=== PATIENT | female | born 1950 | race Hispanic/Latino ===

== ENCOUNTER 2017-10-07 16:38 | Inpatient (IN) | payer MEDICARE, MEDICAID ==
[2017-10-07 19:21] LABS: Basophils % (Auto) 0.2 % (0.0-1.8); Eosinophils % (Auto) 0.9 % (0.0-4.3); Hemoglobin 10.2 gm/dl (10.1-14.3); Mean Corpuscular HGB Conc 33 % (30-34); Mean Corpuscular Hemoglobin 33 pg (28-32); Mean Corpuscular Volume 100 fl (79-97); Platelet Count 309 K/mm3 (140-440); Red Blood Count 3.09 M/mm3 (3.65-5.03); Red Cell Distribution Width 15.5 % (13.2-15.2); White Blood Count 15.1 K/mm3 (4.5-11.0)
[2017-10-07 19:31] LABS: Albumin 3.6 g/dL (3.9-5); Albumin/Globulin Ratio 1.1 %; Bilirubin,Total 0.2 mg/dL (0.1-1.2); Calcium 9.4 mg/dL (8.4-10.2); Chloride 94.5 mmol/L (98-107); Potassium 3.6 mmol/L (3.6-5.0); Total Protein 6.9 g/dL (6.3-8.2)
[2017-10-07 19:35] LABS: INR 1.03 (0.87-1.13)
[2017-10-07 19:36] LABS: Partial Thromboplastin Time 40.6 Sec. (24.2-36.6)
--- NOTE | 2017-10-07 22:40 | Emergency Department Report ---
ED GI Bleed HPI - General Chief complaint: GI Bleed Stated complaint: rectal bleeding and chest pain Time Seen by Provider: 10/07/17 22:35 Source: patient Mode of arrival: Wheelchair Limitations: No Limitations - History of Present Illness Initial comments: Patient is a 67-year-old female presents to the emergency room with complaints of rectal bleeding and chest pain 30 minutes. Patient has a history of dementia. Per family, patient had dark blood per rectum along with clots just prior to arrival. Patient states she had chest pain. States the chest pain as a pressure in his left chest. Pain does not radiate and is a 4 out of 10. She denies abdominal pain. Patient had nausea but no vomiting. Patient denies rectal pain. Complains of fever. MD complaint: blood on toilet paper, gross hematochezia -: Sudden Radiation: none Severity scale (0 -10): 0 Consistency: constant Improves with: none Worsens with: none Context: hemorrhoids Associated Symptoms: denies other symptoms Treatments Prior to Arrival: none - Related Data Home Medications Medication Instructions Recorded Confirmed Last Taken clonazePAM [KlonoPIN] 0.5 mg PO QID PRN 09/26/17 09/26/17 09/26/17 predniSONE [Deltasone] 20 mg PO QDAY 09/26/17 09/26/17 09/26/17 Previous Rx's Medication Instructions Recorded Last Taken Type Aspirin EC [Aspirin Enteric Coated 81 mg PO QDAY #30 tablet 09/30/17 Unknown Rx TAB] AtorvaSTATin [Lipitor] 80 mg PO QDAY #30 tablet 09/30/17 Unknown Rx Carvedilol [Coreg] 25 mg PO BID #60 tablet 09/30/17 Unknown Rx Cetirizine HCl [All Day Allergy] 10 mg PO DAILY #30 tablet 09/30/17 Unknown Rx Citalopram [celeXA] 10 mg PO QDAY #30 tablet 09/30/17 Unknown Rx Clopidogrel Bisulfate [Plavix] 75 mg PO QDAY #30 tablet 09/30/17 Unknown Rx Donepezil [Aricept] 5 mg PO QHS #30 tablet 09/30/17 Unknown Rx Furosemide [Lasix TAB] 40 mg PO QDAY #30 tablet 09/30/17 Unknown Rx Gabapentin [Neurontin] 300 mg PO Q8HR #30 capsule 09/30/17 Unknown Rx Hydralazine HCl 50 mg PO TID #30 tablet 09/30/17 Unknown Rx Levemir 10 units SC HS #30 09/30/17 Unknown Rx Levothyroxine [Synthroid] 125 mcg PO QAM #30 tablet 09/30/17 Unknown Rx amLODIPine [Norvasc] 10 mg PO DAILY #30 tablet 09/30/17 Unknown Rx buPROPion SR [Wellbutrin SR] 150 mg PO BID #60 tablet 09/30/17 Unknown Rx sulfaSALAzine [Azulfidine] 500 mg PO Q6HR #30 tablet 09/30/17 Unknown Rx Allergies Allergy/AdvReac Type Severity Reaction Status Date / Time No Known Allergies Allergy Verified 10/07/17 17:28 ED Review of Systems ROS: Stated complaint: VAG DISCHARGE Other details as noted in HPI Comment: All other systems reviewed and negative Constitutional: fever Eyes: as per HPI ENT: as per HPI Respiratory: no symptoms reported, see HPI Cardiovascular: as per HPI, chest pain Endocrine: no symptoms reported Gastrointestinal: as per HPI, nausea, hematochezia Genitourinary: as per HPI Musculoskeletal: as per HPI Skin: as per HPI Neurological: as per HPI Psychiatric: as per HPI Hematological/Lymphatic: as per HPI ED Past Medical Hx - Past Medical History Hx Hypertension: Yes Hx CVA: Yes Hx Congestive Heart Failure: Yes Hx Diabetes: Yes Hx Renal Disease: Yes Additional medical history: hypothyroidism fx humerus/ deminta - Social History Smoking Status: Former Smoker Substance Use Type: None - Medications Home Medications: Home Medications Medication Instructions Recorded Confirmed Last Taken Type clonazePAM [KlonoPIN] 0.5 mg PO QID PRN 09/26/17 09/26/17 09/26/17 History predniSONE [Deltasone] 20 mg PO QDAY 09/26/17 09/26/17 09/26/17 History Aspirin EC [Aspirin Enteric Coated 81 mg PO QDAY #30 tablet 09/30/17 Unknown Rx TAB] AtorvaSTATin [Lipitor] 80 mg PO QDAY #30 tablet 09/30/17 Unknown Rx Carvedilol [Coreg] 25 mg PO BID #60 tablet 09/30/17 Unknown Rx Cetirizine HCl [All Day Allergy] 10 mg PO DAILY #30 tablet 09/30/17 Unknown Rx Citalopram [celeXA] 10 mg PO QDAY #30 tablet 09/30/17 Unknown Rx Clopidogrel Bisulfate [Plavix] 75 mg PO QDAY #30 tablet 09/30/17 Unknown Rx Donepezil [Aricept] 5 mg PO QHS #30 tablet 09/30/17 Unknown Rx Furosemide [Lasix TAB] 40 mg PO QDAY #30 tablet 09/30/17 Unknown Rx Gabapentin [Neurontin] 300 mg PO Q8HR #30 capsule 09/30/17 Unknown Rx Hydralazine HCl 50 mg PO TID #30 tablet 09/30/17 Unknown Rx Levemir 10 units SC HS #30 09/30/17 Unknown Rx Levothyroxine [Synthroid] 125 mcg PO QAM #30 tablet 09/30/17 Unknown Rx amLODIPine [Norvasc] 10 mg PO DAILY #30 tablet 09/30/17 Unknown Rx buPROPion SR [Wellbutrin SR] 150 mg PO BID #60 tablet 09/30/17 Unknown Rx sulfaSALAzine [Azulfidine] 500 mg PO Q6HR #30 tablet 09/30/17 Unknown Rx ED Physical Exam - General Limitations: No Limitations General appearance: alert, in no apparent distress - Head Head exam: Present: atraumatic, normocephalic - Eye Eye exam: Present: normal appearance - ENT ENT exam: Present: mucous membranes moist - Neck Neck exam: Present: normal inspection - Respiratory Respiratory exam: Present: normal lung sounds bilaterally. Absent: respiratory distress - Cardiovascular Cardiovascular Exam: Present: regular rate, normal rhythm. Absent: systolic murmur, diastolic murmur, rubs, gallop - GI/Abdominal GI/Abdominal exam: Present: soft, normal bowel sounds - Rectal Rectal exam: Present: normal rectal tone, heme (+) stool, bloody stool, hemorrhoids, other (nurse naveen in room during exam) - Extremities Exam Extremities exam: Present: normal inspection - Back Exam Back exam: Present: normal inspection - Neurological Exam Neurological exam: Present: alert, oriented X3 - Psychiatric Psychiatric exam: Present: normal affect, normal mood - Skin Skin exam: Present: warm, dry, intact, normal color. Absent: rash ED Course Vital Signs 10/07/17 10/07/17 17:30 22:03 Temperature 99.3 F 100.1 F H Pulse Rate 74 81 Respiratory 18 20 Rate Blood Pressure 160/56 167/57 O2 Sat by Pulse 100 92 Oximetry ED Medical Decision Making - Lab Data Result diagrams: 10/07/17 18:24 10/07/17 18:24 - EKG Data -: EKG Interpreted by Me EKG shows normal: sinus rhythm Rate: normal - EKG Data When compared to previous EKG there are: no significant change Interpretation: no acute changes Critical care attestation.: If time is entered above; I have spent that time in minutes in the direct care of this critically ill patient, excluding procedure time. ED Disposition Clinical Impression: Colitis, Chest pain, Rectal bleeding, ESRD on dialysis Disposition: OP ADMIT IP TO THIS HOSP Is pt being admited?: Yes Does the pt Need Aspirin: No Condition: Serious Time of Disposition: 00:55
--- NOTE | 2017-10-08 00:37 | Cat Scan Report ---
FINAL REPORT EXAM: CT ABDOMEN PELVIS WO CON HISTORY: gi bleeed TECHNIQUE: Routine axial imaging was obtained of the abdomen and pelvis without oral or IV contrast. Sagittal and coronal reconstructions were reviewed. FINDINGS: The lung bases reveal interstitial edema and small effusions compatible with CHF. The spleen is normal in size and reveals benign granulomatous calcifications. The gallbladder has been removed. The liver and biliary tree appear normal. The pancreas appears normal. The kidneys reveal multiple nonobstructing stones bilaterally measuring up to 4 millimeters in diameter. There is no evidence of hydronephrosis. There calcification of the abdominal aorta. The bowel loops in the upper abdomen are normal in caliber and course. The appendix is not enlarged. In the pelvis there is diffuse mucosal thickening of the rectum with reticulation of the perirectal fascia compatible with extensive proctitis. There is mild mucosal thickening in the sigmoid colon also. Free fluid is not seen. The uterus and bladder appear normal. The skeletal structures reveal previous ORIF for left hip fracture. IMPRESSION: Extensive proctitis with mild sigmoid colitis. Congestive heart failure with bilateral small effusions. Cholecystectomy. Multiple nonobstructing stones both kidneys. No evidence of hydronephrosis.
[2017-10-08] MEDS ORDERED: ZOSYN/NS 2.25 GM/50ML 2.25 GM/50 ML BAG IV ONE (00:56)
[2017-10-08] MEDS ORDERED: ASPIRIN PO ONE (01:59)
[2017-10-08] MEDS ORDERED: MORPHINE IV ONE (03:15)
[2017-10-08] MEDS ORDERED: MORPHINE IV PRN (03:19)
[2017-10-08] MEDS ORDERED: ZOFRAN IV PRN (03:19)
[2017-10-08] MEDS ORDERED: LEVAQUIN 500MG/100ML 500 MG/100 ML BAG IV SCH (04:00)
[2017-10-08] MEDS ORDERED: LEVAQUIN 500MG/100ML 500 MG/100 ML BAG IV ONE (04:26)
[2017-10-08] MEDS ORDERED: FLAGYL 500 MG/100 ML 500 MG/100 ML BAG IV ONE (04:26)
[2017-10-08] MEDS: FLAGYL 500 MG/100 ML 500 MG/100 ML BAG IV SCH ×3 (04:27→20:30)
--- NOTE | 2017-10-08 04:47 | History and Physical Report ---
History of Present Illness Date of examination: 10/08/17 Date of admission: 10/08/17 03:19 History of present illness: 67-year-old woman history of CHF, hypertension, end-stage renal disease, coronary artery disease, diabetes, hypothyroidism, hyperlipidemia comes emergency room with complaints of rectal bleeding 2 episodes. She denies chest pain, abdominal pain, nausea vomiting Review Of Systems: Constitutional: no weight loss Ears, eyes, nose, mouth and throat: no nasal congestion, no nasal discharge, no sinus pressure, blurry vision, diplopia Neck: No neck pain or rigidity. Cardiovascular: no chest pain, orthopnea, palpitations Respiratory: No shortness of breath, cough Gastrointestinal: no abdominal pain Genitourinary : no dysuria, frequency , hematuria Musculoskeletal: no muscle ache Integumentary: no rash, no pruritis Neurological: no parathesias, focal weakness Endocrine: no cold or heat intolerance, no polyuria or polydipsia Hematologic/Lymphatic: no easy bruising, no easy bleeding, no gland swelling Allergic/Immunologic: no urticaria, no angioedema. PAST MEDICAL HISTORY:CHF, hypertension, end-stage renal disease, coronary artery disease, diabetes, hypothyroidism, hyperlipidemia PAST SURGICAL HISTORY: CABG FAMILY HISTORY:Hypertension SOCIAL HISTORY:Smoke half pack a day, no alcohol or drugs Medications and Allergies Allergies Allergy/AdvReac Type Severity Reaction Status Date / Time No Known Allergies Allergy Verified 10/07/17 17:28 Home Medications Medication Instructions Recorded Confirmed Last Taken Type clonazePAM [KlonoPIN] 0.5 mg PO QID PRN 09/26/17 09/26/17 09/26/17 History predniSONE [Deltasone] 20 mg PO QDAY 09/26/17 09/26/17 09/26/17 History Aspirin EC [Aspirin Enteric Coated 81 mg PO QDAY #30 tablet 09/30/17 Unknown Rx TAB] AtorvaSTATin [Lipitor] 80 mg PO QDAY #30 tablet 09/30/17 Unknown Rx Carvedilol [Coreg] 25 mg PO BID #60 tablet 09/30/17 Unknown Rx Cetirizine HCl [All Day Allergy] 10 mg PO DAILY #30 tablet 09/30/17 Unknown Rx Citalopram [celeXA] 10 mg PO QDAY #30 tablet 09/30/17 Unknown Rx Clopidogrel Bisulfate [Plavix] 75 mg PO QDAY #30 tablet 09/30/17 Unknown Rx Donepezil [Aricept] 5 mg PO QHS #30 tablet 09/30/17 Unknown Rx Furosemide [Lasix TAB] 40 mg PO QDAY #30 tablet 09/30/17 Unknown Rx Gabapentin [Neurontin] 300 mg PO Q8HR #30 capsule 09/30/17 Unknown Rx Hydralazine HCl 50 mg PO TID #30 tablet 09/30/17 Unknown Rx Levemir 10 units SC HS #30 09/30/17 Unknown Rx Levothyroxine [Synthroid] 125 mcg PO QAM #30 tablet 09/30/17 Unknown Rx amLODIPine [Norvasc] 10 mg PO DAILY #30 tablet 09/30/17 Unknown Rx buPROPion SR [Wellbutrin SR] 150 mg PO BID #60 tablet 09/30/17 Unknown Rx sulfaSALAzine [Azulfidine] 500 mg PO Q6HR #30 tablet 09/30/17 Unknown Rx Active Meds: Active Medications Acetaminophen (Tylenol) 650 mg PO Q4H PRN PRN Reason: Pain MILD(1-3)/Fever >100.5/[facility]DEZ Amlodipine Besylate (Norvasc) 10 mg PO DAILY [facility] Atorvastatin Calcium (Lipitor) 80 mg PO QDAY [facility] Bupropion HCl (Wellbutrin Sr) 150 mg PO BID [facility] Citalopram Hydrobromide (Celexa) 10 mg PO QDAY [facility] Clonazepam (Klonopin) 0.5 mg PO QID PRN PRN Reason: Anxiety Donepezil HCl (Aricept) 5 mg PO QHS [facility] Gabapentin (Neurontin) 300 mg PO Q8HR [facility] Metronidazole (Flagyl 500 Mg/100 Ml) 500 mg in 100 mls @ 100 mls/hr IV Q8H [facility] Last Admin: 10/08/17 04:27 Dose: 100 mls/hr Levofloxacin/Dextrose (Levaquin 500mg/100ml) 500 mg in 100 mls @ 100 mls/hr IV Q48H [facility] Levothyroxine Sodium (Synthroid) 125 mcg PO QAM@0600 [facility] Loratadine (Claritin) 10 mg PO DAILY [facility] Morphine Sulfate (Morphine) 2 mg IV Q4H PRN PRN Reason: Pain, Moderate (4-6) Ondansetron HCl (Zofran) 4 mg IV Q8H PRN PRN Reason: N/V unrelieved by Reglan Prednisone (Deltasone) 20 mg PO QDAY [facility] Sulfasalazine (Azulfidine) 500 mg PO Q6HR [facility] Exam - Physical Exam Narrative exam: Gen. appearance: Patient lying in bed in no acute distress HEENT: Normocephalic/atraumatic, pupils equal round reactive to light, extra alkaline movement intact, no scleral icterus, no JVD or thyromegaly or nodule, neck is supple, mucous membrane moist, no erythema or exudate Heart: S1-S2, regular rate and rhythm Lungs: Clear to auscultation bilateral breathing comfortable Abdomen: Positive bowel sounds, nontender, nondistended, no organomegaly Extremities: No edema, cyanosis, clubbing Neuro:: Oriented 3 , cranial nerves II-12 intact, speech, motor intact Skin: No rash, nodules, warm dry - Constitutional Vitals: Temp Pulse Resp BP Pulse Ox 100.1 F H 77 10 L 153/56 92 10/08/17 01:24 10/08/17 03:00 10/08/17 03:00 10/08/17 03:00 10/08/17 03:00 Results - Labs CBC & Chem 7: 10/07/17 18:24 10/07/17 18:24 Labs: Abnormal lab results 10/07/17 10/07/17 10/07/17 Range/Units 18:24 18:24 18:24 WBC 15.1 H (4.5-11.0) K/mm3 RBC 3.09 L (3.65-5.03) M/mm3 MCV 100 H (79-97) fl MCH 33 H (28-32) pg RDW 15.5 H (13.2-15.2) % Lymph % (Auto) 8.2 L (13.4-35.0) % Seg Neutrophils % 86.8 H (40.0-70.0) % Seg Neutrophils # 13.1 H (1.8-7.7) K/mm3 APTT 40.6 H (24.2-36.6) Sec. Chloride 94.5 L (98-107) mmol/L Creatinine 2.3 H (0.7-1.2) mg/dL Glucose 194 H (65-100) mg/dL POC Glucose (70-105) Alkaline Phosphatase 149 H (35-129) units/L CK-MB (CK-2) Rel Index (0-4) Troponin T (0.00-0.029) ng/mL Albumin 3.6 L (3.9-5) g/dL Triglycerides (2-149) mg/dL LDL Cholesterol Direct (50-130) mg/dL 10/07/17 10/07/17 Range/Units 22:05 22:47 WBC (4.5-11.0) K/mm3 RBC (3.65-5.03) M/mm3 MCV (79-97) fl MCH (28-32) pg RDW (13.2-15.2) % Lymph % (Auto) (13.4-35.0) % Seg Neutrophils % (40.0-70.0) % Seg Neutrophils # (1.8-7.7) K/mm3 APTT (24.2-36.6) Sec. Chloride (98-107) mmol/L Creatinine (0.7-1.2) mg/dL Glucose (65-100) mg/dL POC Glucose 258 H (70-105) Alkaline Phosphatase (35-129) units/L CK-MB (CK-2) Rel Index 4.4 H (0-4) Troponin T 0.135 H* (0.00-0.029) ng/mL Albumin (3.9-5) g/dL Triglycerides 389 H (2-149) mg/dL LDL Cholesterol Direct 40 L (50-130) mg/dL - Imaging and Cardiology CT scan - abdomen: report reviewed CT scan - pelvis: report reviewed Assessment and Plan Assessment Acute colitis and proctitis End-stage renal disease on dialysis Abnormal troponin, asymptomatic CHF, stable Hypertension Coronary artery disease Diabetes Hypothyroidism Hyperlipidemia Plan Admit to medicine Monitor hemoglobin, consult GI Consult renal for dialysis, check cardiac enzymes Check fingersticks and initiate insulin sliding scale Continue appropriate outpatient medication DVT prophylaxis with SCD
[2017-10-08] MEDS: LEVAQUIN 500MG/100ML 500 MG/100 ML BAG IV SCH (05:00)
[2017-10-08] MEDS: AZULFIDINE PO SCH ×3 (06:13→18:22)
[2017-10-08] MEDS: NEURONTIN PO SCH ×3 (06:13→23:02)
[2017-10-08] MEDS: SYNTHROID PO SCH (06:13)
[2017-10-08 06:43] LABS: Hematocrit 27.3 % (30.3-42.9); Hemoglobin 8.9 gm/dl (10.1-14.3)
[2017-10-08 07:06] LABS: Creatine Kinase MB 1.4 ng/mL (0.0-4.0)
--- NOTE | 2017-10-08 09:07 | Progress Note ---
Assessment and Plan Assessment and plan: Patient is a 67 year-old woman with a history of hypertension, end-stage renal disease, coronary artery disease, type 2 diabetes mellitus, hypothyroidism and dyslipidemia with who presents with rectal bleeding -Sepsis colitis: Continue antibiotics -Elevated troponin: Consult cardiology -End stage: Consult nephrology renal disease History Interval history: Patient was seen and examined. Follow-up on current diagnosis. Overnight uneventful. Patient denies any chest pain, shortness breath, nausea/vomiting or severe headaches. Imaging, nursing note, chart, labs and old chart reviewed. Discussed with patient. Hospitalist Physical - Physical exam Narrative exam: GEN: WDWN, NAD, AWAKE, ALERT, ORIENTATED HEENT: NCAT, EOMI, PERRL, OP Clear NECK: supple, no adenopathy, no thyromegaly, no JVD CVS/HEART: RRR, NORMAL S1S2, NO JVD, pulses present bilaterally CHEST/LUNGS: CTA B, Symmetrical chest expansion, good air entry bilaterally GI/Abdomen: soft, nondistended, diffuse tenderness, good bowel sounds, no guarding or rebound /Bladder: no suprapubic tenderness, no CVA or paraspinal tenderness EXT/Skin: no c/c/e, no obvious rash MSK: FROM x 4 Neuro: CN 2-12 grossly intact, no new focal deficits Psych: calm - Constitutional Vitals: Temp Pulse Resp BP Pulse Ox 98.1 F 75 18 141/54 99 10/08/17 06:38 10/08/17 06:38 10/08/17 06:38 10/08/17 06:38 10/08/17 08:10 Results - Labs CBC & Chem 7: 10/08/17 06:11 10/07/17 18:24 Labs: Laboratory Last Values WBC 15.1 K/mm3 (4.5-11.0) H 10/07/17 18:24 RBC 3.09 M/mm3 (3.65-5.03) L 10/07/17 18:24 Hgb 8.9 gm/dl (10.1-14.3) L 10/08/17 06:11 Hct 27.3 % (30.3-42.9) L 10/08/17 06:11 MCV 100 fl (79-97) H 10/07/17 18:24 MCH 33 pg (28-32) H 10/07/17 18:24 MCHC 33 % (30-34) 10/07/17 18:24 RDW 15.5 % (13.2-15.2) H 10/07/17 18:24 Plt Count 309 K/mm3 (140-440) 10/07/17 18:24 Lymph % (Auto) 8.2 % (13.4-35.0) L 10/07/17 18:24 Woods % (Auto) 3.9 % (0.0-7.3) 10/07/17 18:24 Eos % (Auto) 0.9 % (0.0-4.3) 10/07/17 18:24 Baso % (Auto) 0.2 % (0.0-1.8) 10/07/17 18:24 Lymph # 1.2 K/mm3 (1.2-5.4) 10/07/17 18:24 Woods # 0.6 K/mm3 (0.0-0.8) 10/07/17 18:24 Eos # 0.1 K/mm3 (0.0-0.4) 10/07/17 18:24 Baso # 0.0 K/mm3 (0.0-0.1) 10/07/17 18:24 Seg Neutrophils % 86.8 % (40.0-70.0) H 10/07/17 18:24 Seg Neutrophils # 13.1 K/mm3 (1.8-7.7) H 10/07/17 18:24 PT 14.0 Sec. (12.2-14.9) 10/07/17 18:24 INR 1.03 (0.87-1.13) 10/07/17 18:24 APTT 40.6 Sec. (24.2-36.6) H 10/07/17 18:24 Sodium 138 mmol/L (137-145) 10/07/17 18:24 Potassium 3.6 mmol/L (3.6-5.0) 10/07/17 18:24 Chloride 94.5 mmol/L (98-107) L 10/07/17 18:24 Carbon Dioxide 30 mmol/L (22-30) 10/07/17 18:24 Anion Gap 17 mmol/L 10/07/17 18:24 BUN 13 mg/dL (7-17) 10/07/17 18:24 Creatinine 2.3 mg/dL (0.7-1.2) H 10/07/17 18:24 Estimated GFR 21 ml/min 10/07/17 18:24 BUN/Creatinine Ratio 6 % 10/07/17 18:24 Glucose 194 mg/dL (65-100) H 10/07/17 18:24 POC Glucose 258 (70-105) H 10/07/17 22:05 Calcium 9.4 mg/dL (8.4-10.2) 10/07/17 18:24 Total Bilirubin 0.20 mg/dL (0.1-1.2) 10/07/17 18:24 AST 16 units/L (5-40) 10/07/17 18:24 ALT 14 units/L (7-56) 10/07/17 18:24 Alkaline Phosphatase 149 units/L (35-129) H 10/07/17 18:24 Total Creatine Kinase 40 units/L (30-135) 10/08/17 06:11 CK-MB (CK-2) 1.4 ng/mL (0.0-4.0) 10/08/17 06:11 CK-MB (CK-2) Rel Index 3.5 (0-4) 10/08/17 06:11 Troponin T 0.141 ng/mL (0.00-0.029) H* 10/08/17 06:11 Total Protein 6.9 g/dL (6.3-8.2) 10/07/17 18:24 Albumin 3.6 g/dL (3.9-5) L 10/07/17 18:24 Albumin/Globulin Ratio 1.1 % 10/07/17 18:24 Triglycerides 389 mg/dL (2-149) H 10/07/17 22:47 Cholesterol 167 mg/dL (50-199) 10/07/17 22:47 LDL Cholesterol Direct 40 mg/dL (50-130) L 10/07/17 22:47 HDL Cholesterol 50 mg/dL (40-59) 10/07/17 22:47 Cholesterol/HDL Ratio 3.34 % 10/07/17 22:47 Lipase 26 units/L (13-60) 10/07/17 18:24 Blood Type B POSITIVE 10/07/17 18:24 Antibody Screen Negative 10/07/17 18:24
[2017-10-08] MEDS ORDERED: NON-FORMULARY (Cetirizine Hcl [All Day Allergy] 10 MG) PO SCH (10:00)
[2017-10-08 10:29] LABS: Hematocrit 25.8 % (30.3-42.9); Hemoglobin 8.6 gm/dl (10.1-14.3)
[2017-10-08 10:36] LABS: Creatine Kinase MB 1.4 ng/mL (0.0-4.0)
[2017-10-08] MEDS: WELLBUTRIN SR PO SCH ×2 (10:40→23:02)
[2017-10-08] MEDS: CLARITIN PO SCH (10:40)
[2017-10-08] MEDS: DELTASONE PO SCH (10:40)
[2017-10-08] MEDS: celeXA PO SCH (10:41)
[2017-10-08] MEDS: NORVASC PO SCH (10:43)
[2017-10-08] MEDS ORDERED: Fluarix Quad 2017-2018(36 MOS+ IM ONE (12:00)
[2017-10-08] MEDS ORDERED: PNEUMOVAX 23 IM ONE (12:00)
--- NOTE | 2017-10-08 12:42 | Consultation ---
History of Present Illness Consult date: 10/08/17 Consult reason: elevated troponin History of present illness: The patient is a 67-year-old woman with end-stage renal disease, coronary artery disease and previous coronary artery bypass. She presented to the hospital with complaints of diarrhea, nausea, and rectal bleeding associated with her diarrhea. The patient's daughter states that a "stomach virus" has afflicted several members of the household in the past 2 weeks. The patient had no cardiac symptoms, specifically no chest pain, no shortness of breath, no palpitations and no lower extremity edema. For unclear reasons, part of her emergency room evaluation included a measurement of troponin levels which were found to be mildly elevated at 0.1. Cardiology consultation was requested for the troponin elevation. The patient has had extensive recent cardiac ischemic workup. Last month, she underwent a cardiac catheterization at this hospital. There was a chronic total occlusion of the LAD, but a widely patent saphenous vein graft with anastomoses to the mid LAD and a proximal diagonal branch of the LAD. The circumflex and right coronary arteries were not previously bypassed, both were small caliber vessels that contained diffuse moderate to moderately severe atherosclerosis. There was normal left ventricle systolic function, and patient was recommended for aggressive risk factor modification and medical therapy for her diffuse small vessel disease. Patient is currently comfortable in her room on the telemetry floor, no cardiac complaints. Past History Past Medical History: CAD Past Surgical History: CABG Medications and Allergies Allergies Allergy/AdvReac Type Severity Reaction Status Date / Time No Known Allergies Allergy Verified 10/07/17 17:28 Home Medications Medication Instructions Recorded Confirmed Last Taken Type clonazePAM [KlonoPIN] 0.5 mg PO QID PRN 09/26/17 09/26/17 09/26/17 History predniSONE [Deltasone] 20 mg PO QDAY 09/26/17 09/26/17 09/26/17 History Aspirin EC [Aspirin Enteric Coated 81 mg PO QDAY #30 tablet 09/30/17 Unknown Rx TAB] AtorvaSTATin [Lipitor] 80 mg PO QDAY #30 tablet 09/30/17 Unknown Rx Carvedilol [Coreg] 25 mg PO BID #60 tablet 09/30/17 Unknown Rx Cetirizine HCl [All Day Allergy] 10 mg PO DAILY #30 tablet 09/30/17 Unknown Rx Citalopram [celeXA] 10 mg PO QDAY #30 tablet 09/30/17 Unknown Rx Clopidogrel Bisulfate [Plavix] 75 mg PO QDAY #30 tablet 09/30/17 Unknown Rx Donepezil [Aricept] 5 mg PO QHS #30 tablet 09/30/17 Unknown Rx Furosemide [Lasix TAB] 40 mg PO QDAY #30 tablet 09/30/17 Unknown Rx Gabapentin [Neurontin] 300 mg PO Q8HR #30 capsule 09/30/17 Unknown Rx Hydralazine HCl 50 mg PO TID #30 tablet 09/30/17 Unknown Rx Levemir 10 units SC HS #30 09/30/17 Unknown Rx Levothyroxine [Synthroid] 125 mcg PO QAM #30 tablet 09/30/17 Unknown Rx amLODIPine [Norvasc] 10 mg PO DAILY #30 tablet 09/30/17 Unknown Rx buPROPion SR [Wellbutrin SR] 150 mg PO BID #60 tablet 09/30/17 Unknown Rx sulfaSALAzine [Azulfidine] 500 mg PO Q6HR #30 tablet 09/30/17 Unknown Rx Active Meds: Active Medications Acetaminophen (Tylenol) 650 mg PO Q4H PRN PRN Reason: Pain MILD(1-3)/Fever >100.5/MENDEZ Amlodipine Besylate (Norvasc) 10 mg PO DAILY [facility] Last Admin: 10/08/17 10:43 Dose: 10 mg Atorvastatin Calcium (Lipitor) 80 mg PO QDAY [facility] Last Admin: 10/08/17 10:39 Dose: 80 mg Bupropion HCl (Wellbutrin Sr) 150 mg PO BID [facility] Last Admin: 10/08/17 10:40 Dose: 150 mg Citalopram Hydrobromide (Celexa) 10 mg PO QDAY [facility] Last Admin: 10/08/17 10:41 Dose: 10 mg Clonazepam (Klonopin) 0.5 mg PO QID PRN PRN Reason: Anxiety Donepezil HCl (Aricept) 5 mg PO QHS [facility] Gabapentin (Neurontin) 300 mg PO Q8HR [facility] Last Admin: 10/08/17 06:13 Dose: 300 mg Metronidazole (Flagyl 500 Mg/100 Ml) 500 mg in 100 mls @ 100 mls/hr IV Q8H [facility] Last Admin: 10/08/17 04:27 Dose: 100 mls/hr Levofloxacin/Dextrose (Levaquin 500mg/100ml) 500 mg in 100 mls @ 100 mls/hr IV Q48H [facility] Last Admin: 10/08/17 05:00 Dose: 100 mls/hr Levothyroxine Sodium (Synthroid) 125 mcg PO QAM@0600 [facility] Last Admin: 10/08/17 06:13 Dose: 125 mcg Loratadine (Claritin) 10 mg PO DAILY [facility] Last Admin: 10/08/17 10:40 Dose: 10 mg Morphine Sulfate (Morphine) 2 mg IV Q4H PRN PRN Reason: Pain, Moderate (4-6) Ondansetron HCl (Zofran) 4 mg IV Q8H PRN PRN Reason: N/V unrelieved by Reglan Prednisone (Deltasone) 20 mg PO QDAY [facility] Last Admin: 10/08/17 10:40 Dose: 20 mg Sulfasalazine (Azulfidine) 500 mg PO Q6HR [facility] Last Admin: 10/08/17 06:13 Dose: 500 mg Review of Systems Cardiovascular: no chest pain, no orthopnea, no palpitations, no rapid/ irregular heart beat, no edema, no syncope, no lightheadedness, no shortness of breath Physical Examination Vital Signs Temp Pulse Resp BP Pulse Ox 99.3 F 74 18 160/56 100 10/07/17 17:30 10/07/17 17:30 10/07/17 17:30 10/07/17 17:30 10/07/17 17:30 General appearance: no acute distress HEENT: Positive: PERRL Neck: Positive: neck supple Cardiac: Positive: Reg Rate and Rhythm Lungs: Positive: clear to auscultation Neuro: Positive: Grossly Intact Abdomen: Positive: Soft Female genitourinary: deferred Skin: Positive: Clear Extremities: Absent: edema Results 10/08/17 10:02 10/07/17 18:24 Cardiac Enzymes 10/07/17 10/07/17 10/08/17 Range/Units 18:24 22:47 06:11 AST 16 (5-40) units/L CK-MB (CK-2) 2.0 1.4 (0.0-4.0) ng/mL 10/08/17 Range/Units 10:02 AST (5-40) units/L CK-MB (CK-2) 1.4 (0.0-4.0) ng/mL Coagulation 10/07/17 Range/Units 18:24 PT 14.0 (12.2-14.9) Sec. INR 1.03 (0.87-1.13) APTT 40.6 H (24.2-36.6) Sec. Lipids 10/07/17 Range/Units 22:47 Triglycerides 389 H (2-149) mg/dL Cholesterol 167 (50-199) mg/dL HDL Cholesterol 50 (40-59) mg/dL Cholesterol/HDL Ratio 3.34 % CBC 10/07/17 10/08/17 10/08/17 Range/Units 18:24 06:11 10:02 WBC 15.1 H (4.5-11.0) K/mm3 RBC 3.09 L (3.65-5.03) M/mm3 Hgb 10.2 8.9 L 8.6 L (10.1-14.3) gm/dl Hct 31.0 27.3 L 25.8 L (30.3-42.9) % Plt Count 309 (140-440) K/mm3 Lymph # 1.2 (1.2-5.4) K/mm3 [place] # 0.6 (0.0-0.8) K/mm3 Eos # 0.1 (0.0-0.4) K/mm3 Baso # 0.0 (0.0-0.1) K/mm3 Comprehensive Metabolic Panel 10/07/17 Range/Units 18:24 Sodium 138 (137-145) mmol/L Potassium 3.6 (3.6-5.0) mmol/L Chloride 94.5 L (98-107) mmol/L Carbon Dioxide 30 (22-30) mmol/L BUN 13 (7-17) mg/dL Creatinine 2.3 H (0.7-1.2) mg/dL Glucose 194 H (65-100) mg/dL Calcium 9.4 (8.4-10.2) mg/dL AST 16 (5-40) units/L ALT 14 (7-56) units/L Alkaline Phosphatase 149 H (35-129) units/L Total Protein 6.9 (6.3-8.2) g/dL Albumin 3.6 L (3.9-5) g/dL EKG interpretations - Telemetry EKG Rhythm: Sinus Rhythm Assessment and Plan - Patient Problems (1) Elevated troponin Current Visit: Yes Status: Acute Plan to address problem: The isolated mild increase in troponin is a likely nonspecific finding in this clinical setting the patient with end-stage renal disease. The patient has no cardiac symptoms no further cardiac workup. (2) Coronary artery disease Current Visit: Yes Status: Acute Plan to address problem: Based on the findings of cardiac catheterization last month, the patient is recommended for continued aggressive risk factor modification and medical therapy for small vessel atherosclerosis.
[2017-10-08 13:49] LABS: Hematocrit 27.8 % (30.3-42.9)
--- NOTE | 2017-10-08 16:25 | Progress Note ---
Subjective Date of service: 10/08/17 Principal diagnosis: Rectal Bleeding, ESRD Objective - Vital Signs Vital signs: Vital Signs - 12hr 10/08/17 10/08/17 10/08/17 04:31 06:38 08:10 Temperature 98.1 F Pulse Rate 79 75 Respiratory 22 18 Rate Blood Pressure 144/42 141/54 O2 Sat by Pulse 100 99 99 Oximetry 10/08/17 10/08/17 09:04 10:43 Temperature 98.8 F Pulse Rate 74 74 Respiratory 18 Rate Blood Pressure 143/50 143/50 O2 Sat by Pulse 99 Oximetry - Lab 10/08/17 13:30 10/07/17 18:24 Most recent lab results Calcium 9.4 mg/dL (8.4-10.2) 10/07/17 18:24
--- NOTE | 2017-10-08 16:31 | Consultation ---
History of Present Illness - Reason for Consult Consult date: 10/08/17 end stage renal disease - History of Present Illness This is a 67 year old [place] female who presents to the E.R today with a chief complaint of having rectal bleeding and chest pain. Rectal bleeding actually started yesterday evening when patient had a bowel movement per daughter and after patient was cleaned up more bleeding was seen on her new diaper per daughter.Cardiology and Gastroenterology consulted. Patient has ESRD and is on hemodialysis at [facility] every Monday, and Monday. Patient received HD yesterday. We are being consulted for continued management of this patient's ESRD while hospitalized. Past History Past Medical History: anemia, CAD, dialysis, ESRD, heart failure, hypertension, renal failure Past Surgical History: No surgical history, CABG, Other (Perm-cath placement, left hip and shoulder repair) Social history: lives with family Family history: no significant family history Medications and Allergies Allergies Allergy/AdvReac Type Severity Reaction Status Date / Time No Known Allergies Allergy Verified 10/07/17 17:28 Home Medications Medication Instructions Recorded Confirmed Last Taken Type clonazePAM [KlonoPIN] 0.5 mg PO QID PRN 09/26/17 09/26/17 09/26/17 History predniSONE [Deltasone] 20 mg PO QDAY 09/26/17 09/26/17 09/26/17 History Aspirin EC [Aspirin Enteric Coated 81 mg PO QDAY #30 tablet 09/30/17 Unknown Rx TAB] AtorvaSTATin [Lipitor] 80 mg PO QDAY #30 tablet 09/30/17 Unknown Rx Carvedilol [Coreg] 25 mg PO BID #60 tablet 09/30/17 Unknown Rx Cetirizine HCl [All Day Allergy] 10 mg PO DAILY #30 tablet 09/30/17 Unknown Rx Citalopram [celeXA] 10 mg PO QDAY #30 tablet 09/30/17 Unknown Rx Clopidogrel Bisulfate [Plavix] 75 mg PO QDAY #30 tablet 09/30/17 Unknown Rx Donepezil [Aricept] 5 mg PO QHS #30 tablet 09/30/17 Unknown Rx Furosemide [Lasix TAB] 40 mg PO QDAY #30 tablet 09/30/17 Unknown Rx Gabapentin [Neurontin] 300 mg PO Q8HR #30 capsule 09/30/17 Unknown Rx Hydralazine HCl 50 mg PO TID #30 tablet 09/30/17 Unknown Rx Levemir 10 units SC HS #30 09/30/17 Unknown Rx Levothyroxine [Synthroid] 125 mcg PO QAM #30 tablet 09/30/17 Unknown Rx amLODIPine [Norvasc] 10 mg PO DAILY #30 tablet 09/30/17 Unknown Rx buPROPion SR [Wellbutrin SR] 150 mg PO BID #60 tablet 09/30/17 Unknown Rx sulfaSALAzine [Azulfidine] 500 mg PO Q6HR #30 tablet 09/30/17 Unknown Rx Active Meds: Active Medications Acetaminophen (Tylenol) 650 mg PO Q4H PRN PRN Reason: Pain MILD(1-3)/Fever >100.5/MENDEZ Amlodipine Besylate (Norvasc) 10 mg PO DAILY [facility] Last Admin: 10/08/17 10:43 Dose: 10 mg Atorvastatin Calcium (Lipitor) 80 mg PO QDAY [facility] Last Admin: 10/08/17 10:39 Dose: 80 mg Bupropion HCl (Wellbutrin Sr) 150 mg PO BID [facility] Last Admin: 10/08/17 10:40 Dose: 150 mg Citalopram Hydrobromide (Celexa) 10 mg PO QDAY [facility] Last Admin: 10/08/17 10:41 Dose: 10 mg Clonazepam (Klonopin) 0.5 mg PO QID PRN PRN Reason: Anxiety Donepezil HCl (Aricept) 5 mg PO QHS [facility] Gabapentin (Neurontin) 300 mg PO Q8HR [facility] Last Admin: 10/08/17 14:25 Dose: 300 mg Metronidazole (Flagyl 500 Mg/100 Ml) 500 mg in 100 mls @ 100 mls/hr IV Q8H [facility] Last Admin: 10/08/17 14:25 Dose: 100 mls/hr Levofloxacin/Dextrose (Levaquin 500mg/100ml) 500 mg in 100 mls @ 100 mls/hr IV Q48H [facility] Last Admin: 10/08/17 05:00 Dose: 100 mls/hr Levothyroxine Sodium (Synthroid) 125 mcg PO QAM@0600 [facility] Last Admin: 10/08/17 06:13 Dose: 125 mcg Loratadine (Claritin) 10 mg PO DAILY [facility] Last Admin: 10/08/17 10:40 Dose: 10 mg Morphine Sulfate (Morphine) 2 mg IV Q4H PRN PRN Reason: Pain, Moderate (4-6) Ondansetron HCl (Zofran) 4 mg IV Q8H PRN PRN Reason: N/V unrelieved by Reglan Prednisone (Deltasone) 20 mg PO QDAY [facility] Last Admin: 10/08/17 10:40 Dose: 20 mg Sulfasalazine (Azulfidine) 500 mg PO Q6HR [facility] Last Admin: 10/08/17 13:00 Dose: 500 mg Review of Systems Constitutional: fatigue, weakness, no weight loss, no weight gain, no fever, no chills, no sweats, no malaise, no lethargy Ears, nose, mouth and throat: no ear pain, no ear discharge, no tinnitis, no decreased hearing, no nose pain, no nasal discharge Cardiovascular: no chest pain, no orthopnea, no palpitations, no rapid/ irregular heart beat, no edema, no syncope, no lightheadedness, no shortness of breath Respiratory: no cough with sputum, no excessive sputum, no hemoptysis, no shortness of breath, no dyspnea on exertion Gastrointestinal: no abdominal pain, no nausea, no vomiting, no diarrhea, no constipation, no change in bowel habits, no hematemesis, no coffee ground emesis Rectal: bleeding, no pain, no incontinence, no itching, no hemorrhoids Musculoskeletal: no neck pain, no shooting arm pain, no arm numbness/tingling, no low back pain, no shooting leg pain, no leg numbness/tingling, no redness of joints Integumentary: no rash, no pruritis, no redness, no sores, no wounds, no jaundice Neurological: lack of coordination, memory loss, other Psychiatric: anxiety, memory loss, change in sleep habits, sleep disturbances, insomnia Endocrine: no cold intolerance, no heat intolerance, no polyphagia, no excessive thirst Exam - Vital Signs Vital signs: Vital Signs Temp Pulse Resp BP Pulse Ox 99.3 F 74 18 160/56 100 10/07/17 17:30 10/07/17 17:30 10/07/17 17:30 10/07/17 17:30 10/07/17 17:30 - General Appearance General appearance: well-developed, appears stated age, fatigue EENT: ATNC, PERRL, hearing intact, vision intact Neck: Present: neck supple, trachea midline Respiratory: Clear to Ascultation Heart: regular, S1S2 Gastrointestinal: Present: normoactive bowel sounds Integumentary: warm and dry Neurologic: other (Has Dementia) Musculoskeletal: Present: decreased ROM, other (No edema) Psychiatric: mood/affect appropriate Results - Lab Results 10/08/17 13:30 10/07/17 18:24 Most recent lab results Calcium 9.4 mg/dL (8.4-10.2) 10/07/17 18:24 Assessment and Plan - Patient Problems (1) ESRD on dialysis Current Visit: Yes Status: Acute Plan to address problem: No acute indication for HD today On T,T,S schedule outpatiently Assess dialysis needs daily Fluid restriction of 1 liter per day Obtain daily weights Monitor I/O's Renally dose medications (2) Hypertensive CKD (chronic kidney disease) Current Visit: No Status: Acute Plan to address problem: Blood pressures are stable, resume anti-hypertensive agents (3) Rectal bleeding Current Visit: Yes Status: Acute Plan to address problem: Gastroenterology consulted (4) Chest pain Current Visit: Yes Status: Acute Plan to address problem: Cardiology consulted (5) Diabetes mellitus with hyperglycemia Current Visit: No Status: Acute Plan to address problem: As per primary team (6) Anemia Current Visit: Yes Status: Acute Plan to address problem: Anemia of CKD and Rectal bleeding Monitor H/H Epogen with HD as needed
[2017-10-08] MEDS ORDERED: D50W (25GM) Vial IV PRN (19:00)
[2017-10-08] MEDS: NOVOLOG SUB-Q SCH (19:00)
[2017-10-08] MEDS: ARICEPT PO SCH (23:02)
--- NOTE | 2017-10-08 23:04 | Consultation ---
REFERRING PHYSICIAN: Trevor Sharma MD. INDICATIONS: 1. Rectal bleeding. 2. Colitis. HISTORY OF PRESENT ILLNESS: The patient is a 67-year-old black female with history of CHF, hypertension, end-stage renal disease on dialysis, as well as coronary artery disease and hypertension. The patient presents to Emergency Room with 2 days of rectal bleeding. She reports bright red blood. She reports no nausea, vomiting, heartburn, reflux or ingestion. She reports no recent colonoscopy. The patient subsequently presented, was evaluated and GI consulted. The patient had a CT scan, which shows signs of colitis. PAST MEDICAL HISTORY: 1. Congestive heart failure. 2. End-stage renal disease, on dialysis. 3. Coronary artery disease. 4. Diabetes. 5. Hypothyroidism. 6. High cholesterol. PAST SURGICAL HISTORY: Status post CABG. MEDICATIONS: See chart. ALLERGIES: No known drug allergies. SOCIAL HISTORY: Half a pack a day smoker. FAMILY HISTORY: Negative for colon cancer, IBD, or liver disease. REVIEW OF SYSTEMS: GENERAL: Reports mild weakness. HEENT: No visual complaints or tinnitus. PULMONARY: Denies shortness of breath. No cough. No chest pain. GASTROINTESTINAL: Reports rectal bleeding. All points of 13-point review of systems otherwise negative. PHYSICAL EXAMINATION: VITAL SIGNS: Temperature of 98.8, pulse 74, respiration rate 18, blood pressure 143/50. GENERAL: Fairly nourished female, in no acute distress. HEENT: Pupils equal, round and reactive to light and accommodation. Extraocular muscles intact. PULMONARY: Clear to auscultation bilaterally. CARDIOVASCULAR: Regular rhythm. Normal S1, S2. ABDOMEN: Positive bowel sounds, soft. SKIN: No obvious rashes. LABORATORY DATA: Pertinent for white count of 15, hemoglobin and hematocrit of 10.2 and 31.0, platelet count of 309. Coags within normal limits. Sodium 138, potassium 3.6, chloride 95, CO2 of 30, BUN and creatinine of 13 and 2.3. ASSESSMENT: A 67-year-old female with multiple medical problems noted above, presents with 2 days of lower abdominal pain, rectal bleeding. CT scan showed be noted showed signs of sigmoid colitis as well as proctitis. The patient does have decreased hemoglobin and hematocrit. Given increased white count and the patient does have a positive troponin, we take a conservative medical management approach at this time. PLAN: 1. We will review CT scan. 2. Agree with Franchesca as started by primary team. 3. We will await further cardiology input. 4. Follow H and H, and transfuse as needed. 5. We will consider colonoscopy inpatient versus outpatient. It should be noted, the patient reports no colonoscopy in the past. 6. We will follow with further recommendation based on progress. JOB# [id number] CAB/NTS
[2017-10-09] MEDS: AZULFIDINE PO SCH ×5 (00:37→23:15)
[2017-10-09] MEDS: FLAGYL 500 MG/100 ML 500 MG/100 ML BAG IV SCH ×3 (04:45→21:21)
[2017-10-09] MEDS: NEURONTIN PO SCH ×3 (05:11→21:21)
[2017-10-09] MEDS: SYNTHROID PO SCH (05:11)
[2017-10-09 07:12] LABS: Basophils % (Auto) 0.3 % (0.0-1.8); Eosinophils % (Auto) 0.4 % (0.0-4.3); Hematocrit 23.8 % (30.3-42.9); Mean Corpuscular HGB Conc 34 % (30-34); Mean Corpuscular Hemoglobin 34 pg (28-32); Mean Corpuscular Volume 100 fl (79-97); Platelet Count 273 K/mm3 (140-440); Red Blood Count 2.37 M/mm3 (3.65-5.03); Red Cell Distribution Width 15.6 % (13.2-15.2); White Blood Count 10.3 K/mm3 (4.5-11.0)
[2017-10-09 07:35] LABS: Calcium 8.9 mg/dL (8.4-10.2); Chloride 93.3 mmol/L (98-107); Phosphorous 3.9 mg/dL (2.5-4.5); Potassium 3.8 mmol/L (3.6-5.0)
--- NOTE | 2017-10-09 10:23 | Gastroenterology Progress Note ---
Assessment and Plan 1. Hematochezia - no further episodes. CT findings reviewed. ? infectious, ischemic, r/o malignancy or other path (no prior colonoscopy). will plan for colonoscopy tomorrow 2. Anemia - chronic stable anemia (similar labs in december), macrocytic, in setting of ckd. check iron studies, folate, b12 Subjective Date of service: 10/09/17 Principal diagnosis: hematochezia, anemia, colitis Interval history: pt denies further bleeding episodes since admission. denies abd pain. Objective - Constitutional Vitals: Temp Pulse Resp BP Pulse Ox 98.6 F 74 18 154/57 91 10/09/17 10:06 10/09/17 10:06 10/09/17 10:06 10/09/17 10:06 10/09/17 10:06 General appearance: no acute distress - Respiratory Respiratory effort: normal Respiratory: bilateral: CTA - Cardiovascular Rhythm: regular Heart Sounds: Present: S1 & S2 - Gastrointestinal General gastrointestinal: Present: soft, non-tender, non-distended - Neurologic Neurological: alert and oriented x3 - Labs CBC & Chem 7: 10/09/17 06:43 10/09/17 06:43 Labs: Laboratory Results - last 24 hr 10/08/17 10/08/17 10/08/17 10:02 10:02 12:36 WBC RBC Hgb 8.6 L Hct 25.8 L MCV MCH MCHC RDW Plt Count Lymph % (Auto) [place] % (Auto) Eos % (Auto) Baso % (Auto) Lymph # [place] # Eos # Baso # Seg Neutrophils % Seg Neutrophils # Sodium Potassium Chloride Carbon Dioxide Anion Gap BUN Creatinine Estimated GFR BUN/Creatinine Ratio Glucose POC Glucose 270 H Calcium Phosphorus Total Creatine Kinase 38 CK-MB (CK-2) 1.4 CK-MB (CK-2) Rel Index 3.6 Troponin T 0.119 H* 10/08/17 10/08/17 10/09/17 13:30 18:00 06:43 WBC 10.3 RBC 2.37 L Hgb 9.0 L 8.0 L Hct 27.8 L 23.8 L MCV 100 H MCH 34 H MCHC 34 RDW 15.6 H Plt Count 273 Lymph % (Auto) 21.3 [place] % (Auto) 7.2 Eos % (Auto) 0.4 Baso % (Auto) 0.3 Lymph # 2.2 [place] # 0.7 Eos # 0.0 Baso # 0.0 Seg Neutrophils % 70.8 H Seg Neutrophils # 7.3 Sodium Potassium Chloride Carbon Dioxide Anion Gap BUN Creatinine Estimated GFR BUN/Creatinine Ratio Glucose POC Glucose 471 H Calcium Phosphorus Total Creatine Kinase CK-MB (CK-2) CK-MB (CK-2) Rel Index Troponin T 10/09/17 06:43 WBC RBC Hgb Hct MCV MCH MCHC RDW Plt Count Lymph % (Auto) [place] % (Auto) Eos % (Auto) Baso % (Auto) Lymph # [place] # Eos # Baso # Seg Neutrophils % Seg Neutrophils # Sodium 134 L Potassium 3.8 Chloride 93.3 L Carbon Dioxide 28 Anion Gap 17 BUN 35 H Creatinine 4.0 H D Estimated GFR 11 BUN/Creatinine Ratio 9 Glucose 280 H POC Glucose Calcium 8.9 Phosphorus 3.90 Total Creatine Kinase CK-MB (CK-2) CK-MB (CK-2) Rel Index Troponin T
[2017-10-09] MEDS: NORVASC PO SCH (10:35)
[2017-10-09] MEDS: DELTASONE PO SCH (10:36)
[2017-10-09] MEDS: WELLBUTRIN SR PO SCH ×2 (10:36→21:20)
[2017-10-09] MEDS: CLARITIN PO SCH (10:36)
[2017-10-09] MEDS: celeXA PO SCH (10:36)
--- NOTE | 2017-10-09 11:19 | Progress Note ---
Assessment and Plan GI bleed ESRD on dialysis Anemia Hx of Ischemic CVA Hypertension Diabetes Mellitus Hx of coronary artery disease s/p remote coronary artery bypass while living in [place]. recent LHC: patent SVG to LAD and a patent Y graft to the Diagonal artery. 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 Subjective Date of service: 10/09/17 Principal diagnosis: hematochezia, anemia, colitis Interval history: Patient denies chest pain and shortness of breath. Objective Vital Signs Temp Pulse Resp BP BP Pulse Ox 10/09/17 10:35 75 154/57 10/09/17 10:06 98.6 F 74 18 154/57 91 10/09/17 08:51 75 154/57 89 10/09/17 04:27 98.5 F 68 16 120/54 92 10/09/17 04:11 89 10/08/17 23:42 98.5 F 68 18 116/44 89 10/08/17 20:11 98.5 F 72 20 99/46 94 10/08/17 17:57 99.1 F 70 18 119/53 95 - Physical Examination General: No Apparent Distress HEENT: Positive: PERRL Cardiac: Positive: Reg Rate and Rhythm Lungs: Positive: Decreased Breath Sounds Neuro: Positive: Grossly Intact Extremities: Absent: edema - Labs and Meds CBC 10/08/17 10/09/17 Range/Units 13:30 06:43 WBC 10.3 (4.5-11.0) K/mm3 RBC 2.37 L (3.65-5.03) M/mm3 Hgb 9.0 L 8.0 L (10.1-14.3) gm/dl Hct 27.8 L 23.8 L (30.3-42.9) % Plt Count 273 (140-440) K/mm3 Lymph # 2.2 (1.2-5.4) K/mm3 [place] # 0.7 (0.0-0.8) K/mm3 Eos # 0.0 (0.0-0.4) K/mm3 Baso # 0.0 (0.0-0.1) K/mm3 Comprehensive Metabolic Panel 10/09/17 Range/Units 06:43 Sodium 134 L (137-145) mmol/L Potassium 3.8 (3.6-5.0) mmol/L Chloride 93.3 L (98-107) mmol/L Carbon Dioxide 28 (22-30) mmol/L BUN 35 H (7-17) mg/dL Creatinine 4.0 H D (0.7-1.2) mg/dL Glucose 280 H (65-100) mg/dL Calcium 8.9 (8.4-10.2) mg/dL
[2017-10-09] MEDS ORDERED: NACL 0.9% 100 ML IV PRN (11:28)
[2017-10-09] MEDS: NOVOLOG SUB-Q SCH ×5 (12:21→23:15)
--- NOTE | 2017-10-09 12:36 | Progress Note ---
Assessment and Plan (1) ESRD on dialysis Current Visit: Yes Status: Acute Plan to address problem: No HD today. HD tomorrow. On T,T,S schedule outpatient. Assess dialysis needs daily Fluid restriction of 1 liter per day Obtain daily weights Monitor I/O's Renally dose medications (2) Hypertensive CKD (chronic kidney disease) Current Visit: No Status: Acute Plan to address problem: Titrate BP meds PRN to keep SBP <140 (3) Rectal bleeding Current Visit: Yes Status: Acute Plan to address problem: Gastroenterology consulted. Plan for colonoscopy tomorrow per them. (4) Chest pain Current Visit: Yes Status: Acute Plan to address problem: Per Cards. (5) Diabetes mellitus with hyperglycemia Current Visit: No Status: Acute Plan to address problem: As per primary team (6) Anemia of chronic disease due to ESRD Blood loss anemia. Current Visit: Yes Status: Acute Plan to address problem: Anemia of CKD and Rectal bleeding Monitor H/H Epogen with HD as needed GI on board. Scope tomorrow. Subjective Date of service: 10/09/17 Principal diagnosis: hematochezia, anemia, colitis Interval history: Denies CP/SHOB. s/p HD Monday. Family at bedside. Objective - Exam Narrative Exam: General appearance: AAOX3 EENT: ATNC, PERRL, hearing intact, vision intact Neck: Present: neck supple, trachea midline Respiratory: Clear to Ascultation Heart: regular, S1S2 Gastrointestinal: Present: normoactive bowel sounds Integumentary: warm and dry Neurologic: other (Has Dementia) Musculoskeletal: Present: decreased ROM, other (No edema) Psychiatric: mood/affect appropriate - Vital Signs Vital signs: Vital Signs - 12hr 10/09/17 10/09/17 10/09/17 04:11 04:27 08:51 Temperature 98.5 F Pulse Rate 89 68 75 Respiratory 16 Rate Blood Pressure 120/54 154/57 Blood Pressure [Left] O2 Sat by Pulse 92 89 Oximetry 10/09/17 10/09/17 10:06 10:35 Temperature 98.6 F Pulse Rate 74 75 Respiratory 18 Rate Blood Pressure 154/57 Blood Pressure 154/57 [Left] O2 Sat by Pulse 91 Oximetry - Lab 10/09/17 06:43 10/09/17 06:43 Most recent lab results Calcium 8.9 mg/dL (8.4-10.2) 10/09/17 06:43 Phosphorus 3.90 mg/dL (2.5-4.5) 10/09/17 06:43
[2017-10-09] MEDS ORDERED: PROCRIT SUB-Q ONE (13:30)
--- NOTE | 2017-10-09 14:39 | Progress Note ---
Assessment and Plan Assessment and plan: Patient is a 67 year-old woman with a history of hypertension, end-stage renal disease, coronary artery disease, type 2 diabetes mellitus, hypothyroidism and dyslipidemia with who presents with rectal bleeding -Sepsis colitis: Continue antibiotics -Elevated troponin: Consult cardiology -End stage: Consult nephrology renal disease colonoscopy in am History Interval history: Patient was seen and examined. Follow-up on current diagnosis. Overnight uneventful. Patient denies any chest pain, shortness breath, nausea/vomiting or severe headaches. Imaging, nursing note, chart, labs and old chart reviewed. Discussed with patient. Hospitalist Physical - Physical exam Narrative exam: GEN: WDWN, NAD, AWAKE, ALERT, ORIENTATED HEENT: NCAT, EOMI, PERRL, OP Clear NECK: supple, no adenopathy, no thyromegaly, no JVD CVS/HEART: RRR, NORMAL S1S2, NO JVD, pulses present bilaterally CHEST/LUNGS: CTA B, Symmetrical chest expansion, good air entry bilaterally GI/Abdomen: soft, nondistended, diffuse tenderness, good bowel sounds, no guarding or rebound /Bladder: no suprapubic tenderness, no CVA or paraspinal tenderness EXT/Skin: no c/c/e, no obvious rash MSK: FROM x 4 Neuro: CN 2-12 grossly intact, no new focal deficits Psych: calm - Constitutional Vitals: Temp Pulse Resp BP Pulse Ox 98.6 F 75 18 154/57 91 10/09/17 10:06 10/09/17 10:35 10/09/17 10:06 10/09/17 10:35 10/09/17 10:06 General appearance: Present: no acute distress Results - Labs CBC & Chem 7: 10/09/17 06:43 10/09/17 06:43 Labs: Laboratory Last Values WBC 10.3 K/mm3 (4.5-11.0) 10/09/17 06:43 RBC 2.37 M/mm3 (3.65-5.03) L 10/09/17 06:43 Hgb 8.0 gm/dl (10.1-14.3) L 10/09/17 06:43 Hct 23.8 % (30.3-42.9) L 10/09/17 06:43 MCV 100 fl (79-97) H 10/09/17 06:43 MCH 34 pg (28-32) H 10/09/17 06:43 MCHC 34 % (30-34) 10/09/17 06:43 RDW 15.6 % (13.2-15.2) H 10/09/17 06:43 Plt Count 273 K/mm3 (140-440) 10/09/17 06:43 Lymph % (Auto) 21.3 % (13.4-35.0) 10/09/17 06:43 [place] % (Auto) 7.2 % (0.0-7.3) 10/09/17 06:43 Eos % (Auto) 0.4 % (0.0-4.3) 10/09/17 06:43 Baso % (Auto) 0.3 % (0.0-1.8) 10/09/17 06:43 Lymph # 2.2 K/mm3 (1.2-5.4) 10/09/17 06:43 [place] # 0.7 K/mm3 (0.0-0.8) 10/09/17 06:43 Eos # 0.0 K/mm3 (0.0-0.4) 10/09/17 06:43 Baso # 0.0 K/mm3 (0.0-0.1) 10/09/17 06:43 Seg Neutrophils % 70.8 % (40.0-70.0) H 10/09/17 06:43 Seg Neutrophils # 7.3 K/mm3 (1.8-7.7) 10/09/17 06:43 PT 14.0 Sec. (12.2-14.9) 10/07/17 18:24 INR 1.03 (0.87-1.13) 10/07/17 18:24 APTT 40.6 Sec. (24.2-36.6) H 10/07/17 18:24 Sodium 134 mmol/L (137-145) L 10/09/17 06:43 Potassium 3.8 mmol/L (3.6-5.0) 10/09/17 06:43 Chloride 93.3 mmol/L (98-107) L 10/09/17 06:43 Carbon Dioxide 28 mmol/L (22-30) 10/09/17 06:43 Anion Gap 17 mmol/L 10/09/17 06:43 BUN 35 mg/dL (7-17) H 10/09/17 06:43 Creatinine 4.0 mg/dL (0.7-1.2) H D 10/09/17 06:43 Estimated GFR 11 ml/min 10/09/17 06:43 BUN/Creatinine Ratio 9 % 10/09/17 06:43 Glucose 280 mg/dL (65-100) H 10/09/17 06:43 POC Glucose 406 (70-105) H 10/09/17 11:39 Calcium 8.9 mg/dL (8.4-10.2) 10/09/17 06:43 Phosphorus 3.90 mg/dL (2.5-4.5) 10/09/17 06:43 Total Bilirubin 0.20 mg/dL (0.1-1.2) 10/07/17 18:24 AST 16 units/L (5-40) 10/07/17 18:24 ALT 14 units/L (7-56) 10/07/17 18:24 Alkaline Phosphatase 149 units/L (35-129) H 10/07/17 18:24 Total Creatine Kinase 38 units/L (30-135) 10/08/17 10:02 CK-MB (CK-2) 1.4 ng/mL (0.0-4.0) 10/08/17 10:02 CK-MB (CK-2) Rel Index 3.6 (0-4) 10/08/17 10:02 Troponin T 0.119 ng/mL (0.00-0.029) H* 10/08/17 10:02 Total Protein 6.9 g/dL (6.3-8.2) 10/07/17 18:24 Albumin 3.6 g/dL (3.9-5) L 10/07/17 18:24 Albumin/Globulin Ratio 1.1 % 10/07/17 18:24 Triglycerides 389 mg/dL (2-149) H 10/07/17 22:47 Cholesterol 167 mg/dL (50-199) 10/07/17 22:47 LDL Cholesterol Direct 40 mg/dL (50-130) L 10/07/17 22:47 HDL Cholesterol 50 mg/dL (40-59) 10/07/17 22:47 Cholesterol/HDL Ratio 3.34 % 11/25/17 22:47 Lipase 26 units/L (13-60) 10/07/17 18:24 Blood Type B POSITIVE 10/07/17 18:24 Antibody Screen Negative 10/07/17 18:24
[2017-10-09] MEDS ORDERED: GOLYTELY PO ONE (16:00)
[2017-10-09] MEDS ORDERED: DULCOLAX PO ONE (16:00)
[2017-10-09] MEDS: TYLENOL PO PRN (21:19)
[2017-10-09] MEDS: LOPRESSOR PO SCH (21:20)
[2017-10-09] MEDS: ARICEPT PO SCH (21:20)
[2017-10-10] MEDS: LEVAQUIN 500MG/100ML 500 MG/100 ML BAG IV SCH (04:21)
[2017-10-10] MEDS: SYNTHROID PO SCH (05:47)
[2017-10-10] MEDS: NEURONTIN PO SCH ×3 (05:47→22:26)
[2017-10-10] MEDS: AZULFIDINE PO SCH ×3 (05:47→18:21)
[2017-10-10] MEDS: FLAGYL 500 MG/100 ML 500 MG/100 ML BAG IV SCH ×3 (06:21→22:24)
[2017-10-10] MEDS: NOVOLOG SUB-Q SCH ×4 (07:30→22:30)
[2017-10-10] MEDS ORDERED: NACL 0.9% 1000 ML 1,000 ML IV SCH (09:00)
[2017-10-10] MEDS ORDERED: WATER FOR IRRIG STERILE ONE (09:08)
[2017-10-10] MEDS ORDERED: WATER FOR IRRIG STERILE IR ONE (09:08)
[2017-10-10] MEDS ORDERED: AMIDATE IV ONE (09:20)
[2017-10-10] MEDS ORDERED: DIPRIVAN 10 MG/ML IV ONE ×2 (09:20)
--- NOTE | 2017-10-10 09:33 | Progress Note ---
Assessment and Plan Anemia/Rectal bleed ESRD on dialysis Anemia Hx of Ischemic CVA plavix and aspirin on hold while GI workup is in progress Hypertension Diabetes Mellitus Hx of coronary artery disease s/p remote coronary artery bypass while living in [place]. recent LHC: patent SVG to LAD with anastomoses to the mid LAD and a proximal diagonal branch of the LAD. 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 Continue medical therapy and risk factor modification for underlying diffuse small vessel disease. Subjective Date of service: 10/10/17 Principal diagnosis: hematochezia, anemia, colitis Interval history: Patient denies chest pain and shortness of breath. Awaits GI workup. Objective Vital Signs Temp Pulse Resp BP BP Pulse Ox 10/10/17 09:04 98.2 F 68 12 147/51 98 10/10/17 09:01 98.2 F 68 12 147/51 98 10/10/17 08:34 69 88 10/10/17 08:33 69 18 141/54 89 10/10/17 04:55 98.1 F 62 20 112/44 89 10/10/17 04:00 71 10/10/17 01:36 98.3 F 59 L 130/62 94 10/09/17 21:20 72 141/62 10/09/17 20:08 97.1 F L 72 22 141/62 95 10/09/17 20:00 59 L 10/09/17 16:22 72 97 10/09/17 12:00 75 10/09/17 10:35 75 154/57 10/09/17 10:06 98.6 F 74 18 154/57 91 - Physical Examination General: No Apparent Distress HEENT: Positive: PERRL Cardiac: Positive: Reg Rate and Rhythm Lungs: Positive: Decreased Breath Sounds Neuro: Positive: Grossly Intact
[2017-10-10] MEDS: DELTASONE PO SCH (10:00)
[2017-10-10] MEDS: CLARITIN PO SCH (10:00)
[2017-10-10] MEDS: celeXA PO SCH (10:00)
[2017-10-10] MEDS: IMDUR PO SCH (10:00)
[2017-10-10] MEDS: NORVASC PO SCH (10:00)
[2017-10-10] MEDS: LOPRESSOR PO SCH ×2 (10:00→22:26)
--- NOTE | 2017-10-10 10:04 | Post Operative Note ---
Pre-op diagnosis: anemia, gi bleeding, colitis Post-op diagnosis: other (EGD - small gastric nodule; colonoscopy - multiple colon polyps, severe proctitis) Findings: EGD: small nodule in antrum, biopsied. mild esophagitis, otherwise unremarkable Colonoscopy: severe proctitis (severe erythematous mucosa and ulcerations). multiple colon polyps. one ~1 cm polyp was removed with cold snare, and another ~5 mm polyp was removed with cold snare. Other small polyps not removed. Procedure: EGD with biopsy colonoscopy with snare polypectomy, and biopsies Anesthesia: MAC Surgeon: SHERI WHITT Estimated blood loss: minimal Pathology: list (Jar A - gastric nodule, Jar B - colon polyp x 2, Jar C - proctitis biopsies) Specimen disposition: to lab Condition: stable Disposition: floor
--- NOTE | 2017-10-10 10:07 | Operative Report ---
Operative Report Operative Report: EGD PROCEDURE NOTE DATE OF PROCEDURE: 10/10/2017 ENDOSCOPIST: Gian Mead PRE-OP DIAGNOSIS: anemia POST-OP DIAGNOSIS: small gastric nodule, mild esophagitis ANESTHESIA: MAC COMPLICATIONS: no immediate complications ESTIMATED BLOOD LOSS: minimal PROCEDURE: After consent was obtained, the patient was placed in the left lateral decubitus position. The fujinon endoscope was inserted into the patient's mouth under direct vision, and advanced to the 2nd portion of the duodenum without difficulty. The patient tolerated the procedure well. The views of the mucosa were good. The patient's vital signs were monitored continuously throughout the procedure. FINDINGS: Mild esophagitis in the lower third of the esophagus, otherwise the esophagus appeared normal. There was a small nodule in the antrum of the stomach (~3 mm). Biopsies were obtained. Otherwise, the stomach appeared normal. The duodenum appeared normal. IMPRESSION: 1. Small gastric nodule. Biopsied. 2. Mild esophagitis 3. Otherwise, unremarkable EGD RECOMMENDATIONS: -follow-up pathology -colonoscopy to follow
--- NOTE | 2017-10-10 10:08 | Anesthesia Consultation ---
Anesthesia Consult and Med Hx Date of service: 10/10/17 - Airway Anesthetic Teeth Evaluation: Edentulous ROM Head & Neck: Adequate Mental/Hyoid Distance: Adequate Mallampati Class: Class II Intubation Access Assessment: Probably Good - Pulmonary Exam CTA: Yes - Cardiac Exam Cardiac Exam: RRR - Pre-Operative Health Status ASA Pre-Surgery Classification: ASA3 Proposed Anesthetic Plan: MAC - Pulmonary Hx Smoking: Yes (1/2 ppd, quit 6 month ago) - Cardiovascular System Hx Hypertension: Yes (CHF, EF 60%) Hx Coronary Artery Disease: Yes (sp CABG 10 yrs ago) - Central Nervous System CVA: Yes - Endocrine Hx Renal Disease: Yes Hx End Stage Renal Disease: Yes (HD) Hx Insulin Dependent Diabetes: Yes Hx Hypothyroidism: Yes - Additional Comments Anesthesia Medical History Comments: NAC
--- NOTE | 2017-10-10 10:08 | Anesthesia Day of Surgery ---
Anesthesia Day of Surgery - Day of Surgery Patient Examined: Yes Patient H&P Reviewed: Yes Patient is NPO: Yes
--- NOTE | 2017-10-10 10:16 | Operative Report ---
Operative Report Operative Report: COLONOSCOPY PROCEDURE NOTE DATE OF PROCEDURE: 10/10/2017 ENDOSCOPIST: Gian Mead PRE-OP DIAGNOSIS: hematochezia, anemia, colitis POST-OP DIAGNOSIS: severe proctitis, multiple colon polyps ANESTHESIA: MAC COMPLICATIONS: no immediate complications ESTIMATED BLOOD LOSS: minimal PROCEDURE: After consent was obtained, the patient was placed in the left lateral decubitus position. The fujinon colonoscope was inserted into the rectum under direct vision, and advanced to the cecum.. The patient tolerated the procedure well. The views of the mucosa were fair. The quality of prep was fair for diagnostic purposes (inadequate for detailed screening colonoscopy however). The patient's vital signs were monitored continuously throughout the procedure. FINDINGS: There was severe proctitis (severe erythematous mucosa and ulcerations) confined to the rectum. The mucosa was friable but no high risk bleeding lesions were otherwise detected. Multiple biopsies were obtained. There was an ~3-5 mm polyp in the transverse colon, removed with cold snare and retrieved. There was an ~8-10 mm polyp in the sigmoid colon, removed with cold snare and retrieved. Multiple small colon polyps (mostly hyperplastic appearing) which were not removed. IMPRESSION: 1. Severe proctitis. Multiple biopsies obtained to evaluate for infection ( including viral infections such as CMV/HSV), IBD, r/o malignancy. Unlikely ischemic given location. 2. Colon polyps removed as above RECOMMENDATIONS: -follow-up pathology -bowel regimen/miralax daily to avoid constipation/straining -check stool studies, r/o c diff -will need repeat colonoscopy in ~ 6 weeks (removal of small polyps and evaluate for mucosal healing)
--- NOTE | 2017-10-10 10:51 | Post Anesthesia Evaluation ---
- Post Anesthesia Evaluation Patient Participated: Yes Airway Patent: Yes Stable Respiratory Function: Yes Nausea/Vomiting: No Temp > 96.8F: Yes Pain Manageable: Yes Adequeate Hydration: Yes Anesthesia Complications: No Block Receding Appropriately: Not Applicable Patient on Ventilator: No
[2017-10-10] MEDS ORDERED: XYLOCAINE MPF 2% ONE (11:00)
[2017-10-10] MEDS: TYLENOL PO PRN ×2 (12:19→22:25)
--- NOTE | 2017-10-10 12:42 | Progress Note ---
Assessment and Plan (1) ESRD on dialysis Current Visit: Yes Status: Acute Plan to address problem: Plan for HD today. On T,T,S schedule outpatient. Assess dialysis needs daily Fluid restriction of 1 liter per day Obtain daily weights Monitor I/O's Renally dose medications (2) Hypertensive CKD (chronic kidney disease) Current Visit: No Status: Acute Plan to address problem: Titrate BP meds PRN to keep SBP <140 (3) Rectal bleeding Current Visit: Yes Status: Acute Plan to address problem: Gastroenterology consulted. s/p Colonoscopy today. (4) Chest pain Current Visit: Yes Status: Acute Plan to address problem: Per Cards. (5) Diabetes mellitus with hyperglycemia Current Visit: No Status: Acute Plan to address problem: As per primary team (6) Anemia of chronic disease due to ESRD Blood loss anemia. Current Visit: Yes Status: Acute Plan to address problem: Anemia of CKD and Rectal bleeding Monitor H/H Epogen with HD as needed GI on board. s/p scope today. Merrick Drake MD Nephrology, Hypertension, Dialysis, Transplantation Phone no: [phone] Subjective Date of service: 10/10/17 Principal diagnosis: hematochezia, anemia, colitis Interval history: Denies CP/SHOB. s/p Colonoscopy today. Objective - Exam Narrative Exam: General appearance: AAOX3 EENT: ATNC, PERRL, hearing intact, vision intact Neck: Present: neck supple, trachea midline Respiratory: Clear to Ascultation Heart: regular, S1S2 Gastrointestinal: Present: normoactive bowel sounds Integumentary: warm and dry Neurologic: other (Has Dementia) Musculoskeletal: Present: decreased ROM, other (No edema) Psychiatric: mood/affect appropriate - Vital Signs Vital signs: Vital Signs - 12hr 10/10/17 10/10/17 10/10/17 01:36 04:00 04:55 Temperature 98.3 F 98.1 F Pulse Rate 59 L 71 62 Pulse Rate [ Apical] Respiratory 20 Rate Blood Pressure 130/62 112/44 O2 Sat by Pulse 94 89 Oximetry 10/10/17 10/10/17 10/10/17 08:33 08:34 09:01 Temperature 98.2 F Pulse Rate 69 69 68 Pulse Rate [ Apical] Respiratory 18 12 Rate Blood Pressure 141/54 147/51 O2 Sat by Pulse 89 88 98 Oximetry 10/10/17 10/10/17 10/10/17 09:04 09:59 10:00 Temperature 98.2 F 97.7 F Pulse Rate 68 60 Pulse Rate [ 80 Apical] Respiratory 12 14 Rate Blood Pressure 147/51 127/45 O2 Sat by Pulse 98 100 Oximetry 10/10/17 10/10/17 10/10/17 10:15 10:30 11:29 Temperature 98.3 F Pulse Rate 61 63 66 Pulse Rate [ Apical] Respiratory 15 15 18 Rate Blood Pressure 123/43 144/48 154/69 O2 Sat by Pulse 98 95 94 Oximetry 10/10/17 10/10/17 11:54 12:19 Temperature Pulse Rate 68 Pulse Rate [ Apical] Respiratory 18 Rate Blood Pressure O2 Sat by Pulse Oximetry - Lab 10/09/17 06:43 10/09/17 06:43 Most recent lab results Calcium 8.9 mg/dL (8.4-10.2) 10/09/17 06:43 Phosphorus 3.90 mg/dL (2.5-4.5) 10/09/17 06:43
[2017-10-10] MEDS: WELLBUTRIN SR PO SCH ×2 (12:45→22:27)
[2017-10-10 12:53] LABS: Chloride 92.9 mmol/L (98-107); Potassium 3.4 mmol/L (3.6-5.0)
[2017-10-10] MEDS ORDERED: APLISOL ID ONE (15:12)
--- NOTE | 2017-10-10 15:15 | Progress Note ---
<AUBRIE ARIZMENDI - Last Filed: 10/10/17 15:10> Assessment and Plan Assessment and plan: Patient is a 67 year-old woman with a history of hypertension, end-stage renal disease, coronary artery disease, type 2 diabetes mellitus, hypothyroidism and dyslipidemia who presents with rectal bleeding Rectal Bleeding Colonoscopy and EGD completed revealed multiple polyps and confirmed proctitis GI following ESRD Nephrology following Diabetes Accu checks, SSI Hypertension Continue antihypertensives DVD prx SCDs History Interval history: Patient is alert and laying comfortably in bed. She denies CP, COB, N/V. She has no complaints at this time. Hospitalist Physical - Constitutional Vitals: Temp Pulse Resp BP Pulse Ox 98.3 F 68 18 154/69 94 10/10/17 11:29 10/10/17 11:54 10/10/17 12:19 10/10/17 11:29 10/10/17 11:29 General appearance: Present: no acute distress - EENT Eyes: Present: PERRL, EOM intact ENT: hearing intact, clear oral mucosa - Neck Neck: Present: supple, normal ROM - Respiratory Respiratory effort: normal Respiratory: bilateral: CTA - Cardiovascular Rhythm: regular Heart Sounds: Present: S1 & S2 - Extremities Extremities: no ischemia, pulses intact, No edema Peripheral Pulses: within normal limits - Abdominal General gastrointestinal: soft, non-tender, non-distended - Integumentary Integumentary: Present: clear, warm, dry - Psychiatric Psychiatric: appropriate mood/affect, intact judgment & insight, cooperative - Neurologic Neurologic: CNII-XII intact, moves all extremities - Allied Health Allied health notes reviewed: nursing Results - Labs CBC & Chem 7: 10/09/17 06:43 10/10/17 12:25 Labs: Laboratory Last Values WBC 10.3 K/mm3 (4.5-11.0) 10/09/17 06:43 RBC 2.37 M/mm3 (3.65-5.03) L 10/09/17 06:43 Hgb 8.0 gm/dl (10.1-14.3) L 10/09/17 06:43 Hct 23.8 % (30.3-42.9) L 10/09/17 06:43 MCV 100 fl (79-97) H 10/09/17 06:43 MCH 34 pg (28-32) H 10/09/17 06:43 MCHC 34 % (30-34) 10/09/17 06:43 RDW 15.6 % (13.2-15.2) H 10/09/17 06:43 Plt Count 273 K/mm3 (140-440) 10/09/17 06:43 Lymph % (Auto) 21.3 % (13.4-35.0) 10/09/17 06:43 [place] % (Auto) 7.2 % (0.0-7.3) 10/09/17 06:43 Eos % (Auto) 0.4 % (0.0-4.3) 10/09/17 06:43 Baso % (Auto) 0.3 % (0.0-1.8) 10/09/17 06:43 Lymph # 2.2 K/mm3 (1.2-5.4) 10/09/17 06:43 [place] # 0.7 K/mm3 (0.0-0.8) 10/09/17 06:43 Eos # 0.0 K/mm3 (0.0-0.4) 10/09/17 06:43 Baso # 0.0 K/mm3 (0.0-0.1) 10/09/17 06:43 Seg Neutrophils % 70.8 % (40.0-70.0) H 10/09/17 06:43 Seg Neutrophils # 7.3 K/mm3 (1.8-7.7) 10/09/17 06:43 PT 14.0 Sec. (12.2-14.9) 10/07/17 18:24 INR 1.03 (0.87-1.13) 10/07/17 18:24 APTT 40.6 Sec. (24.2-36.6) H 10/07/17 18:24 Sodium 134 mmol/L (137-145) L 10/10/17 12:25 Potassium 3.4 mmol/L (3.6-5.0) L 10/10/17 12:25 Chloride 92.9 mmol/L (98-107) L 10/10/17 12:25 Carbon Dioxide 23 mmol/L (22-30) 10/10/17 12:25 Anion Gap 22 mmol/L 10/10/17 12:25 BUN 33 mg/dL (7-17) H 10/10/17 12:25 Creatinine 3.8 mg/dL (0.7-1.2) H 10/10/17 12:25 Estimated GFR 12 ml/min 10/10/17 12:25 BUN/Creatinine Ratio 9 % 10/10/17 12:25 Glucose 157 mg/dL (65-100) H 10/10/17 12:25 POC Glucose 164 (70-105) H 10/10/17 11:33 Calcium 9.0 mg/dL (8.4-10.2) 10/10/17 12:25 Phosphorus 3.90 mg/dL (2.5-4.5) 10/09/17 06:43 Total Bilirubin 0.20 mg/dL (0.1-1.2) 10/07/17 18:24 AST 16 units/L (5-40) 10/07/17 18:24 ALT 14 units/L (7-56) 10/07/17 18:24 Alkaline Phosphatase 149 units/L (35-129) H 10/07/17 18:24 Total Creatine Kinase 38 units/L (30-135) 10/08/17 10:02 CK-MB (CK-2) 1.4 ng/mL (0.0-4.0) 10/08/17 10:02 CK-MB (CK-2) Rel Index 3.6 (0-4) 10/08/17 10:02 Troponin T 0.119 ng/mL (0.00-0.029) H* 10/08/17 10:02 Total Protein 6.9 g/dL (6.3-8.2) 10/07/17 18:24 Albumin 3.6 g/dL (3.9-5) L 10/07/17 18:24 Albumin/Globulin Ratio 1.1 % 10/07/17 18:24 Triglycerides 389 mg/dL (2-149) H 10/07/17 22:47 Cholesterol 167 mg/dL (50-199) 10/07/17 22:47 LDL Cholesterol Direct 40 mg/dL (50-130) L 10/07/17 22:47 HDL Cholesterol 50 mg/dL (40-59) 10/07/17 22:47 Cholesterol/HDL Ratio 3.34 % 10/07/17 22:47 Lipase 26 units/L (13-60) 10/07/17 18:24 Blood Type B POSITIVE 10/07/17 18:24 Antibody Screen Negative 10/07/17 18:24 - Imaging and Cardiology Imaging and Cardiology: EGD and colonoscopy reviewed <RERE SILVA - Last Filed: 10/10/17 17:15> Assessment and Plan Assessment and plan: I saw and evaluated the patient. I agree with the findings and the plan of care as documented in the Physician assistants~note, with the following corrections and additions. continue abx. Family educated on findings and need to follow with GI for pathology report. Will check H/H in am and if stable and tolerating diet will discharge tomorrow. Hospitalist Physical - Constitutional Vitals: Temp Pulse Resp BP Pulse Ox 98.3 F 68 18 154/69 94 10/10/17 11:29 10/10/17 11:54 10/10/17 12:19 10/10/17 11:29 10/10/17 11:29 Results - Labs CBC & Chem 7: 10/09/17 06:43 10/10/17 12:25 Labs: Laboratory Last Values WBC 10.3 K/mm3 (4.5-11.0) 10/09/17 06:43 RBC 2.37 M/mm3 (3.65-5.03) L 10/09/17 06:43 Hgb 8.0 gm/dl (10.1-14.3) L 10/09/17 06:43 Hct 23.8 % (30.3-42.9) L 10/09/17 06:43 MCV 100 fl (79-97) H 10/09/17 06:43 MCH 34 pg (28-32) H 10/09/17 06:43 MCHC 34 % (30-34) 10/09/17 06:43 RDW 15.6 % (13.2-15.2) H 10/09/17 06:43 Plt Count 273 K/mm3 (140-440) 10/09/17 06:43 Lymph % (Auto) 21.3 % (13.4-35.0) 10/09/17 06:43 [place] % (Auto) 7.2 % (0.0-7.3) 10/09/17 06:43 Eos % (Auto) 0.4 % (0.0-4.3) 10/09/17 06:43 Baso % (Auto) 0.3 % (0.0-1.8) 10/09/17 06:43 Lymph # 2.2 K/mm3 (1.2-5.4) 10/09/17 06:43 [place] # 0.7 K/mm3 (0.0-0.8) 10/09/17 06:43 Eos # 0.0 K/mm3 (0.0-0.4) 10/09/17 06:43 Baso # 0.0 K/mm3 (0.0-0.1) 10/09/17 06:43 Seg Neutrophils % 70.8 % (40.0-70.0) H 10/09/17 06:43 Seg Neutrophils # 7.3 K/mm3 (1.8-7.7) 10/09/17 06:43 PT 14.0 Sec. (12.2-14.9) 10/07/17 18:24 INR 1.03 (0.87-1.13) 10/07/17 18:24 APTT 40.6 Sec. (24.2-36.6) H 10/07/17 18:24 Sodium 134 mmol/L (137-145) L 10/10/17 12:25 Potassium 3.4 mmol/L (3.6-5.0) L 10/10/17 12:25 Chloride 92.9 mmol/L (98-107) L 10/10/17 12:25 Carbon Dioxide 23 mmol/L (22-30) 10/10/17 12:25 Anion Gap 22 mmol/L 10/10/17 12:25 BUN 33 mg/dL (7-17) H 10/10/17 12:25 Creatinine 3.8 mg/dL (0.7-1.2) H 10/10/17 12:25 Estimated GFR 12 ml/min 10/10/17 12:25 BUN/Creatinine Ratio 9 % 10/10/17 12:25 Glucose 157 mg/dL (65-100) H 10/10/17 12:25 POC Glucose 240 (70-105) H 10/10/17 17:07 Calcium 9.0 mg/dL (8.4-10.2) 10/10/17 12:25 Phosphorus 3.90 mg/dL (2.5-4.5) 10/09/17 06:43 Total Bilirubin 0.20 mg/dL (0.1-1.2) 10/07/17 18:24 AST 16 units/L (5-40) 10/07/17 18:24 ALT 14 units/L (7-56) 10/07/17 18:24 Alkaline Phosphatase 149 units/L (35-129) H 10/07/17 18:24 Total Creatine Kinase 38 units/L (30-135) 10/08/17 10:02 CK-MB (CK-2) 1.4 ng/mL (0.0-4.0) 10/08/17 10:02 CK-MB (CK-2) Rel Index 3.6 (0-4) 10/08/17 10:02 Troponin T 0.119 ng/mL (0.00-0.029) H* 10/08/17 10:02 Total Protein 6.9 g/dL (6.3-8.2) 10/07/17 18:24 Albumin 3.6 g/dL (3.9-5) L 10/07/17 18:24 Albumin/Globulin Ratio 1.1 % 10/07/17 18:24 Triglycerides 389 mg/dL (2-149) H 10/07/17 22:47 Cholesterol 167 mg/dL (50-199) 10/07/17 22:47 LDL Cholesterol Direct 40 mg/dL (50-130) L 10/07/17 22:47 HDL Cholesterol 50 mg/dL (40-59) 10/07/17 22:47 Cholesterol/HDL Ratio 3.34 % 10/07/17 22:47 Lipase 26 units/L (13-60) 10/07/17 18:24 Blood Type B POSITIVE 10/07/17 18:24 Antibody Screen Negative 10/07/17 18:24
[2017-10-10] MEDS ORDERED: NACL 0.9 (PRIMING MACHINE ONLY DIALYSIS) MC ONE (19:59)
[2017-10-10] MEDS: ARICEPT PO SCH (22:27)
[2017-10-11] MEDS: AZULFIDINE PO SCH ×3 (00:05→13:02)
[2017-10-11] MEDS: NEURONTIN PO SCH ×2 (05:46→13:39)
[2017-10-11] MEDS: FLAGYL 500 MG/100 ML 500 MG/100 ML BAG IV SCH (05:46)
[2017-10-11] MEDS: SYNTHROID PO SCH (05:46)
[2017-10-11 07:20] LABS: Hemoglobin 8.7 gm/dl (10.1-14.3); Red Blood Count 2.61 M/mm3 (3.65-5.03); White Blood Count 6.9 K/mm3 (4.5-11.0)
[2017-10-11 07:21] LABS: Hematocrit 26.3 % (30.3-42.9); Mean Corpuscular HGB Conc 33 % (30-34); Mean Corpuscular Hemoglobin 33 pg (28-32); Mean Corpuscular Volume 101 fl (79-97); Platelet Count 269 K/mm3 (140-440); Red Cell Distribution Width 15.5 % (13.2-15.2)
[2017-10-11] MEDS: NOVOLOG SUB-Q SCH ×2 (09:54→13:39)
[2017-10-11] MEDS: IMDUR PO SCH (09:56)
[2017-10-11] MEDS: CLARITIN PO SCH (10:03)
[2017-10-11] MEDS: DELTASONE PO SCH (10:04)
[2017-10-11] MEDS: WELLBUTRIN SR PO SCH (10:04)
[2017-10-11] MEDS: LOPRESSOR PO SCH (10:04)
[2017-10-11] MEDS: NORVASC PO SCH (10:04)
[2017-10-11] MEDS: celeXA PO SCH (10:05)
[2017-10-11] MEDS: TYLENOL PO PRN (10:16)
--- NOTE | 2017-10-11 10:30 | Gastroenterology Progress Note ---
<AIDEEMABLESHANTANU Stahl - Last Filed: 10/11/17 10:43> Assessment and Plan 1.hematochezia 2.anemia -H/H stable -no active signs of bleeding overnight or this am -anemia-chronic stable anemia (similar labs in December), macrocytic, in setting of CKD -s/p EGD yesterday that revealed mild esophagitis, and small gastric nodule in antrum (bx obtained) -s/p colonoscopy yesterday that revealed severe proctitis (biopsies obtained to r/o infection, IBD, or malignancy) and polyps -bx results pending-f/u in clinic -pt will need a repeat colonoscopy in approximately 6 weeks for removal of small polyps and evaluate for mucosal healing -continue daily bowel regimen/miralax to avoid constipation/straining -no further GI recommendations at this time, pt is okay to be d/c per GI standpoint with f/u clinic appt in 2 weeks Subjective Date of service: 10/11/17 Principal diagnosis: hematochezia, anemia, colitis Interval history: Patient resting in bed. No acute distress or events overnight. No signs of bleeding. No complaints. Objective - Constitutional Vitals: Temp Pulse Resp BP Pulse Ox 98.6 F 63 20 177/62 90 10/11/17 06:02 10/11/17 10:04 10/11/17 10:16 10/11/17 10:04 10/11/17 06:02 General appearance: no acute distress - Respiratory Respiratory: bilateral: CTA - Cardiovascular Rhythm: regular Heart Sounds: Present: S1 & S2 - Extremities Extremities: No edema - Gastrointestinal General gastrointestinal: Present: soft, non-tender, non-distended, normal bowel sounds - Labs CBC & Chem 7: 10/11/17 06:51 10/10/17 12:25 Labs: Laboratory Results - last 24 hr 10/10/17 10/10/17 10/10/17 11:33 12:25 17:07 WBC RBC Hgb Hct MCV MCH MCHC RDW Plt Count Sodium 134 L Potassium 3.4 L Chloride 92.9 L Carbon Dioxide 23 Anion Gap 22 BUN 33 H Creatinine 3.8 H Estimated GFR 12 BUN/Creatinine Ratio 9 Glucose 157 H POC Glucose 164 H 240 H Calcium 9.0 10/11/17 10/11/17 06:51 08:34 WBC 6.9 RBC 2.61 L Hgb 8.7 L Hct 26.3 L MCV 101 H MCH 33 H MCHC 33 RDW 15.5 H Plt Count 269 Sodium Potassium Chloride Carbon Dioxide Anion Gap BUN Creatinine Estimated GFR BUN/Creatinine Ratio Glucose POC Glucose 281 H Calcium <SHERI WHITT Lluvia - Last Filed: 10/12/17 10:40> Assessment and Plan Patient seen and examined on 10/11. Agree with note by Mable Galvan. Patient denies gi bleeding, abd pain, or diarrhea. Path from rectum/proctitis non- diagnostic. Complete course of abx, f/u in GI clinic with outpt colonoscopy in 1-2 months. Objective - Constitutional Vitals: Temp Pulse Resp BP Pulse Ox 99.0 F 60 16 149/62 93 10/11/17 15:55 10/11/17 15:55 10/11/17 15:55 10/11/17 15:55 10/11/17 15:55 - Labs CBC & Chem 7: 10/11/17 06:51 10/11/17 12:26 Labs: Laboratory Results - last 24 hr 10/11/17 10/11/17 10/11/17 11:31 12:26 16:04 Sodium 140 Potassium 3.4 L Chloride 98.6 Carbon Dioxide 26 Anion Gap 19 BUN 15 Creatinine 2.4 H Estimated GFR 20 BUN/Creatinine Ratio 6 Glucose 189 H POC Glucose 260 H 195 H Calcium 8.6
--- NOTE | 2017-10-11 10:34 | Progress Note ---
Assessment and Plan Anemia/Rectal bleed Severe proctitis on colonoscopy ESRD on dialysis Anemia Hx of Ischemic CVA plavix and aspirin on hold while GI workup is in progress Hypertension Diabetes Mellitus Hx of coronary artery disease s/p remote coronary artery bypass while living in [place]. recent LHC: patent SVG to LAD with anastomoses to the mid LAD and a proximal diagonal branch of the LAD. 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 Continue medical therapy and risk factor modification for underlying diffuse small vessel disease. Subjective Date of service: 10/11/17 Principal diagnosis: hematochezia, anemia, colitis Interval history: No events overnight Objective Vital Signs Temp Pulse Resp BP Pulse Ox 10/11/17 10:16 20 10/11/17 10:04 63 177/62 10/11/17 09:56 64 177/62 10/11/17 06:02 98.6 F 62 18 160/50 90 10/11/17 00:19 99.0 F 66 17 147/43 90 10/10/17 22:25 18 10/10/17 22:00 74 10/10/17 21:50 99.2 F 74 20 131/48 91 10/10/17 21:00 98.8 F 68 18 140/46 10/10/17 20:45 66 143/59 10/10/17 20:30 67 149/70 10/10/17 20:27 18 10/10/17 20:15 66 154/58 10/10/17 20:00 66 143/69 10/10/17 19:45 66 161/63 10/10/17 19:30 65 164/69 10/10/17 19:15 65 161/66 10/10/17 19:00 66 161/56 10/10/17 18:45 63 155/61 10/10/17 18:30 62 133/49 10/10/17 18:00 98.8 F 61 18 151/61 10/10/17 16:55 64 18 131/40 96 10/10/17 12:19 18 10/10/17 11:54 68 10/10/17 11:29 98.3 F 66 18 154/69 94 - Physical Examination General: No Apparent Distress HEENT: Positive: PERRL Neck: Positive: neck supple, trachea midline Cardiac: Positive: Reg Rate and Rhythm Lungs: Positive: Normal Exam Neuro: Positive: Grossly Intact Abdomen: Positive: Soft Skin: Positive: Clear Extremities: Absent: edema - Labs and Meds CBC 10/11/17 Range/Units 06:51 WBC 6.9 (4.5-11.0) K/mm3 RBC 2.61 L (3.65-5.03) M/mm3 Hgb 8.7 L (10.1-14.3) gm/dl Hct 26.3 L (30.3-42.9) % Plt Count 269 (140-440) K/mm3 Comprehensive Metabolic Panel 10/10/17 Range/Units 12:25 Sodium 134 L (137-145) mmol/L Potassium 3.4 L (3.6-5.0) mmol/L Chloride 92.9 L (98-107) mmol/L Carbon Dioxide 23 (22-30) mmol/L BUN 33 H (7-17) mg/dL Creatinine 3.8 H (0.7-1.2) mg/dL Glucose 157 H (65-100) mg/dL Calcium 9.0 (8.4-10.2) mg/dL
--- NOTE | 2017-10-11 10:48 | Progress Note ---
Assessment and Plan (1) ESRD on dialysis Current Visit: Yes Status: Acute Plan to address problem: s/p HD yesterday, no HD today. Plan for dc home today, pt can go to her HD unit for HD tomorrow. On ,,S schedule outpatient. Assess dialysis needs daily Fluid restriction of 1 liter per day Obtain daily weights Monitor I/O's Renally dose medications (2) Hypertensive CKD (chronic kidney disease) Current Visit: No Status: Acute Plan to address problem: Titrate BP meds PRN to keep SBP <140 (3) Rectal bleeding Current Visit: Yes Status: Acute Plan to address problem: Gastroenterology consulted. s/p Colonoscopy yesterday. (4) Chest pain Current Visit: Yes Status: Acute Plan to address problem: Per Cards. (5) Diabetes mellitus with hyperglycemia Current Visit: No Status: Acute Plan to address problem: As per primary team (6) Anemia of chronic disease due to ESRD Blood loss anemia. Current Visit: Yes Status: Acute Plan to address problem: Anemia of CKD and Rectal bleeding Monitor H/H Epogen with HD as needed GI on board. s/p scope yesterday. Merrick Drake MD Nephrology, Hypertension, Dialysis, Transplantation Phone no: [phone] Subjective Date of service: 10/11/17 Principal diagnosis: hematochezia, anemia, colitis Interval history: Denies CP/SHOB. s/p Colonoscopy yesterday. s/p HD yesterday. Plan for d/c today. Objective - Exam Narrative Exam: General appearance: AAOX3 EENT: ATNC, PERRL, hearing intact, vision intact Neck: Present: neck supple, trachea midline Respiratory: Clear to Ascultation Heart: regular, S1S2 Gastrointestinal: Present: normoactive bowel sounds Integumentary: warm and dry Neurologic: other (Has Dementia) Musculoskeletal: Present: decreased ROM, other (No edema) Psychiatric: mood/affect appropriate - Vital Signs Vital signs: Vital Signs - 12hr 10/11/17 10/11/17 10/11/17 00:19 06:02 08:27 Temperature 99.0 F 98.6 F 98.7 F Pulse Rate 66 62 64 Respiratory 17 18 14 Rate Blood Pressure 147/43 160/50 167/51 O2 Sat by Pulse 90 90 96 Oximetry 10/11/17 10/11/17 10/11/17 09:56 10:00 10:04 Temperature Pulse Rate 64 63 63 Respiratory Rate Blood Pressure 177/62 177/62 177/62 O2 Sat by Pulse 100 Oximetry 10/11/17 10:16 Temperature Pulse Rate Respiratory 20 Rate Blood Pressure O2 Sat by Pulse Oximetry - Lab 10/11/17 06:51 10/10/17 12:25 Most recent lab results Calcium 9.0 mg/dL (8.4-10.2) 10/10/17 12:25 Phosphorus 3.90 mg/dL (2.5-4.5) 10/09/17 06:43
[2017-10-11] MEDS ORDERED: APLISOL ID ONE (11:00)
--- NOTE | 2017-10-11 11:30 | Discharge Summary ---
<AUBRIE ARIZMENDI - Last Filed: 10/11/17 11:59> Providers - Providers Date of Admission: 10/08/17 03:19 Date of discharge: 10/11/17 Attending physician: RERE SILVA MD 10/08/17 03:19 Consult to Physician [CONS] Routine Consulting Provider: MELCHOR ALBRIGHT Reason For Exam: colitis/proctitis Place consult to:: Notified:: Julia RN Phone number called:: Was contact made?: Yes If yes, spoke with:: Loida-answering service Time called:: 08:57 10/08/17 09:02 Consult to Physician [CONS] Routine Consulting Provider: MINE CASTILLO Reason For Exam: Elevated troponin, pt known to you Place consult to:: Dr. Castillo Notified:: Julia RN Phone number called:: Was contact made?: Yes If yes, spoke with:: Debora-answering service Time called:: 09:05 10/08/17 09:07 Consult to Physician [CONS] Routine Consulting Provider: TAHIR TSAI Reason For Exam: esrd on HD, pt known to you Place consult to:: Dr. Tsai Notified:: Julia RN Phone number called:: Was contact made?: Yes If yes, spoke with:: Dr. Tsai Time called:: 09:24 Primary care physician: RADIO NEWS ANCHOR Hospitalization Condition: Stable Hospital course: Patient is a 67 year-old woman with a history of hypertension, end-stage renal disease, coronary artery disease, type 2 diabetes mellitus, hypothyroidism and dyslipidemia who presented with rectal bleeding. CT abdomen and pelvis revealed extensive proctitis with mild sigmoid colitis along with CHF with bilateral small effusions. EGD revealed esophagitis and small gastric nodule which was biopsied. Colonoscopy confirmed severe proctitis which was biopsied and small polyps, two of which were removed. Biopsy results are pending, patient to follow up outpatient with GI. Patient was treated with antibiotics, steroids and resumed home medications. Disposition: TO HOME OR SELFCARE Core Measure Documentation - Palliative Care Palliative Care/ Comfort Measures: Not Applicable - Core Measures Any of the following diagnoses?: none Exam - Constitutional Vitals: Temp Pulse Resp BP Pulse Ox 98.7 F 63 20 177/62 100 10/11/17 08:27 10/11/17 10:04 10/11/17 10:16 10/11/17 10:04 10/11/17 10:00 General appearance: Present: no acute distress, well-nourished - EENT Eyes: Present: PERRL ENT: hearing intact, clear oral mucosa - Neck Neck: Present: supple, normal ROM - Respiratory Respiratory effort: normal Respiratory: bilateral: CTA - Cardiovascular Heart Sounds: Present: S1 & S2. Absent: rub, click - Extremities Extremities: pulses symmetrical, No edema Peripheral Pulses: within normal limits - Abdominal General gastrointestinal: Present: soft, non-tender, non-distended, normal bowel sounds Female genitourinary: Present: deferred - Integumentary Integumentary: Present: clear, warm, dry - Musculoskeletal Musculoskeletal: gait normal, strength equal bilaterally - Psychiatric Psychiatric: appropriate mood/affect, intact judgment & insight - Neurologic Neurologic: CNII-XII intact, moves all extremities - Allied Health Allied health notes reviewed: nursing Plan Activity: fall precautions Weight Bearing Status: Full Weight Bearing Diet: low fat, low cholesterol, low salt, diabetic Follow up with: PRIMARY CARE, [Primary Care Provider] - 3-5 Days SHERI WHITT MD [Staff Physician] - 14 Days Prescriptions: Polyethylene Glycol 3350 [Miralax 3350] 17 gm PO QDAY 30 Days powd.pack <RERE SILVA - Last Filed: 10/12/17 07:30> Providers - Providers Date of Admission: 10/08/17 03:19 Attending physician: RERE SILVA MD 10/08/17 03:19 Consult to Physician [CONS] Routine Consulting Provider: MELCHOR ALBRIGHT Reason For Exam: colitis/proctitis Place consult to:: Notified:: Julia OLIVIER Phone number called:: Was contact made?: Yes If yes, spoke with:: Loida-florentin service Time called:: 08:57 10/08/17 09:02 Consult to Physician [CONS] Routine Consulting Provider: MINE CASTILLO Reason For Exam: Elevated troponin, pt known to you Place consult to:: Dr. Castillo Notified:: Julia RN Phone number called:: Was contact made?: Yes If yes, spoke with:: Debora-florentin service Time called:: 09:05 10/08/17 09:07 Consult to Physician [CONS] Routine Consulting Provider: TAHIR TSAI Reason For Exam: esrd on HD, pt known to you Place consult to:: Dr. Tsai Notified:: Julia RN Phone number called:: Was contact made?: Yes If yes, spoke with:: Dr. Tsai Time called:: 09:24 Primary care physician: RADIO NEWS ANCHOR Hospitalization Reason for admission: Rectal bleed Hospital course: Proctitis Acute Colitis ESRD Diabetes mellutis With hyperglycemia Hypertension Anemia secondary to Rectal bleed Hypokalemia CAD Hypothyroidism Hyperlipidemia Time spent for discharge: 35 MINS Exam - Constitutional Vitals: Temp Pulse Resp BP Pulse Ox 99.0 F 60 16 149/62 93 10/11/17 15:55 10/11/17 15:55 10/11/17 15:55 10/11/17 15:55 10/11/17 15:55
[2017-10-11] MEDS ORDERED: MIRALAX 3350 PO SCH (13:00)
[2017-10-11 13:04] LABS: Calcium 8.6 mg/dL (8.4-10.2); Chloride 98.6 mmol/L (98-107); Potassium 3.4 mmol/L (3.6-5.0)
[2017-10-11 18:59] VITALS: BP 149/62
== END 2017-10-11 18:06 | disposition home or self-care (01) | DRG 871 ==
LOC: ED 16:38 → 4A 10-08 03:19
PROVIDERS: ADMIT Internal Medicine; ATTEND Internal Medicine
PROC: 3E0234Z Introduction of Serum, Toxoid and Vaccine into Muscle, Percutaneous Approach (ICD-10-PCS; 2017-10-08)
PROC: 0DB68ZX Excision of Stomach, Via Natural or Artificial Opening Endoscopic, Diagnostic (ICD-10-PCS; principal; 2017-10-10)
PROC: 0DBP8ZX Excision of Rectum, Via Natural or Artificial Opening Endoscopic, Diagnostic (ICD-10-PCS; 2017-10-10)
PROC: 0DBN8ZX Excision of Sigmoid Colon, Via Natural or Artificial Opening Endoscopic, Diagnostic (ICD-10-PCS; 2017-10-10)
PROC: 0DBL8ZX Excision of Transverse Colon, Via Natural or Artificial Opening Endoscopic, Diagnostic (ICD-10-PCS; 2017-10-10)
PROC: 5A1D70Z Performance of Urinary Filtration, Intermittent, Less than 6 Hours Per Day (ICD-10-PCS; 2017-10-10)
DX: A41.9 Sepsis, unspecified organism (principal); N18.6 End stage renal disease; I13.2 Hypertensive heart and chronic kidney disease with heart failure and with stage 5 chronic kidney disease, or end stage renal disease; K92.1 Melena; K52.9 Noninfective gastroenteritis and colitis, unspecified; K20.9 Esophagitis, unspecified; I25.10 Atherosclerotic heart disease of native coronary artery without angina pectoris; E87.6 Hypokalemia; D50.0 Iron deficiency anemia secondary to blood loss (chronic); E11.22 Type 2 diabetes mellitus with diabetic chronic kidney disease; I50.9 Heart failure, unspecified; E03.9 Hypothyroidism, unspecified; F17.210 Nicotine dependence, cigarettes, uncomplicated; K62.89 Other specified diseases of anus and rectum; E78.5 Hyperlipidemia, unspecified; E11.65 Type 2 diabetes mellitus with hyperglycemia; D63.1 Anemia in chronic kidney disease; Z82.49 Family history of ischemic heart disease and other diseases of the circulatory system; Z99.2 Dependence on renal dialysis; Z86.73 Personal history of transient ischemic attack (TIA), and cerebral infarction without residual deficits; Z23 Encounter for immunization; Z79.4 Long term (current) use of insulin; Z95.1 Presence of aortocoronary bypass graft
CPT/HCPCS: 36415; 74176; 80048; 80053; 80061; 82550; 82553; 82962; 83690; 84100; 84484; 85014; 85018; 85025; 85027; 85610; 85730; 86850; 86900; 86901; 88305; 88342; 90686; 90732; 93005; 93010; 94760; 96374; 96375; 99285; A9270-GY; J0885; J1815; J1956; J2270; J2405; J2543; J2704; J2930; J7030; J7512

== ENCOUNTER 2019-11-18 15:33 | Inpatient (IN) | payer MEDICARE ==
--- NOTE | 2019-11-18 16:12 | Emergency Department Report ---
Blank Doc - Documentation Documentation: 69-year-old female that presents with dizziness and foul urine odor. This initial assessment/diagnostic orders/clinical plan/treatment(s) is/are subject to change based on patient's health status, clinical progression and re- assessment by fellow clinical providers in the ED. Further treatment and workup at subsequent clinical providers discretion. Patient/guardians urged not to elope from the ED as their condition may be serious if not clinically assessed and managed. Initial orders include: 1- Patient sent to [facility] for further evaluation and treatment 2- labs 3- EKG 4- UA
[2019-11-18 18:36] LABS: Basophils # (Auto) 0.1 K/mm3 (0.0-0.1); Basophils % (Auto) 0.8 % (0.0-1.8); Eosinophils # (Auto) 0.1 K/mm3 (0.0-0.4); Eosinophils % (Auto) 1.5 % (0.0-4.3); Hematocrit 38.7 % (30.3-42.9); Hemoglobin 12.5 gm/dl (10.1-14.3); Lymphocytes # (Auto) 1.3 K/mm3 (1.2-5.4); Lymphocytes % (Auto) 16.8 % (13.4-35.0); Mean Corpuscular HGB Conc 32 % (30-34); Mean Corpuscular Volume 98 fl (79-97); Monocytes # (Auto) 0.3 K/mm3 (0.0-0.8); Monocytes % (Auto) 4.2 % (0.0-7.3); Platelet Count 338 K/mm3 (140-440); Red Blood Count 3.94 M/mm3 (3.65-5.03); Red Cell Distribution Width 15.2 % (13.2-15.2)
[2019-11-18 18:47] LABS: INR 1.03 (0.87-1.13)
[2019-11-18 19:02] LABS: Albumin 3.9 g/dL (3.9-5); Calcium 9.2 mg/dL (8.4-10.2)
[2019-11-18] MEDS ORDERED: MECLIZINE 25 MG TAB PO ONE (19:19)
--- NOTE | 2019-11-18 19:24 | Emergency Department Report ---
HPI - General Chief Complaint: Dizziness Time Seen by Provider: 11/18/19 16:11 - HPI HPI: 69-year-old female presents to the emergency department with complaint of a 24- hour history of dizziness, nausea and vomiting. She describes the dizziness as both a lightheadedness and a vertigo-like sensation with the room spinning. The patient went to get her dialysis today, as she does on Monday/Monday/Monday, the only did about 2 hours of treatment as the patient's blood pressure started dropping. She usually has a history of hypertension and has received her blood pressure medications today. The patient has a past medical history of CHF, CVA, dementia, diabetes, hypertension, hypothyroidism. She just moved here from [place] a few weeks ago and therefore does not have any local primary care physician or mobile nurse. The patient's daughter also says that she has noticed some malodorous urine since yesterday. ED Past Medical Hx - Past Medical History Previous Medical History?: Yes Hx Hypertension: Yes (CHF, EF 60%) Hx CVA: Yes Hx Congestive Heart Failure: Yes Hx Diabetes: Yes Hx Renal Disease: Yes ([id number]-[id number]) Hx Dementia: Yes Additional medical history: hypothyroidism fx humerus/ - Surgical History Past Surgical History?: Yes Additional Surgical History: right AV fistula - Social History Smoking Status: Never Smoker Substance Use Type: None - Medications Home Medications: Home Medications Medication Instructions Recorded Confirmed Last Taken Type clonazePAM [KlonoPIN] 0.5 mg PO QID PRN 09/26/17 10/09/17 09/26/17 History predniSONE [Deltasone] 20 mg PO QDAY 09/26/17 10/09/17 09/26/17 History AtorvaSTATin [Lipitor] 80 mg PO QDAY #30 tablet 09/30/17 10/09/17 Unknown Rx Cetirizine HCl [All Day Allergy] 10 mg PO DAILY #30 tablet 09/30/17 10/09/17 Unknown Rx Citalopram [celeXA] 10 mg PO QDAY #30 tablet 09/30/17 10/09/17 Unknown Rx Clopidogrel Bisulfate [Plavix] 75 mg PO QDAY #30 tablet 09/30/17 10/09/17 Unknown Rx Donepezil [Aricept] 5 mg PO QHS #30 tablet 09/30/17 10/09/17 Unknown Rx Furosemide [Lasix TAB] 40 mg PO QDAY #30 tablet 09/30/17 10/09/17 Unknown Rx Gabapentin 300 mg PO Q8HR #30 capsule 09/30/17 10/09/17 Unknown Rx Hydralazine HCl 50 mg PO TID #30 tablet 09/30/17 10/09/17 Unknown Rx Levemir 10 units SC HS #30 09/30/17 10/09/17 Unknown Rx Levothyroxine [Synthroid] 125 mcg PO QAM #30 tablet 09/30/17 10/09/17 Unknown Rx amLODIPine 10 mg PO DAILY #30 tablet 09/30/17 10/09/17 Unknown Rx buPROPion SR [Wellbutrin SR] 150 mg PO BID #60 tablet 09/30/17 10/09/17 Unknown Rx carvediloL [Coreg] 25 mg PO BID #60 tablet 09/30/17 10/09/17 Unknown Rx sulfaSALAzine [Azulfidine] 500 mg PO Q6HR #30 tablet 09/30/17 10/09/17 Unknown Rx Polyethylene Glycol 3350 [Miralax 17 gm PO QDAY 30 Days powd.pack 10/11/17 Unknown Rx 3350] ED Review of Systems ROS: Stated complaint: VOMITTING/DIZZINESS Other details as noted in HPI Comment: All other systems reviewed and negative Constitutional: denies: chills, fever Eyes: denies: eye pain, vision change ENT: denies: ear pain, throat pain Respiratory: denies: cough, shortness of breath Cardiovascular: denies: chest pain, palpitations Gastrointestinal: nausea, vomiting. denies: abdominal pain Genitourinary: denies: dysuria, discharge Musculoskeletal: denies: back pain, arthralgia Skin: denies: rash, lesions Neurological: headache (mild), vertigo, other (lightheaded/dizzy) Physical Exam - Physical Exam Vital Signs: Vital Signs 11/18/19 15:38 Temperature 97.4 F L Pulse Rate 67 Respiratory 16 Rate Blood Pressure 176/59 O2 Sat by Pulse 95 Oximetry Physical Exam: GENERAL: The patient is well-developed well-nourished. HEENT: Normocephalic. Atraumatic. Patient has moist mucous membranes. EYES: Extraocular motions are intact. Pupils equal and reactive to light bilaterally. No nystagmus. NECK: Supple. Trachea is midline. CHEST/LUNGS: Clear to auscultation. There is no respiratory distress noted. HEART/CARDIOVASCULAR: Regular. There is no tachycardia. There is no murmur. ABDOMEN: Abdomen is soft, nontender. Patient has normal bowel sounds. There is no abdominal distention. SKIN:Skin is warm and dry. . NEURO: The patient is awake, alert, and cooperative. The patient has no focal neurologic deficits. Normal speech. Cranial nerves II through XII grossly intact. No pronator drift. No dysmetria. MUSCULOSKELETAL: There is no tenderness or deformity. There is no evidence of acute injury. ED Course Vital Signs 11/18/19 15:38 Temperature 97.4 F L Pulse Rate 67 Respiratory 16 Rate Blood Pressure 176/59 O2 Sat by Pulse 95 Oximetry ED Medical Decision Making - Lab Data Result diagrams: 11/18/19 18:09 11/18/19 18:09 - EKG Data -: EKG Interpreted by Me EKG shows normal: sinus rhythm, axis, intervals (mild prolongation of QTC), QRS complexes, ST-T waves Rate: normal - EKG Data When compared to previous EKG there are: previous EKG unavailable Interpretation: other (sinus rhythm, normal rate, normal axis, slight prolongation of QTC. No ST elevation IN) - Radiology Data Radiology results: report reviewed, image reviewed interpreted by me: Chest x-ray does not show any pleural effusions, pneumonia, pneumothorax, focal consolidation, or any other acute process. CT head/brain wo con INDICATION / CLINICAL INFORMATION: 69 years Female; dizziness. TECHNIQUE: Routine CT head without contrast. All CT scans at this location are performed using CT dose reduction for ALARA by means of automated exposure control. COMPARISON: None. FINDINGS: BRAIN / INTRACRANIAL CONTENTS: There is extensive cerebral and pontine white matter disease most consistent with microvascular angiopathy at. There is an old lacunar infarct involving the right thalamus at. There are foci of calcification within the basal ganglia bilaterally at. There is no clear CT evidence of acute intracranial hemorrhage or significant mass effect. ORBITS: No significant abnormality of visualized orbits. SINUSES / MASTOIDS: No significant abnormality the visualized paranasal sinuses or mastoid air cells. CRANIOCERVICAL JUNCTION: No significant abnormality. ADDITIONAL FINDINGS: None. IMPRESSION: 1. There is extensive microvascular angiopathy as detailed above without CT evidence of acute intracranial hemorrhage. - Medical Decision Making This patient presents with some dizziness, nausea, vomiting. The dizziness worsened when the patient went to dialysis and she had some hypotension. However the patient presents with hypertension that got as high as a systolic of about 200. The patient's dizziness appears to be some lightheadedness and some vertigo-like symptoms. On examination she does not have any focal, motor or sensory deficits and her cranial nerves are intact. CT scan of the head without contrast did not show any bleed, shift, mass, ischemia, or any other acute process. EKG did not show any signs of ST elevation IN. Patient's labs show her end-stage renal disease, elevated troponin levels and a urinary tract infection. Patient was started on Rocephin. Patient was given some hydralazine for her hypertension. Given the patient's complaint of dizziness, the extreme fluctuations off her blood pressure, the elevated troponin levels, and the fact that the patient does not have any established outpatient follow-up, the patient will be admitted to the hospital for further evaluation and treatment and was accepted for admission by the hospitalist, Dr. Engel. - Differential Diagnosis CVA, TIA, IN, dysrhythmia, hyperkalemia Critical Care Time: No Critical care attestation.: If time is entered above; I have spent that time in minutes in the direct care of this critically ill patient, excluding procedure time. ED Disposition Clinical Impression: Hypertensive urgency, ESRD on hemodialysis, Elevated troponin level, Dizziness Disposition: OP ADMIT IP TO THIS HOSP Is pt being admited?: Yes Condition: Fair Time of Disposition: 00:18
[2019-11-18 19:33] LABS: Chol/HDL Ratio 2.79 %
--- NOTE | 2019-11-18 20:20 | Cat Scan Report ---
CT head/brain wo con INDICATION / CLINICAL INFORMATION: 69 years Female; dizziness. TECHNIQUE: Routine CT head without contrast. All CT scans at this location are performed using CT dos e reduction for ALARA by means of automated exposure control. COMPARISON: None. FINDINGS: BRAIN / INTRACRANIAL CONTENTS: There is extensive cerebral and pontine white matter disease most cons istent with microvascular angiopathy at. There is an old lacunar infarct involving the right thalamus at. There are foci of calcification within the basal ganglia bilaterally at. There is no clear CT ev idence of acute intracranial hemorrhage or significant mass effect. ORBITS: No significant abnormality of visualized orbits. SINUSES / MASTOIDS: No significant abnormality the visualized paranasal sinuses or mastoid air cells. CRANIOCERVICAL JUNCTION: No significant abnormality. ADDITIONAL FINDINGS: None. IMPRESSION: 1. There is extensive microvascular angiopathy as detailed above without CT evidence of acute intracr anial hemorrhage. Signer Name: Michael Echavarria MD Signed: 11/18/2019 8:15 PM Workstation Name: [id number]
--- NOTE | 2019-11-18 20:35 | XRay Report ---
CHEST 1 VIEW INDICATION: dizziness. COMPARISON: 09/26/2017 FINDINGS: Support devices: None. Heart: Stable cardiomegaly. Status post previous median sternotomy. Lungs/Pleura: Mild chronic interstitial thickening. Negative for acute infiltrate. Additional findings: None. IMPRESSION: Stable cardiomegaly and chronic interstitial thickening. Signer Name: Sai Purvis MD Signed: 11/18/2019 8:31 PM Workstation Name: [id number]
[2019-11-18] MEDS ORDERED: hydrALAZINE 20 MG/1 ML INJ IV ONE (21:30)
[2019-11-18 21:51] LABS: Bacteria,Urine 4+ /HPF (Negative); Bilirubin,Urine NEG (Negative); Blood,Urine SM (Negative); Color,Urine Amber (Yellow); Mucus,Urine 3+ /HPF; Urobilinogen,Urine < 2.0 mg/dL (<2.0)
[2019-11-18 22:01] LABS: Protein,Urine >500 mg/dL (Negative); WBC,Urine > 182.0 /HPF (0.0-6.0)
[2019-11-18] MEDS ORDERED: cefTRIAXone/NS 1 GM/50 ML 1 GM/50 ML BAG IV ONE (22:22)
[2019-11-18] MEDS ORDERED: ALPRAZolam 1 MG TAB PO ONE (23:55)
[2019-11-19] MEDS ORDERED: DEXTROSE 50% IN WATER (25GM) 50 ML SYRINGE IV PRN (01:01)
[2019-11-19] MEDS ORDERED: ACETAMINOPHEN 325 MG TAB PO PRN (01:01)
[2019-11-19] MEDS ORDERED: ONDANSETRON 4 MG/2 ML INJ IV PRN (01:01)
[2019-11-19] MEDS ORDERED: MAGNESIUM HYDROXIDE (MOM) ORAL LIQD UDC PO PRN (01:01)
[2019-11-19] MEDS ORDERED: NITROGLYCERIN 0.4 MG TAB SUBL SL PRN (01:01)
[2019-11-19] MEDS ORDERED: hydrALAZINE 20 MG/1 ML INJ IV PRN (01:01)
--- NOTE | 2019-11-19 02:56 | History and Physical Report ---
History of Present Illness Date of examination: 11/19/19 Date of admission: 11/19/19 00:19 Chief complaint: 11/19/2019 History of present illness: 69-year-old female with known history of end-stage renal disease on dialysis Monday and Monday was brought into the emergency room today with a complaint of dizziness and lightheadedness which has been ongoing for almost 24 hours. She was in dialysis today when he was noticed that her blood pressure was dropping. She did not complete a full course of dialysis. She denies any fever or chills, no nausea or vomiting, no diarrhea, she complained of some midsternal chest pain but denies any shortness of breath. No relieving or exacerbating factor for chest pain and has been no radiation. Daughter who was by the bedside indicates that patient has had some malodorous urine lately. She recently moved from [place] to [place] and has never fully established with any primary care physician. Upon arrival in the emergency room patient's blood pressure was said to be elevated and was given some IV hydralazine. She has also had elevated troponin and urinalysis reveals UTI. Past History Past Medical History: diabetes, ESRD, hypothyroidism Past Surgical History: CABG, Other (AV fistula placement in the right upper extremity) Social history: smoking (Less than a pack of cigarette daily) Family history: diabetes Medications and Allergies Allergies Allergy/AdvReac Type Severity Reaction Status Date / Time Penicillins Allergy Anaphylaxis Verified 11/18/19 23:56 Home Medications Medication Instructions Recorded Confirmed Last Taken Type clonazePAM [KlonoPIN] 0.5 mg PO QID PRN 09/26/17 10/09/17 09/26/17 History predniSONE [Deltasone] 20 mg PO QDAY 09/26/17 10/09/17 09/26/17 History AtorvaSTATin [Lipitor] 80 mg PO QDAY #30 tablet 09/30/17 10/09/17 Unknown Rx Cetirizine HCl [All Day Allergy] 10 mg PO DAILY #30 tablet 09/30/17 10/09/17 Unknown Rx Citalopram [celeXA] 10 mg PO QDAY #30 tablet 09/30/17 10/09/17 Unknown Rx Clopidogrel Bisulfate [Plavix] 75 mg PO QDAY #30 tablet 09/30/17 10/09/17 Unknown Rx Donepezil [Aricept] 5 mg PO QHS #30 tablet 09/30/17 10/09/17 Unknown Rx Furosemide [Lasix TAB] 40 mg PO QDAY #30 tablet 09/30/17 10/09/17 Unknown Rx Gabapentin 300 mg PO Q8HR #30 capsule 09/30/17 10/09/17 Unknown Rx Hydralazine HCl 50 mg PO TID #30 tablet 09/30/17 10/09/17 Unknown Rx Levemir 10 units SC HS #30 09/30/17 10/09/17 Unknown Rx Levothyroxine [Synthroid] 125 mcg PO QAM #30 tablet 09/30/17 10/09/17 Unknown Rx amLODIPine 10 mg PO DAILY #30 tablet 09/30/17 10/09/17 Unknown Rx buPROPion SR [Wellbutrin SR] 150 mg PO BID #60 tablet 09/30/17 10/09/17 Unknown Rx carvediloL [Coreg] 25 mg PO BID #60 tablet 09/30/17 10/09/17 Unknown Rx sulfaSALAzine [Azulfidine] 500 mg PO Q6HR #30 tablet 09/30/17 10/09/17 Unknown Rx Polyethylene Glycol 3350 [Miralax 17 gm PO QDAY 30 Days powd.pack 10/11/17 Unknown Rx 3350] Active Meds: Active Medications Acetaminophen (Tylenol) 650 mg PO Q4H PRN PRN Reason: Pain MILD(1-3)/Fever >100.5/MENDEZ Aspirin (Ecotrin) 325 mg PO QDAY [facility] Dextrose (D50w (25gm) Syringe) 50 ml IV Q30MIN PRN; Protocol PRN Reason: Hypoglycemia Hydralazine HCl (Apresoline) 10 mg IV Q6HR PRN PRN Reason: FOR SBP > target Ceftriaxone Sodium (Rocephin/Ns 1 Gm/50 Ml) 1 gm in 50 mls @ 100 mls/hr IV Q24HR@2200 [facility]; Protocol Insulin Human Lispro (Humalog) 0 unit SUB-Q ACHS [facility]; Protocol Magnesium Hydroxide (Milk Of Magnesia) 30 ml PO Q4H PRN PRN Reason: Constipation Nitroglycerin (Nitrostat) 0.4 mg SL Q5M PRN PRN Reason: Chest Pain Ondansetron HCl (Zofran) 4 mg IV Q8H PRN PRN Reason: Nausea And Vomiting Sodium Chloride (Sodium Chloride Flush Syringe 10 Ml) 10 ml IV BID [facility] Sodium Chloride (Sodium Chloride Flush Syringe 10 Ml) 10 ml IV PRN PRN PRN Reason: LINE FLUSH Review of Systems Cardiovascular: chest pain Neurological: other (Dizziness and lightheadedness) Exam - Constitutional Vitals: Temp Pulse Resp BP Pulse Ox 97.8 F 67 18 146/53 95 11/19/19 01:53 11/19/19 01:53 11/19/19 01:53 11/19/19 01:53 11/19/19 01:53 General appearance: Present: no acute distress, well-nourished - EENT Eyes: Present: PERRL, EOM intact ENT: hearing intact, clear oral mucosa, dentition normal - Neck Neck: Present: supple, normal ROM - Respiratory Respiratory: bilateral: CTA - Cardiovascular Rhythm: regular Heart Sounds: Present: S1 & S2 - Extremities Extremities: no ischemia, No edema, Full ROM Peripheral Pulses: within normal limits - Abdominal General gastrointestinal: Present: soft, non-tender, non-distended - Integumentary Integumentary: Present: clear, warm, dry - Musculoskeletal Musculoskeletal: strength equal bilaterally - Psychiatric Psychiatric: appropriate mood/affect, intact judgment & insight, cooperative - Neurologic Neurologic: CNII-XII intact, moves all extremities Results - Labs CBC & Chem 7: 11/18/19 18:09 11/18/19 18:09 Labs: Abnormal lab results 11/18/19 11/18/19 11/18/19 Range/Units 18:09 18:09 18:09 MCV 98 H (79-97) fl Seg Neutrophils % 76.7 H (40.0-70.0) % APTT 37.0 H (24.2-36.6) Sec. Sodium 133 L (137-145) mmol/L Chloride 92.5 L (98-107) mmol/L BUN 22 H (7-17) mg/dL Creatinine 3.5 H (0.7-1.2) mg/dL Glucose 191 H (65-100) mg/dL Alkaline Phosphatase 140 H (35-129) units/L Troponin T 0.131 H* (0.00-0.029) ng/mL Triglycerides (2-149) mg/dL TSH (0.270-4.200) mlU/mL Urine WBC (Auto) (0.0-6.0) /HPF 11/18/19 11/18/19 11/18/19 Range/Units 18:09 19:29 21:32 MCV (79-97) fl Seg Neutrophils % (40.0-70.0) % APTT (24.2-36.6) Sec. Sodium (137-145) mmol/L Chloride (98-107) mmol/L BUN (7-17) mg/dL Creatinine (0.7-1.2) mg/dL Glucose (65-100) mg/dL Alkaline Phosphatase (35-129) units/L Troponin T 0.131 H* (0.00-0.029) ng/mL Triglycerides 226 H (2-149) mg/dL TSH 4.320 H (0.270-4.200) mlU/mL Urine WBC (Auto) > 182.0 H (0.0-6.0) /HPF 11/18/19 Range/Units 22:31 MCV (79-97) fl Seg Neutrophils % (40.0-70.0) % APTT (24.2-36.6) Sec. Sodium (137-145) mmol/L Chloride (98-107) mmol/L BUN (7-17) mg/dL Creatinine (0.7-1.2) mg/dL Glucose (65-100) mg/dL Alkaline Phosphatase (35-129) units/L Troponin T 0.127 H* (0.00-0.029) ng/mL Triglycerides (2-149) mg/dL TSH (0.270-4.200) mlU/mL Urine WBC (Auto) (0.0-6.0) /HPF Assessment and Plan - Patient Problems (1) ESRD on hemodialysis Current Visit: Yes Status: Acute Plan to address problem: Patient is on dialysis on Monday and Monday. We will place a consult to nephrology for evaluation and further recommendation. (2) Elevated troponin Current Visit: Yes Status: Acute Plan to address problem: We will check serial cardiac enzymes and monitor EKG. patient has also complained of some chest pain. We will place a consult to cardiology for evaluation and further recommendation. (3) Diabetes mellitus with hyperglycemia Current Visit: No Status: Acute Plan to address problem: We will monitor Accu-Cheks and resume patient's routine home medications. (4) UTI (urinary tract infection) Current Visit: Yes Status: Acute Plan to address problem: Patient placed on empiric IV antibiotics. We await urine culture results (5) DVT prophylaxis Current Visit: Yes Status: Acute Plan to address problem: Patient placed on subcutaneous heparin. (6) Full code status Current Visit: Yes Status: Acute
[2019-11-19 06:31] LABS: Basophils # (Auto) 0.1 K/mm3 (0.0-0.1); Basophils % (Auto) 0.9 % (0.0-1.8); Eosinophils # (Auto) 0.2 K/mm3 (0.0-0.4); Eosinophils % (Auto) 2.4 % (0.0-4.3); Hematocrit 35.8 % (30.3-42.9); Hemoglobin 11.7 gm/dl (10.1-14.3); Lymphocytes # (Auto) 1.6 K/mm3 (1.2-5.4); Lymphocytes % (Auto) 25.2 % (13.4-35.0); Mean Corpuscular HGB Conc 33 % (30-34); Mean Corpuscular Volume 98 fl (79-97); Monocytes # (Auto) 0.5 K/mm3 (0.0-0.8); Monocytes % (Auto) 7.4 % (0.0-7.3); Platelet Count 310 K/mm3 (140-440); Red Blood Count 3.65 M/mm3 (3.65-5.03); Red Cell Distribution Width 15.1 % (13.2-15.2)
[2019-11-19 06:46] LABS: Calcium 9.6 mg/dL (8.4-10.2)
[2019-11-19] MEDS: INSULIN LISPRO 100 UNIT/ML SUB-Q SCH ×4 (08:19→22:18)
--- NOTE | 2019-11-19 10:17 | Progress Note ---
Assessment and Plan Assessment and plan: ESRD. Continue hemodialysis per nephrology. Elevated troponin. Continue follow-up cardiac isoenzymes. Cardiology consultation pending. Diabetes mellitus type 2. Continue Accu-Cheks and sliding scale insulin. UTI. Continue IV antibiotics and follow-up cultures. DVT prophylaxis. Continue subcutaneous heparin. History Interval history: No new issues overnight. Hospitalist Physical - Constitutional Vitals: Temp Pulse Resp BP Pulse Ox 98.4 F 64 18 133/47 95 11/19/19 08:23 11/19/19 08:23 11/19/19 08:23 11/19/19 08:23 11/19/19 08:23 General appearance: Present: no acute distress, well-nourished - EENT Eyes: Present: PERRL, EOM intact ENT: hearing intact, clear oral mucosa, dentition normal - Neck Neck: Present: supple, normal ROM - Respiratory Respiratory effort: normal Respiratory: bilateral: CTA - Cardiovascular Rhythm: regular Heart Sounds: Present: S1 & S2. Absent: gallop, rub - Extremities Extremities: no ischemia, No edema, Full ROM - Abdominal General gastrointestinal: soft, non-tender, non-distended, normal bowel sounds - Integumentary Integumentary: Present: clear, warm, dry - Neurologic Neurologic: CNII-XII intact, moves all extremities Results - Labs CBC & Chem 7: 11/19/19 05:39 11/19/19 05:39 Labs: Laboratory Last Values WBC 6.2 K/mm3 (4.5-11.0) 11/19/19 05:39 RBC 3.65 M/mm3 (3.65-5.03) 11/19/19 05:39 Hgb 11.7 gm/dl (10.1-14.3) 11/19/19 05:39 Hct 35.8 % (30.3-42.9) 11/19/19 05:39 MCV 98 fl (79-97) H 11/19/19 05:39 MCH 32 pg (28-32) 11/19/19 05:39 MCHC 33 % (30-34) 11/19/19 05:39 RDW 15.1 % (13.2-15.2) 11/19/19 05:39 Plt Count 310 K/mm3 (140-440) 11/19/19 05:39 Lymph % (Auto) 25.2 % (13.4-35.0) 11/19/19 05:39 [place] % (Auto) 7.4 % (0.0-7.3) H 11/19/19 05:39 Eos % (Auto) 2.4 % (0.0-4.3) 11/19/19 05:39 Baso % (Auto) 0.9 % (0.0-1.8) 11/19/19 05:39 Lymph # 1.6 K/mm3 (1.2-5.4) 11/19/19 05:39 [place] # 0.5 K/mm3 (0.0-0.8) 11/19/19 05:39 Eos # 0.2 K/mm3 (0.0-0.4) 11/19/19 05:39 Baso # 0.1 K/mm3 (0.0-0.1) 11/19/19 05:39 Seg Neutrophils % 64.1 % (40.0-70.0) 11/19/19 05:39 Seg Neutrophils # 4.0 K/mm3 (1.8-7.7) 11/19/19 05:39 PT 13.6 Sec. (12.2-14.9) 11/18/19 18:09 INR 1.03 (0.87-1.13) 11/18/19 18:09 APTT 37.0 Sec. (24.2-36.6) H 11/18/19 18:09 Sodium 133 mmol/L (137-145) L 11/19/19 05:39 Potassium 4.6 mmol/L (3.6-5.0) 11/19/19 05:39 Chloride 95.2 mmol/L (98-107) L 11/19/19 05:39 Carbon Dioxide 26 mmol/L (22-30) 11/19/19 05:39 Anion Gap 16 mmol/L 11/19/19 05:39 BUN 28 mg/dL (7-17) H 11/19/19 05:39 Creatinine 4.1 mg/dL (0.7-1.2) H 11/19/19 05:39 Estimated GFR 11 ml/min 11/19/19 05:39 BUN/Creatinine Ratio 7 % 11/19/19 05:39 Glucose 165 mg/dL (65-100) H 11/19/19 05:39 Calcium 9.6 mg/dL (8.4-10.2) 11/19/19 05:39 Total Bilirubin 0.30 mg/dL (0.1-1.2) 11/18/19 18:09 AST 13 units/L (5-40) 11/18/19 18:09 ALT 7 units/L (7-56) 11/18/19 18:09 Alkaline Phosphatase 140 units/L (35-129) H 11/18/19 18:09 Troponin T 0.123 ng/mL (0.00-0.029) H* 11/19/19 05:39 Total Protein 7.6 g/dL (6.3-8.2) 11/18/19 18:09 Albumin 3.9 g/dL (3.9-5) 11/18/19 18:09 Albumin/Globulin Ratio 1.1 % 11/18/19 18:09 Triglycerides 226 mg/dL (2-149) H 11/18/19 18:09 Cholesterol 134 mg/dL (50-199) 11/18/19 18:09 LDL Cholesterol Direct 56 mg/dL (50-130) 11/18/19 18:09 HDL Cholesterol 48 mg/dL (40-59) 11/18/19 18:09 Cholesterol/HDL Ratio 2.79 % 11/18/19 18:09 TSH 4.320 mlU/mL (0.270-4.200) H 11/18/19 19:29 Urine Color [place] (Yellow) 11/18/19 21:32 Urine Turbidity Turbid (Clear) 11/18/19 21:32 Urine pH 7.0 (5.0-7.0) 11/18/19 21:32 Ur Specific [place] 1.018 (1.003-1.030) 11/18/19 21:32 Urine Protein >500 mg/dL (Negative) 11/18/19 21:32 Urine Glucose (UA) Neg mg/dL (Negative) 11/18/19 21:32 Urine Ketones Tr mg/dL (Negative) 11/18/19 21:32 Urine Blood Sm (Negative) 11/18/19 21:32 Urine Nitrite Neg (Negative) 11/18/19 21: Urine Bilirubin Neg (Negative) 11/18/19 21:32 Urine Urobilinogen < 2.0 mg/dL (<2.0) 11/18/19 21:32 Ur Leukocyte Esterase Lg (Negative) 11/18/19 21:32 Urine WBC (Auto) > 182.0 /HPF (0.0-6.0) H 11/18/19 21:32 Urine RBC (Auto) 34.0 /HPF (0.0-6.0) 11/18/19 21:32 Urine Bacteria (Auto) 4+ /HPF (Negative) 11/18/19 21:32 Urine WBC Clumps 3+ /HPF 11/18/19 21:32 Urine Mucus 3+ /HPF 11/18/19 21:32 Urine Yeast (Budding) 3+ /HPF 11/18/19 21:32 Active Medications - Current Medications Current Medications: Generic Name Dose Route Start Last Admin Trade Name Freq PRN Reason Stop Dose Admin Acetaminophen 650 mg 11/19/19 01:01 Tylenol PO Q4H PRN Pain MILD(1-3)/Fever >100.5/MENDEZ Aspirin 325 mg 11/20/19 10:00 Ecotrin PO QDAY [facility] Dextrose 50 ml 11/19/19 01:01 D50w (25gm) Syringe IV Q30MIN PRN Hypoglycemia Protocol Heparin Sodium (Porcine) 5,000 unit 11/19/19 14:00 Heparin SUB-Q Q8HR [facility] Hydralazine HCl 10 mg 11/19/19 01:01 Apresoline IV Q6HR PRN FOR SBP > target Ceftriaxone Sodium 1 gm in 50 mls @ 100 mls/hr 11/19/19 22:00 Rocephin/Ns 1 Gm/50 Ml IV Q24HR@2200 [facility] Protocol Insulin Human Lispro 0 unit 11/19/19 07:30 Humalog SUB-Q ACHS [facility] Protocol Magnesium Hydroxide 30 ml 11/19/19 01:01 Milk Of Magnesia PO Q4H PRN Constipation Nitroglycerin 0.4 mg 11/19/19 01:01 Nitrostat SL Q5M PRN Chest Pain Ondansetron HCl 4 mg 11/19/19 01:01 Zofran IV Q8H PRN Nausea And Vomiting Sodium Chloride 10 ml 11/19/19 10:00 Sodium Chloride Flush Syringe 10 Ml IV BID [facility] Sodium Chloride 10 ml 11/19/19 01:01 Sodium Chloride Flush Syringe 10 Ml IV PRN PRN LINE FLUSH
--- NOTE | 2019-11-19 11:28 | Consultation ---
History of Present Illness Consult date: 11/19/19 Requesting physician: TARAN WADDELL Consult reason: chest pain, elevated troponin History of present illness: The pt is a 69 YO female with a past medical history of CAD s/p CABG >5 years ago in [place], ? loop recorder in situ ([place] per device card), HTN, DM, CVA, ESRD on HD, anemia, dementia. She is previously unknown to our practice. 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 She has dementia and is withdrawn on evaluation and thus HPI is obtained per her daughter at bedside. According to pt's daughter, pt was noted to have a bout of dizziness, hypotension and vomiting during dialysis yesterday and thus they decided to seek medical attention. She did not complete a full course of dialysis. Pt's daughter states that pt has been c/o intermittent chest pain for the past several weeks, although pt is unable to provide any additional details regarding the nature of the chest pain. Pt's daughter also noted pt's urine to be malodorous for the past several days - pt found to have UTI in ED. BP up to 206/74 following admission and was given IV hydralazine in ED. LHC done here in 09/2017 showed patent SVG to LAD with anastomoses to the mid LAD and a proximal diagonal branch of the LAD. Diffuse small vessel disease of the Cx and RCA. Medical therapy was recommended. Past History Past Medical History: anemia, CAD, diabetes, ESRD, hypertension, hypothyroidism, stroke Past Surgical History: CABG, Other (AV fistula placement in the right upper extremity) Social history: smoking (Less than a pack of cigarette daily) Family history: diabetes Medications and Allergies Allergies Allergy/AdvReac Type Severity Reaction Status Date / Time Penicillins Allergy Anaphylaxis Verified 11/18/19 23:56 Home Medications Medication Instructions Recorded Confirmed Last Taken Type clonazePAM [KlonoPIN] 0.5 mg PO QID PRN 09/26/17 10/09/17 09/26/17 History predniSONE [Deltasone] 20 mg PO QDAY 09/26/17 10/09/17 09/26/17 History AtorvaSTATin [Lipitor] 80 mg PO QDAY #30 tablet 09/30/17 10/09/17 Unknown Rx Cetirizine HCl [All Day Allergy] 10 mg PO DAILY #30 tablet 09/30/17 10/09/17 Unknown Rx Citalopram [celeXA] 10 mg PO QDAY #30 tablet 09/30/17 10/09/17 Unknown Rx Clopidogrel Bisulfate [Plavix] 75 mg PO QDAY #30 tablet 09/30/17 10/09/17 Unknown Rx Donepezil [Aricept] 5 mg PO QHS #30 tablet 09/30/17 10/09/17 Unknown Rx Furosemide [Lasix TAB] 40 mg PO QDAY #30 tablet 09/30/17 10/09/17 Unknown Rx Gabapentin 300 mg PO Q8HR #30 capsule 09/30/17 10/09/17 Unknown Rx Hydralazine HCl 50 mg PO TID #30 tablet 09/30/17 10/09/17 Unknown Rx Levemir 10 units SC HS #30 09/30/17 10/09/17 Unknown Rx Levothyroxine [Synthroid] 125 mcg PO QAM #30 tablet 09/30/17 10/09/17 Unknown Rx amLODIPine 10 mg PO DAILY #30 tablet 09/30/17 10/09/17 Unknown Rx buPROPion SR [Wellbutrin SR] 150 mg PO BID #60 tablet 09/30/17 10/09/17 Unknown Rx carvediloL [Coreg] 25 mg PO BID #60 tablet 09/30/17 10/09/17 Unknown Rx sulfaSALAzine [Azulfidine] 500 mg PO Q6HR #30 tablet 09/30/17 10/09/17 Unknown Rx Polyethylene Glycol 3350 [Miralax 17 gm PO QDAY 30 Days powd.pack 10/11/17 Unknown Rx 3350] Active Meds: Active Medications Acetaminophen (Tylenol) 650 mg PO Q4H PRN PRN Reason: Pain MILD(1-3)/Fever >100.5/MENDEZ Aspirin (Ecotrin) 325 mg PO QDAY [facility] Dextrose (D50w (25gm) Syringe) 50 ml IV Q30MIN PRN; Protocol PRN Reason: Hypoglycemia Heparin Sodium (Porcine) (Heparin) 5,000 unit SUB-Q Q8HR [facility] Hydralazine HCl (Apresoline) 10 mg IV Q6HR PRN PRN Reason: FOR SBP > target Ceftriaxone Sodium (Rocephin/Ns 1 Gm/50 Ml) 1 gm in 50 mls @ 100 mls/hr IV Q24HR@2200 [facility]; Protocol Insulin Human Lispro (Humalog) 0 unit SUB-Q ACHS [facility]; Protocol Magnesium Hydroxide (Milk Of Magnesia) 30 ml PO Q4H PRN PRN Reason: Constipation Nitroglycerin (Nitrostat) 0.4 mg SL Q5M PRN PRN Reason: Chest Pain Ondansetron HCl (Zofran) 4 mg IV Q8H PRN PRN Reason: Nausea And Vomiting Sodium Chloride (Sodium Chloride Flush Syringe 10 Ml) 10 ml IV BID [facility] Sodium Chloride (Sodium Chloride Flush Syringe 10 Ml) 10 ml IV PRN PRN PRN Reason: LINE FLUSH Review of Systems ROS unobtainable: due to mental status Physical Examination Vital Signs Temp Pulse Resp BP Pulse Ox 97.4 F L 67 16 176/59 95 11/18/19 15:38 11/18/19 15:38 11/18/19 15:38 11/18/19 15:38 11/18/19 15:38 General appearance: no acute distress, other (withdrawn) HEENT: Positive: PERRL Neck: Positive: neck supple, trachea midline Cardiac: Positive: Reg Rate and Rhythm, S1/S2, Systolic Murmur Lungs: Positive: Decreased Breath Sounds Neuro: Positive: Other (ILENE, withdrawn, dementia) Abdomen: Negative: Tender Skin: Negative: Rash Musculoskeletal: No Pain Extremities: Absent: edema Results 11/19/19 05:39 11/19/19 05:39 Cardiac Enzymes 11/18/19 Range/Units 18:09 AST 13 (5-40) units/L Coagulation 11/18/19 Range/Units 18:09 PT 13.6 (12.2-14.9) Sec. INR 1.03 (0.87-1.13) APTT 37.0 H (24.2-36.6) Sec. Lipids 11/18/19 Range/Units 18:09 Triglycerides 226 H (2-149) mg/dL Cholesterol 134 (50-199) mg/dL HDL Cholesterol 48 (40-59) mg/dL Cholesterol/HDL Ratio 2.79 % CBC 11/18/19 11/19/19 Range/Units 18:09 05:39 WBC 7.8 6.2 (4.5-11.0) K/mm3 RBC 3.94 3.65 (3.65-5.03) M/mm3 Hgb 12.5 11.7 (10.1-14.3) gm/dl Hct 38.7 35.8 (30.3-42.9) % Plt Count 338 310 (140-440) K/mm3 Lymph # 1.3 1.6 (1.2-5.4) K/mm3 [place] # 0.3 0.5 (0.0-0.8) K/mm3 Eos # 0.1 0.2 (0.0-0.4) K/mm3 Baso # 0.1 0.1 (0.0-0.1) K/mm3 Comprehensive Metabolic Panel 11/18/19 11/19/19 Range/Units 18:09 05:39 Sodium 133 L 133 L (137-145) mmol/L Potassium 4.1 4.6 (3.6-5.0) mmol/L Chloride 92.5 L 95.2 L (98-107) mmol/L Carbon Dioxide 26 26 (22-30) mmol/L BUN 22 H 28 H (7-17) mg/dL Creatinine 3.5 H 4.1 H (0.7-1.2) mg/dL Glucose 191 H 165 H (65-100) mg/dL Calcium 9.2 9.6 (8.4-10.2) mg/dL AST 13 (5-40) units/L ALT 7 (7-56) units/L Alkaline Phosphatase 140 H (35-129) units/L Total Protein 7.6 (6.3-8.2) g/dL Albumin 3.9 (3.9-5) g/dL - Imaging and Cardiology Echo: pending EKG: report reviewed, image reviewed EKG interpretations - Telemetry EKG Rhythm: Sinus Rhythm - EKG Sinus rhythms and dysrhythmias: sinus rhythm Assessment and Plan CE elevation appears c/w NSTEMI type II. Cont to trend [place] and f/u ECG in AM. Plan for lexiscan MPI stress test in AM. NPO after MN. Obtain echo. Resume home cardiac regimen. Further recs to follow per hospital course. The patient has been seen in conjunction with Dr. Garcia who agrees with the assessment and plan of care. - Patient Problems (1) Chest pain Current Visit: Yes Status: Acute (2) Dizziness Current Visit: Yes Status: Acute (3) ESRD on hemodialysis Current Visit: Yes Status: Chronic (4) Hypertensive urgency Current Visit: Yes Status: Acute (5) NSTEMI (non-ST elevated myocardial infarction) Current Visit: Yes Status: Acute Plan to address problem: suspect type II (6) Coronary artery disease Current Visit: Yes Status: Chronic (7) History of coronary artery bypass graft Current Visit: Yes Status: Chronic (8) History of loop recorder Current Visit: Yes Status: Chronic (9) UTI (urinary tract infection) Current Visit: Yes Status: Acute (10) Diabetes Current Visit: Yes Status: Chronic (11) History of CVA (cerebrovascular accident) Current Visit: Yes Status: Chronic (12) Dementia Current Visit: Yes Status: Chronic
[2019-11-19] MEDS: HEPARIN 5,000 UNIT/1 ML VIAL SUB-Q SCH ×2 (14:29→22:19)
[2019-11-19] MEDS: cefTRIAXone/NS 1 GM/50 ML 1 GM/50 ML BAG IV SCH (22:16)
[2019-11-19] MEDS: carvediloL 25 MG TAB PO SCH (22:16)
[2019-11-20 05:46] LABS: INR 1.2 (0.87-1.13)
[2019-11-20 05:47] LABS: Partial Thromboplastin Time 33.8 Sec. (24.2-36.6)
[2019-11-20 05:59] LABS: Hematocrit 34.9 % (30.3-42.9); Hemoglobin 11.2 gm/dl (10.1-14.3); Mean Corpuscular HGB Conc 32 % (30-34); Mean Corpuscular Volume 102 fl (79-97); Platelet Count 256 K/mm3 (140-440); Red Blood Count 3.42 M/mm3 (3.65-5.03); Red Cell Distribution Width 15.4 % (13.2-15.2)
[2019-11-20 06:06] LABS: Calcium 9.5 mg/dL (8.4-10.2)
[2019-11-20] MEDS: HEPARIN 5,000 UNIT/1 ML VIAL SUB-Q SCH ×3 (06:29→22:11)
[2019-11-20] MEDS: FUROSEMIDE 40 MG TAB PO SCH (06:34)
[2019-11-20] MEDS ORDERED: REGADENOSON 0.4 MG/5 ML INJ IV ONE ×2 (08:09→08:29)
--- NOTE | 2019-11-20 09:10 | Progress Note ---
Assessment and Plan Assessment and plan: ESRD. Consult nephrology for hemodialysis. Elevated troponin. Continue follow-up cardiac isoenzymes. Cardiology consulted and stress test was performed which was found to be negative. Diabetes mellitus type 2. Continue Accu-Cheks and sliding scale insulin. UTI. Continue IV antibiotics and follow-up cultures. DVT prophylaxis. Continue subcutaneous heparin. History Interval history: No new issues overnight. Hospitalist Physical - Constitutional Vitals: Temp Pulse Resp BP Pulse Ox 98.3 F 64 16 141/51 91 11/20/19 07:31 11/20/19 07:31 11/20/19 07:31 11/20/19 07:31 11/20/19 07:31 General appearance: Present: no acute distress, other (withdrawn) - EENT Eyes: Present: PERRL, EOM intact ENT: hearing intact, clear oral mucosa, dentition normal - Neck Neck: Present: supple, normal ROM - Respiratory Respiratory effort: normal Respiratory: bilateral: CTA - Cardiovascular Rhythm: regular Heart Sounds: Present: S1 & S2. Absent: gallop, rub - Extremities Extremities: no ischemia, No edema, Full ROM - Abdominal General gastrointestinal: soft, non-tender, non-distended, normal bowel sounds - Integumentary Integumentary: Present: clear, warm, dry - Neurologic Neurologic: CNII-XII intact, moves all extremities Results - Labs CBC & Chem 7: 11/20/19 04:19 11/20/19 04:19 Labs: Laboratory Last Values WBC 6.1 K/mm3 (4.5-11.0) 11/20/19 04:19 RBC 3.42 M/mm3 (3.65-5.03) L 11/20/19 04:19 Hgb 11.2 gm/dl (10.1-14.3) 11/20/19 04:19 Hct 34.9 % (30.3-42.9) 11/20/19 04:19 MCV 102 fl (79-97) H 11/20/19 04:19 MCH 33 pg (28-32) H 11/20/19 04:19 MCHC 32 % (30-34) 11/20/19 04:19 RDW 15.4 % (13.2-15.2) H 11/20/19 04:19 Plt Count 256 K/mm3 (140-440) 11/20/19 04:19 Lymph % (Auto) Special Service Officer 11/20/19 04:19 [place] % (Auto) Special Service Officer 11/20/19 04:19 Eos % (Auto) Special Service Officer 11/20/19 04:19 Baso % (Auto) Special Service Officer 11/20/19 04:19 Lymph # Special Service Officer 11/20/19 04:19 [place] # Special Service Officer 11/20/19 04:19 Eos # Special Service Officer 11/20/19 04:19 Baso # Special Service Officer 11/20/19 04:19 Seg Neutrophils % Special Service Officer 11/20/19 04:19 Seg Neutrophils # Special Service Officer 11/20/19 04:19 PT 15.4 Sec. (12.2-14.9) H 11/20/19 04:19 INR 1.20 (0.87-1.13) H 11/20/19 04:19 APTT 33.8 Sec. (24.2-36.6) 11/20/19 04:19 Sodium 136 mmol/L (137-145) L 11/20/19 04:19 Potassium 4.6 mmol/L (3.6-5.0) 11/20/19 04:19 Chloride 96.9 mmol/L (98-107) L 11/20/19 04:19 Carbon Dioxide 22 mmol/L (22-30) 11/20/19 04:19 Anion Gap 22 mmol/L 11/20/19 04:19 BUN 46 mg/dL (7-17) H 11/20/19 04:19 Creatinine 5.5 mg/dL (0.7-1.2) H 11/20/19 04:19 Estimated GFR 8 ml/min 11/20/19 04:19 BUN/Creatinine Ratio 8 % 11/20/19 04:19 Glucose 167 mg/dL (65-100) H 11/20/19 04:19 POC Glucose 225 (70-105) H 11/20/19 07:57 Calcium 9.5 mg/dL (8.4-10.2) 11/20/19 04:19 Total Bilirubin 0.30 mg/dL (0.1-1.2) 11/18/19 18:09 AST 13 units/L (5-40) 11/18/19 18:09 ALT 7 units/L (7-56) 11/18/19 18:09 Alkaline Phosphatase 140 units/L (35-129) H 11/18/19 18:09 Troponin T 0.154 ng/mL (0.00-0.029) H* D 11/20/19 04:19 Total Protein 7.6 g/dL (6.3-8.2) 11/18/19 18:09 Albumin 3.9 g/dL (3.9-5) 11/18/19 18:09 Albumin/Globulin Ratio 1.1 % 11/18/19 18:09 Triglycerides 226 mg/dL (2-149) H 11/18/19 18:09 Cholesterol 134 mg/dL (50-199) 11/18/19 18:09 LDL Cholesterol Direct 56 mg/dL (50-130) 11/18/19 18:09 HDL Cholesterol 48 mg/dL (40-59) 11/18/19 18:09 Cholesterol/HDL Ratio 2.79 % 11/18/19 18:09 TSH 4.320 mlU/mL (0.270-4.200) H 11/18/19 19:29 Urine Color [place] (Yellow) 11/18/19 21:32 Urine Turbidity Turbid (Clear) 11/18/19 21:32 Urine pH 7.0 (5.0-7.0) 11/18/19 21:32 Ur Specific [place] 1.018 (1.003-1.030) 11/18/19 21:32 Urine Protein >500 mg/dL (Negative) 11/18/19 21:32 Urine Glucose (UA) Neg mg/dL (Negative) 11/18/19 21:32 Urine Ketones Tr mg/dL (Negative) 11/18/19 21:32 Urine Blood Sm (Negative) 11/18/19 21:32 Urine Nitrite Neg (Negative) 11/18/19 21:32 Urine Bilirubin Neg (Negative) 11/18/19 21:32 Urine Urobilinogen < 2.0 mg/dL (<2.0) 11/18/19 21:32 Ur Leukocyte Esterase Lg (Negative) 11/18/19 21:32 Urine WBC (Auto) > 182.0 /HPF (0.0-6.0) H 11/18/19 21:32 Urine RBC (Auto) 34.0 /HPF (0.0-6.0) 11/18/19 21:32 Urine Bacteria (Auto) 4+ /HPF (Negative) 11/18/19 21:32 Urine WBC Clumps 3+ /HPF 11/18/19 21:32 Urine Mucus 3+ /HPF 11/18/19 21:32 Urine Yeast (Budding) 3+ /HPF 11/18/19 21:32 Active Medications - Current Medications Current Medications: Generic Name Dose Route Start Last Admin Trade Name Freq PRN Reason Stop Dose Admin Acetaminophen 650 mg 11/19/19 01:01 Tylenol PO Q4H PRN Pain MILD(1-3)/Fever >100.5/MENDEZ Aspirin 325 mg 11/20/19 10:00 Ecotrin PO QDAY CORWIN Atorvastatin Calcium 80 mg 11/20/19 10:00 Lipitor PO QDAY CORWIN Carvedilol 25 mg 11/19/19 22:00 11/19/19 22:16 Coreg PO 25 mg BID CORWIN Administration Dextrose 50 ml 11/19/19 01:01 D50w (25gm) Syringe IV Q30MIN PRN Hypoglycemia Protocol Furosemide 40 mg 11/20/19 06:00 11/20/19 06:34 Lasix PO 40 mg DAILY@0600 CORWIN Administration Heparin Sodium (Porcine) 5,000 unit 11/19/19 14:00 11/20/19 06:29 Heparin SUB-Q 5,000 unit Q8HR CORWIN Administration Hydralazine HCl 10 mg 11/19/19 01:01 Apresoline IV Q6HR PRN FOR SBP > 160 Ceftriaxone Sodium 1 gm in 50 mls @ 100 mls/hr 11/19/19 22:00 11/19/19 22:16 Rocephin/Ns 1 Gm/50 Ml IV 100 mls/hr Q24HR@2200 CORWIN Administration Protocol Insulin Human Lispro 0 unit 11/19/19 07:30 11/19/19 22:18 Humalog SUB-Q 4 unit ACHS CORWIN Administration Protocol Magnesium Hydroxide 30 ml 11/19/19 01:01 Milk Of Magnesia PO Q4H PRN Constipation Nitroglycerin 0.4 mg 11/19/19 01:01 Nitrostat SL Q5M PRN Chest Pain Ondansetron HCl 4 mg 11/19/19 01:01 Zofran IV Q8H PRN Nausea And Vomiting Sodium Chloride 10 ml 11/19/19 10:00 11/19/19 22:19 Sodium Chloride Flush Syringe 10 Ml IV 10 ml BID CORWIN Administration Sodium Chloride 10 ml 11/19/19 01:01 Sodium Chloride Flush Syringe 10 Ml IV PRN PRN LINE FLUSH Nutrition/Malnutrition Assess - Dietary Evaluation Nutrition/Malnutrition Findings: Nutrition Notes Start: 11/19/19 10:57 Freq: Status: Active Protocol: Document 11/19/19 10:58 KISHA (Rec: 11/19/19 11:26 KISHA [id number]) Co-Sign 11/19/19 10:58 LP Nutrition Notes Need for Assessment generated from: MD Order,Education Initial or Follow up Assessment Current Diagnosis CKD (stage V CKD),Diabetes Other Pertinent Diagnosis On HD, hypothyrodism Current Diet Cardiac/consistent CHO Labs/Tests Na 133 BUN 38 Cr 4.1 BG 165 Pertinent Medications Reviewed Height 4 ft 9 in Weight 41.8 kg Usual Body Weight 56.8 kg [place] Body Weight (kg) 38.63 BMI 19.9 Intake Prior to Admission Good Weight change and time frame 26.4% wt change in an unknown time frame Weight Status Appropriate Subjective/Other Information RD consult for diet education per MD. Spoke to pt's daughter and she stated that her appetite was good GREENKEEPER. Pt was eating 3 meals a day GREENKEEPER. Usuablly ate grilled chicken and vegetables. Pt hadn't eaten breakfast, but pt's daughter was going to help feed her. Pt had nausea yesterday, but none today. Suggested a mechanical soft diet to pt's daughter due to no teeth and she agreed. Gave pt's daughter education on CKD stage 5. Suggested Nepro for pt and daughter agreed. Burn Absent Trauma Absent GI Symptoms None Difficulty In Chewing Current % PO Poor (25-49%) Minimum of two criteria Yes Muscle Mass Mild Depletion (non-severe) Reduced Control Operator Flow Coat Strength Measurably Reduced (severe) #2 Nutrition Diagnosis Food and nutrition-related knowledge deficit Etiology No prior education on ESRD diet As Evidenced by Signs and Symptoms Pt daughter report of no prior education #1 Nutrition Diagnosis Malnutrition Etiology ESRD on HD, Loss of teeth As Evidenced by Signs and Symptoms Reduced synthetic cloth binding cutter strength, mild muscle depletion Is patient on ventilator? No Is Patient Ambulatory and/or Out of Bed Yes REE-([place]-St. Jeor-ambulatory/OOB) [ 1055.444 NUTR.[id number]] Kcal/Kg value to use for calculation 33 Approximate Energy Requirements Using 1379 kcal/Kg Calculation Used for Recommendations Kcal/kg Additional Notes Protein: 50-63g/kg (1.2-1.5g/ kg) Fluid: 1ml/kcal Nutrition Intervention Change Diet Order: Mechanical soft with renal diet modifications Add Supplement/Snack (indicate name/kcal Nepro mixed rouse BID /protein ) Teaching Recipient Family Learning Readiness Good Teaching Methods Discussion,Handout Response to Teaching Verbalize understanding Education Handouts Provided CKD stage 5 Nutrition Therapy for people on Diaylsis Barriers to Learning No Barriers RD phone number provided Yes Patient aware of follow up options Yes Goal #1 Meet at least 90% energy and proteins via PO intakes and ONS Goal #2 Wt maintenance Anticipated Discharge Needs: Mechanical soft with renal modifications, ONS PRN Follow-Up By: 11/21/19 Additional Comments F/U for PO, ONS intakes, and additional education needs.
[2019-11-20] MEDS: carvediloL 25 MG TAB PO SCH ×2 (10:38→22:10)
[2019-11-20] MEDS: ASPIRIN EC 325 MG TAB PO SCH (10:38)
[2019-11-20] MEDS: INSULIN LISPRO 100 UNIT/ML SUB-Q SCH ×4 (10:39→22:11)
--- NOTE | 2019-11-20 10:57 | Progress Note ---
Assessment and Plan S/p lexiscan MPI stress test this AM which was negative. tte reviewed - EF 55-60%, mild to mod LVH, grade 1 diastolic dysfunction. Currently stable cardiac status. Nothing further to add from cardiac perspective at this time. Will sign off. Recommend pt follow up in our office with Dr. Garcia within 1-2 weeks of discharge ([phone]). The patient has been seen in conjunction with Dr. Garcia who agrees with the assessment and plan of care. - Patient Problems (1) Chest pain Current Visit: Yes Status: Resolved (2) Dizziness Current Visit: Yes Status: Resolved (3) ESRD on hemodialysis Current Visit: Yes Status: Chronic (4) Hypertensive urgency Current Visit: Yes Status: Resolved (5) NSTEMI (non-ST elevated myocardial infarction) Current Visit: Yes Status: Acute Plan to address problem: suspect type II (6) Coronary artery disease Current Visit: Yes Status: Chronic (7) History of coronary artery bypass graft Current Visit: Yes Status: Chronic (8) History of loop recorder Current Visit: Yes Status: Chronic (9) UTI (urinary tract infection) Current Visit: Yes Status: Acute (10) Diabetes Current Visit: Yes Status: Chronic (11) History of CVA (cerebrovascular accident) Current Visit: Yes Status: Chronic (12) Dementia Current Visit: Yes Status: Chronic Subjective Date of service: 11/20/19 Principal diagnosis: cp; htn Interval history: pt for stress test. no current complaints. in SR on tele. Objective Last Vital Signs Temp 98.3 F 11/20/19 07:31 Pulse 64 11/20/19 10:00 Resp 16 11/20/19 07:31 BP 121/44 11/20/19 08:53 Pulse Ox 91 11/20/19 07:31 - Physical Examination General: No Apparent Distress HEENT: Positive: PERRL Neck: Positive: neck supple, trachea midline Cardiac: Positive: Reg Rate and Rhythm, S1/S2 Lungs: Positive: Decreased Breath Sounds Neuro: Positive: Other (ILENE, withdrawn, dementia) Abdomen: Negative: Tender Skin: Negative: Rash Musculoskeletal: No Pain Extremities: Absent: edema - Labs and Meds Coagulation 11/20/19 Range/Units 04:19 PT 15.4 H (12.2-14.9) Sec. INR 1.20 H (0.87-1.13) APTT 33.8 (24.2-36.6) Sec. CBC 11/20/19 Range/Units 04:19 WBC 6.1 (4.5-11.0) K/mm3 RBC 3.42 L (3.65-5.03) M/mm3 Hgb 11.2 (10.1-14.3) gm/dl Hct 34.9 (30.3-42.9) % Plt Count 256 (140-440) K/mm3 Lymph # Business Sales Consultant [place] # Business Sales Consultant Eos # Business Sales Consultant Baso # Business Sales Consultant Comprehensive Metabolic Panel 11/20/19 Range/Units 04:19 Sodium 136 L (137-145) mmol/L Potassium 4.6 (3.6-5.0) mmol/L Chloride 96.9 L (98-107) mmol/L Carbon Dioxide 22 (22-30) mmol/L BUN 46 H (7-17) mg/dL Creatinine 5.5 H (0.7-1.2) mg/dL Glucose 167 H (65-100) mg/dL Calcium 9.5 (8.4-10.2) mg/dL - Imaging and Cardiology EKG: report reviewed, image reviewed Echo: pending - EKG Sinus rhythms and dysrhythmias: sinus rhythm
[2019-11-20 14:43] LABS: Hepatitis B Surface Antigen Non-Reactive (Negative); Hepatitis C Virus Antibody Non-Reactive (NonReactive)
[2019-11-20] MEDS: cefTRIAXone/NS 1 GM/50 ML 1 GM/50 ML BAG IV SCH (22:10)
--- NOTE | 2019-11-20 23:05 | Treadmill Report ---
NUCLEAR CARDIAC IMAGING INDICATION FOR PROCEDURE: Chest pain. Informed consent was obtained. Vasodilator stress was achieved with the intravenous administration of 0.4 mg of Lexiscan per protocol. Rest and stress nuclear cardiac imaging was performed following the intravenous administration of technetium-99m Myoview per protocol. Gated SPECT imaging demonstrates a post-stress left ventricular ejection fraction of 63% with normal wall motion. Myocardial perfusion imaging demonstrates no significant cavity change between stress and rest. No significant stress induced perfusion defects are seen. Nuclear cardiac imaging demonstrates grossly normal post-stress left ventricular systolic function with no significant evidence of myocardial ischemia or necrosis. JOB# [id number] NADINE/KIESHA
[2019-11-21 04:23] LABS: Basophils % (Auto) 0.6 % (0.0-1.8); Eosinophils # (Auto) 0.2 K/mm3 (0.0-0.4); Eosinophils % (Auto) 2.4 % (0.0-4.3); Hematocrit 31.3 % (30.3-42.9); Hemoglobin 9.9 gm/dl (10.1-14.3); Lymphocytes # (Auto) 1.5 K/mm3 (1.2-5.4); Lymphocytes % (Auto) 19.1 % (13.4-35.0); Mean Corpuscular HGB Conc 32 % (30-34); Mean Corpuscular Volume 100 fl (79-97); Monocytes # (Auto) 0.4 K/mm3 (0.0-0.8); Monocytes % (Auto) 5.3 % (0.0-7.3); Platelet Count 280 K/mm3 (140-440); Red Blood Count 3.13 M/mm3 (3.65-5.03); Red Cell Distribution Width 15.1 % (13.2-15.2)
[2019-11-21 04:44] LABS: Calcium 9.2 mg/dL (8.4-10.2)
[2019-11-21] MEDS: HEPARIN 5,000 UNIT/1 ML VIAL SUB-Q SCH ×2 (05:50→13:17)
[2019-11-21] MEDS: FUROSEMIDE 40 MG TAB PO SCH (05:50)
[2019-11-21] MEDS: INSULIN LISPRO 100 UNIT/ML SUB-Q SCH ×2 (09:00→11:14)
[2019-11-21] MEDS: carvediloL 25 MG TAB PO SCH (11:05)
[2019-11-21] MEDS: ASPIRIN EC 325 MG TAB PO SCH (11:05)
[2019-11-21] MEDS ORDERED: SODIUM CHLORIDE 0.9% 100 ML IV PRN (14:39)
--- NOTE | 2019-11-21 16:43 | Consultation ---
History of Present Illness - History of Present Illness patient seen and evaluated today my impression and plan as follows end-stage renal disease: Patient needing dialysis will be arranged today, nd then will be placed on Monday dialysis if required, nd patient is going to stay in the hospital She has been admitted here with the dizziness, underwent cardiac workup noted to have ejection fraction of 55-60% Patient is also needing dialysis today which will be arranged Ultrafiltration goal will be 1 kg as patient does not appear to have any evidence of fluid overload She is overall stable from renal standpoint Past History Past Medical History: anemia, CAD, diabetes, ESRD, hypertension, hypothyroidism, stroke Past Surgical History: CABG, Other (AV fistula placement in the right upper extremity) Social history: smoking (Less than a pack of cigarette daily) Family history: diabetes Medications and Allergies Allergies Allergy/AdvReac Type Severity Reaction Status Date / Time Penicillins Allergy Anaphylaxis Verified 11/18/19 23:56 Home Medications Medication Instructions Recorded Confirmed Last Taken Type clonazePAM [KlonoPIN] 0.5 mg PO QID PRN 09/26/17 11/20/19 09/26/17 History predniSONE [Deltasone] 20 mg PO QDAY 09/26/17 11/20/19 09/26/17 History AtorvaSTATin [Lipitor] 80 mg PO QDAY #30 tablet 09/30/17 11/20/19 Unknown Rx Cetirizine HCl [All Day Allergy] 10 mg PO DAILY #30 tablet 09/30/17 11/20/19 Unknown Rx Citalopram [celeXA] 10 mg PO QDAY #30 tablet 09/30/17 11/20/19 Unknown Rx Clopidogrel Bisulfate [Plavix] 75 mg PO QDAY #30 tablet 09/30/17 11/20/19 Un known Rx Donepezil [Aricept] 5 mg PO QHS #30 tablet 09/30/17 11/20/19 Unknown Rx Furosemide [Lasix TAB] 40 mg PO QDAY #30 tablet 09/30/17 11/20/19 Unknown Rx Gabapentin 300 mg PO Q8HR #30 capsule 09/30/17 11/20/19 Unknown Rx Hydralazine HCl 50 mg PO TID #30 tablet 09/30/17 11/20/19 Unknown Rx Levemir 10 units SC HS #30 09/30/17 11/20/19 Unknown Rx Levothyroxine [Synthroid] 125 mcg PO QAM #30 tablet 09/30/17 11/20/19 Unknown Rx amLODIPine 10 mg PO DAILY #30 tablet 09/30/17 11/20/19 Unknown Rx buPROPion SR [Wellbutrin SR] 150 mg PO BID #60 tablet 09/30/17 11/20/19 Unknown Rx carvediloL [Coreg] 25 mg PO BID #60 tablet 09/30/17 11/20/19 Unknown Rx sulfaSALAzine [Azulfidine] 500 mg PO Q6HR #30 tablet 09/30/17 11/20/19 Unknown Rx Polyethylene Glycol 3350 [Miralax 17 gm PO QDAY 30 Days powd.pack 10/11/17 11/20/19 Unknown Rx 3350] Active Meds: Active Medications Acetaminophen (Tylenol) 650 mg PO Q4H PRN PRN Reason: Pain MILD(1-3)/Fever >100.5/MENDEZ Aspirin (Ecotrin) 325 mg PO QDAY [facility] Last Admin: 11/21/19 11:05 Dose: 325 mg Documented by: Atorvastatin Calcium (Lipitor) 80 mg PO QDAY [facility] Last Admin: 11/21/19 11:05 Dose: 80 mg Documented by: Carvedilol (Coreg) 25 mg PO BID [facility] Last Admin: 11/21/19 11:05 Dose: 25 mg Documented by: Dextrose (D50w (25gm) Syringe) 50 ml IV Q30MIN PRN; Protocol PRN Reason: Hypoglycemia Furosemide (Lasix) 40 mg PO DAILY@0600 [facility] Last Admin: 11/21/19 05:50 Dose: 40 mg Documented by: Heparin Sodium (Porcine) (Heparin) 5,000 unit SUB-Q Q8HR [facility] Last Admin: 11/21/19 13:17 Dose: 5,000 unit Documented by: Hydralazine HCl (Apresoline) 10 mg IV Q6HR PRN PRN Reason: FOR SBP > 160 Ceftriaxone Sodium (Rocephin/Ns 1 Gm/50 Ml) 1 gm in 50 mls @ 100 mls/hr IV Q24HR@2200 [facility]; Protocol Last Admin: 11/20/19 22:10 Dose: 100 mls/hr Documented by: Sodium Chloride (Nacl 0.9%) 100 mls @ 999 mls/hr IV RAMAN PRN PRN Reason: Hypotension Insulin Human Lispro (Humalog) 0 unit SUB-Q ACHS [facility]; Protocol Last Admin: 11/21/19 11:14 Dose: 8 unit Documented by: Magnesium Hydroxide (Milk Of Magnesia) 30 ml PO Q4H PRN PRN Reason: Constipation Nitroglycerin (Nitrostat) 0.4 mg SL Q5M PRN PRN Reason: Chest Pain Ondansetron HCl (Zofran) 4 mg IV Q8H PRN PRN Reason: Nausea And Vomiting Sodium Chloride (Sodium Chloride Flush Syringe 10 Ml) 10 ml IV BID [facility] Last Admin: 11/21/19 11:08 Dose: 10 ml Documented by: Sodium Chloride (Sodium Chloride Flush Syringe 10 Ml) 10 ml IV PRN PRN PRN Reason: LINE FLUSH Exam - Vital Signs Vital signs: Vital Signs Temp Pulse Resp BP Pulse Ox 97.4 F L 67 16 176/59 95 11/18/19 15:38 11/18/19 15:38 11/18/19 15:38 11/18/19 15:38 11/18/19 15:38 Results - Lab Results 11/21/19 03:29 11/21/19 03:29 Most recent lab results Calcium 9.2 mg/dL (8.4-10.2) 11/21/19 03:29
--- NOTE | 2019-11-21 18:24 | Discharge Summary ---
Providers - Providers Date of Admission: 11/20/19 10:26 Date of discharge: 11/21/19 Attending physician: SARAH SCOTT 11/19/19 Consult to Cardiac Rehabilitation [CONS] Routine Reason For Exam: Phase I 11/19/19 01:12 Consult to Dietitian/Nutrition [CONS] Routine Physician Instructions: Reason For Exam: Reason for Consult: Diet education 11/20/19 12:32 Consult to Physician [CONS] Routine Comment: Consulting Provider: YASMANY BOYLE Physician Instructions: Reason For Exam: ESRD Primary care physician: KAVON AKBAR Hospitalization Condition: Fair Pertinent studies: CT scan head unremarkable. Procedures: CT head normal Hospital course: Patient presented with some dizziness hypotension after dialysis. Presented to ED for evaluation. Patient had CT scan head unremarkable. Cardiac enzymes were somewhat elevated secondary to renal failure and decrease excretion. Has stress test unremarkable echocardiogram ejection fraction 50%. Patient continued hemodialysis and stable to be discharged after hemodialysis. Diabetes stable has insulin at home I did speak with family and sugars have been fairly well-controlled at home. We'll course complicated by UTI which she received Rocephin. Stable. Disposition: DC- TO HOME OR SELFCARE - Discharge Diagnoses (1) Elevated troponin Status: Acute (2) Full code status Status: Acute (3) NSTEMI (non-ST elevated myocardial infarction) Status: Acute (4) UTI (urinary tract infection) Status: Acute (5) Diabetes Status: Chronic (6) ESRD on hemodialysis Status: Chronic (7) Chest pain Status: Resolved Core Measure Documentation - Palliative Care Palliative Care/ Comfort Measures: Not Applicable - Core Measures Any of the following diagnoses?: heart failure - Heart Failure Discharge Requirements JUAN/ARB for LVSD if EF <40%: Yes Beta verena at discharge: Yes Exam - Constitutional Vitals: Temp Pulse Resp BP Pulse Ox 97.3 F L 63 16 120/51 97 11/21/19 15:40 11/21/19 18:00 11/21/19 15:40 11/21/19 18:00 11/21/19 07:22 General appearance: Present: no acute distress, well-nourished - EENT Eyes: Present: PERRL ENT: hearing intact, clear oral mucosa - Neck Neck: Present: supple, normal ROM - Respiratory Respiratory effort: normal Respiratory: bilateral: CTA - Cardiovascular Heart Sounds: Present: S1 & S2. Absent: rub, click - Extremities Extremities: pulses symmetrical, No edema Peripheral Pulses: within normal limits - Abdominal General gastrointestinal: Present: soft, non-tender, non-distended, normal bowel sounds Female genitourinary: Present: normal - Integumentary Integumentary: Present: clear, warm, dry - Musculoskeletal Musculoskeletal: gait normal, strength equal bilaterally - Psychiatric Psychiatric: appropriate mood/affect, intact judgment & insight - Neurologic Neurologic: CNII-XII intact, moves all extremities Plan Activity: no restrictions Weight Bearing Status: Full Weight Bearing Diet: low salt, diabetic, renal Follow up with: KAVON AKBAR MD [Primary Care Provider] - 3-5 Days Prescriptions: Ciprofloxacin [Ciprofloxacin ORAL LIQ] 500 mg PO Q12H #10 ml
[2019-11-21 19:59] VITALS: BP 148/49
[2019-11-21] MEDS ORDERED: SODIUM CHLORIDE*PRIMING MACHINE ONLY FOR DIALYSIS MC ONE (20:51)
== END 2019-11-21 20:45 | disposition home or self-care (01) | DRG 280 ==
LOC: ED 15:33 → 4A 11-19 00:19 → OBSVTOIN 11-20 10:26
PROVIDERS: ADMIT Internal Medicine Geriatric Medicine; ATTEND Internal Medicine
PROC: 5A1D70Z Performance of Urinary Filtration, Intermittent, Less than 6 Hours Per Day (ICD-10-PCS; principal; 2019-11-21)
DX: I21.4 Non-ST elevation (NSTEMI) myocardial infarction (principal); N18.6 End stage renal disease; N39.0 Urinary tract infection, site not specified; I13.2 Hypertensive heart and chronic kidney disease with heart failure and with stage 5 chronic kidney disease, or end stage renal disease; I50.9 Heart failure, unspecified; I16.0 Hypertensive urgency; I25.10 Atherosclerotic heart disease of native coronary artery without angina pectoris; F03.90 Unspecified dementia, unspecified severity, without behavioral disturbance, psychotic disturbance, mood disturbance, and anxiety; R79.89 Other specified abnormal findings of blood chemistry; E11.22 Type 2 diabetes mellitus with diabetic chronic kidney disease; D64.9 Anemia, unspecified; E03.9 Hypothyroidism, unspecified; F17.210 Nicotine dependence, cigarettes, uncomplicated; E11.65 Type 2 diabetes mellitus with hyperglycemia; Z71.6 Tobacco abuse counseling; Z99.2 Dependence on renal dialysis; Z79.4 Long term (current) use of insulin; Z83.3 Family history of diabetes mellitus; Z88.0 Allergy status to penicillin; Z79.899 Other long term (current) drug therapy; Z86.73 Personal history of transient ischemic attack (TIA), and cerebral infarction without residual deficits; Z95.1 Presence of aortocoronary bypass graft
CPT/HCPCS: 36415; 70450; 71045; 78452; 80048; 80053; 80061; 80074; 81001; 82962; 84443; 84484; 85025; 85610; 85730; 87040; 87076; 87086; 87186; 93005; 93010; 93017; 93306; G0378; A9270-GY; A9502; J0360; J0696; J1644; J1815; J2785; J7030

== ENCOUNTER 2019-12-19 23:51 | Emergency (ER) | payer MEDICARE ==
[2019-12-20] MEDS ORDERED: MORPHINE 4 MG/1 ML INJ IV ONE (00:04)
[2019-12-20] MEDS ORDERED: ONDANSETRON 4 MG/2 ML INJ IV ONE ×2 (00:04→02:34)
--- NOTE | 2019-12-20 00:04 | Emergency Department Report ---
ED Abdominal Pain HPI - General Stated Complaint: ABD PAIN Time Seen by Provider: 12/19/19 23:59 Source: patient, EMS, old records reviewed Mode of arrival: Stretcher Limitations: Language Barrier - History of Present Illness Initial Comments: Mrs. Ramos is a 69 yo female with hx of HTN, ESRD on HD Monday, CAD, DM, hypothyroidism, dyslipidemia, esophagitis, proctitis/colitis who presents with epigastric abdominal pain itnermittent for one day. Gradual onset. No change of pain with position. No radiation. Hx obtained from patient, relative, EMS and old medical records. Daughter is at the bedside also noticed poor appetite vomiting mucus in her urine. History of UTI. MD Complaint: abdominal pain -: Gradual, days(s) (1) Location: epigastric Radiation: none Migration to: no migration Severity: moderate Quality: aching Consistency: constant Improves With: nothing Worsens With: nothing Associated Symptoms: nausea - Related Data Home Medications Medication Instructions Recorded Confirmed Last Taken clonazePAM [KlonoPIN] 0.5 mg PO QID PRN 09/26/17 11/20/19 09/26/17 predniSONE [Deltasone] 20 mg PO QDAY 09/26/17 11/20/19 09/26/17 Previous Rx's Medication Instructions Recorded Last Taken Type AtorvaSTATin [Lipitor] 80 mg PO QDAY #30 tablet 09/30/17 Unknown Rx Cetirizine HCl [All Day Allergy] 10 mg PO DAILY #30 tablet 09/30/17 Unknown Rx Citalopram [celeXA] 10 mg PO QDAY #30 tablet 09/30/17 Unknown Rx Clopidogrel Bisulfate [Plavix] 75 mg PO QDAY #30 tablet 09/30/17 Unknown Rx Donepezil [Aricept] 5 mg PO QHS #30 tablet 09/30/17 Unknown Rx Furosemide [Lasix TAB] 40 mg PO QDAY #30 tablet 09/30/17 Unknown Rx Gabapentin 300 mg PO Q8HR #30 capsule 09/30/17 Unknown Rx Hydralazine HCl 50 mg PO TID #30 tablet 09/30/17 Unknown Rx Levemir 10 units SC HS #30 09/30/17 Unknown Rx Levothyroxine [Synthroid] 125 mcg PO QAM #30 tablet 09/30/17 Unknown Rx amLODIPine 10 mg PO DAILY #30 tablet 09/30/17 Unknown Rx buPROPion SR [Wellbutrin SR] 150 mg PO BID #60 tablet 09/30/17 Unknown Rx carvediloL [Coreg] 25 mg PO BID #60 tablet 09/30/17 Unknown Rx sulfaSALAzine [Azulfidine] 500 mg PO Q6HR #30 tablet 09/30/17 Unknown Rx Polyethylene Glycol 3350 [Miralax 17 gm PO QDAY 30 Days powd.pack 10/11/17 Unknown Rx 3350] Acetaminophen [Acetaminophen TAB] 650 mg PO Q4H PRN tablet 11/21/19 Unknown Rx Aspirin EC 325 mg PO QDAY tablet 11/21/19 Unknown Rx Ciprofloxacin [Ciprofloxacin ORAL 500 mg PO Q12H #10 ml 11/21/19 Unknown Rx LIQ] Lispro Insulin [HumaLOG] 0 unit SUB-Q ACHS units 11/21/19 Unknown Rx Nitroglycerin [Nitrostat] 0.4 mg SL Q5M PRN tablet 11/21/19 Unknown Rx Ondansetron [Zofran Odt] 4 mg PO Q8HR PRN #10 tab.rapdis 12/20/19 Unknown Rx Sulfamethoxazole/Trimethoprim 1 each PO BID 7 Days #14 tablet 12/20/19 Unknown Rx [Bactrim DS TAB] Allergies Allergy/AdvReac Type Severity Reaction Status Date / Time Penicillins Allergy Anaphylaxis Verified 11/18/19 23:56 ED Review of Systems ROS: Stated complaint: ABD PAIN Other details as noted in HPI Comment: All other systems reviewed and negative Constitutional: denies: chills, fever, malaise Respiratory: denies: cough, shortness of breath Gastrointestinal: abdominal pain, nausea ED Past Medical Hx - Past Medical History Previous Medical History?: Yes Hx Hypertension: Yes (CHF, EF 60%) Hx CVA: Yes Hx Congestive Heart Failure: Yes Hx Diabetes: Yes Hx Renal Disease: Yes ([id number]) Hx Dementia: Yes Additional medical history: hypothyroidism fx humerus/ - Surgical History Additional Surgical History: right AV fistula - Social History Smoking Status: Current Every Day Smoker - Medications Home Medications: Home Medications Medication Instructions Recorded Confirmed Last Taken Type clonazePAM [KlonoPIN] 0.5 mg PO QID PRN 09/26/17 11/20/19 09/26/17 History predniSONE [Deltasone] 20 mg PO QDAY 09/26/17 11/20/1909/26/17 History AtorvaSTATin [Lipitor] 80 mg PO QDAY #30 tablet 09/30/17 11/20/19 Unknown Rx Cetirizine HCl [All Day Allergy] 10 mg PO DAILY #30 tablet 09/30/17 11/20/19 Unknown Rx Citalopram [celeXA] 10 mg PO QDAY #30 tablet 09/30/17 11/20/19 Unknown Rx Clopidogrel Bisulfate [Plavix] 75 mg PO QDAY #30 tablet 09/30/17 11/20/19 Unknown Rx Donepezil [Aricept] 5 mg PO QHS #30 tablet 09/30/17 11/20/19 Unknown Rx Furosemide [Lasix TAB] 40 mg PO QDAY #30 tablet 09/30/17 11/20/19 Unknown Rx Gabapentin 300 mg PO Q8HR #30 capsule 09/30/17 11/20/19 Unknown Rx Hydralazine HCl 50 mg PO TID #30 tablet 09/30/17 11/20/19 Unknown Rx Levemir 10 units SC HS #30 09/30/17 11/20/19 Unknown Rx Levothyroxine [Synthroid] 125 mcg PO QAM #30 tablet 09/30/17 11/20/19 Unknown Rx amLODIPine 10 mg PO DAILY #30 tablet 09/30/17 11/20/19 Unknown Rx buPROPion SR [Wellbutrin SR] 150 mg PO BID #60 tablet 09/30/17 11/20/19 Unknown Rx carvediloL [Coreg] 25 mg PO BID #60 tablet 09/30/17 11/20/19 Unknown Rx sulfaSALAzine [Azulfidine] 500 mg PO Q6HR #30 tablet 09/30/17 11/20/19 Unknown Rx Polyethylene Glycol 3350 [Miralax 17 gm PO QDAY 30 Days powd.pack 10/11/17 11/20/19 Unknown Rx 3350] Acetaminophen [Acetaminophen TAB] 650 mg PO Q4H PRN tablet 11/21/19 Unknown Rx Aspirin EC 325 mg PO QDAY tablet 11/21/19 Unknown Rx Ciprofloxacin [Ciprofloxacin ORAL 500 mg PO Q12H #10 ml 11/21/19 Unknown Rx LIQ] Lispro Insulin [HumaLOG] 0 unit SUB-Q ACHS units 11/21/19 Unknown Rx Nitroglycerin [Nitrostat] 0.4 mg SL Q5M PRN tablet 11/21/19 Unknown Rx Ondansetron [Zofran Odt] 4 mg PO Q8HR PRN #10 tab.rapdis 12/20/19 Unknown Rx Sulfamethoxazole/Trimethoprim 1 each PO BID 7 Days #14 tablet 12/20/19 Unknown Rx [Bactrim DS TAB] ED Physical Exam - General Limitations: Language Barrier General appearance: alert, in no apparent distress - Head Head exam: Present: atraumatic, normocephalic - Eye Eye exam: Present: normal appearance - ENT ENT exam: Present: mucous membranes moist - Neck Neck exam: Present: normal inspection, full ROM - Respiratory Respiratory exam: Present: normal lung sounds bilaterally. Absent: respiratory distress, rales, rhonchi - Cardiovascular Cardiovascular Exam: Present: regular rate, normal rhythm, normal heart sounds. Absent: rubs, gallop - GI/Abdominal GI/Abdominal exam: Present: soft, normal bowel sounds. Absent: distended, tenderness, guarding, rebound - Extremities Exam Extremities exam: Present: normal inspection - Neurological Exam Neurological exam: Present: alert, oriented X3 - Psychiatric Psychiatric exam: Present: normal affect, anxious - Skin Skin exam: Present: warm, dry, intact, normal color. Absent: rash ED Medical Decision Making - Lab Data Result diagrams: 12/20/19 00:21 12/20/19 00:21 Laboratory Results - last 24 hr 12/20/19 12/20/19 12/20/19 00:21 00:21 00:21 WBC 5.5 RBC 3.97 Hgb 12.7 Hct 38.2 MCV 96 MCH 32 MCHC 33 RDW 14.3 Plt Count 293 Lymph % (Auto) 24.1 [place] % (Auto) 5.4 Eos % (Auto) 1.7 Baso % (Auto) 0.7 Lymph # 1.3 [place] # 0.3 Eos # 0.1 Baso # 0.0 Seg Neutrophils % 68.1 Seg Neutrophils # 3.8 Sodium 138 Potassium 4.4 Chloride 101.4 Carbon Dioxide 22 Anion Gap 19 BUN 20 H Creatinine 4.0 H Estimated GFR 11 BUN/Creatinine Ratio 5 Glucose 203 H Calcium 10.4 H Total Bilirubin 0.30 AST 14 ALT 7 Alkaline Phosphatase 163 H Total Protein 7.0 Albumin 3.4 L Albumin/Globulin Ratio 0.9 Lipase 24 - Radiology Data Radiology results: report reviewed CT abdomen and pelvis without contrast revealed wall thickening of the urinary bladder subtle stranding free fluid in the endometrium trace pelvic free fluid - Medical Decision Making 1. Abdominal pain poor appetite vomiting could be accounted for with urinary tract infection cystitis seen on CT scan. prescribed Bactrim and Keflex. 2. Trace fluid in the endometrium: Daughter's understanding that she will need a workup for possible malignancy. Referred to [facility]. Discharged home Critical care attestation.: If time is entered above; I have spent that time in minutes in the direct care of this critically ill patient, excluding procedure time. ED Disposition Clinical Impression: Urinary tract infection, Abdominal pain Disposition: TO HOME OR SELFCARE Is pt being admited?: No Does the pt Need Aspirin: No Condition: Stable Instructions: Abdominal Pain (ED), Urinary Tract Infection in Women (ED) Prescriptions: Sulfamethoxazole/Trimethoprim [Bactrim DS TAB] 1 each PO BID 7 Days #14 tablet Ondansetron [Zofran Odt] 4 mg PO Q8HR PRN #10 tab.rapdis PRN Reason: Nausea Referrals: JESSIE COLLINS MD [Staff Physician] - 3-5 Days DEVANG XAVIER MD [Staff Physician] - 3-5 Days
[2019-12-20] MEDS ORDERED: FAMOTIDINE 20 MG/2 ML INJ IV ONE (00:05)
[2019-12-20 00:36] LABS: Basophils % (Auto) 0.7 % (0.0-1.8); Eosinophils # (Auto) 0.1 K/mm3 (0.0-0.4); Eosinophils % (Auto) 1.7 % (0.0-4.3); Hematocrit 38.2 % (30.3-42.9); Hemoglobin 12.7 gm/dl (10.1-14.3); Lymphocytes # (Auto) 1.3 K/mm3 (1.2-5.4); Lymphocytes % (Auto) 24.1 % (13.4-35.0); Mean Corpuscular HGB Conc 33 % (30-34); Mean Corpuscular Volume 96 fl (79-97); Monocytes # (Auto) 0.3 K/mm3 (0.0-0.8); Monocytes % (Auto) 5.4 % (0.0-7.3); Platelet Count 293 K/mm3 (140-440); Red Blood Count 3.97 M/mm3 (3.65-5.03); Red Cell Distribution Width 14.3 % (13.2-15.2)
[2019-12-20 00:54] LABS: Alanine Aminotransferase 7 units/L (7-56); Albumin 3.4 g/dL (3.9-5)
[2019-12-20 00:55] LABS: Calcium 10.4 mg/dL (8.4-10.2)
--- NOTE | 2019-12-20 00:59 | Cat Scan Report ---
CT ABDOMEN AND PELVIS WITHOUT CONTRAST HISTORY: elderly epigastric pain. COMPARISON: CT abdomen/pelvis from 10/07/2017 TECHNIQUE: CT images of the abdomen and pelvis were obtained without administration of intravenous co ntrast. All CT scans at this location are performed using CT dose reduction for ALARA by means of au tomated exposure control. FINDINGS: Lungs/bones: There is mild bibasilar atelectasis with otherwise clear lungs. Degenerative changes ar e present in the spine and pelvis with no acute osseous abnormality identified. Left femoral neck fix ation noted with no hardware complication. Abdomen/pelvis: The gallbladder is surgically absent. The liver, spleen, pancreas, adrenals, kidneys , and proximal GI tract appear unremarkable. There is moderately advanced atherosclerotic disease thr oughout the abdominal aorta and branch vessels. Urinary bladder shows circumferential wall thickening and subtle stranding. There is free fluid in th e endometrium. Trace pelvic free fluid is present. No acute colonic abnormality identified. IMPRESSION: 1. Abnormal appearance of the urinary bladder could be seen with cystitis. 2. Additional incidental findings as above. Signer Name: Rudy Abreu MD Signed: 12/20/2019 12:54 AM Workstation Name: [id number]
[2019-12-20] MEDS ORDERED: SULFAMETHOXAZOLE/TRIMETHOPRIM 800/160MG DS TAB PO ONE (01:43)
[2019-12-20 01:48] LABS: Bilirubin,Direct < 0.2 mg/dL (0-0.2)
[2019-12-20] MEDS ORDERED: ONDANSETRON 4 MG/2 ML INJ ONE (02:37)
[2019-12-20 02:50] VITALS: BP 186/69
== END 2019-12-20 02:50 | disposition home or self-care (01) ==
LOC: ED 23:51
DX: N39.0 Urinary tract infection, site not specified (principal); R10.13 Epigastric pain; I11.0 Hypertensive heart disease with heart failure; I50.9 Heart failure, unspecified; E11.9 Type 2 diabetes mellitus without complications; E03.9 Hypothyroidism, unspecified; F17.200 Nicotine dependence, unspecified, uncomplicated; Z86.73 Personal history of transient ischemic attack (TIA), and cerebral infarction without residual deficits; Z79.899 Other long term (current) drug therapy; Z88.0 Allergy status to penicillin
CPT/HCPCS: 36415; 74176; 80048; 80076; 83690; 85025; 96374; 96375; 96376; 99284; J2270; J2405

== ENCOUNTER 2020-01-17 11:39 | Inpatient (IN) | payer MEDICARE ==
[2020-01-17 13:04] LABS: Albumin 3.3 g/dL (3.9-5); Calcium 9.2 mg/dL (8.4-10.2)
[2020-01-17] MEDS ORDERED: SODIUM CHLORIDE 0.9% 1000 ML 1,000 ML IV ONE (13:32)
[2020-01-17] MEDS ORDERED: FAMOTIDINE 20 MG/2 ML INJ IV ONE (13:32)
[2020-01-17] MEDS ORDERED: ONDANSETRON 4 MG/2 ML INJ IV ONE (13:32)
--- NOTE | 2020-01-17 13:52 | Emergency Department Report ---
ED General Adult HPI - General Chief complaint: Nausea/Vomiting/Diarrhea Stated complaint: NAUSEA VOMITING Time Seen by Provider: 01/17/20 13:30 Source: EMS Mode of arrival: Stretcher Limitations: No Limitations - History of Present Illness Initial comments: Patient is a 69-year-old female who has a past medical history of hypertension end-stage renal disease who goes to dialysis on Monday and Monday as well as history of colitis who is presenting with nausea vomiting. Patient vomited 1-2 times prior to arrival. Patient is not a very good historian but does state that she has some mild diarrhea as well. She is unable to quantify the diarrhea. Patient denies abdominal pain. She states she last went to dialysis on Monday and was due for dialysis today. She did not go because of the nausea and vomiting. - Related Data Home Medications Medication Instructions Recorded Confirmed Last Taken clonazePAM [KlonoPIN] 0.5 mg PO QID PRN 09/26/17 11/20/19 09/26/17 predniSONE [Deltasone] 20 mg PO QDAY 09/26/17 11/20/19 09/26/17 Previous Rx's Medication Instructions Recorded Last Taken Type AtorvaSTATin [Lipitor] 80 mg PO QDAY #30 tablet 09/30/17 Unknown Rx Cetirizine HCl [All Day Allergy] 10 mg PO DAILY #30 tablet 09/30/17 Unknown Rx Citalopram [celeXA] 10 mg PO QDAY #30 tablet 09/30/17 Unknown Rx Clopidogrel Bisulfate [Plavix] 75 mg PO QDAY #30 tablet 09/30/17 Unknown Rx Furosemide [Lasix TAB] 40 mg PO QDAY #30 tablet 09/30/17 Unknown Rx Gabapentin 300 mg PO Q8HR #30 capsule 09/30/17 Unknown Rx Hydralazine HCl 50 mg PO TID #30 tablet 09/30/17 Unknown Rx Levemir 10 units SC HS #30 09/30/17 Unknown Rx Levothyroxine [Synthroid] 125 mcg PO QAM #30 tablet 09/30/17 Unknown Rx amLODIPine 10 mg PO DAILY #30 tablet 09/30/17 Unknown Rx buPROPion SR [Wellbutrin SR] 150 mg PO BID #60 tablet 09/30/17 Unknown Rx carvediloL [Coreg] 25 mg PO BID #60 tablet 09/30/17 Unknown Rx donepeziL [Aricept] 5 mg PO QHS #30 tablet 09/30/17 Unknown Rx sulfaSALAzine [Azulfidine] 500 mg PO Q6HR #30 tablet 09/30/17 Unknown Rx polyethylene glycoL 3350 [Miralax 17 gm PO QDAY 30 Days powd.pack 10/11/17 Unknown Rx 3350] Acetaminophen [Acetaminophen TAB] 650 mg PO Q4H PRN tablet 11/21/19 Unknown Rx Aspirin EC [Ecotrin] 325 mg PO QDAY tablet 11/21/19 Unknown Rx Ciprofloxacin [Ciprofloxacin ORAL 500 mg PO Q12H #10 ml 11/21/19 Unknown Rx LIQ] Lispro Insulin [HumaLOG] 0 unit SUB-Q ACHS units 11/21/19 Unknown Rx Nitroglycerin [Nitrostat] 0.4 mg SL Q5M PRN tablet 11/21/19 Unknown Rx Ondansetron [Zofran Odt] 4 mg PO Q8HR PRN #10 tab.rapdis 12/20/19 Unknown Rx Sulfamethoxazole/Trimethoprim 1 each PO BID 7 Days #14 tablet 12/20/19 Unknown Rx [Bactrim DS TAB] Allergies Allergy/AdvReac Type Severity Reaction Status Date / Time Penicillins Allergy Anaphylaxis Verified 11/18/19 23:56 ED Review of Systems ROS: Stated complaint: NAUSEA VOMITING Other details as noted in HPI Comment: All other systems reviewed and negative ED Past Medical Hx - Past Medical History Hx Hypertension: Yes (CHF, EF 60% patient recently had a stress test November 2018 which was neg) Hx CVA: Yes Hx Congestive Heart Failure: Yes Hx Diabetes: Yes Hx Renal Disease: Yes ([id number]) Hx Dementia: Yes Additional medical history: hypothyroidism fx humerus/ - Surgical History Additional Surgical History: right AV fistula - Social History Smoking Status: Never Smoker - Medications Home Medications: Home Medications Medication Instructions Recorded Confirmed Last Taken Type clonazePAM [KlonoPIN] 0.5 mg PO QID PRN 09/26/17 11/20/19 09/26/17 History predniSONE [Deltasone] 20 mg PO QDAY 09/26/17 11/20/19 09/26/17 History AtorvaSTATin [Lipitor] 80 mg PO QDAY #30 tablet 09/30/17 11/20/19 Unknown Rx Cetirizine HCl [All Day Allergy] 10 mg PO DAILY #30 tablet 09/30/17 11/20/19 Unknown Rx Citalopram [celeXA] 10 mg PO QDAY #30 tablet 09/30/17 11/20/19 Unknown Rx Clopidogrel Bisulfate [Plavix] 75 mg PO QDAY #30 tablet 09/30/17 11/20/19 Unknown Rx Furosemide [Lasix TAB] 40 mg PO QDAY #30 tablet 09/30/17 11/20/19 Unknown Rx Gabapentin 300 mg PO Q8HR #30 capsule 09/30/17 11/20/19 Unknown Rx Hydralazine HCl 50 mg PO TID #30 tablet 09/30/17 11/20/19 Unknown Rx Levemir 10 units SC HS #30 09/30/17 11/20/19 Unknown Rx Levothyroxine [Synthroid] 125 mcg PO QAM #30 tablet 09/30/17 11/20/19 Unknown Rx amLODIPine 10 mg PO DAILY #30 tablet 09/30/17 11/20/19 Unknown Rx buPROPion SR [Wellbutrin SR] 150 mg PO BID #60 tablet 09/30/17 11/20/19 Unknown Rx carvediloL [Coreg] 25 mg PO BID #60 tablet 09/30/17 11/20/19 Unknown Rx donepeziL [Aricept] 5 mg PO QHS #30 tablet 09/30/17 11/20/19 Unknown Rx sulfaSALAzine [Azulfidine] 500 mg PO Q6HR #30 tablet 09/30/17 11/20/19 Unknown Rx polyethylene glycoL 3350 [Miralax 17 gm PO QDAY 30 Days powd.pack 10/11/17 11/20/19 Unknown Rx 3350] Acetaminophen [Acetaminophen TAB] 650 mg PO Q4H PRN tablet 11/21/19 Unknown Rx Aspirin EC [Ecotrin] 325 mg PO QDAY tablet 11/21/19 Unknown Rx Ciprofloxacin [Ciprofloxacin ORAL 500 mg PO Q12H #10 ml 11/21/19 Unknown Rx LIQ] Lispro Insulin [HumaLOG] 0 unit SUB-Q ACHS units 11/21/19 Unknown Rx Nitroglycerin [Nitrostat] 0.4 mg SL Q5M PRN tablet 11/21/19 Unknown Rx Ondansetron [Zofran Odt] 4 mg PO Q8HR PRN #10 tab.rapdis 12/20/19 Unknown Rx Sulfamethoxazole/Trimethoprim 1 each PO BID 7 Days #14 tablet 12/20/19 Unknown Rx [Bactrim DS TAB] ED Physical Exam - General Limitations: No Limitations General appearance: alert, in no apparent distress - Head Head exam: Present: atraumatic, normocephalic - Eye Eye exam: Present: normal appearance, PERRL, EOMI - ENT ENT exam: Present: mucous membranes moist - Neck Neck exam: Present: normal inspection - Respiratory Respiratory exam: Present: normal lung sounds bilaterally. Absent: respiratory distress, wheezes, rales, rhonchi - Cardiovascular Cardiovascular Exam: Present: regular rate, normal rhythm, normal heart sounds. Absent: systolic murmur, diastolic murmur, rubs, gallop - GI/Abdominal GI/Abdominal exam: Present: soft, tenderness, normal bowel sounds. Absent: distended, guarding, rebound, rigid - Extremities Exam Extremities exam: Present: normal inspection - Back Exam Back exam: Present: normal inspection - Neurological Exam Neurological exam: Present: alert, oriented X3 - Psychiatric Psychiatric exam: Present: normal affect, normal mood - Skin Skin exam: Present: warm, dry, intact, normal color. Absent: rash ED Course Vital Signs 01/17/20 01/17/20 01/17/20 12:02 12:07 12:12 Temperature 101.1 F H 98.5 F Pulse Rate 85 82 80 Respiratory 18 24 18 Rate Blood Pressure 226/84 Blood Pressure 222/74 [Left] O2 Sat by Pulse 98 100 Oximetry 01/17/20 01/17/20 01/17/20 12:15 12:30 12:45 Temperature Pulse Rate 88 79 77 Respiratory 15 21 22 Rate Blood Pressure 209/70 209/70 Blood Pressure [Left] O2 Sat by Pulse 98 93 97 Oximetry 01/17/20 01/17/20 01/17/20 13:00 13:15 13:30 Temperature Pulse Rate 80 81 109 H Respiratory 25 H 24 24 Rate Blood Pressure 218/73 218/73 228/73 Blood Pressure [Left] O2 Sat by Pulse 97 99 98 Oximetry 01/17/20 01/17/20 01/17/20 13:45 14:00 14:11 Temperature Pulse Rate 83 82 81 Respiratory 25 H 17 Rate Blood Pressure 228/73 221/77 221/77 Blood Pressure [Left] O2 Sat by Pulse 97 95 Oximetry 01/17/20 01/17/20 01/17/20 14:16 14:30 14:47 Temperature Pulse Rate 67 86 85 Respiratory 11 L 19 28 H Rate Blood Pressure 221/77 205/78 205/63 Blood Pressure [Left] O2 Sat by Pulse 95 85 Oximetry 01/17/20 01/17/20 01/17/20 15:00 15:02 15:15 Temperature 101.2 F H Pulse Rate 84 84 81 Respiratory 23 18 24 Rate Blood Pressure 210/75 205/78 Blood Pressure 201/100 [Left] O2 Sat by Pulse 95 100 96 Oximetry 01/17/20 15:30 Temperature Pulse Rate 84 Respiratory 25 H Rate Blood Pressure 202/71 Blood Pressure [Left] O2 Sat by Pulse 96 Oximetry - Reevaluation(s) Reevaluation #1: 01/17/20 16:31 Patient appears to have a UTI. Patient's nausea was initially controlled with antiemetics however at this time the patient is actively vomiting again. Patient blood pressure has remained elevated. Has decreased from the level that she arrived at however is still very elevated and hypertensive. Spoke with Dr. Ríos who is covering for with the nephrology team. They states because of the patient's mild fluid overload that she will require dialysis and dialysis being arranged at this time. Because of the patient's nausea vomiting I do not feel as though the patient is stable for discharge at this time. Patient will need antibiotics and patient is unable to tolerate p.o. Patient will be admitted to the hospitalist service. ED Medical Decision Making - Lab Data Result diagrams: 01/17/20 14:10 01/17/20 12:24 Lab Results 01/17/20 01/17/20 01/17/20 Range/Units 12:24 14:10 14:10 WBC 6.8 (4.5-11.0) K/mm3 RBC 4.31 (3.65-5.03) M/mm3 Hgb 13.2 (10.1-14.3) gm/dl Hct 41.0 (30.3-42.9) % MCV 95 (79-97) fl MCH 31 (28-32) pg MCHC 32 (30-34) % RDW 14.8 (13.2-15.2) % Plt Count 229 (140-440) K/mm3 Lymph % (Auto) [employer] [place] % (Auto) [employer] Eos % (Auto) [employer] Baso % (Auto) [employer] Lymph # [employer] Associate [place] # [employer] Associate Eos # [employer] Associate Baso # [employer] Associate Add Manual Diff Complete Total Counted 100 Seg Neutrophils % [employer] Seg Neuts % (Manual) 83.0 H (40.0-70.0) % Band Neutrophils % 0 % Lymphocytes % (Manual) 10.0 L (13.4-35.0) % Reactive Lymphs % (Man) 0 % Monocytes % (Manual) 7.0 (0.0-7.3) % Eosinophils % (Manual) 0 (0.0-4.3) % Basophils % (Manual) 0 (0.0-1.8) % Metamyelocytes % 0 % Myelocytes % 0 % Promyelocytes % 0 % Blast Cells % 0 % Nucleated RBC % Not Reportable Seg Neutrophils # [employer] Seg Neutrophils # Man 5.6 (1.8-7.7) K/mm3 Band Neutrophils # 0.0 K/mm3 Lymphocytes # (Manual) 0.7 L (1.2-5.4) K/mm3 Abs React Lymphs (Man) 0.0 K/mm3 Monocytes # (Manual) 0.5 (0.0-0.8) K/mm3 Eosinophils # (Manual) 0.0 (0.0-0.4) K/mm3 Basophils # (Manual) 0.0 (0.0-0.1) K/mm3 Metamyelocytes # 0.0 K/mm3 Myelocytes # 0.0 K/mm3 Promyelocytes # 0.0 K/mm3 Blast Cells # 0.0 K/mm3 WBC Morphology Not Reportable Hypersegmented Neuts Not Reportable Hyposegmented Neuts Not Reportable Hypogranular Neuts Not Reportable Smudge Cells Not Reportable Toxic Granulation Not Reportable Toxic Vacuolation Not Reportable Dohle Bodies Not Reportable Pelger-Huet Anomaly Not Reportable Myrtle Rods Not Reportable Platelet Estimate Not Reportable Clumped Platelets Not Reportable Plt Clumps, EDTA Not Reportable Large Platelets Not Reportable Giant Platelets Not Reportable Platelet Satelliting Not Reportable Plt Morphology Comment Not Reportable RBC Morphology Normal Dimorphic RBCs Not Reportable Polychromasia Not Reportable Hypochromasia Not Reportable Poikilocytosis Not Reportable Anisocytosis Not Reportable Microcytosis Not Reportable Macrocytosis Not Reportable Spherocytes Not Reportable Pappenheimer Bodies Not Reportable Sickle Cells Not Reportable Target Cells Not Reportable Tear Drop Cells Not Reportable Ovalocytes Not Reportable Helmet Cells Not Reportable Armstrong-[place] Bodies Not Reportable [place] Rings Not Reportable Moran Cells Not Reportable Bite Cells Not Reportable Crenated Cell Not Reportable Elliptocytes Not Reportable Acanthocytes (Spur) Not Reportable Rouleaux Not Reportable Hemoglobin C Crystals Not Reportable Schistocytes Not Reportable Malaria parasites Not Reportable Rufus Bodies Not Reportable Hem Pathologist Commnt No Sodium 134 L (137-145) mmol/L Potassium 3.5 L (3.6-5.0) mmol/L Chloride 95.8 L (98-107) mmol/L Carbon Dioxide 21 L (22-30) mmol/L Anion Gap 21 mmol/L BUN 25 H (7-17) mg/dL Creatinine 5.3 H (0.7-1.2) mg/dL Estimated GFR 8 ml/min BUN/Creatinine Ratio 5 % Glucose 193 H (65-100) mg/dL Lactic Acid (0.7-2.0) mmol/L Calcium 9.2 (8.4-10.2) mg/dL Total Bilirubin 0.40 (0.1-1.2) mg/dL AST 14 (5-40) units/L ALT 7 (7-56) units/L Alkaline Phosphatase 112 (35-129) units/L Total Protein 7.2 (6.3-8.2) g/dL Albumin 3.3 L (3.9-5) g/dL Albumin/Globulin Ratio 0.8 % Lipase 11 L (13-60) units/L Urine Color (Yellow) Urine Turbidity (Clear) Urine pH (5.0-7.0) Ur Specific [place] (1.003-1.030) Urine Protein (Negative) mg/dL Urine Glucose (UA) (Negative) mg/dL Urine Ketones (Negative) mg/dL Urine Blood (Negative) Urine Nitrite (Negative) Urine Bilirubin (Negative) Urine Urobilinogen (<2.0) mg/dL Ur Leukocyte Esterase (Negative) Urine WBC (Auto) (0.0-6.0) /HPF Urine RBC (Auto) (0.0-6.0) /HPF U Epithel Cells (Auto) (0-13.0) /HPF Urine Bacteria (Auto) (Negative) /HPF Urine WBC Clumps /HPF 01/17/20 01/17/20 Range/Units 14:10 15:02 WBC (4.5-11.0) K/mm3 RBC (3.65-5.03) M/mm3 Hgb (10.1-14.3) gm/dl Hct (30.3-42.9) % MCV (79-97) fl MCH (28-32) pg MCHC (30-34) % RDW (13.2-15.2) % Plt Count (140-440) K/mm3 Lymph % (Auto) [place] % (Auto) Eos % (Auto) Baso % (Auto) Lymph # [place] # Eos # Baso # Add Manual Diff Total Counted Seg Neutrophils % Seg Neuts % (Manual) (40.0-70.0) % Band Neutrophils % % Lymphocytes % (Manual) (13.4-35.0) % Reactive Lymphs % (Man) % Monocytes % (Manual) (0.0-7.3) % Eosinophils % (Manual) (0.0-4.3) % Basophils % (Manual) (0.0-1.8) % Metamyelocytes % % Myelocytes % % Promyelocytes % % Blast Cells % % Nucleated RBC % Seg Neutrophils # Seg Neutrophils # Man (1.8-7.7) K/mm3 Band Neutrophils # K/mm3 Lymphocytes # (Manual) (1.2-5.4) K/mm3 Abs React Lymphs (Man) K/mm3 Monocytes # (Manual) (0.0-0.8) K/mm3 Eosinophils # (Manual) (0.0-0.4) K/mm3 Basophils # (Manual) (0.0-0.1) K/mm3 Metamyelocytes # K/mm3 Myelocytes # K/mm3 Promyelocytes # K/mm3 Blast Cells # K/mm3 WBC Morphology Hypersegmented Neuts Hyposegmented Neuts Hypogranular Neuts Smudge Cells Toxic Granulation Toxic Vacuolation Dohle Bodies Pelger-Huet Anomaly Myrtle Rods Platelet Estimate Clumped Platelets Plt Clumps, EDTA Large Platelets Giant Platelets Platelet Satelliting Plt Morphology Comment RBC Morphology Dimorphic RBCs Polychromasia Hypochromasia Poikilocytosis Anisocytosis Microcytosis Macrocytosis Spherocytes Pappenheimer Bodies Sickle Cells Target Cells Tear Drop Cells Ovalocytes Helmet Cells Armstrong-La [place]eria Bodies [place] Rings Moran Cells Bite Cells Crenated Cell Elliptocytes Acanthocytes (Spur) Rouleaux Hemoglobin C Crystals Schistocytes Malaria parasites Rufus Bodies Hem Pathologist Commnt Sodium (137-145) mmol/L Potassium (3.6-5.0) mmol/L Chloride (98-107) mmol/L Carbon Dioxide (22-30) mmol/L Anion Gap mmol/L BUN (7-17) mg/dL Creatinine (0.7-1.2) mg/dL Estimated GFR ml/min BUN/Creatinine Ratio % Glucose (65-100) mg/dL Lactic Acid 1.10 (0.7-2.0) mmol/L Calcium (8.4-10.2) mg/dL Total Bilirubin (0.1-1.2) mg/dL AST (5-40) units/L ALT (7-56) units/L Alkaline Phosphatase (35-129) units/L Total Protein (6.3-8.2) g/dL Albumin (3.9-5) g/dL Albumin/Globulin Ratio % Lipase (13-60) units/L Urine Color Yellow (Yellow) Urine Turbidity Turbid (Clear) Urine pH 7.0 (5.0-7.0) Ur Specific [place] 1.026 (1.003-1.030) Urine Protein 100 mg/dl (Negative) mg/dL Urine Glucose (UA) 50 (Negative) mg/dL Urine Ketones Tr (Negative) mg/dL Urine Blood Sm (Negative) Urine Nitrite Neg (Negative) Urine Bilirubin Neg (Negative) Urine Urobilinogen < 2.0 (<2.0) mg/dL Ur Leukocyte Esterase Sm (Negative) Urine WBC (Auto) 143.0 H (0.0-6.0) /HPF Urine RBC (Auto) 31.0 (0.0-6.0) /HPF U Epithel Cells (Auto) 7.0 (0-13.0) /HPF Urine Bacteria (Auto) 2+ (Negative) /HPF Urine WBC Clumps 2+ /HPF - EKG Data -: EKG Interpreted by Ri - EKG Data 01/17/20 16:29 Patient's EKG shows sinus rhythm rate 88 axis is normal and there is multiple PVCs present with no ST segment elevation or depression. There is evidence of LVH. Time of interpretation 1245. - Radiology Data Patient: ASHISH MANNING MR#: [id number] : 1950 Acct:[id number] Age/Sex: 69 / F ADM Date: 01/17/20 Loc: ED Attending Dr: Ordering Physician: DAVID BURNS MD Date of Service: 01/17/20 Procedure(s): XR chest 1V ap Accession Number(s): [id number] cc: DAVID BURNS MD Fluoro Time In Minutes: CHEST 1 VIEW INDICATION: fever. COMPARISON: 11/18/2019 FINDINGS: Support devices: Loop recorder device overlies the cardiac shadow. Heart: Within normal limits. Previous CABG changes are suspected. Lungs/Pleura: Mild central pulmonary venous congestion is evident. No evidence for infiltrate, pleural fluid or pneumothorax. Additional findings: None. IMPRESSION: Mild central pulmonary venous congestion. No obvious pneumonia. Signer Name: Christopher Garcia Jr, MD Signed: 01/17/2020 1:58 PM Workstation Name: [id number] Critical Care Time: Yes (30) Critical care attestation.: If time is entered above; I have spent that time in minutes in the direct care of this critically ill patient, excluding procedure time. ED Disposition Clinical Impression: Pulmonary vascular congestion, ESRD needing dialysis, Hypertensive urgency, malignant Dyspnea Qualifiers: Dyspnea type: shortness of breath Qualified Code(s): R06.02 - Shortness of breath; R06.00 - Dyspnea, unspecified; R06.01 - Orthopnea Acute cystitis Qualifiers: Hematuria presence: with hematuria Qualified Code(s): N30.01 - Acute cystitis with hematuria Nausea & vomiting Qualifiers: Vomiting type: unspecified Vomiting Intractability: intractable Qualified Code(s): R11.2 - Nausea with vomiting, unspecified Disposition: DC-09 OP ADMIT IP TO THIS HOSP Is pt being admited?: Yes Does the pt Need Aspirin: No Condition: Stable Referrals: PRIMARY CARE, [Primary Care Provider] - 3-5 Days Time of Disposition: 16:54
--- NOTE | 2020-01-17 14:02 | XRay Report ---
CHEST 1 VIEW INDICATION: fever. COMPARISON: 11/18/2019 FINDINGS: Support devices: Loop recorder device overlies the cardiac shadow. Heart: Within normal limits. Previous CABG changes are suspected. Lungs/Pleura: Mild central pulmonary venous congestion is evident. No evidence for infiltrate, pleura l fluid or pneumothorax. Additional findings: None. IMPRESSION: Mild central pulmonary venous congestion. No obvious pneumonia. Signer Name: Christopher Garcia Jr, MD Signed: 01/17/2020 1:58 PM Workstation Name: [id number]
[2020-01-17 14:33] LABS: Hemoglobin 13.2 gm/dl (10.1-14.3); Mean Corpuscular HGB Conc 32 % (30-34); Mean Corpuscular Volume 95 fl (79-97); Platelet Count 229 K/mm3 (140-440); Red Blood Count 4.31 M/mm3 (3.65-5.03); Red Cell Distribution Width 14.8 % (13.2-15.2)
[2020-01-17] MEDS ORDERED: ACETAMINOPHEN 325 MG/10.15 ML ORAL LIQD UNIT DOSE PO ONE (15:21)
[2020-01-17 15:23] LABS: Bacteria,Urine 2+ /HPF (Negative); Bilirubin,Urine NEG (Negative); Blood,Urine SM (Negative); Color,Urine Yellow (Yellow); Urobilinogen,Urine < 2.0 mg/dL (<2.0)
[2020-01-17 15:37] LABS: Basophils % (Manual) 0 % (0.0-1.8); Eosinophils % (Manual) 0 % (0.0-4.3); Total Cells Counted 100
[2020-01-17 15:38] LABS: RBC Morphology Normal
[2020-01-17] MEDS ORDERED: ACETAMINOPHEN 650 MG RECT SUPP PR ONE (15:39)
[2020-01-17] MEDS ORDERED: METOCLOPRAMIDE 10 MG/2 ML INJ IV ONE (16:23)
[2020-01-17] MEDS ORDERED: ONDANSETRON 4 MG/2 ML INJ IV PRN (16:35)
[2020-01-17] MEDS ORDERED: ALBUTEROL 2.5 MG/3 ML NEBU IH PRN (16:35)
[2020-01-17] MEDS ORDERED: ACETAMINOPHEN 325 MG TAB PO PRN ×2 (16:35→16:37)
--- NOTE | 2020-01-17 16:35 | History and Physical Report ---
History of Present Illness Chief complaint: I feel a little sick History of present illness: 69 YO Female with ESRD on HD(M,W,F), HTN, DM complicated by Neuropathy, Dementia, Hypothyroidism, Diastolic CHF,CVA presents to ED for evaluation. Pt states that she has "not been feeling well" over the past 1 day. Pt reports nausea and multiple episodes of vomiting and subjective fever prior to arrival. EMS notified and upon arrival the patient was found to be in distress and transported to [facility] for further evaluation and care. Pt seen and evaluated in ED and found to have ESRD in need of dialysis, UTI, hyponatremia, and Malignant Hypertension with blood pressure of 226/84. Pt placed in observation status and admitted to medical floor and initiated on IV antibiotic therapy. Nephrology consulted in ED. Pt denies chills, CP, Palpitations, trauma, BRBPR, productive cough, skin rash, ingestion of food/water from new or different sources, or recent ill contacts. Prior admission on 11/20/19 reviewed. All listed medication reconciled at time of admission. Advanced care planning conducted in ED. Past History Past Medical History: diabetes, ESRD, heart failure, hypertension, hyp othyroidism, other (see HPI) Past Surgical History: Other (dialysis access) Social history: single. denies: smoking, alcohol abuse, prescription drug abuse Family history: diabetes, hypertension Medications and Allergies Allergies Allergy/AdvReac Type Severity Reaction Status Date / Time Penicillins Allergy Anaphylaxis Verified 11/18/19 23:56 Home Medications Medication Instructions Recorded Confirmed Last Taken Type clonazePAM [KlonoPIN] 0.5 mg PO QID PRN 09/26/17 11/20/19 09/26/17 History predniSONE [Deltasone] 20 mg PO QDAY 09/26/17 11/20/19 09/26/17 History AtorvaSTATin [Lipitor] 80 mg PO QDAY #30 tablet 09/30/17 11/20/19 Unknown Rx Cetirizine HCl [All Day Allergy] 10 mg PO DAILY #30 tablet 09/30/17 11/20/19 Unknown Rx Citalopram [celeXA] 10 mg PO QDAY #30 tablet 09/30/17 11/20/19 Unknown Rx Clopidogrel Bisulfate [Plavix] 75 mg PO QDAY #30 tablet 09/30/17 11/20/19 Unknown Rx Furosemide [Lasix TAB] 40 mg PO QDAY #30 tablet 09/30/17 11/20/19 Unknown Rx Gabapentin 300 mg PO Q8HR #30 capsule 09/30/17 11/20/19 Unknown Rx Hydralazine HCl 50 mg PO TID #30 tablet 09/30/17 11/20/19 Unknown Rx Levemir 10 units SC HS #30 09/30/17 11/20/19 Unknown Rx Levothyroxine [Synthroid] 125 mcg PO QAM #30 tablet 09/30/17 11/20/19 Unknown Rx amLODIPine 10 mg PO DAILY #30 tablet 09/30/17 11/20/19 Unknown Rx buPROPion SR [Wellbutrin SR] 150 mg PO BID #60 tablet 09/30/17 11/20/19 Unknown Rx carvediloL [Coreg] 25 mg PO BID #60 tablet 09/30/17 11/20/19 Unknown Rx donepeziL [Aricept] 5 mg PO QHS #30 tablet 09/30/17 11/20/19 Unknown Rx sulfaSALAzine [Azulfidine] 500 mg PO Q6HR #30 tablet 09/30/17 11/20/19 Unknown Rx polyethylene glycoL 3350 [Miralax 17 gm PO QDAY 30 Days powd.pack 10/11/17 11/20/19 Unknown Rx 3350] Acetaminophen [Acetaminophen TAB] 650 mg PO Q4H PRN tablet 11/21/19 Unknown Rx Aspirin EC [Ecotrin] 325 mg PO QDAY tablet 11/21/19 Unknown Rx Ciprofloxacin [Ciprofloxacin ORAL 500 mg PO Q12H #10 ml 11/21/19 Unknown Rx LIQ] Lispro Insulin [HumaLOG] 0 unit SUB-Q ACHS units 11/21/19 Unknown Rx Nitroglycerin [Nitrostat] 0.4 mg SL Q5M PRN tablet 11/21/19 Unknown Rx Ondansetron [Zofran Odt] 4 mg PO Q8HR PRN #10 tab.rapdis 12/20/19 Unknown Rx Sulfamethoxazole/Trimethoprim 1 each PO BID 7 Days #14 tablet 12/20/19 Unknown Rx [Bactrim DS TAB] Review of Systems Constitutional: fever, other (not feeling well), no weight loss, no weight gain, no chills, no sweats Ears, nose, mouth and throat: no ear pain, no ear discharge, no decreased hearing, no nasal congestion, no sinus pressure Breasts: no change in shape, no mass Cardiovascular: no chest pain, no palpitations, no rapid/irregular heart beat, no edema, no syncope Respiratory: no cough, no cough with sputum, no excessive sputum, no shortness of breath Gastrointestinal: nausea, vomiting, no abdominal pain, no constipation, no coffee ground emesis, no BRBPR, no loss of appetite, no heartburn, no belching Genitourinary Female: no pelvic pain, no flank pain, no menorrhagia, no dysuria, no urgency Rectal: no pain, no incontinence, no bleeding Musculoskeletal: no neck stiffness, no neck pain, no arm numbness/tingling, no low back pain, no leg numbness/tingling Integumentary: no rash, no pruritis, no redness, no sores, no wounds, no boils Neurological: no head injury, no transient paralysis, no paralysis, no weakness, no parathesias, no numbness, no ataxia Psychiatric: no anxiety, no change in sleep habits, no sleep disturbances, no hypersomnia, no change in appetite, no change in libido Endocrine: no cold intolerance, no heat intolerance, no polydipsia, no nocturia, no flushing Hematologic/Lymphatic: no easy bruising, no easy bleeding, no lymphadenopathy, no lymphedema Allergic/Immunologic: no urticaria, no allergic rhinitis, no wheezing, no persistent infections, no anaphylaxis, no angioedema Exam - Constitutional Vitals: Temp Pulse Resp BP Pulse Ox 101.2 F H 85 18 202/71 100 01/17/20 15:02 01/17/20 16:32 01/17/20 16:32 01/17/20 16:32 01/17/20 16:32 General appearance: Present: mild distress - EENT Eyes: Present: PERRL ENT: hearing intact, clear oral mucosa - Neck Neck: Present: supple, normal ROM - Respiratory Respiratory effort: normal Respiratory: bilateral: CTA - Cardiovascular Heart Sounds: Present: S1 & S2. Absent: rub, click - Extremities Extremities: pulses symmetrical, No edema Peripheral Pulses: within normal limits - Abdominal General gastrointestinal: Present: soft, non-tender, non-distended, normal bowel sounds Female genitourinary: Present: normal - Integumentary Integumentary: Present: clear, warm, dry - Musculoskeletal Musculoskeletal: gait normal, strength equal bilaterally - Psychiatric Psychiatric: appropriate mood/affect, intact judgment & insight - Neurologic Neurologic: CNII-XII intact, moves all extremities Results - Labs CBC & Chem 7: 01/17/20 14:10 01/17/20 12:24 Labs: Abnormal lab results 01/17/20 01/17/20 01/17/20 Range/Units 12:24 14:10 14:10 Seg Neuts % (Manual) 83.0 H (40.0-70.0) % Lymphocytes % (Manual) 10.0 L (13.4-35.0) % Lymphocytes # (Manual) 0.7 L (1.2-5.4) K/mm3 Sodium 134 L (137-145) mmol/L Potassium 3.5 L (3.6-5.0) mmol/L Chloride 95.8 L (98-107) mmol/L Carbon Dioxide 21 L (22-30) mmol/L BUN 25 H (7-17) mg/dL Creatinine 5.3 H (0.7-1.2) mg/dL Glucose 193 H (65-100) mg/dL Albumin 3.3 L (3.9-5) g/dL Lipase 11 L (13-60) units/L Urine WBC (Auto) (0.0-6.0) /HPF 01/17/20 Range/Units 15:02 Seg Neuts % (Manual) (40.0-70.0) % Lymphocytes % (Manual) (13.4-35.0) % Lymphocytes # (Manual) (1.2-5.4) K/mm3 Sodium (137-145) mmol/L Potassium (3.6-5.0) mmol/L Chloride (98-107) mmol/L Carbon Dioxide (22-30) mmol/L BUN (7-17) mg/dL Creatinine (0.7-1.2) mg/dL Glucose (65-100) mg/dL Albumin (3.9-5) g/dL Lipase (13-60) units/L Urine WBC (Auto) 143.0 H (0.0-6.0) /HPF Assessment and Plan - Patient Problems (1) End stage renal disease Current Visit: Yes Status: Acute Plan to address problem: Nephrology consult placed in ED, dialysis as per renal team, supportive care. (2) Hypertensive urgency, malignant Current Visit: Yes Status: Acute Plan to address problem: Monitor blood pressure every shift, supportive care, IV hydralazine for systolic blood pressure greater than 155, resume prehospital antihypertensive medication. (3) Nausea & vomiting Current Visit: Yes Status: Acute Qualifiers: Vomiting type: unspecified Vomiting Intractability: intractable Qualified Code(s): R11.2 - Nausea with vomiting, unspecified Plan to address problem: Zofran as needed, antiemetic therapy, Reglan as needed, frequent small meals. (4) Urinary tract infection Current Visit: Yes Status: Acute Qualifiers: Encounter type: initial encounter Plan to address problem: CBC, CMP, urinalysis, IV antibiotic therapy. (5) Hyponatremia syndrome Current Visit: Yes Status: Acute Plan to address problem: BMP, repeat BMP in a.m., dialysis as per renal team, gentle IV fluid resuscitation therapy as clinically indicated. (6) DVT prophylaxis Current Visit: Yes Status: Acute Plan to address problem: SCD to bilateral lower extremities while in bed, patient is ambulatory. (7) Advance care planning Current Visit: Yes Status: Acute Plan to address problem: Patient is full code, disease education conducted, patient acknowledges understanding and agreement with care plan, +30 minutes.
[2020-01-17] MEDS ORDERED: clonazePAM 0.5 MG TAB PO PRN (16:37)
[2020-01-17] MEDS ORDERED: ONDANSETRON 4 MG ODT TAB PO PRN (16:37)
[2020-01-17] MEDS ORDERED: NITROGLYCERIN 0.4 MG TAB SUBL SL PRN (16:37)
[2020-01-17 17:12] LABS: Hepatitis B Surface Antigen Non-Reactive (Negative); Hepatitis C Virus Antibody Non-Reactive (NonReactive)
[2020-01-17] MEDS ORDERED: ONDANSETRON 4 MG/2 ML INJ ONE (18:30)
[2020-01-17] MEDS ORDERED: SODIUM CHLORIDE 0.9% 100 ML IV PRN (19:16)
[2020-01-17] MEDS ORDERED: NON-FORMULARY EACH (Hydralazine Hcl [Hydralazine Hcl] 50 MG) PO SCH (20:00)
[2020-01-17] MEDS: GABAPENTIN 300 MG CAP PO SCH (23:21)
[2020-01-17] MEDS: DONEPEZIL 5 MG TAB PO SCH (23:22)
[2020-01-17] MEDS: carvediloL 25 MG TAB PO SCH (23:22)
[2020-01-17] MEDS: buPROPion SR 150 MG TAB PO SCH (23:23)
[2020-01-18 05:51] LABS: Calcium 8.5 mg/dL (8.4-10.2)
--- NOTE | 2020-01-18 09:05 | Consultation ---
History of Present Illness - Reason for Consult Consult date: 01/18/20 end stage renal disease - History of Present Illness This is a 69 year-old woman with ESRD who presents for overall malaise. Patient usually dialyzes at [facility]. Patient is unsure of her last HD, and her scheduled has changed due to issues with her usual dialysis unit ([facility]). Denies any recent specific issues with HD, including dizziness, lightheadedness, cramping, chest pain on HD. Currently, patient denies any issues including dyspnea, edema, access issues, headaches. Having nausea, occasional vomiting. Past History Past Medical History: diabetes, ESRD, heart failure, hypertension, hypothyroidism, other (see HPI) Past Surgical History: Other (dialysis access) Social history: single. denies: smoking, alcohol abuse, prescription drug abuse Family history: diabetes, hypertension Medications and Allergies Allergies Allergy/AdvReac Type Severity Reaction Status Date / Time Penicillins Allergy Anaphylaxis Verified 11/18/19 23:56 Home Medications Medication Instructions Recorded Confirmed Last Taken Type clonazePAM [KlonoPIN] 0.5 mg PO QID PRN 09/26/17 11/20/19 09/26/17 History predniSONE [Deltasone] 20 mg PO QDAY 09/26/17 11/20/19 09/26/17 History AtorvaSTATin [Lipitor] 80 mg PO QDAY #30 tablet 09/30/17 11/20/19 Unknown Rx Cetirizine HCl [All Day Allergy] 10 mg PO DAILY #30 tablet 09/30/17 11/20/19 Unknown Rx Citalopram [celeXA] 10 mg PO QDAY #30 tablet 09/30/17 11/20/19 Unknown Rx Clopidogrel Bisulfate [Plavix] 75 mg PO QDAY #30 tablet 09/30/17 11/20/19 Unknown Rx Furosemide [Lasix TAB] 40 mg PO QDAY #30 tablet 09/30/17 11/20/19 Unknown Rx Gabapentin 300 mg PO Q8HR #30 capsule 09/30/17 11/20/19 Unknown Rx Hydralazine HCl 50 mg PO TID #30 tablet 09/30/17 11/20/19 Unknown Rx Levemir 10 units SC HS #30 09/30/17 11/20/19 Unknown Rx Levothyroxine [Synthroid] 125 mcg PO QAM #30 tablet 09/30/17 11/20/19 Unknown Rx amLODIPine 10 mg PO DAILY #30 tablet 09/30/17 11/20/19 Unknown Rx buPROPion SR [Wellbutrin SR] 150 mg PO BID #60 tablet 09/30/17 11/20/19 Unknown Rx carvediloL [Coreg] 25 mg PO BID #60 tablet 09/30/17 11/20/19 Unknown Rx donepeziL [Aricept] 5 mg PO QHS #30 tablet 09/30/17 11/20/19 Unknown Rx sulfaSALAzine [Azulfidine] 500 mg PO Q6HR #30 tablet 09/30/17 11/20/19 Unknown Rx polyethylene glycoL 3350 [Miralax 17 gm PO QDAY 30 Days powd.pack 10/11/17 11/20/19 Unknown Rx 3350] Acetaminophen [Acetaminophen TAB] 650 mg PO Q4H PRN tablet 11/21/19 Unknown Rx Aspirin EC [Ecotrin] 325 mg PO QDAY tablet 11/21/19 Unknown Rx Ciprofloxacin [Ciprofloxacin ORAL 500 mg PO Q12H #10 ml 11/21/19 Unknown Rx LIQ] Lispro Insulin [HumaLOG] 0 unit SUB-Q ACHS units 11/21/19 Unknown Rx Nitroglycerin [Nitrostat] 0.4 mg SL Q5M PRN tablet 11/21/19 Unknown Rx Ondansetron [Zofran Odt] 4 mg PO Q8HR PRN #10 tab.rapdis 12/20/19 Unknown Rx Sulfamethoxazole/Trimethoprim 1 each PO BID 7 Days #14 tablet 12/20/19 Unknown Rx [Bactrim DS TAB] Active Meds: Active Medications Acetaminophen (Tylenol) 650 mg PO Q4H PRN PRN Reason: Pain MILD(1-3)/Fever >100.5/MENDEZ Albuterol (Proventil) 2.5 mg IH Q4HRT PRN PRN Reason: Shortness Of Breath Amlodipine Besylate (Amlodipine) 10 mg PO DAILY [facility] Aspirin (Ecotrin) 325 mg PO QDAY [facility] Atorvastatin Calcium (Lipitor) 80 mg PO QDAY [facility] Bupropion HCl (Wellbutrin Sr) 150 mg PO BID [facility] Last Admin: 01/17/20 23:23 Dose: 150 mg Documented by: Carvedilol (Coreg) 25 mg PO BID [facility] Last Admin: 01/17/20 23:22 Dose: 25 mg Documented by: Cetirizine HCl (Cetirizine) 10 mg PO DAILY [facility] Citalopram Hydrobromide (Celexa) 10 mg PO QDAY [facility] Clonazepam (Klonopin) 0.5 mg PO QID PRN PRN Reason: Anxiety Clopidogrel Bisulfate (Plavix) 75 mg PO QDAY [facility] Donepezil HCl (Aricept) 5 mg PO QHS [facility] Last Admin: 01/17/20 23:22 Dose: 5 mg Documented by: Furosemide (Lasix) 40 mg PO QDAY [facility] Gabapentin (Gabapentin) 300 mg PO Q8HR [facility] Last Admin: 01/17/20 23:21 Dose: 300 mg Documented by: Hydralazine HCl (Apresoline) 50 mg PO TID [facility] Levofloxacin/Dextrose (Levaquin 500mg/100ml) 500 mg in 100 mls @ 100 mls/hr IV Q48H [facility]; Protocol Sodium Chloride (Nacl 0.9%) 100 mls @ 999 mls/hr IV RAMAN PRN PRN Reason: Hypotension Levothyroxine Sodium (Synthroid) 125 mcg PO QAM@0600 [facility] Nitroglycerin (Nitrostat) 0.4 mg SL Q5M PRN PRN Reason: Chest Pain Ondansetron HCl (Zofran) 4 mg IV Q8H PRN PRN Reason: Nausea And Vomiting Last Admin: 01/17/20 18:30 Dose: 4 mg Documented by: Ondansetron HCl (Zofran Odt) 4 mg PO Q8HR PRN PRN Reason: Nausea Polyethylene Glycol (Miralax 3350) 17 gm PO QDAY [facility] Prednisone (Deltasone) 20 mg PO QDAY [facility] Sodium Chloride (Sodium Chloride Flush Syringe 10 Ml) 10 ml IV BID [facility] Sodium Chloride (Sodium Chloride Flush Syringe 10 Ml) 10 ml IV PRN PRN PRN Reason: LINE FLUSH Sulfasalazine (Azulfidine) 500 mg PO Q6HR [facility] Review of Systems All systems: negative (as per HPI) Exam - Vital Signs Vital signs: Vital Signs Pulse Resp 85 18 01/17/20 12:02 01/17/20 12:02 - Physical Exam Narrative exam: Constitutional: no acute distress Head: NC/AT Neck: supple Lungs: clear to auscultation CV: RRR, no M/R/G Abdomen: soft, non-tender, bowel sounds present Back: nontender Extremities: no edema, pulses WNL Skin: intact Neuro: no focal deficits, alert and oriented x4 Results - Lab Results 01/17/20 14:10 01/18/20 05:09 Most recent lab results Calcium 8.5 mg/dL (8.4-10.2) 01/18/20 05:09 Assessment and Plan This is a 69 year old woman who presents with not feeling well # ESRD: will provide HD today and plan to continue // or prn while inpatient - daily labs - renally dose meds - avoid nephrotoxins - renal diet # Hypokalemia: use 3K bath # Anemia: last hemoglobin at goal, no LUCILA indications # HTN: UF as tolerated. BP has been high so far # Secondary Hyperparathyroidism: continue home binders as needed
--- NOTE | 2020-01-18 11:44 | Progress Note ---
Assessment and Plan Assessment and plan: (1) End stage renal disease Nephrology consulted and will do dialysis today (2) Hypertensive urgency, malignant -Blood pressure this morning was 161 x 53 -Continue amlodipine and as needed hydralazine (3) Nausea & vomiting -Resolved -Symptomatic (4) sepsis secondary to urinary tract infection Manifested with tachycardia and fever Continue IV Rocephin We will follow blood culture, will order urine culture (5) Hyponatremia syndrome - Mild , Na this morning was 134 (6) DVT prophylaxis SCD to bilateral lower extremities while in bed, patient is ambulatory. (7) Advance care planning Plan of care was discussed with the patient and is in agreement with the plan of care. Disposition; continue inpatient care. History Interval history: Patient was seen and evaluated this morning, patient had episodes of fever overnight. No other complaints. Hospitalist Physical - Physical exam Narrative exam: Not in cardiopulmonary distress. The patient appeared well nourished and normally developed. Vital signs as documented. Head exam is unremarkable. No scleral icterus . Neck is without jugular venous distension, thyromegaly, or carotid bruits. Lungs are clear to auscultation. Cardiac exam reveals regular rate and Rhythm. Abdominal exam reveals normal bowel sounds, nontender, no organomegaly. Extremities are nonedematous and both femoral and pedal pulses are normal. SENIOR EXAMINER: Alert and oriented 3. No focal weakness. - Constitutional Vitals: Temp Pulse Resp BP Pulse Ox 100.9 F H 68 18 161/53 96 01/18/20 07:31 01/18/20 07:31 01/18/20 07:31 01/18/20 07:31 01/18/20 07:31 General appearance: Present: mild distress Results - Labs CBC & Chem 7: 01/17/20 14:10 01/18/20 05:09 Labs: Laboratory Last Values WBC 6.8 K/mm3 (4.5-11.0) 01/17/20 14:10 RBC 4.31 M/mm3 (3.65-5.03) 01/17/20 14:10 Hgb 13.2 gm/dl (10.1-14.3) 01/17/20 14:10 Hct 41.0 % (30.3-42.9) 01/17/20 14:10 MCV 95 fl (79-97) 01/17/20 14:10 MCH 31 pg (28-32) 01/17/20 14:10 MCHC 32 % (30-34) 01/17/20 14:10 RDW 14.8 % (13.2-15.2) 01/17/20 14:10 Plt Count 229 K/mm3 (140-440) 01/17/20 14:10 Lymph % (Auto) Microfilming Document Preparer 01/17/20 14:10 [place] % (Auto) Microfilming Document Preparer 01/17/20 14:10 Eos % (Auto) Microfilming Document Preparer 01/17/20 14:10 Baso % (Auto) Microfilming Document Preparer 01/17/20 14:10 Lymph # Microfilming Document Preparer 01/17/20 14:10 [place] # Microfilming Document Preparer 01/17/20 14:10 Eos # Microfilming Document Preparer 01/17/20 14:10 Baso # Microfilming Document Preparer 01/17/20 14:10 Add Manual Diff Complete 01/17/20 14:10 Total Counted 100 01/17/20 14:10 Seg Neutrophils % Microfilming Document Preparer 01/17/20 14:10 Seg Neuts % (Manual) 83.0 % (40.0-70.0) H 01/17/20 14:10 Band Neutrophils % 0 % 01/17/20 14:10 Lymphocytes % (Manual) 10.0 % (13.4-35.0) L 01/17/20 14:10 Reactive Lymphs % (Man) 0 % 01/17/20 14:10 Monocytes % (Manual) 7.0 % (0.0-7.3) 01/17/20 14:10 Eosinophils % (Manual) 0 % (0.0-4.3) 01/17/20 14:10 Basophils % (Manual) 0 % (0.0-1.8) 01/17/20 14:10 Metamyelocytes % 0 % 01/17/20 14:10 Myelocytes % 0 % 01/17/20 14:10 Promyelocytes % 0 % 01/17/20 14:10 Blast Cells % 0 % 01/17/20 14:10 Nucleated RBC % Not Reportable 01/17/20 14:10 Seg Neutrophils # Microfilming Document Preparer 01/17/20 14:10 Seg Neutrophils # Man 5.6 K/mm3 (1.8-7.7) 01/17/20 14:10 Band Neutrophils # 0.0 K/mm3 01/17/20 14:10 Lymphocytes # (Manual) 0.7 K/mm3 (1.2-5.4) L 01/17/20 14:10 Abs React Lymphs (Man) 0.0 K/mm3 01/17/20 14:10 Monocytes # (Manual) 0.5 K/mm3 (0.0-0.8) 01/17/20 14:10 Eosinophils # (Manual) 0.0 K/mm3 (0.0-0.4) 01/17/20 14:10 Basophils # (Manual) 0.0 K/mm3 (0.0-0.1) 01/17/20 14:10 Metamyelocytes # 0.0 K/mm3 01/17/20 14:10 Myelocytes # 0.0 K/mm3 01/17/20 14:10 Promyelocytes # 0.0 K/mm3 01/17/20 14:10 Blast Cells # 0.0 K/mm3 01/17/20 14:10 WBC Morphology Not Reportable 01/17/20 14:10 Hypersegmented Neuts Not Reportable 01/17/20 14:10 Hyposegmented Neuts Not Reportable 01/17/20 14:10 Hypogranular Neuts Not Reportable 01/17/20 14:10 Smudge Cells Not Reportable 01/17/20 14:10 Toxic Granulation Not Reportable 01/17/20 14:10 Toxic Vacuolation Not Reportable 01/17/20 14:10 Dohle Bodies Not Reportable 01/17/20 14:10 Pelger-Huet Anomaly Not Reportable 01/17/20 14:10 Myrtle Rods Not Reportable 01/17/20 14:10 Platelet Estimate Not Reportable 01/17/20 14:10 Clumped Platelets Not Reportable 01/17/20 14:10 Plt Clumps, EDTA Not Reportable 01/17/20 14:10 Large Platelets Not Reportable 01/17/20 14:10 Giant Platelets Not Reportable 01/17/20 14:10 Platelet Satelliting Not Reportable 01/17/20 14:10 Plt Morphology Comment Not Reportable 01/17/20 14:10 RBC Morphology Normal 01/17/20 14:10 Dimorphic RBCs Not Reportable 01/17/20 14:10 Polychromasia Not Reportable 01/17/20 14:10 Hypochromasia Not Reportable 01/17/20 14:10 Poikilocytosis Not Reportable 01/17/20 14:10 Anisocytosis Not Reportable 01/17/20 14:10 Microcytosis Not Reportable 01/17/20 14:10 Macrocytosis Not Reportable 01/17/20 14:10 Spherocytes Not Reportable 01/17/20 14:10 Pappenheimer Bodies Not Reportable 01/17/20 14:10 Sickle Cells Not Reportable 01/17/20 14:10 Target Cells Not Reportable 01/17/20 14:10 Tear Drop Cells Not Reportable 01/17/20 14:10 Ovalocytes Not Reportable 01/17/20 14:10 Helmet Cells Not Reportable 01/17/20 14:10 [place] Bodies Not Reportable 01/17/20 14:10 [place] Rings Not Reportable 01/17/20 14:10 Felipe Cells Not Reportable 01/17/20 14:10 Bite Cells Not Reportable 01/17/20 14:10 Crenated Cell Not Reportable 01/17/20 14:10 Elliptocytes Not Reportable 01/17/20 14:10 Acanthocytes (Spur) Not Reportable 01/17/20 14:10 Rouleaux Not Reportable 01/17/20 14:10 Hemoglobin C Crystals Not Reportable 01/17/20 14:10 Schistocytes Not Reportable 01/17/20 14:10 Malaria parasites Not Reportable 01/17/20 14:10 Rufus Bodies Not Reportable 01/17/20 14:10 Hem Pathologist Commnt No 01/17/20 14:10 Sodium 135 mmol/L (137-145) L 01/18/20 05:09 Potassium 3.2 mmol/L (3.6-5.0) L 01/18/20 05:09 Chloride 97.0 mmol/L (98-107) L 01/18/20 05:09 Carbon Dioxide 22 mmol/L (22-30) 01/18/20 05:09 Anion Gap 19 mmol/L 01/18/20 05:09 BUN 35 mg/dL (7-17) H 01/18/20 05:09 Creatinine 6.4 mg/dL (0.7-1.2) H 01/18/20 05:09 Estimated GFR 6 ml/min 01/18/20 05:09 BUN/Creatinine Ratio 5 % 01/18/20 05:09 Glucose 182 mg/dL (65-100) H 01/18/20 05:09 Lactic Acid 1.40 mmol/L (0.7-2.0) 01/17/20 16:10 Calcium 8.5 mg/dL (8.4-10.2) 01/18/20 05:09 Total Bilirubin 0.40 mg/dL (0.1-1.2) 01/17/20 12:24 AST 14 units/L (5-40) 01/17/20 12:24 ALT 7 units/L (7-56) 01/17/20 12:24 Alkaline Phosphatase 112 units/L (35-129) 01/17/20 12:24 Total Protein 7.2 g/dL (6.3-8.2) 01/17/20 12:24 Albumin 3.3 g/dL (3.9-5) L 01/17/20 12:24 Albumin/Globulin Ratio 0.8 % 01/17/20 12:24 Lipase 11 units/L (13-60) L 01/17/20 14:10 Urine Color Yellow (Yellow) 01/17/20 15:02 Urine Turbidity Turbid (Clear) 01/17/20 15:02 Urine pH 7.0 (5.0-7.0) 01/17/20 15:02 Ur Specific [place] 1.026 (1.003-1.030) 01/17/20 15:02 Urine Protein 100 mg/dl mg/dL (Negative) 01/17/20 15:02 Urine Glucose (UA) 50 mg/dL (Negative) 01/17/20 15:02 Urine Ketones Tr mg/dL (Negative) 01/17/20 15:02 Urine Blood Sm (Negative) 01/17/20 15:02 Urine Nitrite Neg (Negative) 01/17/20 15:02 Urine Bilirubin Neg (Negative) 01/17/20 15:02 Urine Urobilinogen < 2.0 mg/dL (<2.0) 01/17/20 15:02 Ur Leukocyte Esterase Sm (Negative) 01/17/20 15:02 Urine WBC (Auto) 143.0 /HPF (0.0-6.0) H 01/17/20 15:02 Urine RBC (Auto) 31.0 /HPF (0.0-6.0) 01/17/20 15:02 U Epithel Cells (Auto) 7.0 /HPF (0-13.0) 01/17/20 15:02 Urine Bacteria (Auto) 2+ /HPF (Negative) 01/17/20 15:02 Urine WBC Clumps 2+ /HPF 01/17/20 15:02 Hepatitis A IgM Ab Non-reactive (NonReactive) 01/17/20 16:38 Hep Bs Antigen Non-reactive (Negative) 01/17/20 16:38 Hep B Core IgM Ab Non-reactive (NonReactive) 01/17/20 16:38 Hepatitis C Antibody Non-reactive (NonReactive) 01/17/20 16:38 Active Medications - Current Medications Current Medications: Generic Name Dose Route Start Last Admin Trade Name Freq PRN Reason Stop Dose Admin Acetaminophen 650 mg 01/17/20 16:37 Tylenol PO Q4H PRN Pain MILD(1-3)/Fever >100.5/MENDEZ Albuterol 2.5 mg 01/17/20 16:35 Proventil IH Q4HRT PRN Shortness Of Breath Amlodipine Besylate 10 mg 01/18/20 10:00 Amlodipine PO DAILY [facility] Aspirin 325 mg 01/18/20 10:00 Ecotrin PO QDAY [facility] Atorvastatin Calcium 80 mg 01/18/20 10:00 Lipitor PO QDAY [facility] Bupropion HCl 150 mg 01/17/20 22:00 01/17/20 23:23 Wellbutrin Sr PO 150 mg BID CORWIN Administration Carvedilol 25 mg 01/17/20 22:00 01/17/20 23:22 Coreg PO 25 mg BID CORWIN Administration Cetirizine HCl 10 mg 01/18/20 10:00 Cetirizine PO DAILY [facility] Citalopram Hydrobromide 10 mg 01/18/20 10:00 Celexa PO QDAY [facility] Clonazepam 0.5 mg 01/17/20 16:37 Klonopin PO QID PRN Anxiety Clopidogrel Bisulfate 75 mg 01/18/20 10:00 Plavix PO QDAY [facility] Donepezil HCl 5 mg 01/17/20 22:00 01/17/20 23:22 Aricept PO 5 mg QHS CORWIN Administration Furosemide 40 mg 01/18/20 10:00 Lasix PO QDAY COR[facility] Gabapentin 300 mg 01/17/20 22:00 01/17/20 23:21 Gabapentin PO 300 mg Q8HR [facility] Administration Hydralazine HCl 50 mg 01/17/20 21:00 Apresoline PO TID [facility] Levofloxacin/Dextrose 500 mg in 100 mls @ 100 mls/hr 01/17/20 18:00 Levaquin 500mg/100ml IV Q48H [facility] Protocol Sodium Chloride 100 mls @ 999 mls/hr 01/17/20 19:16 Nacl 0.9% IV RAMAN PRN Hypotension Levothyroxine Sodium 125 mcg 01/18/20 06:00 Synthroid PO QAM@0600 [facility] Nitroglycerin 0.4 mg 01/17/20 16:37 Nitrostat SL Q5M PRN Chest Pain Ondansetron HCl 4 mg 01/17/20 16:35 01/17/20 18:30 Zofran IV 4 mg Q8H PRN Administration Nausea And Vomiting Ondansetron HCl 4 mg 01/17/20 16:37 Zofran Odt PO Q8HR PRN Nausea Polyethylene Glycol 17 gm 01/18/20 10:00 Miralax 3350 PO QDAY [facility] Prednisone 20 mg 01/18/20 10:00 Deltasone PO QDAY [facility] Sodium Chloride 10 ml 01/17/20 22:00 Sodium Chloride Flush Syringe 10 Ml IV BID [facility] Sodium Chloride 10 ml 01/17/20 16:35 Sodium Chloride Flush Syringe 10 Ml IV PRN PRN LINE FLUSH Sulfasalazine 500 mg 01/17/20 18:00 Azulfidine PO Q6HR [facility]
[2020-01-18] MEDS: CETIRIZINE 10 MG TAB PO SCH (13:25)
[2020-01-18] MEDS: ASPIRIN EC 325 MG TAB PO SCH (13:25)
[2020-01-18] MEDS: buPROPion SR 150 MG TAB PO SCH ×2 (13:26→23:00)
[2020-01-18] MEDS: FUROSEMIDE 40 MG TAB PO SCH (13:26)
[2020-01-18] MEDS: CLOPIDOGREL 75 MG TAB PO SCH (13:26)
[2020-01-18] MEDS: predniSONE 20 MG TAB PO SCH (13:26)
[2020-01-18] MEDS: CITALOPRAM 10 MG TAB PO SCH (13:26)
[2020-01-18] MEDS: hydrALAZINE 25 MG TAB PO SCH ×4 (13:27→21:15)
[2020-01-18] MEDS: carvediloL 25 MG TAB PO SCH ×2 (13:28→23:00)
[2020-01-18] MEDS: amLODIPine 10 MG TAB PO SCH (13:29)
[2020-01-18] MEDS: GABAPENTIN 300 MG CAP PO SCH ×3 (13:32→23:00)
[2020-01-18] MEDS: LEVOTHYROXINE 125 MCG TAB PO SCH (13:32)
[2020-01-18] MEDS: POLYETHYLENE GLYCOL 3350 17 GM POWDER PO SCH (15:34)
[2020-01-18] MEDS: sulfaSALAzine 500 MG TAB PO SCH ×5 (15:35→23:08)
[2020-01-18] MEDS: DONEPEZIL 5 MG TAB PO SCH (23:00)
[2020-01-18] MEDS ORDERED: SODIUM CHLORIDE*PRIMING MACHINE ONLY FOR DIALYSIS MC ONE (23:02)
[2020-01-18] MEDS ORDERED: SODIUM CHLORIDE 0.9% 500 ML 500 ML IV ONE (23:03)
[2020-01-19] MEDS: sulfaSALAzine 500 MG TAB PO SCH ×4 (05:21→21:40)
[2020-01-19] MEDS: GABAPENTIN 300 MG CAP PO SCH ×3 (05:21→21:40)
[2020-01-19] MEDS: LEVOTHYROXINE 125 MCG TAB PO SCH (05:21)
[2020-01-19 06:40] LABS: Calcium 8.8 mg/dL (8.4-10.2)
[2020-01-19] MEDS: hydrALAZINE 25 MG TAB PO SCH ×3 (08:01→20:00)
[2020-01-19] MEDS: CETIRIZINE 10 MG TAB PO SCH (10:00)
[2020-01-19] MEDS: buPROPion SR 150 MG TAB PO SCH ×2 (10:00→21:40)
[2020-01-19] MEDS: CLOPIDOGREL 75 MG TAB PO SCH (10:01)
[2020-01-19] MEDS: predniSONE 20 MG TAB PO SCH (10:01)
[2020-01-19] MEDS: CITALOPRAM 10 MG TAB PO SCH (10:01)
[2020-01-19] MEDS: FUROSEMIDE 40 MG TAB PO SCH (10:02)
[2020-01-19] MEDS: amLODIPine 10 MG TAB PO SCH (10:02)
[2020-01-19] MEDS: carvediloL 25 MG TAB PO SCH ×2 (10:02→21:37)
[2020-01-19] MEDS: ASPIRIN EC 325 MG TAB PO SCH (10:02)
--- NOTE | 2020-01-19 10:05 | Progress Note ---
Assessment and Plan Assessment and plan: (1) End stage renal disease Nephrology consulted and will do dialysis today (2) Hypertensive urgency, malignant -Blood pressure this morning was 161 x 53 -Continue amlodipine and as needed hydralazine (3) Nausea & vomiting -Resolved -Symptomatic (4) sepsis secondary to urinary tract infection Manifested with tachycardia and fever Patient still having fever Blood cultures negative so far, urine culture ordered but not collected (5) Hyponatremia syndrome - Mild , Na this morning was 134 (6) DVT prophylaxis SCD to bilateral lower extremities while in bed, patient is ambulatory. Plan of care was discussed with the patient and is in agreement with the plan of care. Disposition; continue inpatient care. Discharge when the patient fever free for at least 24 hours. History Interval history: Patient was seen and evaluated this morning, patient had episodes of fever overnight. No other complaints. Hospitalist Physical - Physical exam Narrative exam: Not in cardiopulmonary distress. The patient appeared well nourished and normally developed. Vital signs as documented. Head exam is unremarkable. No scleral icterus . Neck is without jugular venous distension, thyromegaly, or carotid bruits. Lungs are clear to auscultation. Cardiac exam reveals regular rate and Rhythm. Abdominal exam reveals normal bowel sounds, nontender, no organomegaly. Extremities are nonedematous and both femoral and pedal pulses are normal. 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 No focal weakness. - Constitutional Vitals: Temp Pulse Resp BP Pulse Ox 98.0 F 47 L 18 100/38 99 01/19/20 07:55 01/19/20 07:55 01/19/20 07:55 01/19/20 07:55 01/19/20 07:55 General appearance: Present: mild distress Results - Labs CBC & Chem 7: 01/17/20 14:10 01/19/20 05:44 Labs: Laboratory Last Values WBC 6.8 K/mm3 (4.5-11.0) 01/17/20 14:10 RBC 4.31 M/mm3 (3.65-5.03) 01/17/20 14:10 Hgb 13.2 gm/dl (10.1-14.3) 01/17/20 14:10 Hct 41.0 % (30.3-42.9) 01/17/20 14:10 MCV 95 fl (79-97) 01/17/20 14:10 MCH 31 pg (28-32) 01/17/20 14:10 MCHC 32 % (30-34) 01/17/20 14:10 RDW 14.8 % (13.2-15.2) 01/17/20 14:10 Plt Count 229 K/mm3 (140-440) 01/17/20 14:10 Lymph % (Auto) Marketing Engineer 01/17/20 14:10 [place] % (Auto) Marketing Engineer 01/17/20 14:10 Eos % (Auto) Marketing Engineer 01/17/20 14:10 Baso % (Auto) Marketing Engineer 01/17/20 14:10 Lymph # Marketing Engineer 01/17/20 14:10 [place] # Marketing Engineer 01/17/20 14:10 Eos # Marketing Engineer 01/17/20 14:10 Baso # Marketing Engineer 01/17/20 14:10 Add Manual Diff Complete 01/17/20 14:10 Total Counted 100 01/17/20 14:10 Seg Neutrophils % Marketing Engineer 01/17/20 14:10 Seg Neuts % (Manual) 83.0 % (40.0-70.0) H 01/17/20 14:10 Band Neutrophils % 0 % 01/17/20 14:10 Lymphocytes % (Manual) 10.0 % (13.4-35.0) L 01/17/20 14:10 Reactive Lymphs % (Man) 0 % 01/17/20 14:10 Monocytes % (Manual) 7.0 % (0.0-7.3) 01/17/20 14:10 Eosinophils % (Manual) 0 % (0.0-4.3) 01/17/20 14:10 Basophils % (Manual) 0 % (0.0-1.8) 01/17/20 14:10 Metamyelocytes % 0 % 01/17/20 14:10 Myelocytes % 0 % 01/17/20 14:10 Promyelocytes % 0 % 01/17/20 14:10 Blast Cells % 0 % 01/17/20 14:10 Nucleated RBC % Not Reportable 01/17/20 14:10 Seg Neutrophils # Marketing Engineer 01/17/20 14:10 Seg Neutrophils # Man 5.6 K/mm3 (1.8-7.7) 01/17/20 14:10 Band Neutrophils # 0.0 K/mm3 01/17/20 14:10 Lymphocytes # (Manual) 0.7 K/mm3 (1.2-5.4) L 01/17/20 14:10 Abs React Lymphs (Man) 0.0 K/mm3 01/17/20 14:10 Monocytes # (Manual) 0.5 K/mm3 (0.0-0.8) 01/17/20 14:10 Eosinophils # (Manual) 0.0 K/mm3 (0.0-0.4) 01/17/20 14:10 Basophils # (Manual) 0.0 K/mm3 (0.0-0.1) 01/17/20 14:10 Metamyelocytes # 0.0 K/mm3 01/17/20 14:10 Myelocytes # 0.0 K/mm3 01/17/20 14:10 Promyelocytes # 0.0 K/mm3 01/17/20 14:10 Blast Cells # 0.0 K/mm3 01/17/20 14:10 WBC Morphology Not Reportable 01/17/20 14:10 Hypersegmented Neuts Not Reportable 01/17/20 14:10 Hyposegmented Neuts Not Reportable 01/17/20 14:10 Hypogranular Neuts Not Reportable 01/17/20 14:10 Smudge Cells Not Reportable 01/17/20 14:10 Toxic Granulation Not Reportable 01/17/20 14:10 Toxic Vacuolation Not Reportable 01/17/20 14:10 Dohle Bodies Not Reportable 01/17/20 14:10 Pelger-Huet Anomaly Not Reportable 01/17/20 14:10 Myrtle Rods Not Reportable 01/17/20 14:10 Platelet Estimate Not Reportable 01/17/20 14:10 Clumped Platelets Not Reportable 01/17/20 14:10 Plt Clumps, EDTA Not Reportable 01/17/20 14:10 Large Platelets Not Reportable 01/17/20 14:10 Giant Platelets Not Reportable 01/17/20 14:10 Platelet Satelliting Not Reportable 01/17/20 14:10 Plt Morphology Comment Not Reportable 01/17/20 14:10 RBC Morphology Normal 01/17/20 14:10 Dimorphic RBCs Not Reportable 01/17/20 14:10 Polychromasia Not Reportable 01/17/20 14:10 Hypochromasia Not Reportable 01/17/20 14:10 Poikilocytosis Not Reportable 01/17/20 14:10 Anisocytosis Not Reportable 01/17/20 14:10 Microcytosis Not Reportable 01/17/20 14:10 Macrocytosis Not Reportable 01/17/20 14:10 Spherocytes Not Reportable 01/17/20 14:10 Pappenheimer Bodies Not Reportable 01/17/20 14:10 Sickle Cells Not Reportable 01/17/20 14:10 Target Cells Not Reportable 01/17/20 14:10 Tear Drop Cells Not Reportable 01/17/20 14:10 Ovalocytes Not Reportable 01/17/20 14:10 Helmet Cells Not Reportable 01/17/20 14:10 [place] Bodies Not Reportable 01/17/20 14:10 [place] Rings Not Reportable 01/17/20 14:10 Felipe Cells Not Reportable 01/17/20 14:10 Bite Cells Not Reportable 01/17/20 14:10 Crenated Cell Not Reportable 01/17/20 14:10 Elliptocytes Not Reportable 01/17/20 14:10 Acanthocytes (Spur) Not Reportable 01/17/20 14:10 Rouleaux Not Reportable 01/17/20 14:10 Hemoglobin C Crystals Not Reportable 01/17/20 14:10 Schistocytes Not Reportable 01/17/20 14:10 Malaria parasites Not Reportable 01/17/20 14:10 Rufus Bodies Not Reportable 01/17/20 14:10 Hem Pathologist Commnt No 01/17/20 14:10 Sodium 135 mmol/L (137-145) L 01/19/20 05:44 Potassium 3.2 mmol/L (3.6-5.0) L 01/19/20 05:44 Chloride 94.6 mmol/L (98-107) L 01/19/20 05:44 Carbon Dioxide 26 mmol/L (22-30) 01/19/20 05:44 Anion Gap 18 mmol/L 01/19/20 05:44 BUN 27 mg/dL (7-17) H 01/19/20 05:44 Creatinine 5.2 mg/dL (0.7-1.2) H 01/19/20 05:44 Estimated GFR 8 ml/min 01/19/20 05:44 BUN/Creatinine Ratio 5 % 01/19/20 05:44 Glucose 301 mg/dL (65-100) H 01/19/20 05:44 Lactic Acid 1.40 mmol/L (0.7-2.0) 01/17/20 16:10 Calcium 8.8 mg/dL (8.4-10.2) 01/19/20 05:44 Total Bilirubin 0.40 mg/dL (0.1-1.2) 01/17/20 12:24 AST 14 units/L (5-40) 01/17/20 12:24 ALT 7 units/L (7-56) 01/17/20 12:24 Alkaline Phosphatase 112 units/L (35-129) 01/17/20 12:24 Total Protein 7.2 g/dL (6.3-8.2) 01/17/20 12:24 Albumin 3.3 g/dL (3.9-5) L 01/17/20 12:24 Albumin/Globulin Ratio 0.8 % 01/17/20 12:24 Lipase 11 units/L (13-60) L 01/17/20 14:10 Urine Color Yellow (Yellow) 01/17/20 15:02 Urine Turbidity Turbid (Clear) 01/17/20 15:02 Urine pH 7.0 (5.0-7.0) 01/17/20 15:02 Ur Specific [place] 1.026 (1.003-1.030) 01/17/20 15:02 Urine Protein 100 mg/dl mg/dL (Negative) 01/17/20 15:02 Urine Glucose (UA) 50 mg/dL (Negative) 01/17/20 15:02 Urine Ketones Tr mg/dL (Negative) 01/17/20 15:02 Urine Blood Sm (Negative) 01/17/20 15:02 Urine Nitrite Neg (Negative) 01/17/20 15:02 Urine Bilirubin Neg (Negative) 01/17/20 15:02 Urine Urobilinogen < 2.0 mg/dL (<2.0) 01/17/20 15:02 Ur Leukocyte Esterase Sm (Negative) 01/17/20 15:02 Urine WBC (Auto) 143.0 /HPF (0.0-6.0) H 01/17/20 15:02 Urine RBC (Auto) 31.0 /HPF (0.0-6.0) 01/17/20 15:02 U Epithel Cells (Auto) 7.0 /HPF (0-13.0) 01/17/20 15:02 Urine Bacteria (Auto) 2+ /HPF (Negative) 01/17/20 15:02 Urine WBC Clumps 2+ /HPF 01/17/20 15:02 Hepatitis A IgM Ab Non-reactive (NonReactive) 01/17/20 16:38 Hep Bs Antigen Non-reactive (Negative) 01/17/20 16:38 Hep B Core IgM Ab Non-reactive (NonReactive) 01/17/20 16:38 Hepatitis C Antibody Non-reactive (NonReactive) 01/17/20 16:38 Active Medications - Current Medications Current Medications: Generic Name Dose Route Start Last Admin Trade Name Freq PRN Reason Stop Dose Admin Acetaminophen 650 mg 01/17/20 16:37 01/18/20 23:08 Tylenol PO 650 mg Q4H PRN Administration Pain MILD(1-3)/Fever >100.5/MENDEZ Albuterol 2.5 mg 01/17/20 16:35 Proventil IH Q4HRT PRN Shortness Of Breath Amlodipine Besylate 10 mg 01/18/20 10:00 01/18/20 13:29 Amlodipine PO 10 mg DAILY CORWIN Administration Aspirin 325 mg 01/18/20 10:00 01/18/20 13:25 Ecotrin PO 325 mg QDAY CORWIN Administration Atorvastatin Calcium 80 mg 01/18/20 10:00 01/18/20 13:25 Lipitor PO 80 mg QDAY CORWIN Administration Bupropion HCl 150 mg 01/17/20 22:00 01/18/20 23:00 Wellbutrin Sr PO 150 mg BID CORWIN Administration Carvedilol 25 mg 01/17/20 22:00 01/18/20 23:00 Coreg PO Not Given BID CORWIN Cetirizine HCl 10 mg 01/18/20 10:00 01/18/20 13:25 Cetirizine PO 10 mg DAILY [facility] Administration Citalopram Hydrobromide 10 mg 01/18/20 10:00 01/18/20 13:26 Celexa PO 10 mg QDAY [facility] Administration Clonazepam 0.5 mg 01/17/20 16:37 Klonopin PO QID PRN Anxiety Clopidogrel Bisulfate 75 mg 01/18/20 10:00 01/18/20 13:26 Plavix PO 75 mg QDAY [facility] Administration Donepezil HCl 5 mg 01/17/20 22:00 01/18/20 23:00 Aricept PO 5 mg QHS CORWIN Administration Furosemide 40 mg 01/18/20 10:00 01/18/20 13:26 Lasix PO 40 mg QDAY [facility] Administration Gabapentin 300 mg 01/17/20 22:00 01/19/20 05:21 Gabapentin PO 300 mg Q8HR CORWIN Administration Hydralazine HCl 50 mg 01/17/20 21:00 01/19/20 08:01 Apresoline PO Not Given TID [facility] Levofloxacin/Dextrose 500 mg in 100 mls @ 100 mls/hr 01/17/20 18:00 01/18/20 18:50 Levaquin 500mg/100ml IV Not Given Q48H [facility] Protocol Sodium Chloride 100 mls @ 999 mls/hr 01/17/20 19:16 Nacl 0.9% IV RAMAN PRN Hypotension Levothyroxine Sodium 125 mcg 01/18/20 06:00 01/19/20 05:21 Synthroid PO 125 mcg QAM@0600 [facility] Administration Nitroglycerin 0.4 mg 01/17/20 16:37 Nitrostat SL Q5M PRN Chest Pain Ondansetron HCl 4 mg 01/17/20 16:35 01/17/20 18:30 Zofran IV 4 mg Q8H PRN Administration Nausea And Vomiting Ondansetron HCl 4 mg 01/17/20 16:37 Zofran Odt PO Q8HR PRN Nausea Polyethylene Glycol 17 gm 01/18/20 10:00 01/18/20 15:34 Miralax 3350 PO 17 gm QDAY [facility] Administration Potassium Chloride 40 meq 01/19/20 10:02 K-Dur PO 01/19/20 10:03 ONCE ONE Prednisone 20 mg 01/18/20 10:00 01/18/20 13:26 Deltasone PO 20 mg QDAY [facility] Administration Sodium Chloride 10 ml 01/17/20 22:00 01/18/20 23:01 Sodium Chloride Flush Syringe 10 Ml IV 10 ml BID CORWIN Administration Sodium Chloride 10 ml 01/17/20 16:35 Sodium Chloride Flush Syringe 10 Ml IV PRN PRN LINE FLUSH Sulfasalazine 500 mg 01/17/20 18:00 01/19/20 05:21 Azulfidine PO 500 mg Q6HR [facility] Administration
[2020-01-19] MEDS: POLYETHYLENE GLYCOL 3350 17 GM POWDER PO SCH (10:08)
--- NOTE | 2020-01-19 10:30 | Progress Note ---
Assessment and Plan This is a 69 year old woman who presents with not feeling well, fevers # ESRD: s/p HD yesterday, plan to continue // or prn while inpatient. Next planned HD 3/10 - daily labs - renally dose meds - avoid nephrotoxins - renal diet # Hypokalemia: use 3K bath with HD # Anemia: last hemoglobin at goal, no LUCILA indications # HTN: UF as tolerated with HD. BP initially high, now on soft side, may need to hold meds # Secondary Hyperparathyroidism: continue home binders as needed Subjective Date of service: 01/19/20 Interval history: No acute events noted. Tolerated HD well. Objective - Exam Narrative Exam: Constitutional: no acute distress, appears stated age Head: NC/AT Neck: supple Lungs: clear to auscultation CV: RRR, no M/R/G Abdomen: soft, non-tender, bowel sounds present Back: nontender Extremities: no edema, pulses WNL Skin: intact Neuro: no focal deficits, alert and oriented x4 - Vital Signs Vital signs: Vital Signs - 12hr 01/19/20 01/19/20 01/19/20 03:31 07:55 10:02 Temperature 98.6 F 98.0 F Pulse Rate 51 L 47 L 46 L Respiratory 16 18 Rate Blood Pressure 82/35 100/38 97/37 O2 Sat by Pulse 97 99 Oximetry - Lab 01/17/20 14:10 01/19/20 05:44 Most recent lab results Calcium 8.8 mg/dL (8.4-10.2) 01/19/20 05:44 Medications & Allergies - Medications Allergies/Adverse Reactions: Allergies Penicillins Allergy (Verified 11/18/19 23:56) Anaphylaxis Home Medications: Home Medications Medication Instructions Recorded Confirmed Last Taken Type clonazePAM [KlonoPIN] 0.5 mg PO QID PRN 09/26/17 11/20/19 09/26/17 History predniSONE [Deltasone] 20 mg PO QDAY 09/26/17 11/20/19 09/26/17 History AtorvaSTATin [Lipitor] 80 mg PO QDAY #30 tablet 09/30/17 11/20/19 Unknown Rx Cetirizine HCl [All Day Allergy] 10 mg PO DAILY #30 tablet 09/30/17 11/20/19 Unknown Rx Citalopram [celeXA] 10 mg PO QDAY #30 tablet 09/30/17 11/20/19 Unknown Rx Clopidogrel Bisulfate [Plavix] 75 mg PO QDAY #30 tablet 09/30/17 11/20/19 Unknown Rx Furosemide [Lasix TAB] 40 mg PO QDAY #30 tablet 09/30/17 11/20/19 Unknown Rx Gabapentin 300 mg PO Q8HR #30 capsule 09/30/17 11/20/19 Unknown Rx Hydralazine HCl 50 mg PO TID #30 tablet 09/30/17 11/20/19 Unknown Rx Levemir 10 units SC HS #30 09/30/17 11/20/19 Unknown Rx Levothyroxine [Synthroid] 125 mcg PO QAM #30 tablet 09/30/17 11/20/19 Unknown Rx amLODIPine 10 mg PO DAILY #30 tablet 09/30/17 11/20/19 Unknown Rx buPROPion SR [Wellbutrin SR] 150 mg PO BID #60 tablet 09/30/17 11/20/19 Unknown Rx carvediloL [Coreg] 25 mg PO BID #60 tablet 09/30/17 11/20/19 Unknown Rx donepeziL [Aricept] 5 mg PO QHS #30 tablet 09/30/17 11/20/19 Unknown Rx sulfaSALAzine [Azulfidine] 500 mg PO Q6HR #30 tablet 09/30/17 11/20/19 Unknown Rx polyethylene glycoL 3350 [Miralax 17 gm PO QDAY 30 Days powd.pack 10/11/1707/02 Unknown Rx 3350] Acetaminophen [Acetaminophen TAB] 650 mg PO Q4H PRN tablet 11/21/19 Unknown Rx Aspirin EC [Ecotrin] 325 mg PO QDAY tablet 11/21/19 Unknown Rx Ciprofloxacin [Ciprofloxacin ORAL 500 mg PO Q12H #10 ml 11/21/19 Unknown Rx LIQ] Lispro Insulin [HumaLOG] 0 unit SUB-Q ACHS units 11/21/19 Unknown Rx Nitroglycerin [Nitrostat] 0.4 mg SL Q5M PRN tablet 11/21/19 Unknown Rx Ondansetron [Zofran Odt] 4 mg PO Q8HR PRN #10 tab.rapdis 12/20/19 Unknown Rx Sulfamethoxazole/Trimethoprim 1 each PO BID 7 Days #14 tablet 12/20/19 Unknown Rx [Bactrim DS TAB] Active Medications: Generic Name Dose Route Start Last Admin Trade Name Freq PRN Reason Stop Dose Admin Acetaminophen 650 mg 01/17/20 16:37 01/18/20 23:08 Tylenol PO 650 mg Q4H PRN Administration Pain MILD(1-3)/Fever >100.5/MENDEZ Albuterol 2.5 mg 01/17/20 16:35 Proventil IH Q4HRT PRN Shortness Of Breath Amlodipine Besylate 10 mg 01/18/20 10:00 01/19/20 10:02 Amlodipine PO Not Given DAILY CORWIN Aspirin 325 mg 01/18/20 10:00 01/19/20 10:02 Ecotrin PO 325 mg QDAY CORWIN Administration Atorvastatin Calcium 80 mg 01/18/20 10:00 01/19/20 10:01 Lipitor PO 80 mg QDAY CORWIN Administration Bupropion HCl 150 mg 01/17/20 22:00 01/19/20 10:00 Wellbutrin Sr PO 150 mg BID CORWIN Administration Carvedilol 25 mg 01/17/20 22:00 01/19/20 10:02 Coreg PO Not Given BID CORWIN Cetirizine HCl 10 mg 01/18/20 10:00 01/19/20 10:00 Cetirizine PO 10 mg DAILY CORWIN Administration Citalopram Hydrobromide 10 mg 01/18/20 10:00 01/19/20 10:01 Celexa PO 10 mg QDAY CORWIN Administration Clonazepam 0.5 mg 01/17/20 16:37 Klonopin PO QID PRN Anxiety Clopidogrel Bisulfate 75 mg 01/18/20 10:00 01/19/20 10:01 Plavix PO 75 mg QDAY CORWIN Administration Donepezil HCl 5 mg 01/17/20 22:00 01/18/20 23:00 Aricept PO 5 mg QHS CORWIN Administration Furosemide 40 mg 01/18/20 10:00 01/19/20 10:02 Lasix PO Not Given QDAY CORWIN Gabapentin 300 mg 01/17/20 22:00 01/19/20 05:21 Gabapentin PO 300 mg Q8HR CORWIN Administration Hydralazine HCl 50 mg 01/17/20 21:00 01/19/20 08:01 Apresoline PO Not Given TID CORWIN Levofloxacin/Dextrose 500 mg in 100 mls @ 100 mls/hr 01/17/20 18:00 01/18/20 18:50 Levaquin 500mg/100ml IV Not Given Q48H [facility] Protocol Sodium Chloride 100 mls @ 999 mls/hr 01/17/20 19:16 Nacl 0.9% IV RAMAN PRN Hypotension Levothyroxine Sodium 125 mcg 01/18/20 06:00 01/19/20 05:21 Synthroid PO 125 mcg QAM@0600 CORWIN Administration Nitroglycerin 0.4 mg 01/17/20 16:37 Nitrostat SL Q5M PRN Chest Pain Ondansetron HCl 4 mg 01/17/20 16:35 01/17/20 18:30 Zofran IV 4 mg Q8H PRN Administration Nausea And Vomiting Ondansetron HCl 4 mg 01/17/20 16:37 Zofran Odt PO Q8HR PRN Nausea Polyethylene Glycol 17 gm 01/18/20 10:00 01/19/20 10:08 Miralax 3350 PO Not Given QDAY [facility] Potassium Chloride 40 meq 01/19/20 11:02 K-Dur PO 01/19/20 11:03 ONCE ONE Prednisone 20 mg 01/18/20 10:00 01/19/20 10:01 Deltasone PO 20 mg QDAY CORWIN Administration Sodium Chloride 10 ml 01/17/20 22:00 01/19/20 10:03 Sodium Chloride Flush Syringe 10 Ml IV 10 ml BID CORWNI Administration Sodium Chloride 10 ml 01/17/20 16:35 Sodium Chloride Flush Syringe 10 Ml IV PRN PRN LINE FLUSH Sulfasalazine 500 mg 01/17/20 18:00 01/19/20 05:21 Azulfidine PO 500 mg Q6HR CORWIN Administration
[2020-01-19] MEDS ORDERED: POTASSIUM CHLORIDE ER 20 MEQ TAB PO ONE (11:02)
[2020-01-19] MEDS: DONEPEZIL 5 MG TAB PO SCH (21:40)
[2020-01-20] MEDS: sulfaSALAzine 500 MG TAB PO SCH ×4 (00:10→18:21)
[2020-01-20] MEDS: GABAPENTIN 300 MG CAP PO SCH (06:12)
[2020-01-20] MEDS: LEVOTHYROXINE 125 MCG TAB PO SCH (06:12)
[2020-01-20] MEDS: hydrALAZINE 25 MG TAB PO SCH ×2 (08:08→13:37)
--- NOTE | 2020-01-20 08:30 | Progress Note ---
Subjective Interval history: Patient was seen today for follow-up of multiple renal related issues No complaints of any chest pain pressure or shortness of breath she may be considered for hemodialysis today, if she will be discharged She is a very poor historian Interdisciplinary notes that also reviewed Events of 24 hours vitals labs intake output medications were reviewed Past medical history: Reviewed Family history: Reviewed Social history: Reviewed Allergies: Reviewed Physical examination: Vitals: Reviewed HEENT: No pallor or icterus oral mucosa moist Neck: Supple no JVD no thyromegaly Chest: Bilateral clear to auscultation anteriorly Heart: Regular rate and rhythm S1-S2 heard no S3-S4 Abdomen: Soft nontender no voluntary guarding rigidity rebound Extremity: Dry skin less than 1+ peripheral edema Psychiatric: No evidence of agitation and aggression noted Dermatology: No petechial rashes Labs and x-rays: Reviewed from today Assessment and plan End-stage renal disease currently on maintenance hemodialysis on Monday day and Monday, will continue with hemodialysis treatment on schedule days Her outpatient dialysis days are Monday and Monday History of congestive heart failure ejection fraction noted to be 60% Hypokalemia: Currently on 3K bath, consider discontinuing amlodipine and start losartan 50 mg once a day We will change Lasix only on nondialysis days Anemia and end-stage renal disease: To monitor and follow Hypertension and volume: Needs monitoring and follow-up History of dementia, patient is high risk for fall I would suggest avoiding benzodiazepines, she has had history of humeral fracture Benzodiazepines should be avoided, may consider psychiatry evaluation patient may benefit from atypical antipsychotic at bedtime if needed such as Seroquel Medication: Reduce gabapentin to 300 mg at bedtime which is the dialysis dose , currently she is getting a toxic dose of gabapentin, which should be adjusted and reduced Relative bradycardia needs monitoring and follow-up currently heart rate between 57 and 60 Bone mineral disorder and secondary hyperparathyroidism: To monitor and follow phosphorus and PTH level Dialysis access: Working well no issues noted All questions were answered and simple Japanese We'll continue to follow and make recommendation for renal standpoint came later today around 4:45 PM in the evening patient was receiving hemodialysis as the plan was to be discharged today Discussed with dialysis nurse no acute issues noted dialysis well tolerated If stable can be considered for discharge Objective - Vital Signs Vital signs: Vital Signs - 12hr 03/08/20 03/09/20 03/09/20 22:00 03:05 07:33 Temperature 98.6 F 98.3 F Pulse Rate 57 L 60 Respiratory 20 18 Rate Blood Pressure 149/53 145/55 O2 Sat by Pulse 99 99 93 Oximetry 01/20/20 08:08 Temperature Pulse Rate 60 Respiratory Rate Blood Pressure 145/55 O2 Sat by Pulse Oximetry - Lab 01/17/20 14:10 01/20/20 04:47 Most recent lab results Calcium 9.0 mg/dL (8.4-10.2) 01/20/20 04:47 Medications & Allergies - Medications Allergies/Adverse Reactions: Allergies Penicillins Allergy (Verified 11/18/19 23:56) Anaphylaxis Home Medications: Home Medications Medication Instructions Recorded Confirmed Last Taken Type clonazePAM [KlonoPIN] 0.5 mg PO QID PRN 09/26/17 11/20/19 09/26/17 History predniSONE [Deltasone] 20 mg PO QDAY 09/26/17 11/20/19 09/26/17 History AtorvaSTATin [Lipitor] 80 mg PO QDAY #30 tablet 09/30/17 11/20/19 Unknown Rx Cetirizine HCl [All Day Allergy] 10 mg PO DAILY #30 tablet 09/30/17 11/20/19 Unknown Rx Citalopram [celeXA] 10 mg PO QDAY #30 tablet 09/30/17 11/20/19 Unknown Rx Clopidogrel Bisulfate [Plavix] 75 mg PO QDAY #30 tablet 09/30/17 11/20/19 Unknown Rx Furosemide [Lasix TAB] 40 mg PO QDAY #30 tablet 09/30/17 11/20/19 Unknown Rx Gabapentin 300 mg PO Q8HR #30 capsule 09/30/17 11/20/19 Unknown Rx Hydralazine HCl 50 mg PO TID #30 tablet 09/30/17 11/20/19 Unknown Rx Levemir 10 units SC HS #30 09/30/17 11/20/19 Unknown Rx Levothyroxine [Synthroid] 125 mcg PO QAM #30 tablet 09/30/17 11/20/19 Unknown Rx amLODIPine 10 mg PO DAILY #30 tablet 09/30/17 11/20/19 Unknown Rx buPROPion SR [Wellbutrin SR] 150 mg PO BID #60 tablet 09/30/17 11/20/19 Unknown Rx carvediloL [Coreg] 25 mg PO BID #60 tablet 09/30/17 11/20/19 Unknown Rx donepeziL [Aricept] 5 mg PO QHS #30 tablet 09/30/17 11/20/19 Unknown Rx sulfaSALAzine [Azulfidine] 500 mg PO Q6HR #30 tablet 09/30/17 11/20/19 Unknown Rx polyethylene glycoL 3350 [Miralax 17 gm PO QDAY 30 Days powd.pack 10/11/17 11/20/19 Unknown Rx 3350] Acetaminophen [Acetaminophen TAB] 650 mg PO Q4H PRN tablet 11/21/19 Unknown Rx Aspirin EC [Ecotrin] 325 mg PO QDAY tablet 11/21/19 Unknown Rx Lispro Insulin [HumaLOG] 0 unit SUB-Q ACHS units 11/21/19 Unknown Rx Nitroglycerin [Nitrostat] 0.4 mg SL Q5M PRN tablet 11/21/19 Unknown Rx Ondansetron [Zofran ODT TAB] 4 mg PO Q8HR PRN #10 tab.rapdis 12/20/19 Unknown Rx levoFLOXacin [Levaquin] 250 mg PO QDAY #5 tablet 01/20/20 Unknown Rx Active Medications: Generic Name Dose Route Start Last Admin Trade Name Freq PRN Reason Stop Dose Admin Acetaminophen 650 mg 01/17/20 16:37 01/18/20 23:08 Tylenol PO 650 mg Q4H PRN Administration Pain MILD(1-3)/Fever >100.5/MENDEZ Albuterol 2.5 mg 01/17/20 16:35 Proventil IH Q4HRT PRN Shortness Of Breath Amlodipine Besylate 10 mg 01/18/20 10:00 01/19/20 10:02 Amlodipine PO Not Given DAILY CORWIN Aspirin 325 mg 01/18/20 10:00 01/19/20 10:02 Ecotrin PO 325 mg QDAY CORWIN Administration Atorvastatin Calcium 80 mg 01/18/20 10:00 01/19/20 10:01 Lipitor PO 80 mg QDAY CORWIN Administration Bupropion HCl 150 mg 01/17/20 22:00 01/19/20 21:40 Wellbutrin Sr PO 150 mg BID CORWIN Administration Carvedilol 25 mg 01/17/20 22:00 01/19/20 21:37 Coreg PO Not Given BID CORWIN Cetirizine HCl 10 mg 01/18/20 10:00 01/19/20 10:00 Cetirizine PO 10 mg DAILY CORWIN Administration Citalopram Hydrobromide 10 mg 01/18/20 10:00 01/19/20 10:01 Celexa PO 10 mg QDAY CORWIN Administration Clonazepam 0.5 mg 01/17/20 16:37 Klonopin PO QID PRN Anxiety Clopidogrel Bisulfate 75 mg 01/18/20 10:00 01/19/20 10:01 Plavix PO 75 mg QDAY CORWIN Administration Donepezil HCl 5 mg 01/17/20 22:00 01/19/20 21:40 Aricept PO 5 mg QHS CORWIN Administration Furosemide 40 mg 01/18/20 10:00 01/19/20 10:02 Lasix PO Not Given QDAY CORWIN Gabapentin 300 mg 01/17/20 22:00 01/20/20 06:12 Gabapentin PO 300 mg Q8HR CORWIN Administration Hydralazine HCl 50 mg 01/17/20 21:00 01/20/20 08:08 Apresoline PO Not Given TID CORWIN Levofloxacin/Dextrose 500 mg in 100 mls @ 100 mls/hr 01/17/20 18:00 01/19/20 17:47 Levaquin 500mg/100ml IV 100 mls/hr Q48H CORWIN Administration Protocol Sodium Chloride 100 mls @ 999 mls/hr 01/17/20 19:16 Nacl 0.9% IV RAMAN PRN Hypotension Levothyroxine Sodium 125 mcg 01/18/20 06:00 01/20/20 06:12 Synthroid PO 125 mcg QAM@0600 CORWIN Administration Nitroglycerin 0.4 mg 01/17/20 16:37 Nitrostat SL Q5M PRN Chest Pain Ondansetron HCl 4 mg 01/17/20 16:35 01/17/20 18:30 Zofran IV 4 mg Q8H PRN Administration Nausea And Vomiting Ondansetron HCl 4 mg 01/17/20 16:37 Zofran Odt PO Q8HR PRN Nausea Polyethylene Glycol 17 gm 01/18/20 10:00 01/19/20 10:08 Miralax 3350 PO Not Given QDAY CORWIN Prednisone 20 mg 01/18/20 10:00 01/19/20 10:01 Deltasone PO 20 mg QDAY CORWIN Administration Sodium Chloride 10 ml 01/17/20 22:00 01/19/20 21:41 Sodium Chloride Flush Syringe 10 Ml IV 10 ml BID CORWIN Administration Sodium Chloride 10 ml 01/17/20 16:35 Sodium Chloride Flush Syringe 10 Ml IV PRN PRN LINE FLUSH Sulfasalazine 500 mg 01/17/20 18:00 01/20/20 06:12 Azulfidine PO 500 mg Q6HR CORWIN Administration
[2020-01-20] MEDS: ASPIRIN EC 325 MG TAB PO SCH (09:39)
[2020-01-20] MEDS: CITALOPRAM 10 MG TAB PO SCH (09:39)
[2020-01-20] MEDS: CETIRIZINE 10 MG TAB PO SCH (09:39)
[2020-01-20] MEDS: predniSONE 20 MG TAB PO SCH (09:42)
[2020-01-20] MEDS: buPROPion SR 150 MG TAB PO SCH (09:42)
[2020-01-20] MEDS: carvediloL 25 MG TAB PO SCH (09:43)
[2020-01-20] MEDS: POLYETHYLENE GLYCOL 3350 17 GM POWDER PO SCH (09:44)
[2020-01-20] MEDS: CLOPIDOGREL 75 MG TAB PO SCH (09:44)
[2020-01-20] MEDS ORDERED: LOSARTAN 50 MG TAB PO SCH (10:00)
[2020-01-20] MEDS ORDERED: FUROSEMIDE 40 MG TAB PO SCH (10:00)
[2020-01-20] MEDS ORDERED: SODIUM CHLORIDE 0.9% 100 ML IV PRN (13:56)
--- NOTE | 2020-01-20 14:31 | Discharge Summary ---
Providers - Providers Date of Admission: 01/18/20 11:17 Date of discharge: 01/20/20 Attending physician: CHLOÉ KENT 01/17/20 16:55 Consult to Physician [CONS] Urgent Comment: Consulting Provider: LUCRETIA DAVIDSON Physician Instructions: Reason For Exam: esrd on dialysis Primary care physician: SARAH MINAYA MD Hospitalization Condition: Stable Hospital course: Discharge diagnosis: (1) End stage renal disease Nephrology consulted and s/p dialysis (2) Hypertensive urgency, malignant -Blood pressure stabilized with current meds (3) Nausea & vomiting -Resolved (4) sepsis secondary to urinary tract infection Manifested with tachycardia and fever Blood cultures negative so far, urine culture ordered but not collected will treat with levaquin renally dosed for total 7 days (5) Hyponatremia syndrome, with Na as low as 128 (6) DVT prophylaxis SCD to bilateral lower extremities while in bed, patient is ambulatory. Disposition: DC-30 STILL A PATIENT Time spent for discharge: 34 minutes Core Measure Documentation - Palliative Care Palliative Care/ Comfort Measures: Not Applicable - Core Measures Any of the following diagnoses?: history only Exam - Physical Exam Narrative exam: Not in cardiopulmonary distress. The patient appeared elderly and normally developed. Vital signs as documented. Head exam is unremarkable. No scleral icterus . Neck is without jugular venous distension, thyromegaly, or carotid bruits. Lungs are clear to auscultation. Cardiac exam reveals regular rate and Rhythm. Abdominal exam reveals normal bowel sounds, nontender, no organomegaly. Extremities are nonedematous and both femoral and pedal pulses are normal. 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 No focal weakness. - Constitutional Vitals: Temp Pulse Resp BP Pulse Ox 97.4 F L 61 18 128/49 98 01/20/20 13:47 01/20/20 13:47 01/20/20 13:47 01/20/20 13:47 01/20/20 13:47 Plan Activity: advance as tolerated Weight Bearing Status: Non-Weight Bearing Diet: renal Special Instructions: record daily BP diary Follow up with: PRIMARY CAREMD [Primary Care Provider] - 3-5 Days Prescriptions: levoFLOXacin [Levaquin] 250 mg PO QDAY #5 tablet
[2020-01-20 18:31] VITALS: BP 103/43
[2020-01-20] MEDS ORDERED: GABAPENTIN 300 MG CAP PO SCH (22:00)
== END 2020-01-20 19:00 | disposition home health service (06) | DRG 871 ==
LOC: ED 11:39 → 2B-ACE 16:35 → OBSVTOIN 01-18 11:17
PROVIDERS: ADMIT Internal Medicine; ATTEND Internal Medicine
PROC: 5A1D70Z Performance of Urinary Filtration, Intermittent, Less than 6 Hours Per Day (ICD-10-PCS; principal; 2020-01-18)
PROC: 5A1D70Z Performance of Urinary Filtration, Intermittent, Less than 6 Hours Per Day (ICD-10-PCS; 2020-01-20)
DX: A41.9 Sepsis, unspecified organism (principal); N18.6 End stage renal disease; E87.1 Hypo-osmolality and hyponatremia; I13.2 Hypertensive heart and chronic kidney disease with heart failure and with stage 5 chronic kidney disease, or end stage renal disease; N30.01 Acute cystitis with hematuria; N25.81 Secondary hyperparathyroidism of renal origin; I50.30 Unspecified diastolic (congestive) heart failure; I16.0 Hypertensive urgency; E87.6 Hypokalemia; D64.9 Anemia, unspecified; E11.22 Type 2 diabetes mellitus with diabetic chronic kidney disease; E03.9 Hypothyroidism, unspecified; E11.40 Type 2 diabetes mellitus with diabetic neuropathy, unspecified; F03.90 Unspecified dementia, unspecified severity, without behavioral disturbance, psychotic disturbance, mood disturbance, and anxiety; R09.89 Other specified symptoms and signs involving the circulatory and respiratory systems; Z88.0 Allergy status to penicillin; Z86.73 Personal history of transient ischemic attack (TIA), and cerebral infarction without residual deficits; Z99.2 Dependence on renal dialysis; Z79.4 Long term (current) use of insulin; Z83.3 Family history of diabetes mellitus; Z82.49 Family history of ischemic heart disease and other diseases of the circulatory system
CPT/HCPCS: 36415; 71045; 80048; 80053; 80074; 81001; 82140; 83690; 85007; 85025; 87040; 87076; 87086; 87186; 87493; 93005; 93010; 94760; 96365; 96375; 96376; G0378; A9270-GY; J1956; J2405; J2765; J3246; J7030; J7040; J7512

== ENCOUNTER 2020-10-26 15:05 | Inpatient (IN) | payer MEDICAID, MEDICARE ==
--- NOTE | 2020-10-26 15:30 | Emergency Department Report ---
ED Neuro Deficit HPI - General Stated Complaint: POSSIBLE STORKE Time Seen by Provider: 10/26/20 15:13 - History of Present Illness Initial Comments: 70-year-old female with a past medical history of CHF, CVA, dementia, diabetes, hypertension, end-stage renal disease on dialysis Monday, Monday, Monday, and hypothyroidism presents to the hospital complaints of weakness, dizziness and feeling off balance since waking up this a.m. She went to bed around 8:30 PM and felt normal at that time. Patient went to dialysis and her blood pressure was 260/120 and she developed blurry vision and nausea and vomiting and therefore was sent to the ED for evaluation. Is unclear if patient completed dialysis prior to transfer. - Related Data Home Medications: Previous Rx's Medication Instructions Recorded Last Taken Type Cetirizine HCl [All Day Allergy] 10 mg PO DAILY #30 tablet 09/30/17 2 Days Ago Rx ~03/11/20 Clopidogrel Bisulfate [Plavix] 75 mg PO QDAY #30 tablet 09/30/17 2 Days Ago Rx ~03/11/20 Lispro Insulin [HumaLOG] 0 unit SUB-Q ACHS units 11/21/19 2 Days Ago Rx ~03/11/20 Aspirin 325 mg PO QDAY tablet 03/15/20 Unknown Rx AtorvaSTATin [Lipitor] 80 mg PO QDAY #30 tablet 03/15/20 Unknown Rx Furosemide [Lasix TAB] 40 mg PO QDAY #30 tablet 03/15/20 Unknown Rx Gabapentin 300 mg PO Q8HR #30 capsule 03/15/20 Unknown Rx Hydralazine HCl 50 mg PO TID PRN #90 03/15/20 Unknown Rx Levemir 10 units SC HS #30 03/15/20 Unknown Rx Levothyroxine [Synthroid] 125 mcg PO QAM #30 tablet 03/15/20 Unknown Rx Lispro Insulin [HumaLOG] 0 unit SUB-Q ACHS units 03/15/20 Unknown Rx Nitroglycerin [Nitrostat] 0.4 mg SL Q5M PRN #10 tablet 03/15/20 Unknown Rx Ondansetron [Zofran ODT TAB] 4 mg PO Q8HR PRN #10 tab.rapdis 03/15/20 Unknown Rx Xanax TAB 0.25 mg PO BID PRN #10 03/15/20 Unknown Rx donepeziL [Aricept] 5 mg PO QHS #30 tablet 03/15/20 Unknown Rx Allergies/Adverse Reactions: Allergies Allergy/AdvReac Type Severity Reaction Status Date / Time Penicillins Allergy Anaphylaxis Verified 11/18/19 23:56 ED Review of Systems ROS: Stated complaint: POSSIBLE STORKE Other details as noted in HPI Comment: All other systems reviewed and negative ED Past Medical Hx - Past Medical History Hx Hypertension: Yes Hx CVA: Yes Hx Congestive Heart Failure: Yes Hx Diabetes: Yes Hx Renal Disease: Yes ([id number]) Hx Dementia: Yes Additional medical history: hypothyroidism fx humerus/ - Surgical History Additional Surgical History: right AV fistula - Social History Smoking Status: Former Smoker - Medications Home Medications: Home Medications Medication Instructions Recorded Confirmed Last Taken Type Cetirizine HCl [All Day Allergy] 10 mg PO DAILY #30 tablet 09/30/17 10/27/20 2 Days Ago Rx ~03/11/20 Clopidogrel Bisulfate [Plavix] 75 mg PO QDAY #30 tablet 09/30/17 10/27/20 2 Days Ago Rx ~03/11/20 Lispro Insulin [HumaLOG] 0 unit SUB-Q ACHS units 11/21/19 10/27/20 2 Days Ago Rx ~03/11/20 Aspirin 325 mg PO QDAY tablet 03/15/20 10/27/20 Unknown Rx AtorvaSTATin [Lipitor] 80 mg PO QDAY #30 tablet 03/15/20 10/27/20 Unknown Rx Furosemide [Lasix TAB] 40 mg PO QDAY #30 tablet 03/15/20 10/27/20 Unknown Rx Gabapentin 300 mg PO Q8HR #30 capsule 03/15/20 10/27/20 Unknown Rx Hydralazine HCl 50 mg PO TID PRN #90 03/15/20 10/27/20 Unknown Rx Levemir 10 units SC HS #30 03/15/20 10/27/20 Unknown Rx Levothyroxine [Synthroid] 125 mcg PO QAM #30 tablet 03/15/20 10/27/20 Unknown Rx Lispro Insulin [HumaLOG] 0 unit SUB-Q ACHS units 03/15/20 10/27/20 Unknown Rx Nitroglycerin [Nitrostat] 0.4 mg SL Q5M PRN #10 tablet 03/15/20 10/27/20 Unknown Rx Ondansetron [Zofran ODT TAB] 4 mg PO Q8HR PRN #10 tab.rapdis 03/15/20 10/27/20 Unknown Rx Xanax TAB 0.25 mg PO BID PRN #10 03/15/20 10/27/20 Unknown Rx donepeziL [Aricept] 5 mg PO QHS #30 tablet 03/15/20 10/27/20 Unknown Rx ED Neuro Physical Exam - General Suspected Stroke: Yes - NIHSS Assessment Interval: Baseline 1a. Level of Consciousness: alert/keenly responsive 1b. LOC Questions: answers both correctly 1c. LOC Commands: performs tasks correctly 2. Best Gaze: normal 3. Visual: no visual loss 4. Facial Palsy: normal symmetrical movement 5b. Motor Arm Right: no drift 5a. Motor Arm Left: no drift 6a. Motor Leg Left: no drift 6b. Motor Leg Right: no drift 7. Limb Ataxia: absent 8. Sensory: coma/unresponsive 9. Best Language: no aphasia 10. Dysarthria: normal 11. Extinction/Inattention: no abnormality Total Score: 2 Stroke Severity: Minor Stroke - Other Other exam information: General: No acute distress Head: Atraumatic Eyes: normal appearance ENT: Moist mucous membranes Neck: Normal appearance, no midline tenderness Chest: Clear to auscultation bilaterally CV: Regular rate and rhythm Abdomen: Soft, normal bowel sounds, mild lower and right lower abdominal tenderness, nondistended, no rebound or guarding Back: Normal inspection Extremity: Normal inspection, full range of motion Neuro: Alert O x 3, no facial asymmetry, speech clear, no gross motor sensory deficit Psych: Appropriate behavior Skin: No rash ED Course Vital Signs 10/26/20 10/26/20 10/26/20 15:44 15:46 16:00 Temperature Pulse Rate 78 80 75 Respiratory 13 18 14 Rate Blood Pressure 207/73 223/67 Blood Pressure [Left] O2 Sat by Pulse 97 97 Oximetry 10/26/20 10/26/20 10/26/20 16:16 16:30 16:46 Temperature 98.3 F Pulse Rate 74 81 77 Respiratory 16 11 L 14 Rate Blood Pressure 223/67 223/67 223/67 Blood Pressure [Left] O2 Sat by Pulse 98 98 98 Oximetry 10/26/20 10/26/20 10/26/20 17:00 17:16 17:30 Temperature Pulse Rate 77 78 81 Respiratory 15 16 17 Rate Blood Pressure 218/76 218/76 212/80 Blood Pressure [Left] O2 Sat by Pulse 99 99 97 Oximetry 10/26/20 10/26/20 10/26/20 17:46 20:00 21:45 Temperature 98.6 F Pulse Rate 76 70 Respiratory 11 L 20 20 Rate Blood Pressure 212/80 Blood Pressure 180/62 [Left] O2 Sat by Pulse 98 98 98 Oximetry 10/26/20 10/27/20 10/27/20 22:00 00:00 02:00 Temperature Pulse Rate 75 74 77 Respiratory 20 20 20 Rate Blood Pressure Blood Pressure 160/71 154/82 165/66 [Left] O2 Sat by Pulse 98 98 98 Oximetry 10/27/20 10/27/20 10/27/20 04:00 07:44 07:45 Temperature Pulse Rate 74 64 Respiratory 20 23 23 Rate Blood Pressure Blood Pressure 175/55 171/126 [Left] O2 Sat by Pulse 98 91 91 Oximetry 10/27/20 10/27/20 10/27/20 09:31 12:23 14:12 Temperature Pulse Rate 69 71 73 Respiratory 14 Rate Blood Pressure 181/57 183/58 Blood Pressure 174/61 [Left] O2 Sat by Pulse 99 Oximetry 10/27/20 10/27/20 10/27/20 15:32 16:20 16:38 Temperature Pulse Rate 86 91 H Respiratory 17 19 Rate Blood Pressure 202/92 Blood Pressure 214/83 [Left] O2 Sat by Pulse 95 94 Oximetry 10/27/20 10/27/20 10/27/20 17:06 17:54 18:23 Temperature Pulse Rate Respiratory Rate Blood Pressure 175/65 175/65 175/65 Blood Pressure [Left] O2 Sat by Pulse 83 L Oximetry 10/27/20 10/27/20 10/27/20 18:24 18:30 18:40 Temperature Pulse Rate 88 Respiratory Rate Blood Pressure 195/69 195/69 Blood Pressure 195/69 [Left] O2 Sat by Pulse 78 L Oximetry 10/27/20 10/27/20 10/27/20 18:58 19:00 19:15 Temperature 98.1 F Pulse Rate 86 Respiratory 18 Rate Blood Pressure 212/74 199/75 Blood Pressure 164/61 [Left] O2 Sat by Pulse 100 Oximetry 10/27/20 10/27/20 10/27/20 19:18 19:23 19:30 Temperature Pulse Rate Respiratory Rate Blood Pressure 164/61 164/61 148/62 Blood Pressure [Left] O2 Sat by Pulse 100 99 Oximetry 10/27/20 10/27/20 10/27/20 19:40 19:50 20:00 Temperature Pulse Rate Respiratory Rate Blood Pressure 148/62 195/69 164/61 Blood Pressure [Left] O2 Sat by Pulse 98 97 87 Oximetry 10/27/20 10/27/20 20:10 20:20 Temperature Pulse Rate Respiratory Rate Blood Pressure 164/61 164/61 Blood Pressure [Left] O2 Sat by Pulse 83 L 90 Oximetry - Lab Data Result diagrams: 10/26/20 15:43 10/26/20 15:43 Lab Results 10/26/20 10/26/20 10/26/20 Range/Units 15:43 15:43 15:43 WBC 4.3 L (4.5-11.0) K/mm3 RBC 3.71 (3.65-5.03) M/mm3 Hgb 12.1 (10.1-14.3) gm/dl Hct 36.0 (30.3-42.9) % MCV 97 (79-97) fl MCH 33 H (28-32) pg MCHC 34 (30-34) % RDW 13.4 (13.2-15.2) % Plt Count 304 (140-440) K/mm3 Lymph % (Auto) 26.0 (13.4-35.0) % Lamb % (Auto) 5.0 (0.0-7.3) % Eos % (Auto) 1.2 (0.0-4.3) % Baso % (Auto) 0.7 (0.0-1.8) % Lymph # (Auto) 1.1 L (1.2-5.4) K/mm3 Lamb # (Auto) 0.2 (0.0-0.8) K/mm3 Eos # (Auto) 0.1 (0.0-0.4) K/mm3 Baso # (Auto) 0.0 (0.0-0.1) K/mm3 Seg Neutrophils % 67.1 (40.0-70.0) % Seg Neutrophils # 2.9 (1.8-7.7) K/mm3 PT 29.5 H (12.2-14.9) Sec. INR 2.76 H (0.87-1.13) APTT 53.3 H (24.2-36.6) Sec. Thrombin Time 15.2 (15.1-19.6) Sec. Sodium 132 L (137-145) mmol/L Potassium 3.6 (3.6-5.0) mmol/L Chloride 95.4 L (98-107) mmol/L Carbon Dioxide 26 (22-30) mmol/L Anion Gap 14 mmol/L BUN 27 H (7-17) mg/dL Creatinine 3.6 H (0.6-1.2) mg/dL Estimated GFR 12 ml/min BUN/Creatinine Ratio 8 % Glucose 257 H (65-100) mg/dL Calcium 8.8 (8.4-10.2) mg/dL Total Bilirubin 0.30 (0.1-1.2) mg/dL AST 18 (5-40) units/L ALT 11 (7-56) units/L Alkaline Phosphatase 112 (35-129) units/L Troponin T 0.073 H (0.00-0.029) ng/mL Total Protein 7.5 (6.3-8.2) g/dL Albumin 3.5 L (3.9-5) g/dL Albumin/Globulin Ratio 0.9 % Triglycerides 382 H (2-149) mg/dL Cholesterol 188 (50-199) mg/dL LDL Cholesterol Direct 114 (50-130) mg/dL HDL Cholesterol 36 L (40-59) mg/dL Cholesterol/HDL Ratio 5.22 % Lipase (13-60) units/L 10/26/20 10/26/20 Range/Units 15:43 20:08 WBC (4.5-11.0) K/mm3 RBC (3.65-5.03) M/mm3 Hgb (10.1-14.3) gm/dl Hct (30.3-42.9) % MCV (79-97) fl MCH (28-32) pg MCHC (30-34) % RDW (13.2-15.2) % Plt Count (140-440) K/mm3 Lymph % (Auto) (13.4-35.0) % Lamb % (Auto) (0.0-7.3) % Eos % (Auto) (0.0-4.3) % Baso % (Auto) (0.0-1.8) % Lymph # (Auto) (1.2-5.4) K/mm3 Lamb # (Auto) (0.0-0.8) K/mm3 Eos # (Auto) (0.0-0.4) K/mm3 Baso # (Auto) (0.0-0.1) K/mm3 Seg Neutrophils % (40.0-70.0) % Seg Neutrophils # (1.8-7.7) K/mm3 PT (12.2-14.9) Sec. INR (0.87-1.13) APTT (24.2-36.6) Sec. Thrombin Time (15.1-19.6) Sec. Sodium (137-145) mmol/L Potassium (3.6-5.0) mmol/L Chloride (98-107) mmol/L Carbon Dioxide (22-30) mmol/L Anion Gap mmol/L BUN (7-17) mg/dL Creatinine (0.6-1.2) mg/dL Estimated GFR ml/min BUN/Creatinine Ratio % Glucose (65-100) mg/dL Calcium (8.4-10.2) mg/dL Total Bilirubin (0.1-1.2) mg/dL AST (5-40) units/L ALT (7-56) units/L Alkaline Phosphatase (35-129) units/L Troponin T 0.084 H (0.00-0.029) ng/mL Total Protein (6.3-8.2) g/dL Albumin (3.9-5) g/dL Albumin/Globulin Ratio % Triglycerides (2-149) mg/dL Cholesterol (50-199) mg/dL LDL Cholesterol Direct (50-130) mg/dL HDL Cholesterol (40-59) mg/dL Cholesterol/HDL Ratio % Lipase 41 (13-60) units/L - EKG Data -: EKG Interpreted by Nv EKG shows normal: sinus rhythm, intervals (qtc 512), ST-T waves (no stemi) Rate: normal (76) - Radiology Data Radiology results: report reviewed . CT HEAD WITHOUT CONTRAST HISTORY: Code stroke, stroke symptoms. TECHNIQUE: Axial imaging performed from the skull apex through the skull base without the use of contrast. All CT scans at this location are performed using CT dose reduction for ALARA by means of automated exposure control. COMPARISON: 03/13/2020 FINDINGS: Parenchyma: No acute intracranial hemorrhage or parenchymal abnormality. Mild hypoattenuation throughout the white matter is noted and consistent with chronic microvascular ischemic disease. Chronic lacunar infarcts in both thalami are unchanged. Ventricles: There is mild diffuse brain atrophy with commensurate ventricular enlargement which is likely age appropriate. Soft tissues: Soft tissues including the orbits appear normal. Bones: No acute osseous abnormality. Sinuses: Sinuses and mastoid air cells are clear. IMPRESSION: No acute abnormality. Chronic lacunar infarcts in both thalami. Age- related volume loss and chronic white matter changes. No significant change since 03/13/2020. XR chest 1V ap INDICATION / CLINICAL INFORMATION: cough, n,v COMPARISON: Mar 13 2020 FINDINGS: SUPPORT DEVICES: None. HEART / MEDIASTINUM: No significant abnormality. LUNGS / PLEURA: Left basilar opacity. Chronic interstitial thickening. Costophrenic sulci are sharp. No pneumothorax. ADDITIONAL FINDINGS: No significant additional findings. IMPRESSION: 1. Left basilar opacity favored to be atelectasis. No definite acute findings. CT ABDOMEN AND PELVIS WITHOUT IV CONTRAST INDICATION: lower abd, n,v. COMPARISON: CT 12/20/2019 TECHNIQUE: All CT scans at this facility use dose modulation, automated exposure control, iterative reconstruction or weight based dosing, when appropriate, to reduce radiation dose to as low as reasonably achievable. FINDINGS: Lung Bases: Bibasilar interstitial opacities may be due to interstitial pulmonary edema. There are also mild dependent atelectatic changes within the included bases. Skeletal System: No acute abnormality. ABDOMEN: Liver: No significant abnormality. Gallbladder: Removed. Bile Ducts: No significant abnormality. Pancreas: No significant abnormality. Spleen: No significant abnormality. Adrenals: No significant abnormality. Right Kidney: No significant abnormality. Left Kidney: No significant abnormality. Upper GI tract: No significant abnormality. Lymph Nodes: No significant adenopathy. Aorta: Advanced atherosclerotic calcification throughout. No aneurysmal dilatation. Additional Findings: There is advanced atherosclerotic calcification throughout the renal and mesenteric arterial trees, similar to the prior. PELVIS: Colon: No acute abnormality. Mild constipation with moderate fecal material at the rectum. Urinary Bladder and Distal Ureters: Mild bladder wall thickening. Appendix: No significant abnormality. Lymph Nodes: No significant adenopathy. Additional Findings: None. IMPRESSION: 1. Questionable mild cystitis. 2. Constipation with possible mild rectal fecal impaction. 3. Additional incidental findings as above. - Medical Decision Making 70-year-old female presents to the hospital complaining of dizziness with nausea and vomiting. Patient initially treated as a code stroke however, time onset greater than 4-1/2 hours. Patient did not have any clinical signs of large vessel stroke. After neurology evaluation admission for work-up for posterior circulation stroke recommended patient did have some mild abdominal pain therefore CT abdomen pelvis ordered to rule out pathology prior to admission. Patient was provided Zofran, IV fluids, meclizine, labetalol in the ED. patient has elevated INR however, current med list is unknown. Patient did receive aspirin for stroke symptoms. Nephrology consult ordered with her primary nephrology group to manage as inpatient. Patient not require emergent dialysis at this time. Pt has a mild trop elevation but it is chronically elevated and below previous levels. CT abd pelvis suggestive of mild cystitis, ua pending. Levquin provided. pt to be admitted to the hospitalist service Critical Care Time: No Critical care attestation.: If time is entered above; I have spent that time in minutes in the direct care of this critically ill patient, excluding procedure time. ED Disposition Clinical Impression: ESRD on hemodialysis, Dizziness, Elevated troponin, Cystitis Nausea and vomiting Qualifiers: Vomiting type: unspecified Vomiting Intractability: intractable Qualified Code(s): R11.2 - Nausea with vomiting, unspecified Disposition: 09 OP ADMIT IP TO THIS HOSP Is pt being admited?: Yes Condition: Stable
--- NOTE | 2020-10-26 15:34 | Cat Scan Report ---
. CT HEAD WITHOUT CONTRAST HISTORY: Code stroke, stroke symptoms. TECHNIQUE: Axial imaging performed from the skull apex through the skull base without the use of con trast. All CT scans at this location are performed using CT dose reduction for ALARA by means of aut omated exposure control. COMPARISON: 03/13/2020 FINDINGS: Parenchyma: No acute intracranial hemorrhage or parenchymal abnormality. Mild hypoattenuation throu ghout the white matter is noted and consistent with chronic microvascular ischemic disease. Chronic l acunar infarcts in both thalami are unchanged. Ventricles: There is mild diffuse brain atrophy with commensurate ventricular enlargement which is l ikely age appropriate. Soft tissues: Soft tissues including the orbits appear normal. Bones: No acute osseous abnormality. Sinuses: Sinuses and mastoid air cells are clear. IMPRESSION: No acute abnormality. Chronic lacunar infarcts in both thalami. Age-related volume loss a nd chronic white matter changes. No significant change since 03/13/2020. CODE STROKE: Time of Communication (LEAD REFINERY SUPERVISOR/CDT): 1429 hours Licensed Practitioner Receiving Report: Dr. Christiano Teixeira read back was performed. Signer Name: Christopher Garcia Jr, MD Signed: 10/26/2020 3:30 PM Workstation Name: [id number]
--- NOTE | 2020-10-26 15:48 | Consultation ---
History of Present Illness Consult date: 10/26/20 Medications and Allergies Allergies Allergy/AdvReac Type Severity Reaction Status Date / Time Penicillins Allergy Anaphylaxis Verified 11/18/19 23:56 Home Medications Medication Instructions Recorded Confirmed Last Taken Type Cetirizine HCl [All Day Allergy] 10 mg PO DAILY #30 tablet 09/30/17 03/13/20 2 Days Ago Rx ~03/11/20 Clopidogrel Bisulfate [Plavix] 75 mg PO QDAY #30 tablet 09/30/17 03/13/20 2 Days Ago Rx ~03/11/20 Lispro Insulin [HumaLOG] 0 unit SUB-Q ACHS units 11/21/19 03/13/20 2 Days Ago Rx ~03/11/20 Aspirin 325 mg PO QDAY tablet 03/15/20 Unknown Rx AtorvaSTATin [Lipitor] 80 mg PO QDAY #30 tablet 03/15/20 Unknown Rx Furosemide [Lasix TAB] 40 mg PO QDAY #30 tablet 03/15/20 Unknown Rx Gabapentin 300 mg PO Q8HR #30 capsule 03/15/20 Unknown Rx Hydralazine HCl 50 mg PO TID PRN #90 03/15/20 Unknown Rx Levemir 10 units SC HS #30 03/15/20 Unknown Rx Levothyroxine [Synthroid] 125 mcg PO QAM #30 tablet 03/15/20 Unknown Rx Lispro Insulin [HumaLOG] 0 unit SUB-Q ACHS units 03/15/20 Unknown Rx Nitroglycerin [Nitrostat] 0.4 mg SL Q5M PRN #10 tablet 03/15/20 Unknown Rx Ondansetron [Zofran ODT TAB] 4 mg PO Q8HR PRN #10 tab.rapdis 03/15/20 Unknown Rx Xanax TAB 0.25 mg PO BID PRN #10 03/15/20 Unknown Rx donepeziL [Aricept] 5 mg PO QHS #30 tablet 03/15/20 Unknown Rx levoFLOXacin [Levaquin TAB] 250 mg PO QDAY #5 tablet 03/15/20 Unknown Rx Assessment and Plan [facility] Date of Service: 10/26/2020 15:09:45 Impression: I63.9 - Cerebrovascular accident (CVA), unspecified mechanism (HCC) Comments/Sign-Out: dizziness described as off balance with nausea/vomitting and subjective blurred vision (although visual hardwick are intact) in the setting of elevated BP. Posterior circulation stroke cannot be ruled out. Hypertensive emergency is also on the differential. Metrics: Last Known Well: Unknown [facility] Notification Time: 10/26/2020 15:09:35 Arrival Time: 10/26/2020 15:05:00 Stamp Time: 10/26/2020 15:09:45 Time First Login Attempt: 10/26/2020 15:16:01 Video Start Time: 10/26/2020 15:16:01 Symptoms: dizziness, nausea, vomitting NIHSS Start Assessment Time: 10/26/2020 15:26:10 Patient is not a candidate for Alteplase/Activase. Patient was not deemed candidate for Alteplase/Activase thrombolytics because of Last Well Known Above 4.5 Hours. Video End Time: 10/26/2020 15:37:38 CT head showed no acute hemorrhage or acute core infarct. Clinical Presentation is not Suggestive of Large Vessel Occlusive Disease ED Physician notified of diagnostic impression and management plan on 10/26/2020 15:38:30 Our recommendations are outlined below. Recommendations: Activate Stroke Protocol Admission/Order Set Stroke/Telemetry Floor Neuro Checks Bedside Swallow Eval DVT Prophylaxis IV Fluids, Normal Saline Head of Bed 30 Degrees Euglycemia and Avoid Hyperthermia (PRN Acetaminophen) Antiplatelet Therapy Recommended Routine Consultation with Inhouse Neurology for Follow up Care Sign Out: Discussed with Emergency Department Provider History of Present Illness: Patient is a 70 year old Female. Patient was brought by EMS for symptoms of dizziness, nausea, vomitting 70 year old woman with ESRD who presents with dizziness. She describes the dizziness as feeling off balance. She is not sure when it began. At first she states that it began sometime this morning at an unknown time but that she woke up at an unknown time this morning with no symptoms. Then, she states that she woke up with the symptoms this morning and was last at her baseline last night before bed. She cannot tell me when she went to bed last night but thinks it may have been around 2030. When she got to dialysis, her BP was elevated (around 260/120) and then she developed n/v. Therefore, EMS was called. She also states that she has blurred vision throughout her entire vision (but visual hardwick are intact). Examination: BP(240/80), Pulse(78), Blood Glucose(222) 1A: Level of Consciousness - Alert; keenly responsive + 0 1B: Ask Month and Age - Both Questions Right + 0 1C: Blink Eyes & Squeeze Hands - Performs Both Tasks + 0 2: Test Horizontal Extraocular Movements - Normal + 0 3: Test Visual Hardwick - No Visual Loss + 0 4: Test Facial Palsy (Use Grimace if Obtunded) - Normal symmetry + 0 5A: Test Left Arm Motor Drift - No Drift for 10 Seconds + 0 5B: Test Right Arm Motor Drift - No Drift for 10 Seconds + 0 6A: Test Left Leg Motor Drift - No Drift for 5 Seconds + 0 6B: Test Right Leg Motor Drift - No Drift for 5 Seconds + 0 7: Test Limb Ataxia (FNF/Heel-Otoole) - No Ataxia + 0 8: Test Sensation - Normal; No sensory loss + 0 9: Test Language/Aphasia - Normal; No aphasia + 0 10: Test Dysarthria - Normal + 0 11: Test Extinction/Inattention - No abnormality + 0 NIHSS Score: 0 Patient/Family was informed the Neurology Consult would happen via TeleHealth consult by way of interactive audio and video telecommunications and consented to receiving care in this manner. Due to the immediate potential for life-threatening deterioration due to underlying acute neurologic illness, I spent 35 minutes providing critical care. This time includes time for face to face visit via telemedicine, review of medical records, imaging studies and discussion of findings with providers, the patient and/or family. Dr Valery Gomez [facility] Case [id number]
[2020-10-26 16:05] LABS: Basophils % (Auto) 0.7 % (0.0-1.8); Eosinophils # (Auto) 0.1 K/mm3 (0.0-0.4); Eosinophils % (Auto) 1.2 % (0.0-4.3); Hemoglobin 12.1 gm/dl (10.1-14.3); Lymphocytes # (Auto) 1.1 K/mm3 (1.2-5.4); Mean Corpuscular HGB Conc 34 % (30-34); Mean Corpuscular Volume 97 fl (79-97); Monocytes # (Auto) 0.2 K/mm3 (0.0-0.8); Platelet Count 304 K/mm3 (140-440); Red Blood Count 3.71 M/mm3 (3.65-5.03); Red Cell Distribution Width 13.4 % (13.2-15.2)
[2020-10-26 16:23] LABS: Albumin 3.5 g/dL (3.9-5); Calcium 8.8 mg/dL (8.4-10.2); INR 2.76 (0.87-1.13); Thrombin Time 15.2 Sec. (15.1-19.6)
[2020-10-26 16:24] LABS: Partial Thromboplastin Time 53.3 Sec. (24.2-36.6)
[2020-10-26] MEDS ORDERED: ONDANSETRON 4 MG/2 ML INJ IV ONE (16:41)
[2020-10-26] MEDS ORDERED: SODIUM CHLORIDE 0.9% 500 ML 500 ML IV ONE (16:41)
[2020-10-26] MEDS ORDERED: MECLIZINE 25 MG TAB PO ONE (16:43)
--- NOTE | 2020-10-26 16:53 | XRay Report ---
XR chest 1V ap INDICATION / CLINICAL INFORMATION: cough, n,v COMPARISON: Mar 13 2020 FINDINGS: SUPPORT DEVICES: None. HEART / MEDIASTINUM: No significant abnormality. LUNGS / PLEURA: Left basilar opacity. Chronic interstitial thickening. Costophrenic sulci are sharp. No pneumothorax. ADDITIONAL FINDINGS: No significant additional findings. IMPRESSION: 1. Left basilar opacity favored to be atelectasis. No definite acute findings. Signer Name: Ricardo Enriquez MD Signed: 10/26/2020 4:48 PM Workstation Name: [id number]
[2020-10-26 17:05] LABS: Chol/HDL Ratio 5.22 %
[2020-10-26] MEDS ORDERED: ASPIRIN 325 MG TAB PO ONE (19:07)
--- NOTE | 2020-10-26 19:15 | Cat Scan Report ---
CT ABDOMEN AND PELVIS WITHOUT IV CONTRAST INDICATION: lower abd, n,v. COMPARISON: CT 12/20/2019 TECHNIQUE: All CT scans at this facility use dose modulation, automated exposure control, iterative reconstructi on or weight based dosing, when appropriate, to reduce radiation dose to as low as reasonably achieva ble. FINDINGS: Lung Bases: Bibasilar interstitial opacities may be due to interstitial pulmonary edema. There are al so mild dependent atelectatic changes within the included bases. Skeletal System: No acute abnormality. ABDOMEN: Liver: No significant abnormality. Gallbladder: Removed. Bile Ducts: No significant abnormality. Pancreas: No significant abnormality. Spleen: No significant abnormality. Adrenals: No significant abnormality. Right Kidney: No significant abnormality. Left Kidney: No significant abnormality. Upper GI tract: No significant abnormality. Lymph Nodes: No significant adenopathy. Aorta: Advanced atherosclerotic calcification throughout. No aneurysmal dilatation. Additional Findings: There is advanced atherosclerotic calcification throughout the renal and mesente gianna arterial trees, similar to the prior. PELVIS: Colon: No acute abnormality. Mild constipation with moderate fecal material at the rectum. Urinary Bladder and Distal Ureters: Mild bladder wall thickening. Appendix: No significant abnormality. Lymph Nodes: No significant adenopathy. Additional Findings: None. IMPRESSION: 1. Questionable mild cystitis. 2. Constipation with possible mild rectal fecal impaction. 3. Additional incidental findings as above. Signer Name: Rubén Knight MD Signed: 10/26/2020 7:11 PM Workstation Name: [id number]
[2020-10-26] MEDS ORDERED: DEXTROSE 50% IN WATER (25GM) 50 ML SYRINGE IV PRN (21:57)
[2020-10-26] MEDS ORDERED: ONDANSETRON 4 MG/2 ML INJ IV PRN ×2 (21:57)
[2020-10-26] MEDS ORDERED: PROMETHAZINE 25 MG RECT SUPP PR PRN (21:57)
[2020-10-26] MEDS ORDERED: ACETAMINOPHEN 325 MG TAB PO PRN ×2 (21:57)
[2020-10-26] MEDS ORDERED: METOCLOPRAMIDE 10 MG TAB PO PRN (21:57)
[2020-10-26] MEDS ORDERED: MAGNESIUM HYDROXIDE (MOM) ORAL LIQD UDC PO PRN ×2 (21:57)
[2020-10-26] MEDS ORDERED: MORPHINE 2 MG/1 ML INJ IV PRN (21:57)
--- NOTE | 2020-10-26 22:15 | History and Physical Report ---
History of Present Illness Date of examination: 10/26/20 Date of admission: 10/26/2020 Chief complaint: Dizziness History of present illness: 70-year-old female with known history of CVA, dementia, diabetes mellitus, hypertension ,CHF and end-stage renal disease on dialysis on Mondays, Wednesdays and Monday presenting to the emergency room today complaining of for weakness, dizziness and problems with balance. She was at dialysis today and blood pressure was said to be quite elevated with systolic in the 260s and diastolic in the 120s. She also developed some blurry vision, nausea and vomiting and subsequently sent to the emergency room. It is unclear whether she completed a course of dialysis today. Patient denies any fever or chills, no chest pain or shortness of breath, no headaches, no abdominal pain, no diarrhea, denies any sick contacts and no con tact with anyone with COVID-19. Work-up in the emergency room, CT scan of the head reveals: No acute abnormality. Chronic lacunar infarcts in both thalami. Age-related volume loss and chronic white matter changes Chest x-ray unremarkable except for atelectasis. Patient is being admitted for evaluation of possible CVA. Past History Past Medical History: diabetes, dialysis, ESRD, heart failure, hypertension, hypothyroidism, stroke Past Surgical History: Other (AV fistula in right upper extremity, fracture of the humerus) Social history: no significant social history Family history: no significant family history Medications and Allergies Allergies Allergy/AdvReac Type Severity Reaction Status Date / Time Penicillins Allergy Anaphylaxis Verified 11/18/19 23:56 Home Medications Medication Instructions Recorded Confirmed Last Taken Type Cetirizine HCl [All Day Allergy] 10 mg PO DAILY #30 tablet 09/30/17 03/13/20 2 Days Ago Rx ~03/11/20 Clopidogrel Bisulfate [Plavix] 75 mg PO QDAY #30 tablet 09/30/17 03/13/20 2 Days Ago Rx ~03/11/20 Lispro Insulin [HumaLOG] 0 unit SUB-Q ACHS units 11/21/19 03/13/20 2 Days Ago Rx ~03/11/20 Aspirin 325 mg PO QDAY tablet 03/15/20 Unknown Rx AtorvaSTATin [Lipitor] 80 mg PO QDAY #30 tablet 03/15/20 Unknown Rx Furosemide [Lasix TAB] 40 mg PO QDAY #30 tablet 03/15/20 Unknown Rx Gabapentin 300 mg PO Q8HR #30 capsule 03/15/20 Unknown Rx Hydralazine HCl 50 mg PO TID PRN #90 03/15/20 Unknown Rx Levemir 10 units SC HS #30 03/15/20 Unknown Rx Levothyroxine [Synthroid] 125 mcg PO QAM #30 tablet 03/15/20 Unknown Rx Lispro Insulin [HumaLOG] 0 unit SUB-Q ACHS units 03/15/20 Unknown Rx Nitroglycerin [Nitrostat] 0.4 mg SL Q5M PRN #10 tablet 03/15/20 Unknown Rx Ondansetron [Zofran ODT TAB] 4 mg PO Q8HR PRN #10 tab.rapdis 03/15/20 Unknown Rx Xanax TAB 0.25 mg PO BID PRN #10 03/15/20 Unknown Rx donepeziL [Aricept] 5 mg PO QHS #30 tablet 03/15/20 Unknown Rx levoFLOXacin [Levaquin TAB] 250 mg PO QDAY #5 tablet 03/15/20 Unknown Rx Review of Systems Constitutional: weakness, no fever, no chills Ears, nose, mouth and throat: no nasal congestion, no sore throat Cardiovascular: no chest pain, no palpitations Respiratory: no cough, no shortness of breath Gastrointestinal: no abdominal pain, no nausea, no vomiting, no diarrhea Genitourinary Female: no pelvic pain, no flank pain, no dysuria, no hematuria Musculoskeletal: no neck pain, no low back pain Integumentary: no rash, no pruritis Neurological: balance difficulties, other (Dizziness), no headaches, no confusion Psychiatric: no anxiety, no depression Exam - Constitutional Vitals: Temp Pulse Resp BP Pulse Ox 98.6 F 70 20 180/62 98 10/26/20 20:00 10/26/20 20:00 10/26/20 21:45 10/26/20 20:00 10/26/20 21:45 General appearance: Present: no acute distress, well-nourished - EENT Eyes: Present: PERRL, EOM intact. Absent: scleral icterus ENT: hearing intact, clear oral mucosa, dentition normal - Neck Neck: Present: normal ROM - Respiratory Respiratory effort: normal Respiratory: bilateral: CTA - Cardiovascular Rhythm: regular Heart Sounds: Present: S1 & S2. Absent: gallop, systolic murmur, diastolic murmur, rub - Extremities Extremities: no ischemia, pulses intact, pulses symmetrical, No edema, normal temperature, normal color, Full ROM, abnormal (Right upper extremity A-V fistula) Peripheral Pulses: within normal limits - Abdominal General gastrointestinal: Present: soft, non-tender, non-distended, normal bowel sounds. Absent: mass - Integumentary Integumentary: Present: clear, warm, dry. Absent: rash - Musculoskeletal Musculoskeletal: strength equal bilaterally - Psychiatric Psychiatric: appropriate mood/affect, intact judgment & insight, memory intact, cooperative - Neurologic Neurologic: CNII-XII intact, no focal deficits, moves all extremities HEART Score - HEART Score Troponin: Troponin T 0.084 ng/mL (0.00-0.029) H 10/26/20 20:08 Results - Labs CBC & Chem 7: 10/26/20 15:43 10/26/20 15:43 Labs: Abnormal lab results 10/26/20 10/26/20 10/26/20 Range/Units 15:43 15:43 15:43 WBC 4.3 L (4.5-11.0) K/mm3 MCH 33 H (28-32) pg Lymph # (Auto) 1.1 L (1.2-5.4) K/mm3 PT 29.5 H (12.2-14.9) Sec. INR 2.76 H (0.87-1.13) APTT 53.3 H (24.2-36.6) Sec. Sodium 132 L (137-145) mmol/L Chloride 95.4 L (98-107) mmol/L BUN 27 H (7-17) mg/dL Creatinine 3.6 H (0.6-1.2) mg/dL Glucose 257 H (65-100) mg/dL Troponin T 0.073 H (0.00-0.029) ng/mL Albumin 3.5 L (3.9-5) g/dL Triglycerides 382 H (2-149) mg/dL HDL Cholesterol 36 L (40-59) mg/dL 10/26/20 Range/Units 20:08 WBC (4.5-11.0) K/mm3 MCH (28-32) pg Lymph # (Auto) (1.2-5.4) K/mm3 PT (12.2-14.9) Sec. INR (0.87-1.13) APTT (24.2-36.6) Sec. Sodium (137-145) mmol/L Chloride (98-107) mmol/L BUN (7-17) mg/dL Creatinine (0.6-1.2) mg/dL Glucose (65-100) mg/dL Troponin T 0.084 H (0.00-0.029) ng/mL Albumin (3.9-5) g/dL Triglycerides (2-149) mg/dL HDL Cholesterol (40-59) mg/dL Assessment and Plan - Patient Problems (1) Dizziness Current Visit: Yes Status: Acute Plan to address problem: Etiology unclear. Patient will be scheduled for MRI of the brain, carotid Doppler and echocardiogram. He is being worked up for possible CVA. We will place consult to neurology for further evaluation and recommendation. (2) Nausea & vomiting Current Visit: Yes Status: Acute Qualifiers: Vomiting type: unspecified Vomiting Intractability: intractable Qualified Code(s): R11.2 - Nausea with vomiting, unspecified Plan to address problem: Patient placed on IV Zofran as needed. (3) ESRD on hemodialysis Current Visit: Yes Status: Chronic Plan to address problem: Consult placed to nephrology for evaluation and follow-up dialysis as needed. (4) Diabetes Current Visit: No Status: Chronic Plan to address problem: We will monitor Accu-Cheks. (5) DVT prophylaxis Current Visit: No Status: Acute Plan to address problem: Patient placed on subcutaneous heparin. (6) Full code status Current Visit: No Status: Acute
[2020-10-26] MEDS ORDERED: ASPIRIN 325 MG TAB ONE (22:19)
[2020-10-27] MEDS: INSULIN LISPRO 100 UNIT/ML VIAL 3 mL SUB-Q SCH ×5 (00:25→23:55)
[2020-10-27] MEDS ORDERED: INSULIN LISPRO 100 UNIT/ML SUB-Q ONE (08:00)
[2020-10-27] MEDS: HEPARIN 5,000 UNIT/1 ML VIAL SUB-Q SCH ×3 (08:01→23:50)
[2020-10-27] MEDS: hydrALAZINE 20 MG/1 ML INJ IV PRN ×2 (09:31→19:01)
[2020-10-27] MEDS: ASPIRIN 325 MG TAB PO SCH (12:32)
--- NOTE | 2020-10-27 13:10 | Consultation ---
History of Present Illness Consult date: 10/27/20 Requesting physician: JAMES BUENO Consult reason: elevated troponin History of present illness: The pt is a 70 YO female with a past medical history of CAD s/p CABG >5 years ago in [place], loop recorder in situ ([place] [facility] per device card), HTN, DM, CVA, ESRD on HD, anemia, dementia. She is followed in our office by Dr. Crystal Borrego. She has dementia and is a poor historian due to dementia and thus HPI is obtained per the chart. She presented with c/o weakness, dizziness and balance difficulties. She was at dialysis yesterday and BP was noted to be significantly elevated (SBP 260s) and pt c/o some blurry vision, nausea and vomiting and was subsequently sent to the emergency room. Patient denies any fever or chills, no chest pain or shortness of breath, no headaches, no abdominal pain, no diarrhea, denies any sick contacts and no contact with anyone with COVID-19. Head CT with NAF, no significant change since 03/13/2020. Neurology recommended admission for CVA w/u. Cardiology has been consulted for minimal troponin elevation. Lexiscan MPI stress test done 11/2019 was negative. Echo done 03/2020 showed EF 55-60%, mod LVH, grade II diastolic dysfunction, mild MR. LHC done here in 09/2017 showed patent SVG to LAD with anastomoses to the mid LAD and a proximal diagonal branch of the LAD. Diffuse small vessel disease of the Cx and RCA. Medical therapy was recommended. Past History Past Medical History: diabetes, dialysis, ESRD, heart failure, hypertension, hypothyroidism, stroke Past Surgical History: Other (AV fistula in right upper extremity, fracture of the humerus) Social history: no significant social history Family history: no significant family history Medications and Allergies Allergies Allergy/AdvReac Type Severity Reaction Status Date / Time Penicillins Allergy Anaphylaxis Verified 11/18/19 23:56 Home Medications Medication Instructions Recorded Confirmed Last Taken Type Cetirizine HCl [All Day Allergy] 10 mg PO DAILY #30 tablet 09/30/17 10/27/20 2 Days Ago Rx ~03/11/20 Clopidogrel Bisulfate [Plavix] 75 mg PO QDAY #30 tablet 09/30/17 10/27/20 2 Days Ago Rx ~03/11/20 Lispro Insulin [HumaLOG] 0 unit SUB-Q ACHS units 11/21/19 10/27/20 2 Days Ago Rx ~03/11/20 Aspirin 325 mg PO QDAY tablet 03/15/20 10/27/20 Unknown Rx AtorvaSTATin [Lipitor] 80 mg PO QDAY #30 tablet 03/15/20 10/27/20 Unknown Rx Furosemide [Lasix TAB] 40 mg PO QDAY #30 tablet 03/15/20 10/27/20 Unknown Rx Gabapentin 300 mg PO Q8HR #30 capsule 03/15/20 10/27/20 Unknown Rx Hydralazine HCl 50 mg PO TID PRN #90 03/15/20 10/27/20 Unknown Rx Levemir 10 units SC HS #30 03/15/20 10/27/20 Unknown Rx Levothyroxine [Synthroid] 125 mcg PO QAM #30 tablet 03/15/20 10/27/20 Unknown Rx Lispro Insulin [HumaLOG] 0 unit SUB-Q ACHS units 03/15/20 10/27/20 Unknown Rx Nitroglycerin [Nitrostat] 0.4 mg SL Q5M PRN #10 tablet 03/15/20 10/27/20 Unknown Rx Ondansetron [Zofran ODT TAB] 4 mg PO Q8HR PRN #10 tab.rapdis 03/15/20 10/27/20 Unknown Rx Xanax TAB 0.25 mg PO BID PRN #10 03/15/20 10/27/20 Unknown Rx donepeziL [Aricept] 5 mg PO QHS #30 tablet 03/15/20 10/27/20 Unknown Rx Active Meds: Active Medications Acetaminophen (Acetaminophen 325 Mg Tab) 650 mg PO Q4H PRN PRN Reason: Pain, Mild (1-3) Aspirin (Aspirin 325 Mg Tab) 325 mg PO QDAY [facility] Last Admin: 10/27/20 12:32 Dose: 325 mg Documented by: Atorvastatin Calcium (Atorvastatin 40 Mg Tab) 40 mg PO QHS [facility] Last Admin: 10/27/20 00:30 Dose: 40 mg Documented by: Dextrose (Dextrose 50% In Water (25gm) 50 Ml Syringe) 0 ml IV Q30MIN PRN; Protocol PRN Reason: Hypoglycemia Heparin Sodium (Porcine) (Heparin 5,000 Unit/1 Ml Vial) 5,000 unit SUB-Q Q8HR [facility] Last Admin: 10/27/20 08:01 Dose: 5,000 unit Documented by: Hydralazine HCl (Hydralazine 25 Mg Tab) 50 mg PO Q8HR [facility] Hydralazine HCl (Hydralazine 20 Mg/1 Ml Inj) 10 mg IV Q6HR PRN PRN Reason: SBP > 180 Last Admin: 10/27/20 09:31 Dose: 10 mg Documented by: Insulin Human Lispro (Insulin Lispro 100 Unit/Ml Vial 3 Ml) 0 unit SUB-Q ACHS [facility]; Protocol Last Admin: 10/27/20 12:21 Dose: Not Given Documented by: Magnesium Hydroxide (Magnesium Hydroxide (Mom) Oral Liqd Udc) 30 ml PO Q4H PRN PRN Reason: Constipation Magnesium Hydroxide (Magnesium Hydroxide (Mom) Oral Liqd Udc) 30 ml PO Q4H PRN PRN Reason: Constipation Metoclopramide HCl (Metoclopramide 10 Mg Tab) 5 mg PO Q6H PRN PRN Reason: Nausea And Vomiting Morphine Sulfate (Morphine 2 Mg/1 Ml Inj) 2 mg IV Q4H PRN PRN Reason: Pain, Moderate (4-6) Ondansetron HCl (Ondansetron 4 Mg/2 Ml Inj) 4 mg IV Q8H PRN PRN Reason: Nausea And Vomiting Promethazine HCl (Promethazine 25 Mg Rect Supp) 25 mg [place] Q6H PRN PRN Reason: Nausea And Vomiting Sodium Chloride (Sodium Chloride 0.9% 10 Ml Flush Syringe) 10 ml IV BID [facility] Last Admin: 10/27/20 09:33 Dose: 10 ml Documented by: Sodium Chloride (Sodium Chloride 0.9% 10 Ml Flush Syringe) 10 ml IV PRN PRN PRN Reason: LINE FLUSH Review of Systems Constitutional: weakness, no weight loss, no weight gain, no fever, no chills, no sweats Ears, nose, mouth and throat: no ear pain, no nose pain, no sinus pressure, no sinus pain Cardiovascular: high blood pressure, no chest pain, no orthopnea, no palpitations, no rapid/irregular heart beat, no edema, no syncope, no lightheadedness, no dyspnea on exertion Respiratory: no cough, no shortness of breath, no dyspnea on exertion, no congestion, no wheezing, no pain on inspiration Gastrointestinal: nausea, vomiting, no abdominal pain, no diarrhea, no constipation, no change in bowel habits Genitourinary Female: no pelvic pain, no flank pain, no dysuria, no urinary frequency, no urgency Musculoskeletal: no neck stiffness, no neck pain Integumentary: no rash, no pruritis, no redness, no sores, no wounds Neurological: weakness, balance difficulties, other (blurred vision), no head injury, no seizures, no syncope Endocrine: no cold intolerance, no heat intolerance Hematologic/Lymphatic: no easy bruising, no easy bleeding Allergic/Immunologic: no urticaria Physical Examination Vital Signs Pulse Resp 78 13 10/26/20 15:44 10/26/20 15:44 General appearance: no acute distress HEENT: Positive: PERRL, Normocephaly, Mucus Membranes Moist Neck: Positive: neck supple, trachea midline Cardiac: Positive: Reg Rate and Rhythm, S1/S2 Lungs: Positive: Decreased Breath Sounds Neuro: Positive: Grossly Intact Abdomen: Negative: Tender Skin: Negative: Rash Musculoskeletal: No Pain Extremities: Absent: edema Results 10/26/20 15:43 10/26/20 15:43 Cardiac Enzymes 10/26/20 Range/Units 15:43 AST 18 (5-40) units/L Coagulation 10/26/20 Range/Units 15:43 PT 29.5 H (12.2-14.9) Sec. INR 2.76 H (0.87-1.13) APTT 53.3 H (24.2-36.6) Sec. Lipids 10/26/20 Range/Units 15:43 Triglycerides 382 H (2-149) mg/dL Cholesterol 188 (50-199) mg/dL HDL Cholesterol 36 L (40-59) mg/dL Cholesterol/HDL Ratio 5.22 % CBC 10/26/20 Range/Units 15:43 WBC 4.3 L (4.5-11.0) K/mm3 RBC 3.71 (3.65-5.03) M/mm3 Hgb 12.1 (10.1-14.3) gm/dl Hct 36.0 (30.3-42.9) % Plt Count 304 (140-440) K/mm3 Lymph # (Auto) 1.1 L (1.2-5.4) K/mm3 [place] # (Auto) 0.2 (0.0-0.8) K/mm3 Eos # (Auto) 0.1 (0.0-0.4) K/mm3 Baso # (Auto) 0.0 (0.0-0.1) K/mm3 Comprehensive Metabolic Panel 10/26/20 Range/Units 15:43 Sodium 132 L (137-145) mmol/L Potassium 3.6 (3.6-5.0) mmol/L Chloride 95.4 L (98-107) mmol/L Carbon Dioxide 26 (22-30) mmol/L BUN 27 H (7-17) mg/dL Creatinine 3.6 H (0.6-1.2) mg/dL Glucose 257 H (65-100) mg/dL Calcium 8.8 (8.4-10.2) mg/dL AST 18 (5-40) units/L ALT 11 (7-56) units/L Alkaline Phosphatase 112 (35-129) units/L Total Protein 7.5 (6.3-8.2) g/dL Albumin 3.5 L (3.9-5) g/dL - Imaging and Cardiology Echo: report reviewed (03/2020 showed EF 55-60%, mod LVH, grade II diastolic dysfunction, mild MR. ) Cardiac cath: report reviewed ( done here in 09/2017 showed patent SVG to LAD with anastomoses to the mid LAD and a proximal diagonal branch of the LAD. Diffuse small vessel disease of the Cx and RCA. Medical therapy was recommended. ) EKG: report reviewed, image reviewed EKG interpretations - Telemetry EKG Rhythm: Sinus Rhythm - EKG Sinus rhythms and dysrhythmias: sinus rhythm Chamber hypertrophy or enlargement: left ventricular hypertro Assessment and Plan Pt with no occurrence of chest pain, ECG with no acute ischemic changes and [place] are noted to be less than baseline chronic troponin elevation. Lexiscan MPI stress test done 11/2019 was negative. Echo done 03/2020 showed EF 55-60%, mod LVH, grade II diastolic dysfunction, mild MR. Minimal CE elevation appears nonspecific at this time. No plans for additional cardiac w/u at this time. Cont home cardiac regimen. Neuro w/u in progress. Will follow. The patient has been seen in conjunction with Dr. Crystal Borrego who agrees with the assessment and plan of care. - Patient Problems (1) CVA Current Visit: Yes Status: Suspected (2) Hypertensive emergency Current Visit: Yes Status: Acute (3) ESRD on hemodialysis Current Visit: Yes Status: Chronic (5) Elevated troponin Current Visit: Yes Status: Acute (6) Coronary artery disease Current Visit: Yes Status: Chronic (7) History of coronary artery bypass graft Current Visit: Yes Status: Chronic (8) History of loop recorder Current Visit: Yes Status: Chronic (10) Diabetes Current Visit: Yes Status: Chronic (11) History of CVA (cerebrovascular accident) Current Visit: Yes Status: Chronic (12) Dementia Current Visit: Yes Status: Chronic
[2020-10-27] MEDS ORDERED: hydrALAZINE 25 MG TAB PO SCH ×2 (14:00→17:37)
--- NOTE | 2020-10-27 14:42 | Vascular Lab Report ---
DUPLEX DOPPLER ULTRASOUND CAROTID, BILATERAL INDICATION / CLINICAL INFORMATION: stroke. COMPARISON: None available. FINDINGS: RIGHT CAROTID: Moderate atherosclerotic plaque throughout the visualized right carotid arteries, grea test at the bulb. - PLAQUE ESTIMATE (%): < 50% - CCA velocity: 90.0 cm/sec. - ICA peak systolic velocity: 198 cm/sec. - ICA/CCA PSV Ratio: 2.2 Right Vertebral Artery: Antegrade flow. LEFT CAROTID: Moderate scattered atherosclerotic plaque throughout the visualized left carotid arteri es, greatest in the bowel. - PLAQUE ESTIMATE: < 50% - CCA velocity: 120.7 cm/sec. - ICA peak systolic velocity: 122.9 cm/sec. - ICA/CCA PSV Ratio: 1.0 to Left Vertebral Artery: Antegrade flow. IMPRESSION: 1. Right Internal Carotid Artery: 50-69% diameter stenosis. 2. Left Internal Carotid Artery: Less than 50% diameter stenosis. Velocity criteria are extrapolated from diameter data as defined by the Society of Radiologists in Ul trasound Consensus Conference, Radiology 2003; 229;340-346. NO STENOSIS (NORMAL) * Plaque = none; ICA PSV < 125 cm/sec; ICA/CCA PSV Ratio < 2.0 <50% STENOSIS * Plaque < 50%; ICA PSV < 125 cm/sec; ICA/CCA PSV Ratio < 2.0 50-69% STENOSIS * Plaque > 50%; ICA PSV = 125-230 cm/sec; ICA/CCA PSV Ratio = 2.0-4.0 >70% BUT <100% STENOSIS * Plaque > 50%; ICA PSV > 230 cm/sec; ICA/CCA PSV Ratio > 4.0 NEAR OCCLUSION * Plaque = visible lumen; ICA PSV = high/low/none; ICA/CCA PSV Ratio = variable TOTAL OCCLUSION * Plaque = no lumen; ICA PSV = none; ICA/CCA PSV Ratio = N/A Signer Name: Tuan Kelly MD Signed: 10/27/2020 2:37 PM Workstation Name: [id number]
--- NOTE | 2020-10-27 17:20 | Consultation ---
History of Present Illness - Reason for Consult Consult date: 10/27/20 end stage renal disease, accelerated hypertension - History of Present Illness This is a 78-year-old woman with end-stage renal disease on hemodialysis, CAD s/p CABG, loop recorder in situ, HTN, DM, CVA, who was noted to have uncontrolled hypertension during dialysis. Her treatment was cut short and she was sent to the emergency department. Blood pressure was noted to be as high as 240/120. She experienced symptoms including nausea and vomiting. Nephrology was consulted for ESRD management and hypertensive urgency. Past History Past Medical History: diabetes, dialysis, ESRD, heart failure, hypertension, hypothyroidism, stroke Past Surgical History: Other (AV fistula in right upper extremity, fracture of the humerus) Social history: no significant social history Family history: no significant family history Medications and Allergies Allergies Allergy/AdvReac Type Severity Reaction Status Date / Time Penicillins Allergy Anaphylaxis Verified 11/18/19 23:56 Home Medications Medication Instructions Recorded Confirmed Last Taken Type Cetirizine HCl [All Day Allergy] 10 mg PO DAILY #30 tablet 09/30/17 10/27/20 2 Days Ago Rx ~03/11/20 Clopidogrel Bisulfate [Plavix] 75 mg PO QDAY #30 tablet 09/30/17 10/27/20 2 Days Ago Rx ~03/11/20 Lispro Insulin [HumaLOG] 0 unit SUB-Q ACHS units 11/21/19 10/27/20 2 Days Ago Rx ~03/11/20 Aspirin 325 mg PO QDAY tablet 03/15/20 10/27/20 Unknown Rx AtorvaSTATin [Lipitor] 80 mg PO QDAY #30 tablet 03/15/20 10/27/20 Unknown Rx Furosemide [Lasix TAB] 40 mg PO QDAY #30 tablet 03/15/20 10/27/20 Unknown Rx Gabapentin 300 mg PO Q8HR #30 capsule 03/15/20 10/27/20 Unknown Rx Hydralazine HCl 50 mg PO TID PRN #90 03/15/20 10/27/20 Unknown Rx Levemir 10 units SC HS #30 03/15/20 10/27/20 Unknown Rx Levothyroxine [Synthroid] 125 mcg PO QAM #30 tablet 03/15/20 10/27/20 Unknown Rx Lispro Insulin [HumaLOG] 0 unit SUB-Q ACHS units 03/15/20 10/27/20 Unknown Rx Nitroglycerin [Nitrostat] 0.4 mg SL Q5M PRN #10 tablet 03/15/20 10/27/20 Unknown Rx Ondansetron [Zofran ODT TAB] 4 mg PO Q8HR PRN #10 tab.rapdis 03/15/20 10/27/20 Unknown Rx Xanax TAB 0.25 mg PO BID PRN #10 03/15/20 10/27/20 Unknown Rx donepeziL [Aricept] 5 mg PO QHS #30 tablet 03/15/20 10/27/20 Unknown Rx Active Meds: Active Medications Acetaminophen (Acetaminophen 325 Mg Tab) 650 mg PO Q4H PRN PRN Reason: Pain, Mild (1-3) Aspirin (Aspirin 325 Mg Tab) 325 mg PO QDAY [facility] Last Admin: 10/27/20 12:32 Dose: 325 mg Documented by: Atorvastatin Calcium (Atorvastatin 40 Mg Tab) 40 mg PO QHS [facility] Last Admin: 10/27/20 00:30 Dose: 40 mg Documented by: Clopidogrel Bisulfate (Clopidogrel 75 Mg Tab) 75 mg PO QDAY [facility] Dextrose (Dextrose 50% In Water (25gm) 50 Ml Syringe) 0 ml IV Q30MIN PRN; Protocol PRN Reason: Hypoglycemia Furosemide (Furosemide 40 Mg Tab) 40 mg PO DAILY@0600 [facility] Heparin Sodium (Porcine) (Heparin 5,000 Unit/1 Ml Vial) 5,000 unit SUB-Q Q8HR [facility] Last Admin: 10/27/20 14:12 Dose: 5,000 unit Documented by: Hydralazine HCl (Hydralazine 25 Mg Tab) 50 mg PO Q8HR [facility] Last Admin: 10/27/20 14:12 Dose: 50 mg Documented by: Hydralazine HCl (Hydralazine 20 Mg/1 Ml Inj) 10 mg IV Q6HR PRN PRN Reason: SBP > 180 Last Admin: 10/27/20 09:31 Dose: 10 mg Documented by: Insulin Human Lispro (Insulin Lispro 100 Unit/Ml Vial 3 Ml) 0 unit SUB-Q ACHS [facility]; Protocol Last Admin: 10/27/20 12:21 Dose: Not Given Documented by: Magnesium Hydroxide (Magnesium Hydroxide (Mom) Oral Liqd Udc) 30 ml PO Q4H PRN PRN Reason: Constipation Magnesium Hydroxide (Magnesium Hydroxide (Mom) Oral Liqd Udc) 30 ml PO Q4H PRN PRN Reason: Constipation Metoclopramide HCl (Metoclopramide 10 Mg Tab) 5 mg PO Q6H PRN PRN Reason: Nausea And Vomiting Metoprolol Tartrate (Metoprolol Tartrate 25 Mg Tab) 25 mg PO BID [facility] Morphine Sulfate (Morphine 2 Mg/1 Ml Inj) 2 mg IV Q4H PRN PRN Reason: Pain, Moderate (4-6) Ondansetron HCl (Ondansetron 4 Mg/2 Ml Inj) 4 mg IV Q8H PRN PRN Reason: Nausea And Vomiting Promethazine HCl (Promethazine 25 Mg Rect Supp) 25 mg NE Q6H PRN PRN Reason: Nausea And Vomiting Sodium Chloride (Sodium Chloride 0.9% 10 Ml Flush Syringe) 10 ml IV BID [facility] Last Admin: 10/27/20 09:33 Dose: 10 ml Documented by: Sodium Chloride (Sodium Chloride 0.9% 10 Ml Flush Syringe) 10 ml IV PRN PRN PRN Reason: LINE FLUSH Review of Systems Constitutional: fatigue Eyes: bilateral: other (denies change in vision) Ears, nose, mouth and throat: other ( denies nasal congestion and discharge) Cardiovascular: other (denies shortness of breath and chest pain) Respiratory: other (denies cough and hemoptysis) Gastrointestinal: nausea, vomiting Musculoskeletal: other (denies leg pain and numbness) Integumentary: other (denies rash and pruritus) Neurological: other (denies tingling and paresthesia) Psychiatric: memory loss (denies polydipsia and polyphagia), other Allergic/Immunologic: other (denies urticaria and wheezing) Exam - Vital Signs Vital signs: Vital Signs Pulse Resp 78 13 10/26/20 15:44 10/26/20 15:44 - Physical Exam Narrative exam: Constitutional: No acute distress Head: Normocephalic/atraumatic Neck: Supple Lungs: Clear to auscultation bilaterally Cardiovascular: RRR, no M/R/G Abdomen: Soft, nontender, NABS Back, nontender Extremities: No edema, pulses within normal limits Skin: Intact, no rash Neuro: Alert Results - Lab Results 10/26/20 15:43 10/26/20 15:43 Most recent lab results Calcium 8.8 mg/dL (8.4-10.2) 10/26/20 15:43 Assessment and Plan Assessment * End-stage renal disease on hemodialysis * Hypertensive urgency * nausea/vomiting * Anemia of end stage renal disease * Hyperparathyroidism * Dementia Recommendations * Labs and volume status acceptable today with no immediate need for dialysis, plan for next session tomorrow * Permanently discontinue home Midodrine * Continue antihypertensives. Will titrate as needed based on BP trend. * Renally dose medications * Avoid nephrotoxins * renal diet
[2020-10-27] MEDS ORDERED: XANAX 0.25 MG PO PRN (17:38)
--- NOTE | 2020-10-27 17:41 | Progress Note ---
Subjective Date of service: 10/27/20 Interval history: 70-year-old female with known history of CVA, dementia, diabetes mellitus, hypertension ,CHF and end-stage renal disease on dialysis on Mondays, Wednesdays and Monday presenting to the emergency room today complaining of for weakness, dizziness and problems with balance. She was at dialysis today and blood pressure was said to be quite elevated with systolic in the 260s and diastolic in the 120s. She also developed some blurry vision, nausea and vomiting and subsequently sent to the emergency room. It is unclear whether she completed a course of dialysis today. Patient denies any fever or chills, no chest pain or shortness of breath, no headaches, no abdominal pain, no diarrhea, denies any sick contacts and no contact with anyone with COVID-19. Work-up in the emergency room, CT scan of the head reveals: No acute abnormality. Chronic lacunar infarcts in both thalami. Age-related volume loss and chronic white matter changes Chest x-ray unremarkable except for atelectasis. Patient is being admitted for evaluation of possible CVA. 10/27 patient is a poor historian, awake and alert she offers no complaints, denies dizziness which apparently was her presenting symptom. She denies any fever or chills. Denies chest pain or shortness of breath Assessment and plan Dizziness Patient is being admitted for stroke work-up Carotid Doppler results reviewed Head CT reviewed MRI brain scheduled Unlikely patient has stroke NIHSS 0 Etiology Suspect hypertensive emergency versus benign positional vertigo Hypertensive emergency Blood pressure medications adjusted Home medications reviewed and reconciled Elevated troponin Troponin was trending up Cardiology consulted Note reviewed No further cardiac work-up Reviewed recent echo and stress test and [facility] results History of stroke Continue clopidogrel Appears to have recovered well with no significant residual effect Type 2 diabetes Continue insulin sliding scale coverage End-stage renal disease Nephrology consulted Continue management per nephrology recommendations Hypothyroidism Continue Synthroid Objective - Constitutional Vitals: Vital Signs - 12hr 10/27/20 10/27/20 10/27/20 07:44 07:45 09:31 Pulse Rate 64 69 Respiratory 23 23 Rate Blood Pressure 181/57 Blood Pressure 171/126 [Left] O2 Sat by Pulse 91 91 Oximetry 10/27/20 10/27/20 10/27/20 12:23 14:12 16:20 Pulse Rate 71 73 91 H Respiratory 14 19 Rate Blood Pressure 183/58 Blood Pressure 174/61 214/83 [Left] O2 Sat by Pulse 99 94 Oximetry General appearance: Present: no acute distress - EENT Eyes: PERRL, EOM intact ENT: hearing intact, clear oral mucosa - Neck Neck: supple, normal ROM - Respiratory Respiratory effort: normal Respiratory: bilateral: CTA - Cardiovascular Rhythm: regular Heart Sounds: Present: S1 & S2 Extremities: No edema - Gastrointestinal General gastrointestinal: Present: soft, non-tender Rectal Exam: deferred - Genitourinary Female genitourinary: deferred - Integumentary Integumentary: clear - Musculoskeletal Musculoskeletal: strength equal bilaterally - Labs CBC & Chem 7: 10/26/20 15:43 10/26/20 15:43 Labs: Abnormal lab results 10/26/20 10/26/20 10/27/20 Range/Units 20:08 23:44 00:13 POC Glucose 145 H (70-105) mg/dL Troponin T 0.084 H 0.090 H (0.00-0.029) ng/mL 10/27/20 10/27/20 Range/Units 07:14 17:03 POC Glucose 214 H 172 H (70-105) mg/dL Troponin T (0.00-0.029) ng/mL HEART Score - HEART Score Troponin: Troponin T 0.090 ng/mL (0.00-0.029) H 10/26/20 23:44
[2020-10-27] MEDS ORDERED: SODIUM CHLORIDE 0.9% 100 ML IV PRN (17:45)
[2020-10-27] MEDS ORDERED: amLODIPine 5 MG TAB PO SCH (18:00)
--- NOTE | 2020-10-27 21:03 | Consultation ---
History of Present Illness Consult date: 10/27/20 History of present illness: 70 year old woman with ESRD who presents with dizziness. She describes the dizziness as feeling off balance. She is not sure when it began. At first she states that it began sometime this morning at an unknown time but that she woke up at an unknown time this morning with no symptoms. Then, she states that she woke up with the symptoms this morning and was last at her baseline last night before bed. She cannot tell me when she went to bed last night but thinks it may have been around 2030. When she got to dialysis, her BP was elevated (around 260/120) and then she developed n/v. Therefore, EMS was called. She also states that she has blurred vision throughout her entire vision (but visual [place] are intact). Past History Past Medical History: diabetes, dialysis, ESRD, heart failure, hypertension, hypothyroidism, stroke Past Surgical History: Other (AV fistula in right upper extremity, fracture of the humerus) Social history: no significant social history Family history: no significant family history Medications and Allergies Allergies Allergy/AdvReac Type Severity Reaction Status Date / Time Penicillins Allergy Anaphylaxis Verified 11/18/19 23:56 Home Medications Medication Instructions Recorded Confirmed Last Taken Type Cetirizine HCl [All Day Allergy] 10 mg PO DAILY #30 tablet 09/30/17 10/27/20 2 Days Ago Rx ~03/11/20 Clopidogrel Bisulfate [Plavix] 75 mg PO QDAY #30 tablet 09/30/17 10/27/20 2 Days Ago Rx ~03/11/20 Lispro Insulin [HumaLOG] 0 unit SUB-Q ACHS units 11/21/19 10/27/20 2 Days Ago Rx ~03/11/20 Aspirin 325 mg PO QDAY tablet 03/15/20 10/27/20 Unknown Rx AtorvaSTATin [Lipitor] 80 mg PO QDAY #30 tablet 03/15/20 10/27/20 Unknown Rx Furosemide [Lasix TAB] 40 mg PO QDAY #30 tablet 03/15/20 10/27/20 Unknown Rx Gabapentin 300 mg PO Q8HR #30 capsule 03/15/20 10/27/20 Unknown Rx Hydralazine HCl 50 mg PO TID PRN #90 03/15/20 10/27/20 Unknown Rx Levemir 10 units SC HS #30 03/15/20 10/27/20 Unknown Rx Levothyroxine [Synthroid] 125 mcg PO QAM #30 tablet 03/15/20 10/27/20 Unknown Rx Lispro Insulin [HumaLOG] 0 unit SUB-Q ACHS units 03/15/20 10/27/20 Unknown Rx Nitroglycerin [Nitrostat] 0.4 mg SL Q5M PRN #10 tablet 03/15/20 10/27/20 Unknown Rx Ondansetron [Zofran ODT TAB] 4 mg PO Q8HR PRN #10 tab.rapdis 03/15/20 10/27/20 Unknown Rx Xanax TAB 0.25 mg PO BID PRN #10 03/15/20 10/27/20 Unknown Rx donepeziL [Aricept] 5 mg PO QHS #30 tablet 03/15/20 10/27/20 Unknown Rx Active Meds: Active Medications Acetaminophen (Acetaminophen 325 Mg Tab) 650 mg PO Q4H PRN PRN Reason: Pain, Mild (1-3) Alprazolam (Alprazolam 0.25 Mg Tab) 0.25 mg PO BID PRN PRN Reason: Anxiety Amlodipine Besylate (Amlodipine 5 Mg Tab) 5 mg PO QDAY [facility] Last Admin: 10/27/20 18:02 Dose: 5 mg Documented by: Aspirin (Aspirin 325 Mg Tab) 325 mg PO QDAY [facility] Last Admin: 10/27/20 12:32 Dose: 325 mg Documented by: Atorvastatin Calcium (Atorvastatin 40 Mg Tab) 40 mg PO QHS [facility] Last Admin: 10/27/20 00:30 Dose: 40 mg Documented by: Clopidogrel Bisulfate (Clopidogrel 75 Mg Tab) 75 mg PO QDAY [facility] Dextrose (Dextrose 50% In Water (25gm) 50 Ml Syringe) 0 ml IV Q30MIN PRN; Protocol PRN Reason: Hypoglycemia Donepezil HCl (Donepezil 5 Mg Tab) 5 mg PO QHS [facility] Furosemide (Furosemide 40 Mg Tab) 40 mg PO DAILY@0600 [facility] Gabapentin (Gabapentin 300 Mg Cap) 300 mg PO Q8HR [facility] Heparin Sodium (Porcine) (Heparin 5,000 Unit/1 Ml Vial) 5,000 unit SUB-Q Q8HR [facility] Last Admin: 10/27/20 14:12 Dose: 5,000 unit Documented by: Hydralazine HCl (Hydralazine 20 Mg/1 Ml Inj) 10 mg IV Q6HR PRN PRN Reason: SBP > 180 Last Admin: 10/27/20 19:01 Dose: 10 mg Documented by: Hydralazine HCl (Hydralazine 100 Mg Tab) 100 mg PO Q8HR [facility] Sodium Chloride (Nacl 0.9%) 100 mls @ 999 mls/hr IV RAMAN PRN PRN Reason: Hypotension Insulin Human Lispro (Insulin Lispro 100 Unit/Ml Vial 3 Ml) 0 unit SUB-Q ACHS [facility]; Protocol Last Admin: 10/27/20 18:01 Dose: 2 unit Documented by: Levothyroxine Sodium (Levothyroxine 125 Mcg Tab) 125 mcg PO DAILY@0600 [facility] Magnesium Hydroxide (Magnesium Hydroxide (Mom) Oral Liqd Udc) 30 ml PO Q4H PRN PRN Reason: Constipation Magnesium Hydroxide (Magnesium Hydroxide (Mom) Oral Liqd Udc) 30 ml PO Q4H PRN PRN Reason: Constipation Metoclopramide HCl (Metoclopramide 10 Mg Tab) 5 mg PO Q6H PRN PRN Reason: Nausea And Vomiting Metoprolol Tartrate (Metoprolol Tartrate 25 Mg Tab) 25 mg PO BID [facility] Morphine Sulfate (Morphine 2 Mg/1 Ml Inj) 2 mg IV Q4H PRN PRN Reason: Pain, Moderate (4-6) Ondansetron HCl (Ondansetron 4 Mg/2 Ml Inj) 4 mg IV Q8H PRN PRN Reason: Nausea And Vomiting Promethazine HCl (Promethazine 25 Mg Rect Supp) 25 mg ME Q6H PRN PRN Reason: Nausea And Vomiting Sodium Chloride (Sodium Chloride 0.9% 10 Ml Flush Syringe) 10 ml IV BID [facility] Last Admin: 10/27/20 09:33 Dose: 10 ml Documented by: Sodium Chloride (Sodium Chloride 0.9% 10 Ml Flush Syringe) 10 ml IV PRN PRN PRN Reason: LINE FLUSH Physical Examination - Vital Signs Vital Signs: Vital Signs Pulse Resp 78 13 10/26/20 15:44 10/26/20 15:44 - Physical Exam Narrative exam: The patient is alert , moves all 4 extremities, strength upper extremity no drift , lower extremity strength is 5/5 . Results - Laboratory Findings CBC and BMP: 10/26/20 15:43 10/26/20 15:43 Abnormal Lab Findings: Abnormal Labs 10/26/20 10/26/20 10/26/20 15:43 15:43 15:43 WBC 4.3 L MCH 33 H Lymph # (Auto) 1.1 L PT 29.5 H INR 2.76 H APTT 53.3 H Sodium 132 L Chloride 95.4 L BUN 27 H Creatinine 3.6 H Glucose 257 H POC Glucose Troponin T 0.073 H Albumin 3.5 L Triglycerides 382 H HDL Cholesterol 36 L 10/26/20 10/26/20 10/27/20 20:08 23:44 00:13 WBC MCH Lymph # (Auto) PT INR APTT Sodium Chloride BUN Creatinine Glucose POC Glucose 145 H Troponin T 0.084 H 0.090 H Albumin Triglycerides HDL Cholesterol 10/27/20 10/27/20 07:14 17:03 WBC MCH Lymph # (Auto) PT INR APTT Sodium Chloride BUN Creatinine Glucose POC Glucose 214 H 172 H Troponin T Albumin Triglycerides HDL Cholesterol Assessment and Plan 1. Dizziness / rule out VBI . 2. CVA I have discussed with the patient about the importance of MRI Brain and MRA Brain no contrast.Patient was explained about the risk factors of CVA and importance of treating the risk factors agressively 3. Reviewed all Home Medications 4. Will follow up with Results Dr. Blanka NEIL
[2020-10-27] MEDS: hydrALAZINE 100 MG TAB PO SCH (23:50)
[2020-10-27] MEDS: GABAPENTIN 300 MG CAP PO SCH (23:51)
[2020-10-27] MEDS: METOPROLOL TARTRATE 25 MG TAB PO SCH (23:52)
[2020-10-27] MEDS: ALPRAZolam 0.25 MG TAB PO PRN (23:53)
[2020-10-27] MEDS: DONEPEZIL 5 MG TAB PO SCH (23:53)
[2020-10-28] MEDS ORDERED: HALOPERIDOL LACTATE 5 MG/1 ML INJ IM ONE (01:15)
[2020-10-28 06:42] LABS: Calcium 9.3 mg/dL (8.4-10.2)
[2020-10-28] MEDS: GABAPENTIN 300 MG CAP PO SCH ×3 (07:00→22:55)
[2020-10-28] MEDS: LEVOTHYROXINE 125 MCG TAB PO SCH (07:00)
[2020-10-28] MEDS: hydrALAZINE 100 MG TAB PO SCH ×3 (07:00→22:55)
[2020-10-28] MEDS: FUROSEMIDE 40 MG TAB PO SCH (07:00)
[2020-10-28] MEDS: HEPARIN 5,000 UNIT/1 ML VIAL SUB-Q SCH ×3 (07:00→22:55)
[2020-10-28 07:47] LABS: Hepatitis B Surface Antigen Non-Reactive (Negative); Hepatitis C Virus Antibody Non-Reactive (NonReactive)
[2020-10-28] MEDS: INSULIN LISPRO 100 UNIT/ML VIAL 3 mL SUB-Q SCH ×4 (08:30→22:55)
[2020-10-28] MEDS ORDERED: amLODIPine 5 MG TAB PO SCH (10:00)
--- NOTE | 2020-10-28 10:38 | Progress Note ---
Assessment and Plan Pt with no occurrence of chest pain, ECG with no acute ischemic changes and Ter[place] are noted to be less than baseline chronic troponin elevation. Lexiscan MPI stress test done 11/2019 was negative. tte reviewed - EF 55-60%, mild LVH, abnormal diastolic function, normal bubble study. Minimal CE elevation appears nonspecific at this time. No plans for additional cardiac w/u at this time. Cont home cardiac regimen. Neuro w/u in progress. Will follow. The patient has been seen in conjunction with Dr. Crystal Borrego who agrees with the assessment and plan of care. - Patient Problems (1) CVA Current Visit: Yes Status: Suspected (2) Hypertensive emergency Current Visit: Yes Status: Acute (3) ESRD on hemodialysis Current Visit: Yes Status: Chronic (5) Elevated troponin Current Visit: Yes Status: Acute (6) Coronary artery disease Current Visit: Yes Status: Chronic (7) History of coronary artery bypass graft Current Visit: Yes Status: Chronic (8) History of loop recorder Current Visit: Yes Status: Chronic (10) Diabetes Current Visit: Yes Status: Chronic (11) History of CVA (cerebrovascular accident) Current Visit: Yes Status: Chronic (12) Dementia Current Visit: Yes Status: Chronic Subjective Date of service: 10/28/20 Principal diagnosis: ? CVA Interval history: pt resting in bed, no current cardiac complaints. c/o blurred vision and some hallucinations overnight. tele reviewed - in SR with SB HR 50s noted overnight. Objective Last Vital Signs Temp 98.0 F 10/28/20 08:14 Pulse 52 L 10/28/20 08:14 Resp 20 10/28/20 08:14 BP 147/52 10/28/20 08:14 Pulse Ox 100 10/28/20 08:14 - Physical Examination General: No Apparent Distress HEENT: Positive: PERRL, Normocephaly, Mucus Membranes Moist Neck: Positive: neck supple, trachea midline Cardiac: Positive: Reg Rate and Rhythm, S1/S2 Lungs: Positive: Decreased Breath Sounds Neuro: Positive: Grossly Intact Abdomen: Negative: Tender Skin: Negative: Rash Musculoskeletal: No Pain Extremities: Absent: edema - Labs and Meds Comprehensive Metabolic Panel 10/28/20 Range/Units 05:44 Sodium 137 (137-145) mmol/L Potassium 4.1 (3.6-5.0) mmol/L Chloride 101.2 (98-107) mmol/L Carbon Dioxide 26 (22-30) mmol/L BUN 47 H (7-17) mg/dL Creatinine 6.1 H D (0.6-1.2) mg/dL Glucose 84 (65-100) mg/dL Calcium 9.3 (8.4-10.2) mg/dL - Imaging and Cardiology EKG: report reviewed, image reviewed Echo: report reviewed (03/2020 showed EF 55-60%, mod LVH, grade II diastolic dysfunction, mild MR. ) Cardiac cath: report reviewed ( done here in 09/2017 showed patent SVG to LAD with anastomoses to the mid LAD and a proximal diagonal branch of the LAD. Diffuse small vessel disease of the Cx and RCA. Medical therapy was recommended. ) - Telemetry EKG Rhythm: Sinus Rhythm - EKG Sinus rhythms and dysrhythmias: sinus rhythm Chamber hypertrophy or enlargement: left ventricular hypertro
[2020-10-28] MEDS ORDERED: amLODIPine 10 MG TAB PO SCH (12:00)
[2020-10-28] MEDS: CLOPIDOGREL 75 MG TAB PO SCH (15:20)
[2020-10-28] MEDS: ASPIRIN 325 MG TAB PO SCH (15:20)
[2020-10-28] MEDS: METOPROLOL TARTRATE 25 MG TAB PO SCH ×2 (15:21→22:55)
--- NOTE | 2020-10-28 16:22 | Progress Note ---
Subjective Date of service: 10/28/20 Principal diagnosis: ? CVA Interval history: 70-year-old female with known history of CVA, dementia, diabetes mellitus, hypertension ,CHF and end-stage renal disease on dialysis on Mondays, Wednesdays and Monday presenting to the emergency room today complaining of for weakness, dizziness and problems with balance. She was at dialysis today and blood pressure was said to be quite elevated with systolic in the 260s and diastolic in the 120s. She also developed some blurry vision, nausea and vomiting and subsequently sent to the emergency room. It is unclear whether she completed a course of dialysis today. Patient denies any fever or chills, no chest pain or shortness of breath, no headaches, no abdominal pain, no diarrhea, denies any sick contacts and no contact with anyone with COVID-19. Work-up in the emergency room, CT scan of the head reveals: No acute abnormality. Chronic lacunar infarcts in both thalami. Age-related volume loss and chronic white matter changes Chest x-ray unremarkable except for atelectasis. Patient is being admitted for evaluation of possible CVA. 10/27 patient is a poor historian, awake and alert she offers no complaints, denies dizziness which apparently was her presenting symptom. She denies any fever or chills. Denies chest pain or shortness of breath 10/28 patient complaints of dizziness. Patient has arm restraints. Apparently tried to pull out IV line and removed telemetry wire several times. Was given IV Haldol. At this time she appears fairly calm. Neurology note reviewed. Waiting for MRI brain and MRA head and neck Assessment and plan Dizziness Patient is being admitted for stroke work-up Carotid Doppler results reviewed Head CT reviewed Neurology note reviewed Rule out vertebrobasilar insufficiency Scheduled for MRI brain and MRA head and neck NIHSS 0 E Hypertensive emergency Improved Blood pressure medications adjusted Elevated troponin Troponin was trending up Cardiology consulted Note reviewed No further cardiac work-up Reviewed recent echo and stress test and [facility] results History of stroke Continue clopidogrel Appears to have recovered well with no significant residual effect Type 2 diabetes Continue insulin sliding scale coverage End-stage renal disease Nephrology consulted Continue management per nephrology recommendations Hypothyroidism Continue Synthroid Objective - Constitutional Vitals: Vital Signs - 12hr 10/28/20 10/28/20 10/28/20 04:44 05:00 08:14 Temperature 98.3 F 98.0 F Pulse Rate 58 L 52 L 52 L Respiratory 18 20 Rate Blood Pressure 164/61 147/52 O2 Sat by Pulse 99 100 Oximetry 10/28/20 10/28/20 10/28/20 10:00 10:10 10:25 Temperature 98.0 F Pulse Rate 53 L 53 L Respiratory 18 Rate Blood Pressure 105/51 90/44 O2 Sat by Pulse 97 Oximetry 10/28/20 10/28/20 10/28/20 10:30 10:45 11:00 Temperature Pulse Rate 55 L 52 L 54 L Respiratory Rate Blood Pressure 108/43 95/42 92/44 O2 Sat by Pulse Oximetry 10/28/20 10/28/20 10/28/20 11:15 11:30 11:45 Temperature Pulse Rate 54 L 59 L 54 L Respiratory Rate Blood Pressure 91/40 93/41 106/48 O2 Sat by Pulse Oximetry 10/28/20 10/28/20 10/28/20 12:00 12:15 12:30 Temperature Pulse Rate 55 L 55 L 54 L Respiratory Rate Blood Pressure 107/48 141/55 128/52 O2 Sat by Pulse Oximetry 10/28/20 10/28/20 10/28/20 12:45 12:48 13:00 Temperature Pulse Rate 58 L 57 L Respiratory 18 Rate Blood Pressure 145/57 162/63 O2 Sat by Pulse 96 Oximetry 10/28/20 10/28/20 10/28/20 13:15 13:30 13:45 Temperature Pulse Rate 61 61 59 L Respiratory Rate Blood Pressure 170/71 159/62 138/54 O2 Sat by Pulse Oximetry 10/28/20 14:20 Temperature 98.2 F Pulse Rate 61 Respiratory 20 Rate Blood Pressure 125/51 O2 Sat by Pulse Oximetry General appearance: Present: no acute distress - EENT Eyes: PERRL, EOM intact ENT: hearing intact, clear oral mucosa - Neck Neck: supple, normal ROM, no carotid bruits - Respiratory Respiratory effort: normal Respiratory: bilateral: CTA - Cardiovascular Rhythm: regular Heart Sounds: Present: S1 & S2 Extremities: No edema - Gastrointestinal General gastrointestinal: Present: soft, non-tender Rectal Exam: deferred - Integumentary Integumentary: clear - Musculoskeletal Musculoskeletal: strength equal bilaterally - Neurologic Neurologic: no focal deficits - Labs CBC & Chem 7: 10/26/20 15:43 10/28/20 05:44 Labs: Abnormal lab results 10/27/20 10/27/20 10/28/20 Range/Units 17:03 23:01 05:44 BUN 47 H (7-17) mg/dL Creatinine 6.1 H D (0.6-1.2) mg/dL POC Glucose 172 H 209 H (70-105) mg/dL Troponin T 0.088 H (0.00-0.029) ng/mL HEART Score - HEART Score Troponin: Troponin T 0.088 ng/mL (0.00-0.029) H 10/28/20 05:44
--- NOTE | 2020-10-28 18:29 | Progress Note ---
Assessment and Plan Assessment * End-stage renal disease on hemodialysis * Hypertensive urgency * nausea/vomiting * Anemia of end stage renal disease * Hyperparathyroidism * Dementia * Dizziness Recommendations * Labs and volume status acceptable today with no immediate need for dialysis, plan for next session tomorrow * Permanently discontinue home Midodrine * Continue antihypertensives. Will titrate as needed based on BP trend. * Renally dose medications * Avoid nephrotoxins * renal diet * Cardiology note reviewed * Neurology note reviewed Subjective Date of service: 10/28/20 Principal diagnosis: ? CVA Interval history: Seen on dialysis today. Blood pressures soft this morning. Objective - Exam Narrative Exam: Constitutional: No acute distress Head: Normocephalic/atraumatic Neck: Supple Lungs: Clear to auscultation bilaterally Cardiovascular: RRR, no M/R/G Abdomen: Soft, nontender, NABS Back, nontender Extremities: No edema, pulses within normal limits Skin: Intact, no rash Neuro: Alert - Vital Signs Vital signs: Vital Signs - 12hr 10/28/20 10/28/20 10/28/20 08:14 10:00 10:10 Temperature 98.0 F 98.0 F Pulse Rate 52 L 53 L Respiratory 20 18 Rate Blood Pressure 147/52 105/51 O2 Sat by Pulse 100 97 Oximetry 10/28/20 10/28/20 10/28/20 10:25 10:30 10:45 Temperature Pulse Rate 53 L 55 L 52 L Respiratory Rate Blood Pressure 90/44 108/43 95/42 O2 Sat by Pulse Oximetry 10/28/20 10/28/20 10/28/20 11:00 11:15 11:30 Temperature Pulse Rate 54 L 54 L 59 L Respiratory Rate Blood Pressure 92/44 91/40 93/41 O2 Sat by Pulse Oximetry 10/28/20 10/28/20 10/28/20 11:45 12:00 12:15 Temperature Pulse Rate 54 L 55 L 55 L Respiratory Rate Blood Pressure 106/48 107/48 141/55 O2 Sat by Pulse Oximetry 10/28/20 10/28/20 10/28/20 12:30 12:45 12:48 Temperature Pulse Rate 54 L 58 L Respiratory 18 Rate Blood Pressure 128/52 145/57 O2 Sat by Pulse 96 Oximetry 10/28/20 10/28/20 10/28/20 13:00 13:15 13:30 Temperature Pulse Rate 83 61 61 Respiratory Rate Blood Pressure 162/63 170/71 159/62 O2 Sat by Pulse Oximetry 10/28/20 10/28/20 10/28/20 13:45 14:20 15:25 Temperature 98.2 F Pulse Rate 59 L 61 59 L Respiratory 20 18 Rate Blood Pressure 138/54 125/51 167/55 O2 Sat by Pulse 98 Oximetry - Lab 10/26/20 15:43 10/28/20 05:44 Most recent lab results Calcium 9.3 mg/dL (8.4-10.2) 10/28/20 05:44 Medications & Allergies - Medications Allergies/Adverse Reactions: Allergies Penicillins Allergy (Verified 11/18/19 23:56) Anaphylaxis Home Medications: Home Medications Medication Instructions Recorded Confirmed Last Taken Type Cetirizine HCl [All Day Allergy] 10 mg PO DAILY #30 tablet 09/30/17 10/27/20 2 Days Ago Rx ~03/11/20 Clopidogrel Bisulfate [Plavix] 75 mg PO QDAY #30 tablet 09/30/17 10/27/20 2 Days Ago Rx ~03/11/20 Lispro Insulin [HumaLOG] 0 unit SUB-Q ACHS units 11/21/19 10/27/20 2 Days Ago Rx ~03/11/20 Aspirin 325 mg PO QDAY tablet 03/15/20 10/27/20 Unknown Rx AtorvaSTATin [Lipitor] 80 mg PO QDAY #30 tablet 03/15/20 10/27/20 Unknown Rx Furosemide [Lasix TAB] 40 mg PO QDAY #30 tablet 03/15/20 10/27/20 Unknown Rx Gabapentin 300 mg PO Q8HR #30 capsule 03/15/20 10/27/20 Unknown Rx Hydralazine HCl 50 mg PO TID PRN #90 03/15/20 10/27/20 Unknown Rx Levemir 10 units SC HS #30 03/15/20 10/27/20 Unknown Rx Levothyroxine [Synthroid] 125 mcg PO QAM #30 tablet 03/15/20 10/27/20 Unknown Rx Lispro Insulin [HumaLOG] 0 unit SUB-Q ACHS units 03/15/20 10/27/20 Unknown Rx Nitroglycerin [Nitrostat] 0.4 mg SL Q5M PRN #10 tablet 03/15/20 10/27/20 Unknown Rx Ondansetron [Zofran ODT TAB] 4 mg PO Q8HR PRN #10 tab.rapdis 03/15/20 10/27/20 Unknown Rx Xanax TAB 0.25 mg PO BID PRN #10 03/15/20 10/27/20 Unknown Rx donepeziL [Aricept] 5 mg PO QHS #30 tablet 03/15/20 10/27/20 Unknown Rx Active Medications: Generic Name Dose Route Start Last Admin Trade Name Freq PRN Reason Stop Dose Admin Acetaminophen 650 mg 10/26/20 21:57 Acetaminophen 325 Mg Tab PO Q4H PRN Pain, Mild (1-3) Alprazolam 0.25 mg 10/27/20 17:49 10/27/20 23:53 Alprazolam 0.25 Mg Tab PO 0.25 mg BID PRN Administration Anxiety Amlodipine Besylate 10 mg 10/28/20 12:00 10/28/20 15:00 Amlodipine 10 Mg Tab PO Not Given DAILY CORWIN Aspirin 325 mg 10/27/20 10:00 10/28/20 15:20 Aspirin 325 Mg Tab PO 325 mg QDAY CORWIN Administration Atorvastatin Calcium 40 mg 10/26/20 22:00 10/27/20 23:50 Atorvastatin 40 Mg Tab PO 40 mg QHS CORWIN Administration Clopidogrel Bisulfate 75 mg 10/28/20 10:00 10/28/20 15:20 Clopidogrel 75 Mg Tab PO 75 mg QDAY CORWIN Administration Dextrose 0 ml 10/26/20 21:57 Dextrose 50% In Water (25gm) 50 Ml Syringe IV Q30MIN PRN Hypoglycemia Protocol Donepezil HCl 5 mg 10/27/20 22:00 10/27/20 23:53 Donepezil 5 Mg Tab PO 5 mg QHS CORWIN Administration Furosemide 40 mg 10/28/20 06:00 10/28/20 07:00 Furosemide 40 Mg Tab PO 40 mg DAILY@0600 CORWIN Administration Gabapentin 300 mg 10/27/20 22:00 10/28/20 15:20 Gabapentin 300 Mg Cap PO 300 mg Q8HR CORWIN Administration Heparin Sodium (Porcine) 5,000 unit 10/27/20 06:00 10/28/20 15:22 Heparin 5,000 Unit/1 Ml Vial SUB-Q 5,000 unit Q8HR CORWIN Administration Hydralazine HCl 10 mg 10/27/20 09:04 10/27/20 19:01 Hydralazine 20 Mg/1 Ml Inj IV 10 mg Q6HR PRN Administration SBP > 180 Hydralazine HCl 100 mg 10/27/20 22:00 10/28/20 15:20 Hydralazine 100 Mg Tab PO 100 mg Q8HR CORWIN Administration Sodium Chloride 100 mls @ 999 mls/hr 10/27/20 17:45 Nacl 0.9% IV RAMAN PRN Hypotension Insulin Human Lispro 0 unit 10/26/20 22:00 10/28/20 18:17 Insulin Lispro 100 Unit/Ml Vial 3 Ml SUB-Q 2 unit ACHS CORWIN Administration Protocol Levothyroxine Sodium 125 mcg 10/28/20 06:00 10/28/20 07:00 Levothyroxine 125 Mcg Tab PO 125 mcg DAILY@0600 CORWIN Administration Magnesium Hydroxide 30 ml 10/26/20 21:57 Magnesium Hydroxide (Mom) Oral Liqd Udc PO Q4H PRN Constipation Magnesium Hydroxide 30 ml 10/26/20 21:57 Magnesium Hydroxide (Mom) Oral Liqd Udc PO Q4H PRN Constipation Metoclopramide HCl 5 mg 10/26/20 21:57 Metoclopramide 10 Mg Tab PO Q6H PRN Nausea And Vomiting Metoprolol Tartrate 25 mg 10/27/20 22:00 10/28/20 15:21 Metoprolol Tartrate 25 Mg Tab PO 25 mg BID CORWIN Administration Morphine Sulfate 2 mg 10/26/20 21:57 Morphine 2 Mg/1 Ml Inj IV Q4H PRN Pain, Moderate (4-6) Ondansetron HCl 4 mg 10/26/20 21:57 Ondansetron 4 Mg/2 Ml Inj IV Q8H PRN Nausea And Vomiting Promethazine HCl 25 mg 10/26/20 21:57 Promethazine 25 Mg Rect Supp CA Q6H PRN Nausea And Vomiting Sodium Chloride 10 ml 10/26/20 22:00 10/28/20 15:21 Sodium Chloride 0.9% 10 Ml Flush Syringe IV 10 ml BID CORWIN Administration Sodium Chloride 10 ml 10/26/20 21:57 Sodium Chloride 0.9% 10 Ml Flush Syringe IV PRN PRN LINE FLUSH
[2020-10-28] MEDS: DONEPEZIL 5 MG TAB PO SCH (22:55)
[2020-10-29] MEDS: hydrALAZINE 100 MG TAB PO SCH ×4 (06:38→22:22)
[2020-10-29] MEDS: GABAPENTIN 300 MG CAP PO SCH ×4 (06:38→22:22)
[2020-10-29] MEDS: FUROSEMIDE 40 MG TAB PO SCH (06:38)
[2020-10-29] MEDS: LEVOTHYROXINE 125 MCG TAB PO SCH (06:39)
[2020-10-29] MEDS: HEPARIN 5,000 UNIT/1 ML VIAL SUB-Q SCH ×4 (06:39→22:23)
[2020-10-29] MEDS: INSULIN LISPRO 100 UNIT/ML VIAL 3 mL SUB-Q SCH ×4 (07:59→22:10)
--- NOTE | 2020-10-29 10:50 | Progress Note ---
Assessment and Plan Assessment and plan: 70-year-old female with known history of CVA, dementia, diabetes mellitus, hypertension ,CHF and end-stage renal disease on dialysis on Mondays, Wednesdays and Monday presenting to the emergency room today complaining of for weakness, dizziness and problems with balance. She was at dialysis today and blood pressure was said to be quite elevated with systolic in the 260s and diastolic in the 120s. She also developed some blurry vision, nausea and vomiting and subsequently sent to the emergency room. It is unclear whether she completed a course of dialysis today. Patient denies any fever or chills, no chest pain or shortness of breath, no headaches, no abdominal pain, no diarrhea, denies any sick contacts and no contact with anyone with COVID-19. Work-up in the emergency room, CT scan of the head reveals: No acute abnormality. Chronic lacunar infarcts in both thalami. Age-related volume loss and chronic white matter changes Chest x-ray unremarkable except for atelectasis. Patient is being admitted for evaluation of possible CVA. 10/27 patient is a poor historian, awake and alert she offers no complaints, denies dizziness which apparently was her presenting symptom. She denies any f ever or chills. Denies chest pain or shortness of breath 10/28 patient complaints of dizziness. Patient has arm restraints. Apparently tried to pull out IV line and removed telemetry wire several times. Was given IV Haldol. At this time she appears fairly calm. Neurology note reviewed. Waiting for MRI brain and MRA head and neck 10/29: Patient seen and examined today while awaiting MRI/MRA we will also discuss with case management to see disposition as patient will need 24-hour care per physical therapist. Patient was seen by animal assisted therapist Pt with no occurrence of chest pain, ECG with no acute ischemic changes and Terra are noted to be less than baseline chronic troponin elevation. Lexiscan MPI stress test done 11/2019 was negative. tte reviewed - EF 55-60%, mild LVH, abnormal diastolic function, normal bubble study. Minimal CE elevation appears nonspecific at this time. No plans for additional cardiac w/u at this time. Cont home cardiac regimen. Neuro w/u in progress. Dialysis disequilibrium syndrome Presumed CVA Hypertensive emergency Type II AL in the setting of end-stage renal disease History of stroke Type 2 diabetes End-stage renal disease Hypothyroidism CAD History of CABG History of loop recorder Dementia History Interval history: Patient seen and examined today no new complaints but on discussion with physical therapist she is still unsteady on sitting and with gait and will need 24-hour care. Hospitalist Physical - Physical exam Narrative exam: VITAL SIGNS: Reviewed. GENERAL: The patient appears normally developed, Vital signs as documented. HEAD: No signs of head trauma. EYES: Pupils are equal. Extraocular motions intact. EARS: Hearing grossly intact. MOUTH: Oropharynx is normal. NECK: No adenopathy, no JVD. CHEST: Chest with diminished breath sounds bilaterally. No wheezes, rales, or rhonchi. CARDIAC: Regular rate and rhythm. S1 and S2, without murmurs, gallops, or rubs. VASCULAR: No Edema. Peripheral pulses normal and equal in all extremities. ABDOMEN: Soft, non tender and non distended. No rebound or guarding, and no masses palpated. Bowel Sounds normal. MUSCULOSKELETAL: Good range of motion of all major joints. Extremities without clubbing, cyanosis or edema. NEUROLOGIC EXAM: Alert and oriented x 3 gait not assessed as PT was in the room and stated the patient is unsteady, no gross focal sensory or strength deficits but unable to hold herself up.. Speech normal. Follows commands. PSYCHIATRIC: Mood normal. SKIN: detail exam as documented in skin assessment - Constitutional Vitals: Temp Pulse Resp BP Pulse Ox 97.6 F 50 L 18 109/38 98 10/29/20 08:00 10/29/20 08:00 10/29/20 08:00 10/29/20 08:00 10/29/20 09:10 General appearance: Present: no acute distress HEART Score - HEART Score Troponin: Troponin T 0.088 ng/mL (0.00-0.029) H 10/28/20 05:44 Results - Labs CBC & Chem 7: 10/26/20 15:43 10/28/20 05:44 Labs: Laboratory Last Values WBC 4.3 K/mm3 (4.5-11.0) L 10/26/20 15:43 RBC 3.71 M/mm3 (3.65-5.03) 10/26/20 15:43 Hgb 12.1 gm/dl (10.1-14.3) 10/26/20 15:43 Hct 36.0 % (30.3-42.9) 10/26/20 15:43 MCV 97 fl (79-97) 10/26/20 15:43 MCH 33 pg (28-32) H 10/26/20 15:43 MCHC 34 % (30-34) 10/26/20 15:43 RDW 13.4 % (13.2-15.2) 10/26/20 15:43 Plt Count 304 K/mm3 (140-440) 10/26/20 15:43 Lymph % (Auto) 26.0 % (13.4-35.0) 10/26/20 15:43 [place] % (Auto) 5.0 % (0.0-7.3) 10/26/20 15:43 Eos % (Auto) 1.2 % (0.0-4.3) 10/26/20 15:43 Baso % (Auto) 0.7 % (0.0-1.8) 10/26/20 15:43 Lymph # (Auto) 1.1 K/mm3 (1.2-5.4) L 10/26/20 15:43 [place] # (Auto) 0.2 K/mm3 (0.0-0.8) 10/26/20 15:43 Eos # (Auto) 0.1 K/mm3 (0.0-0.4) 10/26/20 15:43 Baso # (Auto) 0.0 K/mm3 (0.0-0.1) 10/26/20 15:43 Seg Neutrophils % 67.1 % (40.0-70.0) 10/26/20 15:43 Seg Neutrophils # 2.9 K/mm3 (1.8-7.7) 10/26/20 15:43 PT 29.5 Sec. (12.2-14.9) H 10/26/20 15:43 INR 2.76 (0.87-1.13) H 10/26/20 15:43 APTT 53.3 Sec. (24.2-36.6) H 10/26/20 15:43 Thrombin Time 15.2 Sec. (15.1-19.6) 10/26/20 15:43 Sodium 137 mmol/L (137-145) 10/28/20 05:44 Potassium 4.1 mmol/L (3.6-5.0) 10/28/20 05:44 Chloride 101.2 mmol/L (98-107) 10/28/20 05:44 Carbon Dioxide 26 mmol/L (22-30) 10/28/20 05:44 Anion Gap 14 mmol/L 10/28/20 05:44 BUN 47 mg/dL (7-17) H 10/28/20 05:44 Creatinine 6.1 mg/dL (0.6-1.2) H D 10/28/20 05:44 Estimated GFR 7 ml/min 10/28/20 05:44 BUN/Creatinine Ratio 8 % 10/28/20 05:44 Glucose 84 mg/dL (65-100) 10/28/20 05:44 POC Glucose 145 mg/dL (70-105) H 10/29/20 08:19 Calcium 9.3 mg/dL (8.4-10.2) 10/28/20 05:44 Total Bilirubin 0.30 mg/dL (0.1-1.2) 10/26/20 15:43 AST 18 units/L (5-40) 10/26/20 15:43 ALT 11 units/L (7-56) 10/26/20 15:43 Alkaline Phosphatase 112 units/L (35-129) 10/26/20 15:43 Troponin T 0.088 ng/mL (0.00-0.029) H 10/28/20 05:44 Total Protein 7.5 g/dL (6.3-8.2) 10/26/20 15:43 Albumin 3.5 g/dL (3.9-5) L 10/26/20 15:43 Albumin/Globulin Ratio 0.9 % 10/26/20 15:43 Triglycerides 382 mg/dL (2-149) H 10/26/20 15:43 Cholesterol 188 mg/dL (50-199) 10/26/20 15:43 LDL Cholesterol Direct 114 mg/dL (50-130) 10/26/20 15:43 HDL Cholesterol 36 mg/dL (40-59) L 10/26/20 15:43 Cholesterol/HDL Ratio 5.22 % 10/26/20 15:43 Lipase 41 units/L (13-60) 10/26/20 15:43 Hepatitis A IgM Ab Non-reactive (NonReactive) 10/28/20 05:44 Hep Bs Antigen Non-reactive (Negative) 10/28/20 05:44 Hep B Core IgM Ab Non-reactive (NonReactive) 10/28/20 05:44 Hepatitis C Antibody Non-reactive (NonReactive) 10/28/20 05:44 - Diagnostic Impressions Diagnostic Impressions: Echocardiogram 10/26/20 22:07 Transthoracic Echocardiogram Indication: Stroke BP: 171/126 HR: 77 Conclusions *Mild concentric left ventricular hypertrophy is observed. *Global left ventricular systolic function is normal. *The estimated ejection fraction is 55-60%. *Abnormal left ventricular diastolic function is observed. *There is no pericardial effusion. *Normal bubble study without evidence of intracardiac or intrapulmonary communication. Findings Left Ventricle: The left ventricular chamber size is normal. Mild concentric left ventricular hypertrophy is observed. Global left ventricular systolic function is normal. The estimated ejection fraction is 55-60%. Abnormal left ventricular diastolic function is observed. Left Atrium: The left atrium is mildly dilated. There is no evidence of spontaneous echo contrast in the left atrium. Right Ventricle: The right ventricular chamber size and systolic function are within normal limits. Right Atrium: The right atrium appears normal. Aortic Valve: Systolic excursion of the aortic valve is normal. Moderate aortic cusp sclerosis is present. There is no evidence of aortic regurgitation. There is no evidence of aortic stenosis. Mitral Valve: The mitral valve leaflets appear myxomatous. There is trace of mitral regurgitation. There is no evidence of mitral stenosis. Tricuspid Valve: There is trace tricuspid regurgitation. Pulmonic Valve: The pulmonic valve is not well visualized. Pericardium: There is no pericardial effusion. Contrast: Intravenous agitated saline contrast was used to assess intracardiac shunting. Measurements Chambers 2D Name Value Normal Range IVSd (2D) 1.37 cm (0.6 - 1.1) LVPWd (2D) 1.22 cm (0.6 - 1.1) LVIDd (2D) 4.02 cm (3.7 - 5.6) LVIDs (2D) 2.81 cm (2 - 3.8) LV FS (2D) 30.13 % - EF Teichholz (2D) 57.96 % - Ao root diameter (2D) 2.48 cm (2 - 3.7) Volumes/Mass Name Value Normal Range LA ESV SP 4CH (A/L) 33.11 ml - LA ESV SP 2CH (A/L) 57.91 ml - LA ESV BP (A/L) 46 ml - LA ESV SP 4CH (MOD) 31.26 ml - LA ESV SP 2CH (MOD) 56.05 ml - Diastolic/Systolic Function Name Value Normal Range MV E-wave Vmax 1.04 m/sec - MV deceleration time 245.19 msec - MV A-wave Vmax 0.87 m/sec - MV E:A ratio 1.19 ratio - Aortic Valve Name Value Normal Range AV Vmax 1.45 m/sec - AV VTI 31.44 cm - AV peak gradient 8.44 mmHg - AV mean gradient 4.05 mmHg - LVOT diameter 1.53 cm - LVOT Vmax 1.25 m/sec - LVOT VTI 29.94 cm - LVOT peak gradient 6.22 mmHg - LVOT mean gradient 3.14 mmHg - SV LVOT 54.79 ml - YULISSA (continuity Vmax) 1.57 cm2 - YULISSA (continuity VTI) 1.74 cm2 - AR PHT 546.88 msec - AR peak gradient 15.69 mmHg - Ascending Ao 2.75 cm - Tricuspid Valve Name Value Normal Range TR Vmax 3.62 m/sec - TR peak gradient 52.5 mmHg - IVC diameter 1.94 cm (1.2 - 2.3) Pulmonic Valve/Qp:Qs Name Value Normal Range PV Vmax 1.06 m/sec - PV peak gradient 4.53 mmHg - MT end-diastolic Vmax 1.33 m/sec - PV acceleration time 76.12 msec - Fuchs/IV: Voiding Method Incontinent IV Catheter Type [Left Forearm INT / Saline Lock ] IV Catheter Type [Right Upper AV fistula arm] Active Medications - Current Medications Current Medications: Generic Name Dose Route Start Last Admin Trade Name Freq PRN Reason Stop Dose Admin Acetaminophen 650 mg 10/26/20 21:57 Acetaminophen 325 Mg Tab PO Q4H PRN Pain, Mild (1-3) Alprazolam 0.25 mg 10/27/20 17:49 10/27/20 23:53 Alprazolam 0.25 Mg Tab PO 0.25 mg BID PRN Administration Anxiety Aspirin 325 mg 10/27/20 10:00 10/28/20 15:20 Aspirin 325 Mg Tab PO 325 mg QDAY CORWIN Administration Atorvastatin Calcium 40 mg 10/26/20 22:00 10/28/20 22:55 Atorvastatin 40 Mg Tab PO 40 mg QHS CORWIN Administration Clopidogrel Bisulfate 75 mg 10/28/20 10:00 10/28/20 15:20 Clopidogrel 75 Mg Tab PO 75 mg QDAY CORWIN Administration Dextrose 0 ml 10/26/20 21:57 Dextrose 50% In Water (25gm) 50 Ml Syringe IV Q30MIN PRN Hypoglycemia Protocol Donepezil HCl 5 mg 10/27/20 22:00 10/28/20 22:55 Donepezil 5 Mg Tab PO 5 mg QHS CORWIN Administration Furosemide 40 mg 10/28/20 06:00 10/29/20 06:38 Furosemide 40 Mg Tab PO 40 mg DAILY@0600 CORWIN Administration Gabapentin 300 mg 10/27/20 22:00 10/29/20 06:38 Gabapentin 300 Mg Cap PO 300 mg Q8HR CORWIN Administration Heparin Sodium (Porcine) 5,000 unit 10/27/20 06:00 10/29/20 06:39 Heparin 5,000 Unit/1 Ml Vial SUB-Q 5,000 unit Q8HR CORWIN Administration Hydralazine HCl 10 mg 10/27/20 09:04 10/27/20 19:01 Hydralazine 20 Mg/1 Ml Inj IV 10 mg Q6HR PRN Administration SBP > 180 Hydralazine HCl 100 mg 10/27/20 22:00 10/29/20 06:38 Hydralazine 100 Mg Tab PO 100 mg Q8HR CORWIN Administration Sodium Chloride 100 mls @ 999 mls/hr 10/27/20 17:45 Nacl 0.9% IV RAMAN PRN Hypotension Insulin Human Lispro 0 unit 10/26/20 22:00 10/28/20 22:55 Insulin Lispro 100 Unit/Ml Vial 3 Ml SUB-Q Not Given ACHS [facility] Protocol Levothyroxine Sodium 125 mcg 10/28/20 06:00 10/29/20 06:39 Levothyroxine 125 Mcg Tab PO 125 mcg DAILY@0600 CORWIN Administration Magnesium Hydroxide 30 ml 10/26/20 21:57 Magnesium Hydroxide (Mom) Oral Liqd Udc PO Q4H PRN Constipation Magnesium Hydroxide 30 ml 10/26/20 21:57 Magnesium Hydroxide (Mom) Oral Liqd Udc PO Q4H PRN Constipation Metoclopramide HCl 5 mg 10/26/20 21:57 Metoclopramide 10 Mg Tab PO Q6H PRN Nausea And Vomiting Metoprolol Tartrate 25 mg 10/27/20 22:00 10/28/20 22:55 Metoprolol Tartrate 25 Mg Tab PO Not Given BID CORWIN Morphine Sulfate 2 mg 10/26/20 21:57 Morphine 2 Mg/1 Ml Inj IV Q4H PRN Pain, Moderate (4-6) Ondansetron HCl 4 mg 10/26/20 21:57 Ondansetron 4 Mg/2 Ml Inj IV Q8H PRN Nausea And Vomiting Promethazine HCl 25 mg 10/26/20 21:57 Promethazine 25 Mg Rect Supp MT Q6H PRN Nausea And Vomiting Sodium Chloride 10 ml 10/26/20 22:00 10/28/20 22:55 Sodium Chloride 0.9% 10 Ml Flush Syringe IV 10 ml BID CORWIN Administration Sodium Chloride 10 ml 10/26/20 21:57 Sodium Chloride 0.9% 10 Ml Flush Syringe IV PRN PRN LINE FLUSH Nutrition/Malnutrition Assess - Dietary Evaluation Nutrition/Malnutrition Findings: Nutrition Notes Start: 10/27/20 12:27 Freq: Status: Active Protocol: Document 10/28/20 13:46 CW (Rec: 10/28/20 13:49 CW [email or web address]) Co-Sign 10/28/20 13:46 MK Nutrition Notes 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 Pt out of the room for HD. Per chart, no intakes or quentin score recorded. Nutrition Intervention Anticipated Discharge Needs: Cardiac/Consistent CHO Follow-Up By: 10/29/20 Additional Comments FU for diet education, full assessment
[2020-10-29] MEDS: METOPROLOL TARTRATE 25 MG TAB PO SCH ×3 (10:59→22:23)
--- NOTE | 2020-10-29 11:10 | Progress Note ---
Assessment and Plan Pt with no occurrence of chest pain, ECG with no acute ischemic changes and Terra are noted to be less than baseline chronic troponin elevation. Lexiscan MPI stress test done 11/2019 was negative. tte reviewed - EF 55-60%, mild LVH, abnormal diastolic function, normal bubble study. Minimal CE elevation appears nonspecific at this time. No plans for additional cardiac w/u at this time. Cont home cardiac regimen. Neuro w/u in progress. Will follow. The patient has been seen in conjunction with Dr. Crystal Borrego who agrees with the assessment and plan of care. - Patient Problems (1) CVA Current Visit: Yes Status: Suspected (2) Hypertensive emergency Current Visit: Yes Status: Acute (3) ESRD on hemodialysis Current Visit: Yes Status: Chronic (5) Elevated troponin Current Visit: Yes Status: Acute (6) Coronary artery disease Current Visit: Yes Status: Chronic (7) History of coronary artery bypass graft Current Visit: Yes Status: Chronic (8) History of loop recorder Current Visit: Yes Status: Chronic (10) Diabetes Current Visit: Yes Status: Chronic (11) History of CVA (cerebrovascular accident) Current Visit: Yes Status: Chronic (12) Dementia Current Visit: Yes Status: Chronic Subjective Date of service: 10/29/20 Principal diagnosis: ? CVA Interval history: pt resting in bed, no current cardiac complaints. c/o blurred vision, developed some agitation and required restraints overnight. tele reviewed - in SR with SB HR 50s noted overnight. Objective Last Vital Signs Temp 97.6 F 10/29/20 08:00 Pulse 50 L 10/29/20 08:00 Resp 18 10/29/20 08:00 BP 109/38 10/29/20 08:00 Pulse Ox 98 10/29/20 09:10 - Physical Examination General: No Apparent Distress HEENT: Positive: PERRL, Normocephaly, Mucus Membranes Moist Neck: Positive: neck supple, trachea midline Cardiac: Positive: Reg Rate and Rhythm, S1/S2 Lungs: Positive: Decreased Breath Sounds Neuro: Positive: Grossly Intact Abdomen: Negative: Tender Skin: Negative: Rash Musculoskeletal: No Pain Extremities: Absent: edema - Imaging and Cardiology EKG: report reviewed, image reviewed Echo: report reviewed (03/2020 showed EF 55-60%, mod LVH, grade II diastolic dysfunction, mild MR. ) Cardiac cath: report reviewed ( done here in 09/2017 showed patent SVG to LAD with anastomoses to the mid LAD and a proximal diagonal branch of the LAD. Diffuse small vessel disease of the Cx and RCA. Medical therapy was recommended. ) - EKG Sinus rhythms and dysrhythmias: sinus rhythm Chamber hypertrophy or enlargement: left ventricular hypertro
[2020-10-29] MEDS: ASPIRIN 325 MG TAB PO SCH (13:27)
[2020-10-29] MEDS: CLOPIDOGREL 75 MG TAB PO SCH (13:27)
--- NOTE | 2020-10-29 14:37 | Magnetic Resonance Report ---
MRI BRAIN WITHOUT CONTRAST INDICATION / CLINICAL INFORMATION: stroke. TECHNIQUE: Multiplanar, multisequence MR images of the brain were obtained. COMPARISON: None available. FINDINGS: BRAIN / INTRACRANIAL CONTENTS: Moderate parenchymal volume loss is demonstrated. Dilatation of the co rtical sulci and ventricular system is noted in excess of that expected for the patient's stated age of 70 years. Extensive periventricular and deep white matter hyperintensities are noted consistent wi th advanced microvascular ischemic changes. There is no mass effect. No evidence of intracranial hemo rrhage or extra-axial fluid collection is seen. There is no indication of remote cortical infarction. Diffusion weighted scans are negative. There is no indication of acute ischemic injury. Evaluation the brainstem is remarkable for signal changes within the josephine suggesting microvascular is chemia. A remote small deep pontine infarction cannot be excluded. CRANIOCERVICAL JUNCTION: No abnormalities are identified at the craniocervical junction. VASCULAR FLOW-VOIDS: Normal flow-voids are present within the major intracranial vessels. ORBITS: Status post bilateral cataract surgery. Orbits have an otherwise unremarkable appearance. SINUSES / MASTOIDS: There is no indication of inflammatory disease in the paranasal sinuses. Inflamma tory changes are present in the left-sided mastoid air cells. IMPRESSION: 1. Moderate parenchymal volume loss and microvascular ischemic changes are greater than expected for the patient's age of 70 years. 2. No indication of recent infarction or other acute intracranial abnormality. Signer Name: Matt Germain MD Signed: 10/29/2020 2:33 PM Workstation Name: [id number]
[2020-10-29] MEDS: ALPRAZolam 0.25 MG TAB PO PRN (20:18)
[2020-10-29] MEDS: DONEPEZIL 5 MG TAB PO SCH ×2 (20:19→22:22)
[2020-10-30] MEDS: GABAPENTIN 300 MG CAP PO SCH ×2 (05:33→14:42)
[2020-10-30] MEDS: FUROSEMIDE 40 MG TAB PO SCH (05:34)
[2020-10-30] MEDS: hydrALAZINE 100 MG TAB PO SCH ×2 (05:34→15:56)
[2020-10-30] MEDS: LEVOTHYROXINE 125 MCG TAB PO SCH (05:34)
[2020-10-30] MEDS: HEPARIN 5,000 UNIT/1 ML VIAL SUB-Q SCH ×2 (05:34→14:43)
--- NOTE | 2020-10-30 10:01 | Progress Note ---
Assessment and Plan Pt with no occurrence of chest pain, ECG with no acute ischemic changes and Terra are noted to be less than baseline chronic troponin elevation. Lexiscan MPI stress test done 11/2019 was negative. tte reviewed - EF 55-60%, mild LVH, abnormal diastolic function, normal bubble study. Minimal CE elevation appears nonspecific at this time. No plans for additional cardiac w/u at this time. Cont home cardiac regimen. Neuro w/u in progress. Nothing further to add from a cardiac perspective at this time. Will follow on as needed basis. Recommend pt follow up in our office with Dr. Crystal Borrego within 2 weeks of discharge ([phone]). The patient has been seen in conjunction with Dr. Crystal Borrego who agrees with the assessment and plan of care. - Patient Problems (1) CVA Current Visit: Yes Status: Suspected (2) Hypertensive emergency Current Visit: Yes Status: Acute (3) ESRD on hemodialysis Current Visit: Yes Status: Chronic (5) Elevated troponin Current Visit: Yes Status: Acute (6) Coronary artery disease Current Visit: Yes Status: Chronic (7) History of coronary artery bypass graft Current Visit: Yes Status: Chronic (8) History of loop recorder Current Visit: Yes Status: Chronic (10) Diabetes Current Visit: Yes Status: Chronic (11) History of CVA (cerebrovascular accident) Current Visit: Yes Status: Chronic (12) Dementia Current Visit: Yes Status: Chronic Subjective Date of service: 10/30/20 Principal diagnosis: ? CVA Interval history: pt resting in bed, no current cardiac complaints. remains intermittently confused, agitated restrained. tele reviewed - in SR with SB HR 60s noted overnight. Objective Last Vital Signs Temp 97.5 F L 10/30/20 08:39 Pulse 64 10/30/20 08:39 Resp 18 10/30/20 08:39 BP 109/31 10/30/20 08:39 Pulse Ox 100 10/30/20 08:39 - Physical Examination General: No Apparent Distress HEENT: Positive: PERRL, Normocephaly, Mucus Membranes Moist Neck: Positive: neck supple, trachea midline Cardiac: Positive: Reg Rate and Rhythm, S1/S2 Lungs: Positive: Decreased Breath Sounds Neuro: Positive: Grossly Intact Abdomen: Negative: Tender Skin: Negative: Rash Musculoskeletal: No Pain Extremities: Absent: edema - Imaging and Cardiology EKG: report reviewed, image reviewed Echo: report reviewed (03/2020 showed EF 55-60%, mod LVH, grade II diastolic dysfunction, mild MR. ) Cardiac cath: report reviewed ( done here in 09/2017 showed patent SVG to LAD with anastomoses to the mid LAD and a proximal diagonal branch of the LAD. Diffuse small vessel disease of the Cx and RCA. Medical therapy was recommended. ) - EKG Sinus rhythms and dysrhythmias: sinus rhythm Chamber hypertrophy or enlargement: left ventricular hypertro
--- NOTE | 2020-10-30 10:28 | Discharge Summary ---
Providers - Providers Date of Admission: 10/28/20 14:20 Attending physician: RERE SILVA MD 10/26/20 18:43 Consult to Physician [CONS] Urgent Comment: Consulting Provider: YASMANY BOYLE Physician Instructions: Reason For Exam: esrd on dialysis 10/26/20 22:02 Consult to Dietitian/Nutrition [CONS] Routine Physician Instructions: Reason For Exam: Reason for Consult: Diet education Occupational Therapy Evaluate and Treat [CONS] Routine Comment: Reason For Exam: Neuro deficits Physical Therapy Evaluation and Treat [CONS] Routine Comment: Reason For Exam: Neuro deficits 10/26/20 22:09 Consult to Physician [CONS] Routine Comment: Consulting Provider: ANTONY ALFARO Physician Instructions: Reason For Exam: Dizziness, Unsteady gait R/O CVA 10/27/20 08:27 Consult to Physician [CONS] Routine Comment: Consulting Provider: KIMBERLY JOSE Physician Instructions: Reason For Exam: elevated troponin Primary care physician: MANAGER TECHNOLOGY Hospitalization Reason for admission: dialysis Condition: Stable Hospital course: 70-year-old female with known history of CVA, dementia, diabetes mellitus, hypertension ,CHF and end-stage renal disease on dialysis on Mondays, Wednesdays and Monday presenting to the emergency room today complaining of for weakness, dizziness and problems with balance. She was at dialysis today and blood pressure was said to be quite elevated with systolic in the 260s and diastolic in the 120s. She also developed some blurry vision, nausea and vomiting and subsequently sent to the emergency room. It is unclear whether she completed a course of dialysis today. Patient denies any fever or chills, no chest pain or shortness of breath, no headaches, no abdominal pain, no diarrhea, denies any sick contacts and no contact with anyone with COVID-19. Work-up in the emergency room, CT scan of the head reveals: No acute abnormality. Chronic lacunar infarcts in both thalami. Age-related volume loss and chronic white matter changes Chest x-ray unremarkable except for atelectasis. Patient is being admitted for evaluation of possible CVA. 10/27 patient is a poor historian, awake and alert she offers no complaints, denies dizziness which apparently was her presenting symptom. She denies any fever or chills. Denies chest pain or shortness of breath 10/28 patient complaints of dizziness. Patient has arm restraints. Apparently tried to pull out IV line and removed telemetry wire several times. Was given IV Haldol. At this time she appears fairly calm. Neurology note reviewed. Waiting for MRI brain and MRA head and neck 10/29: Patient seen and examined today while awaiting MRI/MRA we will also discuss with case management to see disposition as patient will need 24-hour care per physical therapist. Patient was seen by reference assistant Pt with no occurrence of chest pain, ECG with no acute ischemic changes and Terra are noted to be less than baseline chronic troponin elevation. Lexiscan MPI stress test done 11/2019 was negative. tte reviewed - EF 55-60%, mild LVH, abnormal diastolic function, normal bubble study. Minimal CE elevation appears nonspecific at this time. No plans for additional cardiac w/u at this time. Cont home cardiac regimen. Neuro w/u in progress. 10/30: Per cm Initial assessment completed and can be viewed under Patient Care then Provider type (supervisor case loading) tab. PATRICK Felder daughter [phone]. Per daughter patient is total care, lives with her, receive [facility] w/ Guardian Transportation daughter will pick patient up Continue to follow for safe discharge planning. must take bp meds MRI NEGATIVE FOR ACUTE CVA bp better controlled she did have some mild vaginal bleed, we recommended outpt nurse gynecology EVALUATION considering her age. 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 History of stroke Type 2 diabetes End-stage renal disease Hypothyroidism CAD History of CABG History of loop recorder Dementia (1) CVA Current Visit: Yes Status: Suspected (2) Hypertensive emergency Current Visit: Yes Status: Acute (3) ESRD on hemodialysis Current Visit: Yes Status: Chronic (5) Elevated troponin Current Visit: Yes Status: Acute (6) Coronary artery disease Current Visit: Yes Status: Chronic (7) History of coronary artery bypass graft Current Visit: Yes Status: Chronic (8) History of loop recorder Current Visit: Yes Status: Chronic (10) Diabetes Current Visit: Yes Status: Chronic (11) History of CVA (cerebrovascular accident) Current Visit: Yes Status: Chronic (12) Dementia Current Visit: Yes Status: Chronic Disposition: DC/TX-06 HOME UNDER HOME HLTH Time spent for discharge: 35 mins Core Measure Documentation - Palliative Care Palliative Care/ Comfort Measures: Not Applicable - Core Measures Any of the following diagnoses?: none Exam - Physical Exam Narrative exam: VITAL SIGNS: Reviewed. GENERAL: The patient appears normally developed, Vital signs as documented. HEAD: No signs of head trauma. EYES: Pupils are equal. Extraocular motions intact. EARS: Hearing grossly intact. MOUTH: Oropharynx is normal. NECK: No adenopathy, no JVD. CHEST: Chest with diminished breath sounds bilaterally. No wheezes, rales, or rhonchi. CARDIAC: Regular rate and rhythm. S1 and S2, without murmurs, gallops, or rubs. VASCULAR: No Edema. Peripheral pulses normal and equal in all extremities. ABDOMEN: Soft, non tender and non distended. No rebound or guarding, and no masses palpated. Bowel Sounds normal. MUSCULOSKELETAL: Good range of motion of all major joints. Extremities without clubbing, cyanosis or edema. NEUROLOGIC EXAM: Alert and oriented x 3 gait not assessed as PT was in the room and stated the patient is unsteady, no gross focal sensory or strength deficits but unable to hold herself up.. Speech normal. Follows commands. PSYCHIATRIC: Mood normal. SKIN: detail exam as documented in skin assessment - Constitutional Vitals: Temp Pulse Resp BP Pulse Ox 97.5 F L 64 18 109/31 100 10/30/20 08:39 10/30/20 08:39 10/30/20 08:39 10/30/20 08:39 10/30/20 08:39 Plan Activity: advance as tolerated, fall precautions Diet: low fat, renal Special Instructions: record daily weights, record daily BP diary, record blood sugar diary Additional Instructions: must take BP meds Follow up with: SARAH MINAYA MD [Primary Care Provider] - 3-5 Days YOU ROSA MD [Staff Physician] - 7 Days KIMBERLY JOSE MD [Staff Physician] - 7 Days DEVANG XAVIER MD [Staff Physician] - 7 Days
[2020-10-30] MEDS: INSULIN LISPRO 100 UNIT/ML VIAL 3 mL SUB-Q SCH ×2 (10:37→14:07)
[2020-10-30] MEDS: METOPROLOL TARTRATE 25 MG TAB PO SCH (14:42)
[2020-10-30] MEDS: CLOPIDOGREL 75 MG TAB PO SCH (14:42)
[2020-10-30] MEDS: ASPIRIN 325 MG TAB PO SCH (14:42)
[2020-10-30 14:43] VITALS: BP 126/46
--- NOTE | 2020-10-30 16:29 | Progress Note ---
Assessment and Plan Assessment * End-stage renal disease on hemodialysis * Hypertensive urgency * nausea/vomiting * Anemia of end stage renal disease * Hyperparathyroidism * Dementia * Dizziness Recommendations * Seen on HD today * Permanently discontinue home Midodrine * Continue antihypertensives. Monitor trend for further titration. * Renally dose medications * Avoid nephrotoxins * renal diet * Cardiology note reviewed * Neurology note reviewed Subjective Date of service: 10/30/20 Principal diagnosis: ? CVA Interval history: Seen on dialysis today. Hemodynamically stable. Objective - Exam Narrative Exam: Constitutional: No acute distress Head: Normocephalic/atraumatic Neck: Supple Lungs: Clear to auscultation bilaterally Cardiovascular: RRR, no M/R/G Abdomen: Soft, nontender, NABS Back, nontender Extremities: No edema, pulses within normal limits Skin: Intact, no rash Neuro: Alert - Vital Signs Vital signs: Vital Signs - 12hr 10/30/20 10/30/20 10/30/20 08:39 09:00 14:31 Temperature 97.5 F L Pulse Rate 64 Respiratory 18 18 Rate Blood Pressure 109/31 O2 Sat by Pulse 100 100 Oximetry 10/30/20 14:42 Temperature Pulse Rate 66 Respiratory Rate Blood Pressure 126/46 O2 Sat by Pulse Oximetry - Lab 10/26/20 15:43 10/28/20 05:44 Most recent lab results Calcium 9.3 mg/dL (8.4-10.2) 10/28/20 05:44 Medications & Allergies - Medications Allergies/Adverse Reactions: Allergies Penicillins Allergy (Verified 11/18/19 23:56) Anaphylaxis Home Medications: Home Medications Medication Instructions Recorded Confirmed Last Taken Type Cetirizine HCl [All Day Allergy] 10 mg PO DAILY #30 tablet 09/30/17 10/27/20 2 Days Ago Rx ~03/11/20 Clopidogrel Bisulfate [Plavix] 75 mg PO QDAY #30 tablet 09/30/17 10/27/20 2 Days Ago Rx ~03/11/20 Lispro Insulin [HumaLOG] 0 unit SUB-Q ACHS units 11/21/19 10/27/20 2 Days Ago Rx ~03/11/20 Aspirin 325 mg PO QDAY tablet 03/15/20 10/27/20 Unknown Rx AtorvaSTATin [Lipitor] 80 mg PO QDAY #30 tablet 03/15/20 10/27/20 Unknown Rx Furosemide [Lasix TAB] 40 mg PO QDAY #30 tablet 03/15/20 10/27/20 Unknown Rx Gabapentin 300 mg PO Q8HR #30 capsule 03/15/20 10/27/20 Unknown Rx Hydralazine HCl 50 mg PO TID PRN #90 03/15/20 10/27/20 Unknown Rx Levemir 10 units SC HS #30 03/15/20 10/27/20 Unknown Rx Levothyroxine [Synthroid] 125 mcg PO QAM #30 tablet 03/15/20 10/27/20 Unknown Rx Lispro Insulin [HumaLOG] 0 unit SUB-Q ACHS units 03/15/20 10/27/20 Unknown Rx Nitroglycerin [Nitrostat] 0.4 mg SL Q5M PRN #10 tablet 03/15/20 10/27/20 Unknown Rx Ondansetron [Zofran ODT TAB] 4 mg PO Q8HR PRN #10 tab.rapdis 03/15/20 10/27/20 Unknown Rx Xanax TAB 0.25 mg PO BID PRN #10 03/15/20 10/27/20 Unknown Rx donepeziL [Aricept] 5 mg PO QHS #30 tablet 03/15/20 10/27/20 Unknown Rx Active Medications: Generic Name Dose Route Start Last Admin Trade Name Freq PRN Reason Stop Dose Admin Acetaminophen 650 mg 10/26/20 21:57 Acetaminophen 325 Mg Tab PO Q4H PRN Pain, Mild (1-3) Alprazolam 0.25 mg 10/27/20 17:49 10/29/20 20:18 Alprazolam 0.25 Mg Tab PO 0.25 mg BID PRN Administration Anxiety Aspirin 325 mg 10/27/20 10:00 10/30/20 14:42 Aspirin 325 Mg Tab PO 325 mg QDAY CORWIN Administration Atorvastatin Calcium 40 mg 10/26/20 22:00 10/29/20 22:23 Atorvastatin 40 Mg Tab PO Not Given QHS CORWIN Clopidogrel Bisulfate 75 mg 10/28/20 10:00 10/30/20 14:42 Clopidogrel 75 Mg Tab PO 75 mg QDAY CORWIN Administration Dextrose 0 ml 10/26/20 21:57 Dextrose 50% In Water (25gm) 50 Ml Syringe IV Q30MIN PRN Hypoglycemia Protocol Donepezil HCl 5 mg 10/27/20 22:00 10/29/20 22:22 Donepezil 5 Mg Tab PO Not Given QHS CORWIN Furosemide 40 mg 10/28/20 06:00 10/30/20 05:34 Furosemide 40 Mg Tab PO 40 mg DAILY@0600 [facility] Administration Gabapentin 300 mg 10/27/20 22:00 10/30/20 14:42 Gabapentin 300 Mg Cap PO 300 mg Q8HR [facility] Administration Heparin Sodium (Porcine) 5,000 unit 10/27/20 06:00 10/30/20 14:43 Heparin 5,000 Unit/1 Ml Vial SUB-Q 5,000 unit Q8HR [facility] Administration Hydralazine HCl 10 mg 10/27/20 09:04 10/27/20 19:01 Hydralazine 20 Mg/1 Ml Inj IV 10 mg Q6HR PRN Administration SBP > 180 Hydralazine HCl 100 mg 10/27/20 22:00 10/30/20 15:56 Hydralazine 100 Mg Tab PO Not Given Q8HR [facility] Sodium Chloride 100 mls @ 999 mls/hr 10/27/20 17:45 Nacl 0.9% IV RAMAN PRN Hypotension Insulin Human Lispro 0 unit 10/26/20 22:00 10/30/20 14:07 Insulin Lispro 100 Unit/Ml Vial 3 Ml SUB-Q Not Given ACHS [facility] Protocol Levothyroxine Sodium 125 mcg 10/28/20 06:00 10/30/20 05:34 Levothyroxine 125 Mcg Tab PO 125 mcg DAILY@0600 [facility] Administration Magnesium Hydroxide 30 ml 10/26/20 21:57 Magnesium Hydroxide (Mom) Oral Liqd Udc PO Q4H PRN Constipation Metoclopramide HCl 5 mg 10/26/20 21:57 Metoclopramide 10 Mg Tab PO Q6H PRN Nausea And Vomiting Metoprolol Tartrate 25 mg 10/27/20 22:00 10/30/20 14:42 Metoprolol Tartrate 25 Mg Tab PO 25 mg BID [facility] Administration Morphine Sulfate 2 mg 10/26/20 21:57 Morphine 2 Mg/1 Ml Inj IV Q4H PRN Pain, Moderate (4-6) Ondansetron HCl 4 mg 10/26/20 21:57 Ondansetron 4 Mg/2 Ml Inj IV Q8H PRN Nausea And Vomiting Promethazine HCl 25 mg 10/26/20 21:57 Promethazine 25 Mg Rect Supp FL Q6H PRN Nausea And Vomiting Sodium Chloride 10 ml 10/26/20 22:00 10/30/20 10:37 Sodium Chloride 0.9% 10 Ml Flush Syringe IV Not Given BID CORWIN Sodium Chloride 10 ml 10/26/20 21:57 Sodium Chloride 0.9% 10 Ml Flush Syringe IV PRN PRN LINE FLUSH
== END 2020-10-30 18:51 | disposition home health service (06) | DRG 280 ==
LOC: ED 15:05 → 4A 22:02 → OBSVTOIN 10-28 14:20
PROVIDERS: ADMIT Internal Medicine Geriatric Medicine; ATTEND Internal Medicine
PROC: 5A1D70Z Performance of Urinary Filtration, Intermittent, Less than 6 Hours Per Day (ICD-10-PCS; principal; 2020-10-28)
PROC: 5A1D70Z Performance of Urinary Filtration, Intermittent, Less than 6 Hours Per Day (ICD-10-PCS; 2020-10-30)
DX: I13.2 Hypertensive heart and chronic kidney disease with heart failure and with stage 5 chronic kidney disease, or end stage renal disease (principal); N18.6 End stage renal disease; I21.A1 Myocardial infarction type 2; I16.1 Hypertensive emergency; N30.90 Cystitis, unspecified without hematuria; E11.22 Type 2 diabetes mellitus with diabetic chronic kidney disease; F03.90 Unspecified dementia, unspecified severity, without behavioral disturbance, psychotic disturbance, mood disturbance, and anxiety; E03.9 Hypothyroidism, unspecified; D63.1 Anemia in chronic kidney disease; I50.9 Heart failure, unspecified; N93.9 Abnormal uterine and vaginal bleeding, unspecified; E21.3 Hyperparathyroidism, unspecified; I25.10 Atherosclerotic heart disease of native coronary artery without angina pectoris; Z79.4 Long term (current) use of insulin; Z79.82 Long term (current) use of aspirin; Z99.2 Dependence on renal dialysis; Z88.0 Allergy status to penicillin; Z95.1 Presence of aortocoronary bypass graft; Z87.891 Personal history of nicotine dependence
CPT/HCPCS: 36415; 70450; 70551; 71045; 74176; 80048; 80053; 80061; 80074; 82962; 83690; 84484; 85025; 85610; 85670; 85730; 87641; 93005; 93306; 93880; 94760; 96365; 96372; 96375; G0378; A9270-GY; J0360; J1630; J1644; J1815; J1956; J2405; J7040

== ENCOUNTER 2021-05-24 14:29 | Emergency (ER) | payer MEDICARE ==
[2021-05-24] MEDS ORDERED: cloNIDine 0.2 MG TAB PO ONE (16:56)
--- NOTE | 2021-05-24 17:31 | Emergency Department Report ---
HPI - General Chief Complaint: Dizziness Time Seen by Provider: 05/24/21 16:55 - HPI HPI: Room 2 The patient is a 70-year-old female present with chief complaint of dizziness. The patient was reportedly at hemodialysis when she began complaining of dizz iness. Patient was found to be hypertensive and subsequently sent to the ED for further management from hemodialysis. The patient's daughter arrives in the ED and states that the patient complains of dizziness daily for the past 4 years and is not out of the ordinary. In the ED the patient currently denies complaints ED Past Medical Hx - Past Medical History Hx Hypertension: Yes Hx CVA: Yes Hx Congestive Heart Failure: Yes Hx Diabetes: Yes Hx Renal Disease: Yes ([id number]) Hx Dementia: Yes Additional medical history: hypothyroidism fx humerus/ - Surgical History Additional Surgical History: right AV fistula - Family History Family history: no significant - Social History Smoking Status: Never Smoker Substance Use Type: None - Medications Home Medications: Home Medications Medication Instructions Recorded Confirmed Last Taken Type Cetirizine HCl [All Day Allergy] 10 mg PO DAILY #30 tablet 09/30/17 10/27/20 2 Days Ago Rx ~03/11/20 Clopidogrel Bisulfate [Plavix] 75 mg PO QDAY #30 tablet 09/30/17 10/27/20 2 Days Ago Rx ~03/11/20 Lispro Insulin [HumaLOG] 0 unit SUB-Q ACHS units 11/21/19 10/27/20 2 Days Ago Rx ~03/11/20 Aspirin 325 mg PO QDAY tablet 03/15/20 10/27/20 Unknown Rx AtorvaSTATin [Lipitor] 80 mg PO QDAY #30 tablet 03/15/20 10/27/20 Unknown Rx Furosemide [Lasix TAB] 40 mg PO QDAY #30 tablet 03/15/20 10/27/20 Unknown Rx Gabapentin 300 mg PO Q8HR #30 capsule 03/15/20 10/27/20 Unknown Rx Hydralazine HCl 50 mg PO TID PRN #90 03/15/20 10/27/20 Unknown Rx Levemir 10 units SC HS #30 03/15/20 10/27/20 Unknown Rx Levothyroxine [Synthroid] 125 mcg PO QAM #30 tablet 03/15/20 10/27/20 Unknown Rx Lispro Insulin [HumaLOG] 0 unit SUB-Q ACHS units 03/15/20 10/27/20 Unknown Rx Nitroglycerin [Nitrostat] 0.4 mg SL Q5M PRN #10 tablet 03/15/20 10/27/20 Unknown Rx Ondansetron [Zofran ODT TAB] 4 mg PO Q8HR PRN #10 tab.rapdis 03/15/20 10/27/20 Unknown Rx Xanax TAB 0.25 mg PO BID PRN #10 03/15/20 10/27/20 Unknown Rx donepeziL [Aricept] 5 mg PO QHS #30 tablet 03/15/20 10/27/20 Unknown Rx ED Review of Systems ROS: Stated complaint: WEAKNESS Other details as noted in HPI Constitutional: no symptoms reported Eyes: denies: eye pain ENT: denies: throat pain Respiratory: no symptoms reported Cardiovascular: denies: chest pain Endocrine: no symptoms reported Gastrointestinal: denies: abdominal pain Genitourinary: denies: abnormal menses Musculoskeletal: denies: back pain Neurological: other (Dizziness). denies: headache Physical Exam - Physical Exam Vital Signs: Vital Signs 05/24/21 05/24/21 15:53 17:10 Temperature 97.8 F Pulse Rate 78 Respiratory 18 Rate Blood Pressure 206/76 Blood Pressure 229/86 [Left] O2 Sat by Pulse 91 Oximetry Physical Exam: GENERAL: The patient is well-developed well-nourished female lying on stretcher not appearing to be in acute distress. [] HEENT: Normocephalic. Atraumatic. Extraocular motions are intact. Patient has moist mucous membranes. NECK: Supple. No meningitic signs are noted. Trachea midline CHEST/LUNGS: Clear to auscultation. There is no respiratory distress noted. HEART/CARDIOVASCULAR: Regular. There is no tachycardia. There is no gallop rub or murmur. ABDOMEN: Abdomen is soft, nontender. Patient has normal bowel sounds. There is no abdominal distention. SKIN: There is no rash. There is no edema. There is no diaphoresis. NEURO: The patient is awake, alert, and oriented. The patient is cooperative. The patient has normal speech. Cranial nerves II through XII grossly intact. GCS 15 MUSCULOSKELETAL:There is no evidence of acute injury. ED Course Vital Signs 05/24/21 05/24/21 15:53 17:10 Temperature 97.8 F Pulse Rate 78 Respiratory 18 Rate Blood Pressure 206/76 Blood Pressure 229/86 [Left] O2 Sat by Pulse 91 Oximetry - Reevaluation(s) Reevaluation #1: 05/24/21 19:06 I explained to the patient and patient's family elevated troponin with a likely been secondary to ESRD. I explained how I wanted to repeat the troponin and cardiac markers 3 hours from the first set to make sure the numbers are not t rending upwards. Patient and family verbalized understanding but states they would like to leave the hospital AGAINST MEDICAL ADVICE. Family verbalized understanding of increased risk of morbidity and/or mortality should he leave the hospital AGAINST MEDICAL ADVICE ED Medical Decision Making - Lab Data Result diagrams: 05/24/21 17:29 05/24/21 17:29 Laboratory Tests 05/24/21 05/24/21 05/24/21 17:29 17:29 17:29 WBC 5.6 RBC 3.24 L Hgb 10.7 Hct 32.1 MCV 99 H MCH 33 H MCHC 33 RDW 16.1 H Plt Count 350 Lymph % (Auto) 12.5 L [place] % (Auto) 6.4 Eos % (Auto) 1.9 Baso % (Auto) 1.0 Lymph # (Auto) 0.7 L [place] # (Auto) 0.4 Eos # (Auto) 0.1 Baso # (Auto) 0.1 Seg Neutrophils % 78.2 H Seg Neutrophils # 4.4 PT 13.7 INR 1.00 APTT 34.6 Sodium 136 L Potassium 3.2 L Chloride 96.6 L Carbon Dioxide 26 Anion Gap 17 BUN 15 Creatinine 3.3 H Estimated GFR 14 BUN/Creatinine Ratio 5 Glucose 144 H Calcium 8.7 Total Creatine Kinase 33 CK-MB (CK-2) 2.5 CK-MB (CK-2) Rel Index 7.5 H Troponin T 0.546 H* TSH Free T4 05/24/21 17:29 WBC RBC Hgb Hct MCV MCH MCHC RDW Plt Count Lymph % (Auto) [place] % (Auto) Eos % (Auto) Baso % (Auto) Lymph # (Auto) [place] # (Auto) Eos # (Auto) Baso # (Auto) Seg Neutrophils % Seg Neutrophils # PT INR APTT Sodium Potassium Chloride Carbon Dioxide Anion Gap BUN Creatinine Estimated GFR BUN/Creatinine Ratio Glucose Calcium Total Creatine Kinase CK-MB (CK-2) CK-MB (CK-2) Rel Index Troponin T TSH 46.320 H Free T4 1.05 - EKG Data -: EKG Interpreted by Me EKG shows normal: sinus rhythm Rate: normal - EKG Data When compared to previous EKG there are: no significant change Interpretation: unchanged when compared t (10/26/2020) - Radiology Data Radiology results: report reviewed (CT head), image reviewed (CT head) [facility] [address] [place] [address] Cat Scan Report Signed Patient: ASHISH MANNING MR#: [id number] : 1950 Acct:[id number] Age/Sex: 70 / F ADM Date: 05/24/21 Loc: ED Attending Dr: Ordering Physician: WALTER CAMARILLO MD Date of Service: 05/24/21 Procedure(s): CT head/brain wo con Accession Number(s): [id number] cc: WALTER CAMARILLO MD CT head/brain wo con INDICATION: Hypertension, dizziness. TECHNIQUE: All CT scans at this location are performed using CT dose reduction for ALARA by means of automated exposure control. COMPARISON: Brain MRI on 10/29/2020 FINDINGS: There is no evidence of hemorrhage, hydrocephalus, brain edema, or mass effect/mass lesion. There is stable moderate atrophy and chronic small vessel ischemic change in the cerebral white matter. The included paranasal sinuses and mastoid air cells are clear. The orbits appear unremarkable. IMPRESSION: 1. No acute findings or adverse change from prior exams. Signer Name: Jozef Alvarado MD Signed: 05/24/2021 5:40 PM Workstation Name: [id number] Transcribed By: LATASHA Dictated By: Jozef Alvarado MD Electronically Authenticated By: Jozef Alvarado MD Signed Date/Time: 05/24/211739 DD/ 38 TD/TT: Print Cancel - Differential Diagnosis Hypertensive urgency, intracranial mass, symptomatic anemia, dehydration Critical care attestation.: If time is entered above; I have spent that time in minutes in the direct care of this critically ill patient, excluding procedure time. ED Disposition Clinical Impression: Renal insufficiency, Hypertension, Dizziness Disposition: DC-07 LEFT AGAINST MED ADVICE Is pt being admited?: No Does the pt Need Aspirin: No Condition: Undetermined Instructions: Hypertension (ED) Time of Disposition: 19:07 (Patient leaving AMA)
--- NOTE | 2021-05-24 17:45 | Cat Scan Report ---
CT head/brain wo con INDICATION: Hypertension, dizziness. TECHNIQUE: All CT scans at this location are performed using CT dose reduction for ALARA by means of automated e xposure control. COMPARISON: Brain MRI on 10/29/2020 FINDINGS: There is no evidence of hemorrhage, hydrocephalus, brain edema, or mass effect/mass lesion. There is stable moderate atrophy and chronic small vessel ischemic change in the cerebral white matter. The in cluded paranasal sinuses and mastoid air cells are clear. The orbits appear unremarkable. IMPRESSION: 1. No acute findings or adverse change from prior exams. Signer Name: Jozef Alvarado MD Signed: 05/24/2021 5:40 PM Workstation Name: [id number]
[2021-05-24 18:08] LABS: Basophils # (Auto) 0.1 K/mm3 (0.0-0.1); Eosinophils # (Auto) 0.1 K/mm3 (0.0-0.4); Eosinophils % (Auto) 1.9 % (0.0-4.3); Hematocrit 32.1 % (30.3-42.9); Hemoglobin 10.7 gm/dl (10.1-14.3); Lymphocytes # (Auto) 0.7 K/mm3 (1.2-5.4); Lymphocytes % (Auto) 12.5 % (13.4-35.0); Mean Corpuscular HGB Conc 33 % (30-34); Mean Corpuscular Volume 99 fl (79-97); Monocytes # (Auto) 0.4 K/mm3 (0.0-0.8); Monocytes % (Auto) 6.4 % (0.0-7.3); Platelet Count 350 K/mm3 (140-440); Red Blood Count 3.24 M/mm3 (3.65-5.03); Red Cell Distribution Width 16.1 % (13.2-15.2)
[2021-05-24 18:25] LABS: Partial Thromboplastin Time 34.6 Sec. (24.2-36.6)
[2021-05-24 18:28] LABS: Calcium 8.7 mg/dL (8.4-10.2); Creatine Kinase MB 2.5 ng/mL (0.0-4.0)
[2021-05-24] MEDS ORDERED: POTASSIUM CHLORIDE ER 20 MEQ TAB PO ONE (18:36)
[2021-05-24 18:38] LABS: Free T4 (Free Thyroxine) 1.05 ng/dL (0.76-1.46)
[2021-05-24 20:25] VITALS: BP 186/65
[2021-05-25 02:20] LABS: Chol/HDL Ratio 2.97 %
--- NOTE | 2021-05-25 10:54 | Electrocardiograph Report ---
[facility] Test Date: 2021-05-24 Test Time: 16:17:16 Pat 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
== END 2021-05-24 19:50 | disposition left against medical advice (07) ==
LOC: ED 14:29
DX: N28.9 Disorder of kidney and ureter, unspecified (principal); E11.22 Type 2 diabetes mellitus with diabetic chronic kidney disease; I13.2 Hypertensive heart and chronic kidney disease with heart failure and with stage 5 chronic kidney disease, or end stage renal disease; N18.6 End stage renal disease; I50.9 Heart failure, unspecified; R42 Dizziness and giddiness; F03.90 Unspecified dementia, unspecified severity, without behavioral disturbance, psychotic disturbance, mood disturbance, and anxiety; Z98.890 Other specified postprocedural states
CPT/HCPCS: 36415; 70450; 80048; 80061; 82550; 82553; 84439; 84443; 84484; 85025; 85610; 85730; 93005; 99284